=== PATIENT | female | born 1995 | race Caucasian/White ===

== ENCOUNTER → 2016-12-30 | Outpatient (CLI) | payer BC ==
--- NOTE | 2016-12-30 09:30 | MR ---
EXAMINATION TYPE: MR pituitary wo/w con DATE OF EXAM: 12/30/2016 COMPARISON: MRI brain 06/11/2013 HISTORY: Occipital neuraglia TECHNIQUE: Multiplanar, multisequence images of the brain and brainstem is performed without and with IV contras t, utilizing 20 mL intravenous MultiHance . FINDINGS: Pituitary appears unremarkable. The suprasellar cistern appears normal. Optic chiasm is normal. The p ituitary stalk is in the midline. Enhancement pattern appears normal. The carotid siphon has normal vascular flow voids. No suspicious hypointensity or early washout of contrast is evident. Portion of the brain within the [id number] is normal. IMPRESSION: 1. Normal pituitary.
== END | disposition home or self-care (01) ==
LOC: RADMRIMAIN 06:52
PROVIDERS: ATTEND Family Medicine
DX: M54.81 Occipital neuralgia (principal)
CPT/HCPCS: 70553; A9577

== ENCOUNTER 2017-10-12 13:20 | Emergency (ER) | payer BC ==
[2017-10-12 13:55] VITALS: TEMP 98.6
[2017-10-12 14:28] LABS: Basophils % (A) 0 %; Eosinophils # (A) 0.1 k/uL (0-0.7); Eosinophils % (A) 1 %; HCT 41.2 % (34.0-46.0); HGB 13.6 gm/dL (11.4-16.0); Lymphocytes # (A) 2.3 k/uL (1.0-4.8); Lymphocytes % (A) 40 %; MCH 26.1 pg (25.0-35.0); MCV 79.2 fL (80.0-100.0); Mean Platelet Volume 6.4; Monocytes # (A) 0.2 k/uL (0-1.0); Monocytes % (A) 4 %; Neutrophils # (A) 3.1 k/uL (1.3-7.7); Neutrophils % (A) 52 %; Platelet Count 388 k/uL (150-450); RDW 12.9 % (11.5-15.5); WBC 5.9 k/uL (3.8-10.6)
[2017-10-12 14:41] LABS: ALT 32 U/L (9-52); AST 28 U/L (14-36); Albumin 4.1 g/dL (3.5-5.0); Alkaline Phosphatase 103 U/L (38-126); Amylase 49 U/L (30-110); Anion Gap 11 mmol/L; Blood Urea Nitrogen 12 mg/dL (7-17); Calcium 9.8 mg/dL (8.4-10.2); Carbon Dioxide 27 mmol/L (22-30); Chloride 103 mmol/L (98-107); Glucose 97 mg/dL (74-99); Lipase 122 U/L (23-300); Potassium 4.2 mmol/L (3.5-5.1); Sodium 141 mmol/L (137-145); Total Bilirubin 0.4 mg/dL (0.2-1.3); Total Protein 7.3 g/dL (6.3-8.2)
[2017-10-12] MEDS ORDERED: RX INFO: IV CONTRAST WAS GIVEN 1 EACH MISC MISCELLANE PRN (14:42)
[2017-10-12] MEDS ORDERED: ONDANSETRON 4 MG/2 ML VIAL IVP STA (14:43)
[2017-10-12] MEDS ORDERED: SODIUM CHLORIDE 0.9% 500 ML IV STA (14:43)
--- NOTE | 2017-10-12 14:57 | ED ---
Abdominal Pain HPI - General Chief Complaint: Abdominal Pain Stated Complaint: Upset stomach and vaginal bleeding Time Seen by Provider: 10/12/17 14:17 Source: patient Mode of arrival: ambulatory Limitations: no limitations - History of Present Illness Initial Comments: 21-year-old obese female with past medical history of ovarian cysts presented for evaluation of suprapubic abdominal pain started this morning. She states that the pain was present when she woke up however it did not wake her from sleep. Describes it as her "stomach feels upset" and states the pain is nonradiating and rated at a scale of 4 out of 10. There is some associated nausea and she states for the last week she has also had some intermittent diarrhea. She didn't take anything for the pain and decided she would try to tough it out and go to work this morning however around 1300 she had a bloody bowel movement which prompted her visit to the ED at this time. She denies any previous abdominal surgeries, recent medication changes, dysuria. She states she just started her period and it is on time and regular flow and denies this being confused for the rectal bleeding. No associated chest pain, shortness breath, upper abdominal pain, rashes or other skin lesions. - Related Data Home Medications Medication Instructions Recorded Confirmed Naproxen Sodium [Aleve] 440 mg PO DAILY PRN 10/12/17 10/12/17 Previous Rx's Medication Instructions Recorded Sulfamethox-Tmp 800-160Mg [Bactrim 1 tab PO Q12HR #10 tab 10/12/17 DS 800-160 mg] Allergies Allergy/AdvReac Type Severity Reaction Status Date / Time amoxicillin [Amoxicillin] Allergy Rash/Hives Verified 10/12/17 14:35 Penicillins Allergy Unknown Verified 10/12/17 14:35 cefprozil AdvReac Rash/Hives Verified 10/12/17 14:35 Sulfa (Sulfonamide AdvReac Nausea & Verified 10/12/17 14:35 Antibiotics) Vomiting Review of Systems ROS Statement: Those systems with pertinent positive or pertinent negative responses have been documented in the HPI. ROS Other: All systems not noted in ROS Statement are negative. Constitutional: Denies: fever, chills Eyes: Denies: eye pain ENT: Denies: ear pain, throat pain Respiratory: Denies: cough, dyspnea, wheezes Cardiovascular: Denies: chest pain, palpitations, dyspnea on exertion Endocrine: Denies: fatigue, polydipsia, polyuria Gastrointestinal: Reports: abdominal pain, nausea, diarrhea, hematochezia. Denies: vomiting, constipation, hematemesis, melena Genitourinary: Reports: other (Currently on her period with normal menses). Denies: urgency, dysuria Musculoskeletal: Denies: back pain, arthralgia, myalgia Skin: Denies: rash, lesions Neurological: Denies: headache, weakness Psychiatric: Denies: anxiety, depression Past Medical History Past Medical History: No Reported History Additional Past Medical History / Comment(s): ovarian cysts History of Any Multi-Drug Resistant Organisms: None Reported Past Surgical History: No Surgical Hx Reported Past Psychological History: No Psychological Hx Reported Smoking Status: Never smoker Past Alcohol Use History: Occasional Past Drug Use History: None Reported General Exam Limitations: no limitations General appearance: alert, in no apparent distress Head exam: Present: atraumatic, normocephalic Eye exam: Present: normal appearance, PERRL, EOMI ENT exam: Present: normal exam, normal oropharynx Neck exam: Present: normal inspection, full ROM. Absent: tenderness Respiratory exam: Present: normal lung sounds bilaterally. Absent: respiratory distress, wheezes, rales, rhonchi, stridor Cardiovascular Exam: Present: regular rate, normal rhythm GI/Abdominal exam: Present: soft, tenderness. Absent: distended, guarding, rebound, rigid Rectal exam: Present: deferred Extremities exam: Present: normal inspection, full ROM Back exam: Present: normal inspection, full ROM Neurological exam: Present: alert, oriented X3 Psychiatric exam: Present: normal affect, normal mood Skin exam: Present: warm, dry, intact Course Vital Signs 10/12/17 10/12/17 13:54 17:28 Temperature 98.6 F Pulse Rate 99 90 Respiratory 18 16 Rate Blood Pressure 136/88 117/59 O2 Sat by Pulse 99 99 Oximetry Medical Decision Making - Medical Decision Making 21-year-old obese female presented for evaluation of suprapubic abdominal pain that started this morning associated with an episode of hematochezia. On physical examination she appears to be in no apparent distress. Abdomen is soft and non-peritoneal without signs of guarding, rigidity, or rebound and she states her symptoms are not exacerbated or relieved by palpation of the suprapubic abdominal area. His membranes are moist and pink and there are no other abnormalities noted to her physical exam. We'll obtain CT abdomen and pelvis, labs, and provide Zofran for nausea. Labs significant for a stable hemoglobin and urinalysis is positive for UTI. CT abdomen and pelvis showed no acute process. The patient was reevaluated and had no change in her exam and continued to be in no apparent distress. Abdomen was reevaluated and was soft without peritoneal signs as well. She was informed of all results and that she be given a prescription for antibiotics and advised to follow-up with her primary care physician. She was further advised to return to this facility if her symptoms should worsen or persist. The patient acknowledged an understanding of all information provided and agreed with the plan of care. - Lab Data Result diagrams: 10/12/17 14:16 10/12/17 14:16 Lab Results 10/12/17 10/12/17 10/12/17 Range/Units 14:16 14:16 15:05 WBC 5.9 (3.8-10.6) k/uL RBC 5.20 (3.80-5.40) m/uL Hgb 13.6 (11.4-16.0) gm/dL Hct 41.2 (34.0-46.0) % MCV 79.2 L (80.0-100.0) fL MCH 26.1 (25.0-35.0) pg MCHC 33.0 (31.0-37.0) g/dL RDW 12.9 (11.5-15.5) % Plt Count 388 (150-450) k/uL Neutrophils % 52 % Lymphocytes % 40 % Monocytes % 4 % Eosinophils % 1 % Basophils % 0 % Neutrophils # 3.1 (1.3-7.7) k/uL Lymphocytes # 2.3 (1.0-4.8) k/uL Monocytes # 0.2 (0-1.0) k/uL Eosinophils # 0.1 (0-0.7) k/uL Basophils # 0.0 (0-0.2) k/uL Sodium 141 (137-145) mmol/L Potassium 4.2 (3.5-5.1) mmol/L Chloride 103 (98-107) mmol/L Carbon Dioxide 27 (22-30) mmol/L Anion Gap 11 mmol/L BUN 12 (7-17) mg/dL Creatinine 0.60 (0.52-1.04) mg/dL Est GFR (CKD-EPI)AfAm >90 (>60 ml/min/1.73 sqM) Est GFR (CKD-EPI)NonAf >90 (>60 ml/min/1.73 sqM) Glucose 97 (74-99) mg/dL Calcium 9.8 (8.4-10.2) mg/dL Total Bilirubin 0.4 (0.2-1.3) mg/dL AST 28 (14-36) U/L ALT 32 (9-52) U/L Alkaline Phosphatase 103 (38-126) U/L Total Protein 7.3 (6.3-8.2) g/dL Albumin 4.1 (3.5-5.0) g/dL Amylase 49 (30-110) U/L Lipase 122 (23-300) U/L Urine Color Light Red Urine Appearance Cloudy H (Clear) Urine pH 6.5 (5.0-8.0) Ur Specific [place] 1.028 (1.001-1.035) Urine Protein 1+ H (Negative) Urine Glucose (UA) Negative (Negative) Urine Ketones Negative (Negative) Urine Blood Large H (Negative) Urine Nitrite Negative (Negative) Urine Bilirubin Negative (Negative) Urine Urobilinogen 2.0 (<2.0) mg/dL Ur Leukocyte Esterase Small H (Negative) Urine RBC >182 H (0-5) /hpf Ur Squamous Epith Cells 7 H (0-4) /hpf Calcium Oxalate Crystal Occasional H (None) /hpf Urine Bacteria Few H (None) /hpf Urine Mucus Occasional H (None) /hpf Urine HCG, Qual (Not Detectd) 10/12/17 Range/Units 15:05 WBC (3.8-10.6) k/uL RBC (3.80-5.40) m/uL Hgb (11.4-16.0) gm/dL Hct (34.0-46.0) % MCV (80.0-100.0) fL MCH (25.0-35.0) pg MCHC (31.0-37.0) g/dL RDW (11.5-15.5) % Plt Count (150-450) k/uL Neutrophils % % Lymphocytes % % Monocytes % % Eosinophils % % Basophils % % Neutrophils # (1.3-7.7) k/uL Lymphocytes # (1.0-4.8) k/uL Monocytes # (0-1.0) k/uL Eosinophils # (0-0.7) k/uL Basophils # (0-0.2) k/uL Sodium (137-145) mmol/L Potassium (3.5-5.1) mmol/L Chloride (98-107) mmol/L Carbon Dioxide (22-30) mmol/L Anion Gap mmol/L BUN (7-17) mg/dL Creatinine (0.52-1.04) mg/dL Est GFR (CKD-EPI)AfAm (>60 ml/min/1.73 sqM) Est GFR (CKD-EPI)NonAf (>60 ml/min/1.73 sqM) Glucose (74-99) mg/dL Calcium (8.4-10.2) mg/dL Total Bilirubin (0.2-1.3) mg/dL AST (14-36) U/L ALT (9-52) U/L Alkaline Phosphatase (38-126) U/L Total Protein (6.3-8.2) g/dL Albumin (3.5-5.0) g/dL Amylase (30-110) U/L Lipase (23-300) U/L Urine Color Urine Appearance (Clear) Urine pH (5.0-8.0) Ur Specific [place] (1.001-1.035) Urine Protein (Negative) Urine Glucose (UA) (Negative) Urine Ketones (Negative) Urine Blood (Negative) Urine Nitrite (Negative) Urine Bilirubin (Negative) Urine Urobilinogen (<2.0) mg/dL Ur Leukocyte Esterase (Negative) Urine RBC (0-5) /hpf Ur Squamous Epith Cells (0-4) /hpf Calcium Oxalate Crystal (None) /hpf Urine Bacteria (None) /hpf Urine Mucus (None) /hpf Urine HCG, Qual Not Detected (Not Detectd) Disposition Clinical Impression: UTI (urinary tract infection) Disposition: HOME SELF-CARE Condition: Stable Instructions: Urinary Tract Infection in Women (ED) Additional Instructions: Please use medication as discussed. Please follow up with family doctor if symptoms have not improved over the next two days. Please return to the emergency room if your symptoms increase or worsen or for any other concerns. Prescriptions: Sulfamethox-Tmp 800-160Mg [Bactrim DS 800-160 mg] 1 tab PO Q12HR #10 tab Referrals: Belinda Robledo DO [Primary Care Provider] - 1-2 days Scott Magana MD [STAFF PHYSICIAN] - 1-2 days Time of Disposition: 16:51
[2017-10-12 15:38] LABS: Appearance,Urine Cloudy (Clear); Bacteria,Urine Few /hpf; Bilirubin,Urine Negative (Negative); Blood,Urine Large (Negative); Calcium Oxalate Crystals,Urine Occasional /hpf; Color,Urine Light Red; Glucose,Urine (UA) Negative (Negative); Ketones,Urine Negative (Negative); Leukocyte Esterase,Urine Small (Negative); Mucus,Urine Occasional /hpf; Nitrite,Urine Negative (Negative); PH, Urine 6.5 (5.0-8.0); Protein,Urine 1+ (Negative); RBC,Urine >182 /hpf (0-5); Specific Gravity,Urine 1.028 (1.001-1.035); Squamous Epithelial Cell,Urine 7 /hpf (0-4)
--- NOTE | 2017-10-12 16:10 | CT ---
EXAMINATION TYPE: CT abdomen pelvis w con DATE OF EXAM: 10/12/2017 HISTORY: Abdominal pain with nausea and vomiting CT DLP: 1991.4mGycm Automated Exposure Control for Dose Reduction was Utilized. CONTRAST: CT scan of the abdomen and pelvis is performed with IV Contrast, patient injected with 100 mL of Isov ue 300. COMPARISON: 06/06/2011. FINDINGS: LUNG BASES: No significant abnormality is appreciated. LIVER/GB: Subtle focal wedge-shaped area of hypoattenuation is seen near the fissure for the falcifor m ligament, most commonly related to focal fatty infiltration. Remainder the liver is unremarkable. G allbladder demonstrates no evidence of cholelithiasis. PANCREAS: No significant abnormality is seen. SPLEEN: No significant abnormality is seen. ADRENALS: No thickening or nodularity. KIDNEYS: 4 mm calculus is seen within the left lower pole of the kidney that is nonobstructing. Sligh t extrarenal pelvises are seen bilaterally. Right lower pole 3 mm nonobstructing calculus is also yash ntified. The kidneys enhance and excrete symmetrically. BOWEL: Appendix appears diminutive in caliber but is air-filled and within normal limits of size. [employer] el is nondilated. No evidence of obstruction. UTERUS/ADNEXA: Follicular changes are seen in the ovaries. Uterus is unremarkable. LYMPH NODES: No greater than 1cm abdominal or pelvic lymph nodes are appreciated. OSSEOUS STRUCTURES: No significant abnormality is seen. IMPRESSION: 1. No significant acute finding is seen to account for patient's clinical symptoms. 2. Appendix appears diminutive but is air-filled and within normal limits. 3. Bilateral nonobstructing renal calculi.
[2017-10-12 17:29] VITALS: BP 117/59; PULSE 90; RESP 16
== END 2017-10-12 17:30 | disposition home or self-care (01) ==
LOC: EC 13:20
DX: N39.0 Urinary tract infection, site not specified (principal); K92.1 Melena; E66.9 Obesity, unspecified; R11.0 Nausea; Z87.42 Personal history of other diseases of the female genital tract; Z68.41 Body mass index [BMI] 40.0-44.9, adult; Z88.0 Allergy status to penicillin; Z88.1 Allergy status to other antibiotic agents; Z88.2 Allergy status to sulfonamides
CPT/HCPCS: 99284; 96374; 36415; 80053; 82150; 83690; 85025; 81001; 81025; 87086; 74177; J2405; Q9967

== ENCOUNTER 2017-11-15 09:19 | Day surgery (SDC) | payer BC ==
[2017-11-14 10:59] VITALS: BMI 49.8
[~2017-11-15 09:19] MED LIST: LACTATED RINGERS 1,000 ML IV SCH; LIDOCAINE 1% 20 ML VIAL (10MG/ML) FOR IV START INTRADERMA PRN; MIDAZOLAM 2 MG/2 ML VIAL IV PRN
[2017-11-15 10:19] VITALS: RESP 16; TEMP 98.8
[2017-11-15] MEDS ORDERED: PROPOFOL 10 MG/ML 20 ML VIAL IV ONE (10:31)
[2017-11-15] MEDS ORDERED: LIDOCAINE 1% INJ 10MG/ML (20 ML MDV) ONE (10:31)
--- NOTE | 2017-11-15 10:45 | P.PCN ---
Date of Procedure: 11/15/17 Procedure(s) Performed: BRIEF HISTORY: Patient is a 21-year-old pleasant white female, scheduled for an elective colonoscopy as a part of value should of intermittent rectal bleeding for the last few weeks duration. PROCEDURE PERFORMED: Colonoscopy. PREOPERATIVE DIAGNOSIS: Rectal bleeding. IV sedation per Anesthesia. PROCEDURE: After informed consent was obtained, the patient, was brought into the endoscopy unit. IV sedation was administered by Anesthesia under continuous monitoring. Digital rectal examination was normal. Initially the Olympus CF- 160 flexible video colonoscope was then inserted in the rectum, gradually advanced into the cecum without any difficulty. Careful examination was performed as the scope was gradually being withdrawn. Ileocecal valve and the appendiceal orifice were visualized and appeared normal. Prep was excellent. Mucosa of the cecum, ascending colon, transverse colon, descending colon, sigmoid colon, and rectum appeared normal. Retroflexion was performed in the rectum and no lesions were seen. The patient tolerated the procedure well. IMPRESSION: Normal-appearing colon from rectum to cecum with no evidence of colorectal neoplasia . RECOMMENDATIONS: Findings of this examination were discussed with the patient as well as a family. She was advised to be a high-fiber diet and take fiber supplements as needed. If she has recurrent bleeding she was advised to follow with the office.
[2017-11-15 11:19] VITALS: BP 112/74; PULSE 74
== END 2017-11-15 11:35 | disposition home or self-care (01) ==
LOC: ORWHC2ENDO 09:19
PROVIDERS: ATTEND Internal Medicine Gastroenterology
DX: K62.5 Hemorrhage of anus and rectum (principal); E66.01 Morbid (severe) obesity due to excess calories; Z68.42 Body mass index [BMI] 45.0-49.9, adult; G43.909 Migraine, unspecified, not intractable, without status migrainosus; Z79.899 Other long term (current) drug therapy; Z79.1 Long term (current) use of non-steroidal anti-inflammatories (NSAID); Z88.0 Allergy status to penicillin; Z88.2 Allergy status to sulfonamides
CPT/HCPCS: 81025; 45378; J2001; J2704

== ENCOUNTER → 2018-01-17 | Outpatient (CLI) | payer OTHER ==
--- NOTE | 2018-01-17 17:43 | XR ---
EXAMINATION TYPE: XR foot complete RT DATE OF EXAM: 01/17/2018 COMPARISON: NONE HISTORY: Foot pain TECHNIQUE: 3 views FINDINGS: I see no fracture nor dislocation. Joint spaces are normal. Metatarsals are intact. IMPRESSION: Negative right foot exam.
--- NOTE | 2018-01-17 17:43 | XR ---
EXAMINATION TYPE: XR ankle complete RT DATE OF EXAM: 01/17/2018 COMPARISON: NONE HISTORY: Foot pain TECHNIQUE: 3 views FINDINGS: Ankle mortise is anatomic. I see no fracture nor dislocation. Joint spaces are normal. IMPRESSION: Negative right ankle exam.
== END | disposition home or self-care (01) ==
LOC: RADXRMAIN 17:09
PROVIDERS: ATTEND Emergency Medicine
DX: S93.401A Sprain of unspecified ligament of right ankle, initial encounter (principal); S93.601A Unspecified sprain of right foot, initial encounter

== ENCOUNTER → 2018-01-24 | Outpatient (CLI) | payer OTHER ==
--- NOTE | 2018-01-24 11:39 | XR ---
EXAMINATION TYPE: XR foot complete RT DATE OF EXAM: 01/24/2018 CLINICAL HISTORY: Lateral side pain for one week after sprain injury TECHNIQUE: Frontal, lateral, and oblique images of the right foot are obtained. COMPARISON: Right foot x-ray from one week earlier. FINDINGS: There is no acute fracture/dislocation evident in the right foot. Marked flexion or hammer toe type deformity second through fifth toes makes evaluation at this level slightly suboptimal. The joint spaces in the right foot otherwise appear within normal limits. The overlying soft tissue appe ars unremarkable. IMPRESSION: There is no acute fracture or dislocation in the right foot. No significant change from prior.
== END | disposition home or self-care (01) ==
LOC: RADXRMAIN 10:05
PROVIDERS: ATTEND Emergency Medicine
DX: S93.601D Unspecified sprain of right foot, subsequent encounter (principal)

== ENCOUNTER → 2018-02-20 | Outpatient (CLI) | payer OTHER ==
--- NOTE | 2018-02-21 00:07 | MR ---
EXAMINATION TYPE: MR foot RT wo con DATE OF EXAM: 02/20/2018 COMPARISON: None HISTORY: R foot pain, injury Standard multiplanar, multisequence MRI departmental protocol Multiplanar, multisequence images of the right foot were acquired. FINDINGS: The metatarsals are intact. Calcaneus and talus appear intact. Joint spaces are fairly norm al. I see no bony destructive process. There is no evidence of bone edema. Ankle mortise is anatomic. Collateral ligaments appear intact. Medial and lateral flexor tendons of the ankle appear intact. Th ere is mild soft tissue swelling on the dorsum of the forefoot. There is small effusions noted at the second third and fourth MP joints. IMPRESSION: Small joint effusions at the second third fourth MP joints. No fracture. Mild soft tissue swelling of the forefoot.
== END | disposition home or self-care (01) ==
LOC: RADMRIMAIN 06:33
PROVIDERS: ATTEND Emergency Medicine
DX: M25.474 Effusion, right foot (principal); S80.01XD Contusion of right knee, subsequent encounter; S93.401D Sprain of unspecified ligament of right ankle, subsequent encounter

== ENCOUNTER → 2018-02-20 | Outpatient (CLI) | payer BC | END | disposition home or self-care (01) | LOC: LABWHC1 07:44 | PROVIDERS: ATTEND Internal Medicine Gastroenterology | DX: R10.30 Lower abdominal pain, unspecified (principal) | CPT/HCPCS: 36415; 83516; 85652 ==

== ENCOUNTER 2018-04-21 02:01 | Emergency (ER) | payer BC ==
[2018-04-21] MEDS ORDERED: ONDANSETRON 4 MG/2 ML VIAL IVP STA (02:26)
[2018-04-21] MEDS ORDERED: KETOROLAC 30 MG/ML 1 ML VIAL IVP STA (02:26)
[2018-04-21] MEDS ORDERED: SODIUM CHLORIDE 0.9% 1,000 ML IV STA (02:26)
[2018-04-21] MEDS ORDERED: MORPHINE SULFATE 4 MG/ML SYRINGE IV STA (02:26)
[2018-04-21 03:17] LABS: Appearance,Urine Cloudy (Clear); Bacteria,Urine Few /hpf; Bilirubin,Urine Negative (Negative); Blood,Urine Large (Negative); Color,Urine Light Red; Glucose,Urine (UA) Negative (Negative); Ketones,Urine Negative (Negative); Leukocyte Esterase,Urine Moderate (Negative); Mucus,Urine Rare /hpf; Nitrite,Urine Negative (Negative); PH, Urine 5.5 (5.0-8.0); Protein,Urine 1+ (Negative); RBC,Urine >182 /hpf (0-5); Specific Gravity,Urine 1.021 (1.001-1.035); Squamous Epithelial Cell,Urine 12 /hpf (0-4); Urobilinogen,Urine <2.0 mg/dL (<2.0)
[2018-04-21 03:23] LABS: Basophils % (A) 0 %; Eosinophils # (A) 0.1 k/uL (0-0.7); Eosinophils % (A) 1 %; HCT 40.6 % (34.0-46.0); HGB 13.2 gm/dL (11.4-16.0); Lymphocytes # (A) 1.4 k/uL (1.0-4.8); Lymphocytes % (A) 24 %; MCH 25.2 pg (25.0-35.0); MCHC 32.6 g/dL (31.0-37.0); MCV 77.2 fL (80.0-100.0); Mean Platelet Volume 6.4; Monocytes # (A) 0.2 k/uL (0-1.0); Monocytes % (A) 4 %; Neutrophils # (A) 4.2 k/uL (1.3-7.7); Neutrophils % (A) 71 %; Platelet Count 345 k/uL (150-450); RBC 5.27 m/uL (3.80-5.40); RDW 14.1 % (11.5-15.5); WBC 5.9 k/uL (3.8-10.6)
[2018-04-21 03:32] LABS: Albumin 4.3 g/dL (3.5-5.0); Amylase 44 U/L (30-110); Anion Gap 10 mmol/L; Calcium 10.1 mg/dL (8.4-10.2); Carbon Dioxide 26 mmol/L (22-30); Chloride 104 mmol/L (98-107); Glucose 91 mg/dL (74-99); Lipase 133 U/L (23-300); Sodium 140 mmol/L (137-145); Total Bilirubin 0.5 mg/dL (0.2-1.3); Total Protein 7.7 g/dL (6.3-8.2)
[2018-04-21 03:34] LABS: AST 35 U/L (14-36); Blood Urea Nitrogen 11 mg/dL (7-17); Potassium 4.4 mmol/L (3.5-5.1)
[2018-04-21 03:35] LABS: ALT 33 U/L (9-52); Alkaline Phosphatase 95 U/L (38-126)
--- NOTE | 2018-04-21 04:03 | ED ---
Female Urogenital HPI - General Source: patient Mode of arrival: ambulatory Limitations: no limitations <Ness Freeman - Last Filed: 04/21/18 05:03> <Caitlin Castellanos - Last Filed: 04/22/18 00:26> - General Chief complaint: Urogenital Stated complaint: pelvic pain Time Seen by Provider: 04/21/18 02:14 - History of Present Illness Initial comments: 22-year-old female patient presents to the emergency department today for evaluation of suprapubic pain. Patient states that this is a sharp stabbing pain that she describes as severe. States that it started 2-3 days ago and has been getting worse. States that she did start her period today the bleeding amount has been normal. Patient denies any passage of large clots. Denies any chance of , states she is not sexually active. States that she has had pain similar to this in the past but her doctor and box blank machine feeder never been able to figure out words coming from. States that she did vomit one time yesterday from pain. She has had diarrhea, but this is chronic for her. She denies hematochezia or melena. Patient denies any hematuria, dysuria, urinary frequency, urinary urgency. She denies any fever or chills. Denies any radiation of the pain into her back. Patient denies any recent rash, shortness breath, chest pain, nausea, vomiting, diarrhea, constipation, back pain, numbness, tingling, dizziness, weakness, headache, visual changes, or any other complaints. (Ness Freeman) - Related Data Home Medications Medication Instructions Recorded Confirmed Ibuprofen [Motrin Ib] 400 mg PO BID PRN 11/14/17 11/15/17 Naproxen Sodium [Aleve] 440 mg PO BID PRN 11/14/17 11/15/17 Topiramate [Topamax] 50 mg PO HS 11/14/17 11/15/17 Previous Rx's Medication Instructions Recorded Ketorolac [Toradol] 10 mg PO Q6HR #12 tab 04/21/18 Ondansetron [Zofran ODT] 4 mg PO Q8HR PRN #10 tab 04/21/18 Tamsulosin HCl [Flomax] 0.4 mg PO DAILY #7 cap 04/21/18 Allergies Allergy/AdvReac Type Severity Reaction Status Date / Time amoxicillin [Amoxicillin] Allergy Rash/Hives Verified 04/21/18 02:05 Penicillins Allergy Unknown Verified 04/21/18 02:05 cefprozil AdvReac Rash/Hives Verified 04/21/18 02:05 Sulfa (Sulfonamide AdvReac Nausea & Verified 04/21/18 02:05 Antibiotics) Vomiting Review of Systems ROS Other: All systems not noted in ROS Statement are negative. <Ness Freeman - Last Filed: 04/21/18 05:03> ROS Other: All systems not noted in ROS Statement are negative. <Caitlin Castellanos - Last Filed: 04/22/18 00:26> ROS Statement: Those systems with pertinent positive or pertinent negative responses have been documented in the HPI. Past Medical History Past Medical History: No Reported History Additional Past Medical History / Comment(s): ovarian cysts, migraines., states having diarrhea & blood in stool History of Any Multi-Drug Resistant Organisms: None Reported Past Surgical History: No Surgical Hx Reported Additional Past Surgical History / Comment(s): wisdom teeth Additional Past Anesthesia/Blood Transfusion Reaction / Comment(s): NO ANESTHESIA HX. Past Psychological History: No Psychological Hx Reported Smoking Status: Never smoker Past Alcohol Use History: Rare Past Drug Use History: None Reported - Past Family History Mother Family Medical History: No Reported History <Ness Freeman - Last Filed: 04/21/18 05:03> General Exam Limitations: no limitations General appearance: alert, in no apparent distress, other (This is a well- developed, well-nourished adult female patient in no acute distress. Vital signs upon presentation are temperature 98.2F, pulse 120, respirations 24, respirations 161/107, pulse ox 99% on room air.) Eye exam: Present: normal appearance, PERRL, EOMI. Absent: scleral icterus, conjunctival injection, periorbital swelling ENT exam: Present: normal exam, normal oropharynx, mucous membranes moist Respiratory exam: Present: normal lung sounds bilaterally. Absent: respiratory distress, wheezes, rales, rhonchi, stridor Cardiovascular Exam: Present: regular rate, normal rhythm, normal heart sounds. Absent: systolic murmur, diastolic murmur, rubs, gallop, clicks GI/Abdominal exam: Present: soft, tenderness (Mild superpubic tenderness), normal bowel sounds. Absent: distended, guarding, rebound, rigid External exam: Present: normal external exam Speculum exam: Present: other (unable to tolerate speculum exam) By manual exam: Present: other (unable to tolerate bimanual exam) Neurological exam: Present: alert, oriented X3, CN II-XII intact Psychiatric exam: Present: normal affect, normal mood Skin exam: Present: warm, dry, intact, normal color. Absent: rash <Ness Freeman - Last Filed: 04/21/18 05:03> Vital Signs 04/21/18 04/21/18 02:02 04:56 Temperature 98.2 F 98.0 F Pulse Rate 120 H 74 Respiratory 24 16 Rate Blood Pressure 161/107 134/86 O2 Sat by Pulse 99 100 Oximetry Medical Decision Making - Lab Data Result diagrams: 04/21/18 03:10 04/21/18 03:10 - Radiology Data Radiology results: report reviewed, image reviewed <Ness Freeman - Last Filed: 04/21/18 05:03> - Lab Data Result diagrams: 04/21/18 03:10 04/21/18 03:10 <Caitlin Castellanos - Last Filed: 04/22/18 00:26> - Medical Decision Making 22-year-old female patient presents to the emergency department today for suprapubic pelvic pain. Physical examination did reveal some mild tenderness to the suprapubic region. Did attempt to perform pelvic examination including speculum and bimanual exam, patient was unable to tolerate this. Ideally I would like to performed ultrasound to rule out ovarian torsion however patient would not have been able to tolerate transvaginal wand, and body habitus would not provide did transabdominal evaluation of the pelvic organs. I did discuss CAT scan with patient, discussed risks versus benefits of radiation exposure. She did agree to go ahead with the scan. CT abdomen and pelvis did show evidence of kidney stone in the left lower ureter with left-sided hydronephrosis. I did discuss these findings with the patient, she denied having any flank a 9 or history of kidney stones. We will treat her for this. Did explain that the CT is suboptimal for evaluating pelvic organs and she should follow-up with gynecology for further evaluation. She will also be referred to urology. She'll be treated with pain medicine and Flomax. Return parameters discussed in detail. She verbalizes understanding and agrees with this plan. (Ness Freeman) I was available for consultation in the emergency department. The history and physical exam were done by the midlevel provider. I was consulted for this patient's care. I reviewed the case with the midlevel provider and based on their presentation of the patient, I agree with the assessment, medical decision making and plan of care as documented. (Caitlin Castellanos) - Lab Data Lab Results 04/21/18 04/21/18 04/21/18 Range/Units 03:00 03:00 03:10 WBC (3.8-10.6) k/uL RBC (3.80-5.40) m/uL Hgb (11.4-16.0) gm/dL Hct (34.0-46.0) % MCV (80.0-100.0) fL MCH (25.0-35.0) pg MCHC (31.0-37.0) g/dL RDW (11.5-15.5) % Plt Count (150-450) k/uL Neutrophils % % Lymphocytes % % Monocytes % % Eosinophils % % Basophils % % Neutrophils # (1.3-7.7) k/uL Lymphocytes # (1.0-4.8) k/uL Monocytes # (0-1.0) k/uL Eosinophils # (0-0.7) k/uL Basophils # (0-0.2) k/uL Sodium 140 (137-145) mmol/L Potassium 4.4 (3.5-5.1) mmol/L Chloride 104 (98-107) mmol/L Carbon Dioxide 26 (22-30) mmol/L Anion Gap 10 mmol/L BUN 11 (7-17) mg/dL Creatinine 0.58 (0.52-1.04) mg/dL Est GFR (CKD-EPI)AfAm >90 (>60 ml/min/1.73 sqM) Est GFR (CKD-EPI)NonAf >90 (>60 ml/min/1.73 sqM) Glucose 91 (74-99) mg/dL Calcium 10.1 (8.4-10.2) mg/dL Total Bilirubin 0.5 (0.2-1.3) mg/dL AST 35 (14-36) U/L ALT 33 (9-52) U/L Alkaline Phosphatase 95 (38-126) U/L Total Protein 7.7 (6.3-8.2) g/dL Albumin 4.3 (3.5-5.0) g/dL Amylase 44 (30-110) U/L Lipase 133 (23-300) U/L Urine Color Light Red Urine Appearance Cloudy H (Clear) Urine pH 5.5 (5.0-8.0) Ur Specific [place] 1.021 (1.001-1.035) Urine Protein 1+ H (Negative) Urine Glucose (UA) Negative (Negative) Urine Ketones Negative (Negative) Urine Blood Large H (Negative) Urine Nitrite Negative (Negative) Urine Bilirubin Negative (Negative) Urine Urobilinogen <2.0 (<2.0) mg/dL Ur Leukocyte Esterase Moderate H (Negative) Urine RBC >182 H (0-5) /hpf Ur Squamous Epith Cells 12 H (0-4) /hpf Urine Bacteria Few H (None) /hpf Urine Mucus Rare H (None) /hpf Urine HCG, Qual Not Detected (Not Detectd) 04/21/18 Range/Units 03:10 WBC 5.9 (3.8-10.6) k/uL RBC 5.27 (3.80-5.40) m/uL Hgb 13.2 (11.4-16.0) gm/dL Hct 40.6 (34.0-46.0) % MCV 77.2 L (80.0-100.0) fL MCH 25.2 (25.0-35.0) pg MCHC 32.6 (31.0-37.0) g/dL RDW 14.1 (11.5-15.5) % Plt Count 345 (150-450) k/uL Neutrophils % 71 % Lymphocytes % 24 % Monocytes % 4 % Eosinophils % 1 % Basophils % 0 % Neutrophils # 4.2 (1.3-7.7) k/uL Lymphocytes # 1.4 (1.0-4.8) k/uL Monocytes # 0.2 (0-1.0) k/uL Eosinophils # 0.1 (0-0.7) k/uL Basophils # 0.0 (0-0.2) k/uL Sodium (137-145) mmol/L Potassium (3.5-5.1) mmol/L Chloride (98-107) mmol/L Carbon Dioxide (22-30) mmol/L Anion Gap mmol/L BUN (7-17) mg/dL Creatinine (0.52-1.04) mg/dL Est GFR (CKD-EPI)AfAm (>60 ml/min/1.73 sqM) Est GFR (CKD-EPI)NonAf (>60 ml/min/1.73 sqM) Glucose (74-99) mg/dL Calcium (8.4-10.2) mg/dL Total Bilirubin (0.2-1.3) mg/dL AST (14-36) U/L ALT (9-52) U/L Alkaline Phosphatase (38-126) U/L Total Protein (6.3-8.2) g/dL Albumin (3.5-5.0) g/dL Amylase (30-110) U/L Lipase (23-300) U/L Urine Color Urine Appearance (Clear) Urine pH (5.0-8.0) Ur Specific [place] (1.001-1.035) Urine Protein (Negative) Urine Glucose (UA) (Negative) Urine Ketones (Negative) Urine Blood (Negative) Urine Nitrite (Negative) Urine Bilirubin (Negative) Urine Urobilinogen (<2.0) mg/dL Ur Leukocyte Esterase (Negative) Urine RBC (0-5) /hpf Ur Squamous Epith Cells (0-4) /hpf Urine Bacteria (None) /hpf Urine Mucus (None) /hpf Urine HCG, Qual (Not Detectd) - Radiology Data CT abdomen and pelvis with contrast was obtained. Report was reviewed in its entirety. Impression by Dr. Hilliard shows obstruction of the left upper collecting system due to stone in the lower left ureter. No sign of appendicitis. (Ness Freeman) Disposition Is patient prescribed a controlled substance at d/c from ED?: No Time of Disposition: 04:38 <Ness Freeman - Last Filed: 04/21/18 05:03> <Caitlin Castellanos - Last Filed: 04/22/18 00:26> Clinical Impression: Kidney stone on left side, Pelvic pain Disposition: HOME SELF-CARE Condition: Good Instructions: Kidney Stones (ED), Pelvic Pain in Women (ED) Additional Instructions: Increase fluids. Take medications as directed. Follow-up with your primary care physician for recheck in 1-2 days. Follow-up with your box blank machine feeder for recheck. Follow-up with urology for recheck. Return here immediately for any new, worsening, or concerning symptoms. Prescriptions: Ketorolac [Toradol] 10 mg PO Q6HR #12 tab Ondansetron [Zofran ODT] 4 mg PO Q8HR PRN #10 tab PRN Reason: Nausea Tamsulosin HCl [Flomax] 0.4 mg PO DAILY #7 cap Referrals: Belinda Robledo DO [Primary Care Provider] - 1-2 days
--- NOTE | 2018-04-21 04:08 | CT ---
EXAMINATION TYPE: CT abdomen pelvis w con DATE OF EXAM: 04/21/2018 COMPARISON: 10/12/2017 HISTORY: Lower abd pain CT DLP: 2689.40 mGycm Automated exposure control for dose reduction was used. TECHNIQUE: Helical acquisition of images was performed from the lung bases through the pelvis. CONTRAST: Performed without Oral Contrast and with IV Contrast, patient injected with 100 mL of Isovue 300. FINDINGS: Lung bases are clear. There is no pleural effusion. Heart size is normal. There is no pericardial eff usion. Liver spleen pancreas gallbladder appear normal. Bile ducts are not dilated. There is no adren al mass. Kidneys show satisfactory contrast opacification. There is 2 mm calculus anterior right kidn ey. There is left-sided hydronephrosis and hydroureter. There is 4 mm calculus in the lower left uret er. There is mild left-sided periureteral edema. There is no retroperitoneal adenopathy. There is no mesenteric adenopathy or edema. Appendix is not s een with certainty. I see no sign of thickened appendix. There is narrowing at L5-S1 disc space. Uter us is anteverted. I see no pelvic mass. There is no inguinal hernia or adenopathy. IMPRESSION: THERE IS OBSTRUCTION OF THE LEFT UPPER COLLECTING SYSTEM DUE TO STONE IN THE LOWER LEFT URETER. THIS IS A CHANGE COMPARED TO LAST EXAM. NO SIGN OF APPENDICITIS.
[2018-04-21] MEDS ORDERED: TAMSULOSIN 0.4 MG CAP.ER.24H PO STA (04:38)
[2018-04-21] MEDS ORDERED: ACET/COD 300 MG/30 MG STARTER PACK 6 TAB BTL PO STA (04:39)
[2018-04-21 04:58] VITALS: BP 134/86; PULSE 74; RESP 16; TEMP 98
== END 2018-04-21 04:56 | disposition home or self-care (01) ==
LOC: EC 02:01
DX: N13.2 Hydronephrosis with renal and ureteral calculous obstruction (principal); R19.7 Diarrhea, unspecified; Z88.0 Allergy status to penicillin; Z88.1 Allergy status to other antibiotic agents; Z88.2 Allergy status to sulfonamides; Z79.899 Other long term (current) drug therapy; Z86.69 Personal history of other diseases of the nervous system and sense organs
CPT/HCPCS: 99284; 96374; 96375 ×2; 96361; 36415; 80053; 82150; 83690; 85025; 81001; 81025; 87086; 74177; J2270; J2405; J1885; Q9967

== ENCOUNTER 2018-06-19 09:01 | Day surgery (SDC) | payer BC ==
[2018-06-18 10:13] VITALS: BMI 50.8
[~2018-06-19 09:01] MED LIST changes: +ACETAMINOPHEN IV (For NPO) 100 ML IVPB ONE; +DEXAMETHASONE SOD PHOSPHATE 10 MG/ML 1 ML VIAL IV ONE; +HYDROmorphone 1 MG/ML 1 ML SYRINGE IVP PRN; +ONDANSETRON 4 MG/2 ML VIAL IVP ONE; +Pre Op ABX Message 1 EACH MISC MISCELLANE ONE; +fentaNYL (PF) 50 MCG/ML 2 ML AMP IV PRN
[2018-06-19 09:31] VITALS: TEMP 97.5
[2018-06-19] MEDS ORDERED: PROPOFOL 10 MG/ML 20 ML VIAL IV ONE (10:14)
[2018-06-19] MEDS ORDERED: MIDAZOLAM 2 MG/2 ML VIAL ONE (10:14)
[2018-06-19] MEDS ORDERED: fentaNYL (PF) 50 MCG/ML 2 ML AMP ONE (10:14)
[2018-06-19] MEDS ORDERED: LIDOCAINE 1% INJ 10MG/ML (20 ML MDV) ONE (10:14)
[2018-06-19] MEDS ORDERED: BACITRACIN OINT 1 EACH PACKET TOPICAL ONE (10:40)
[2018-06-19] MEDS ORDERED: SILVER NITRATE APPLICATOR 1 EACH STICK..EA. TOPICAL ONE (10:41)
--- NOTE | 2018-06-19 10:45 | P.OP ---
Date of Procedure: 06/19/18 Preoperative Diagnosis: Intact hymen Postoperative Diagnosis: Same Procedure(s) Performed: excision of hymenal ring, exam under anesthesia, Pap smear obtained Anesthesia: MAC Surgeon: Kelly Tucker Pathology: none sent Condition: stable Disposition: PACU Indications for Procedure: Intact hymen patient unable to be sexually active Operative Findings: hymen noted to be intact with lateral defects, normal appearing cervix. Description of Procedure: Patient was seen in the preoperative area and all questions were answered prior to surgery. Patient was taken back to the operating suite where general anesthesia was obtained without difficulty by the anesthesia department. She was prepped and draped in the normal sterile fashion in dorsal lithotomy position [place] catheter was used to drain the bladder of 50 mL of clear yellow urine. On inspection the patient's vaginal vault and intact hymen was noted in the midline with 2 lateral defects this was then excised sharply with the Metzenbaum scissors. A small amount bleeding was noted posteriorly therefore 3 [id number] sutures of Vicryl Rapide were used to obtain hemostasis. A speculum was then placed in the Pap smear was obtained. Normal- appearing cervix was visualized. Next para patient tolerated procedure well all counts were correct 2 and patient was taken the recovery room awake and in stable condition.
[2018-06-19 10:55] VITALS: RESP 18
[2018-06-19] MEDS ORDERED: IBUPROFEN 200 MG TAB PO ONE (11:16)
[2018-06-19 12:12] VITALS: BP 107/72; PULSE 101
== END 2018-06-19 12:30 | disposition home or self-care (01) ==
LOC: OR 09:01
PROVIDERS: ATTEND Obstetrics & Gynecology Obstetrics
DX: N89.6 Tight hymenal ring (principal); E28.2 Polycystic ovarian syndrome; G43.909 Migraine, unspecified, not intractable, without status migrainosus; Z88.1 Allergy status to other antibiotic agents; Z88.0 Allergy status to penicillin; Z88.2 Allergy status to sulfonamides
CPT/HCPCS: 81025; 56700; J2250; J1100; J2405; J2001; J3010; J2704

== ENCOUNTER → 2019-11-25 | Outpatient (CLI) | payer BC ==
--- NOTE | 2019-11-25 15:23 | US ---
EXAMINATION TYPE: US venous doppler duplex LE LT DATE OF EXAM: 11/25/2019 3:11 PM COMPARISON: NONE CLINICAL HISTORY: I80.9 Phlebitis and thrombophlebitis of unspecifie. SIDE PERFORMED: Left TECHNIQUE: The lower extremity deep venous system is examined utilizing real time linear array sonog [place] with graded compression, doppler sonography and color-flow sonography. VESSELS IMAGED: External Iliac Vein (EIV) Common Femoral Vein Deep Femoral Vein Greater Saphenous Vein * Femoral Vein Popliteal Vein Small Saphenous Vein * Proximal Calf Veins (* superficial vessels) Morbidly obese patient. Technically difficult study. Left Leg: Appears negative for DVT. IMPRESSION: No evidence for DVT at this time.
== END | disposition home or self-care (01) ==
LOC: RADUSWWP 14:28
PROVIDERS: ATTEND Physical Medicine & Rehabilitation
DX: M54.5 Low back pain (principal); G89.11 Acute pain due to trauma; M51.36 Other intervertebral disc degeneration, lumbar region; M54.16 Radiculopathy, lumbar region; I80.9 Phlebitis and thrombophlebitis of unspecified site

== ENCOUNTER → 2021-03-05 | Outpatient (CLI) | payer BC | END | disposition home or self-care (01) | LOC: LABWHC1 13:57 | PROVIDERS: ATTEND Obstetrics & Gynecology Obstetrics | DX: O20.0 Threatened abortion (principal); Z3A.00 Weeks of gestation of pregnancy not specified | CPT/HCPCS: 36415; 84702; 86850; 86900; 86901 ==

== ENCOUNTER → 2021-03-08 | Outpatient (CLI) | payer BC | END | disposition home or self-care (01) | LOC: LABWHC1 11:35 | PROVIDERS: ATTEND Obstetrics & Gynecology Obstetrics | DX: O20.0 Threatened abortion (principal); Z3A.00 Weeks of gestation of pregnancy not specified | CPT/HCPCS: 36415; 84702 ==

== ENCOUNTER 2022-05-10 19:37 | Inpatient (IN) | payer BC ==
[2022-05-10] MEDS ORDERED: SODIUM CHLORIDE 0.9% 1,000 ML IV STA (20:38)
[2022-05-10] MEDS ORDERED: IPRATROPIUM-ALBUTEROL 3 ML NEB INHALATION STA (20:39)
--- NOTE | 2022-05-10 20:44 | ED ---
SOB HPI - General Chief Complaint: Shortness of Breath Stated Complaint: SOB,Reaction to medication Time Seen by Provider: 05/10/22 20:32 Source: patient, RN notes reviewed Mode of arrival: wheelchair Limitations: no limitations - History of Present Illness Initial Comments: This is a pleasant 26-year-old female who presents to emergency department comp laining of shortness of breath, cough, and some nasal congestion. Patient also had an MRI earlier today for chronic back pain. Patient states she twisted her back during the MRI. Patient states the cough seemed to start yesterday get worse today. Patient has been on lisinopril for 3 days. Patient concerned she may be reacting to this medication. Patient denies chance of . Denies any ill exposures. No recent travel. Denying any pain other than the back pain. 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 No known fever. No headache, no fever or chills, no changes in vision or hearing, no sore throat or difficulty with speech, no neck pain, no chest pain, no abdominal pain, no nausea or vomiting, no changes in urination or bowel movements, no numbness or tingling, no extremity pain, no skin rashes or lesions. Past medical, surgical, social, and family history reviewed. MD Complaint: shortness of breath, cough - Related Data Previous Rx's Medication Instructions Recorded methocarbamoL [Robaxin-750] 750 mg PO QID PRN #24 tab 04/12/22 Famotidine [Pepcid] 20 mg PO BID #1 tablet 04/13/22 HYDROcodone/APAP 7.5-325MG [[place] 1 tab PO Q4H PRN 3 Days #18 tab 04/13/22 7.5-325] Loratadine [Claritin] 10 mg PO DAILY tab 04/13/22 predniSONE 10 mg PO DIRECTED #30 tab 04/13/22 DULoxetine HCL [Cymbalta] 30 mg PO DAILY #30 cap 04/18/22 Allergies Allergy/AdvReac Type Severity Reaction Status Date / Time amoxicillin [Amoxicillin] Allergy Rash/Hives Verified 05/10/22 20:07 cefprozil Allergy Rash/Hives Verified 05/10/22 20:07 Penicillins Allergy Unknown Verified 05/10/22 20:07 Childhood Review of Systems ROS Statement: Those systems with pertinent positive or pertinent negative responses have been documented in the HPI. ROS Other: All systems not noted in ROS Statement are negative. Past Medical History Past Medical History: No Reported History Additional Past Medical History / Comment(s): back pain; Ovarian cysts, migraines, back pain History of Any Multi-Drug Resistant Organisms: None Reported Past Surgical History: No Surgical Hx Reported Additional Past Surgical History / Comment(s): rhisotomy; [place] teeth, colonoscopy. Past Anesthesia/Blood Transfusion Reactions: No Reported Reaction Additional Past Anesthesia/Blood Transfusion Reaction / Comment(s): NO ANESTHESIA HX. Past Psychological History: Anxiety Smoking Status: Never smoker Past Alcohol Use History: Rare Past Drug Use History: None Reported - Past Family History Mother Family Medical History: No Reported History General Exam - General Exam Comments Initial Comments: Patient in some level of respiratory distress with a heart rate of 113 and a pulse oximetry of 87. However, does not appear to be ill or toxic. Patient mildly tachypneic with a respiratory rate of 24. Blood pressure 147/100. Afebrile. Capillary refill less than 2 seconds. No mottling. Limitations: no limitations General appearance: in distress, obese Head exam: Present: atraumatic, normocephalic, normal inspection Eye exam: Present: normal appearance, PERRL, EOMI. Absent: scleral icterus, conjunctival injection, periorbital swelling ENT exam: Present: normal exam, mucous membranes moist Neck exam: Present: normal inspection. Absent: tenderness, meningismus, lymphadenopathy Respiratory exam: Present: respiratory distress, accessory muscle use. Absent: wheezes, rales, rhonchi, stridor, chest wall tenderness, decreased breath sounds, prolonged expiratory Cardiovascular Exam: Present: normal rhythm, tachycardia, normal heart sounds. Absent: systolic murmur, diastolic murmur, rubs, gallop, clicks GI/Abdominal exam: Present: soft, normal bowel sounds. Absent: distended, tenderness, guarding, rebound, rigid Extremities exam: Present: normal inspection, full ROM, normal capillary refill. Absent: tenderness, pedal edema, joint swelling, calf tenderness Back exam: Present: normal inspection Neurological exam: Present: alert, oriented X3, CN II-XII intact Psychiatric exam: Present: normal affect, normal mood Skin exam: Present: warm, dry, intact, normal color. Absent: rash Course Vital Signs 05/10/22 05/11/22 05/11/22 20:01 01:16 01:48 Temperature 97.5 F L Pulse Rate 113 H 118 H Respiratory 24 17 17 Rate Blood Pressure 147/100 135/85 O2 Sat by Pulse 87 L 94 L Oximetry - Reevaluation(s) Reevaluation #1: 05/10/22 22:24 Chest x-ray shows evidence of right lower lobe pneumonia. We'll treat with antibiotics. Patient's COVID-19 test also positive. We'll cover with corticosteroids as well. We have a delay in getting the blood work for some reason. Well child to delineate this. Reevaluation #2: 05/11/22 00:40 Medical record is reviewed Symptoms are essentially unchanged, however, improved with supplemental oxygen Patient is informed of results and questions answered Patient in no distress Reevaluation #3: 05/11/22 00:[address] of chest, patient will need to be admitted to the hospital either way. Did receive a dose of Levaquin here in the ER for pneumonia which was seen on the chest x-ray. Patient remains hypoxemic desaturation down into to the high 80s on room air. Reevaluation #4: 05/11/22 01:24 Case discussed with radiology who states that the patient has bilateral pulmonary embolism and bilateral pneumonia. High-intensity heparin protocol initiated. Reevaluation #5: 05/11/22 01:35 Computed tomography scan shows infiltrates in the left lower lobe and left paraspinal region was consolidation measuring up to 3 cm. There is patchy airspace infiltrate of the right middle lobe, multiple filling defects in the left and right lobe pulmonary arteries heart size normal, no pericardial effusion. Bilateral lower lobe, multiple pulmonary emboli with no evidence of right heart strain. Patient rechecked, patient is resting in bed, doing satisfactorily on supplemental O2. - Consultations Consultation #1: Call was placed for admission, we will also touch base with on-call vascular specialty. Dr. Johnson--case discussed at 1:42 AM Consultation #2: Case discussed with the admitting physician, Dr. Robledo--- discussed in detail at 3:30 AM Medical Decision Making - Medical Decision Making The case was discussed in detail with ED attending physician. Presentation, findings, treatment plan discussed in detail. Given the patient's recent immobilization, recent COVID-19 infection. Coronary embolism is within the differential. Also secondary pneumonia. Patient has been on prolonged corticosteroids for her back pain. Of course this would cause some immunosuppression making her more susceptible to infectious process. Patient's x-ray came back consistent with pneumonia. Patient was given Levaquin. I did give one dose of Solu-Medrol. D-dimer came back elevated as well as elevated troponin. Certainly this could be related to right heart strain or demand. CT showed evidence of bilateral pulmonary embolism as well as bilateral pneumonia. There was no evidence of right heart strain. Note that this patient initially told me that she had not had COVID-19. However after I went back in the room she said she actually tested positive a month ago. - Lab Data Result diagrams: 05/10/22 22:33 05/10/22 22:33 Lab Results 05/10/22 05/10/22 05/10/22 Range/Units 21:51 21:51 22:33 WBC 7.6 (3.8-10.6) k/uL RBC 5.44 H (3.80-5.40) m/uL Hgb 14.1 (11.4-16.0) gm/dL Hct 44.4 (34.0-46.0) % MCV 81.6 (80.0-100.0) fL MCH 26.0 (25.0-35.0) pg MCHC 31.9 (31.0-37.0) g/dL RDW 15.9 H (11.5-15.5) % Plt Count 232 (150-450) k/uL MPV 7.1 Neutrophils % 70 % Lymphocytes % 23 % Monocytes % 4 % Eosinophils % 2 % Basophils % 0 % Neutrophils # 5.3 (1.3-7.7) k/uL Lymphocytes # 1.7 (1.0-4.8) k/uL Monocytes # 0.3 (0-1.0) k/uL Eosinophils # 0.1 (0-0.7) k/uL Basophils # 0.0 (0-0.2) k/uL Hypochromasia Slight PT (9.0-12.0) sec INR (<1.2) APTT (22.0-30.0) sec D-Dimer (<0.60) mg/L FEU Sodium (137-145) mmol/L Potassium (3.5-5.1) mmol/L Chloride (98-107) mmol/L Carbon Dioxide (22-30) mmol/L Anion Gap mmol/L BUN (7-17) mg/dL Creatinine (0.52-1.04) mg/dL Est GFR (CKD-EPI)AfAm (>60 ml/min/1.73 sqM) Est GFR (CKD-EPI)NonAf (>60 ml/min/1.73 sqM) Glucose (74-99) mg/dL Calcium (8.4-10.2) mg/dL Magnesium (1.6-2.3) mg/dL Total Bilirubin (0.2-1.3) mg/dL AST (14-36) U/L ALT (4-34) U/L Alkaline Phosphatase (38-126) U/L Troponin I (0.000-0.034) ng/mL NT-Pro-B Natriuret Pep pg/mL Total Protein (6.3-8.2) g/dL Albumin (3.5-5.0) g/dL HCG, Qual Coronavirus (PCR) Detected A (Not Detectd) Influenza Type A RNA Not Detected (Not Detectd) Influenza Type B (PCR) Not Detected (Not Detectd) 05/10/22 05/10/22 05/10/22 Range/Units 22:33 22:33 22:33 WBC (3.8-10.6) k/uL RBC (3.80-5.40) m/uL Hgb (11.4-16.0) gm/dL Hct (34.0-46.0) % MCV (80.0-100.0) fL MCH (25.0-35.0) pg MCHC (31.0-37.0) g/dL RDW (11.5-15.5) % Plt Count (150-450) k/uL MPV Neutrophils % % Lymphocytes % % Monocytes % % Eosinophils % % Basophils % % Neutrophils # (1.3-7.7) k/uL Lymphocytes # (1.0-4.8) k/uL Monocytes # (0-1.0) k/uL Eosinophils # (0-0.7) k/uL Basophils # (0-0.2) k/uL Hypochromasia PT (9.0-12.0) sec INR (<1.2) APTT (22.0-30.0) sec D-Dimer 14.14 H (<0.60) mg/L FEU Sodium 139 (137-145) mmol/L Potassium 4.8 (3.5-5.1) mmol/L Chloride 100 (98-107) mmol/L Carbon Dioxide 28 (22-30) mmol/L Anion Gap 11 mmol/L BUN 13 (7-17) mg/dL Creatinine 0.58 (0.52-1.04) mg/dL Est GFR (CKD-EPI)AfAm >90 (>60 ml/min/1.73 sqM) Est GFR (CKD-EPI)NonAf >90 (>60 ml/min/1.73 sqM) Glucose 111 H (74-99) mg/dL Calcium 9.5 (8.4-10.2) mg/dL Magnesium 1.8 (1.6-2.3) mg/dL Total Bilirubin 0.6 (0.2-1.3) mg/dL AST 22 (14-36) U/L ALT 30 (4-34) U/L Alkaline Phosphatase 97 (38-126) U/L Troponin I 0.081 H* (0.000-0.034) ng/mL NT-Pro-B Natriuret Pep pg/mL Total Protein 7.0 (6.3-8.2) g/dL Albumin 4.4 (3.5-5.0) g/dL HCG, Qual Not Detected Coronavirus (PCR) (Not Detectd) Influenza Type A RNA (Not Detectd) Influenza Type B (PCR) (Not Detectd) 05/10/22 05/11/22 Range/Units 22:33 01:48 WBC (3.8-10.6) k/uL RBC (3.80-5.40) m/uL Hgb (11.4-16.0) gm/dL Hct (34.0-46.0) % MCV (80.0-100.0) fL MCH (25.0-35.0) pg MCHC (31.0-37.0) g/dL RDW (11.5-15.5) % Plt Count (150-450) k/uL MPV Neutrophils % % Lymphocytes % % Monocytes % % Eosinophils % % Basophils % % Neutrophils # (1.3-7.7) k/uL Lymphocytes # (1.0-4.8) k/uL Monocytes # (0-1.0) k/uL Eosinophils # (0-0.7) k/uL Basophils # (0-0.2) k/uL Hypochromasia PT 10.6 (9.0-12.0) sec INR 1.0 (<1.2) APTT 22.7 (22.0-30.0) sec D-Dimer (<0.60) mg/L FEU Sodium (137-145) mmol/L Potassium (3.5-5.1) mmol/L Chloride (98-107) mmol/L Carbon Dioxide (22-30) mmol/L Anion Gap mmol/L BUN (7-17) mg/dL Creatinine (0.52-1.04) mg/dL Est GFR (CKD-EPI)AfAm (>60 ml/min/1.73 sqM) Est GFR (CKD-EPI)NonAf (>60 ml/min/1.73 sqM) Glucose (74-99) mg/dL Calcium (8.4-10.2) mg/dL Magnesium (1.6-2.3) mg/dL Total Bilirubin (0.2-1.3) mg/dL AST (14-36) U/L ALT (4-34) U/L Alkaline Phosphatase (38-126) U/L Troponin I (0.000-0.034) ng/mL NT-Pro-B Natriuret Pep 791 pg/mL Total Protein (6.3-8.2) g/dL Albumin (3.5-5.0) g/dL HCG, Qual Coronavirus (PCR) (Not Detectd) Influenza Type A RNA (Not Detectd) Influenza Type B (PCR) (Not Detectd) - EKG Data -: EKG Interpreted by Me EKG Comments: EKG done at 2341 and reviewed with ED attending physician reveals sinus tachycardia with a rate of 121. Nonspecific ST-T wave abnormality. No evidence of ST elevation or depression. Intervals are normal. [place] is normal. Critical Care Time Critical Care Time: Yes Total Critical Care Time: 35 Critical Care Time: Patient has multiple diagnoses. Multiple re-evaluations of the patient. Interpretation multiple diagnostic tests. Interpretation of the patient's response to treatment. Discussion with consultants. Bilateral pneumonia with bilateral pulmonary emboli with tachypnea and hypoxemia Disposition Clinical Impression: Community acquired pneumonia, COVID-19, Hypoxemia, Pulmonary embolism Disposition: ADMITTED IP TO THIS HOSP Condition: Poor Is patient prescribed a controlled substance at d/c from ED?: No Time of Disposition: 00:41 Decision to Admit Reason: Admit from EC Decision Time: 00:41
--- NOTE | 2022-05-10 22:12 | XR ---
EXAMINATION TYPE: XR chest 2V DATE OF EXAM: 05/10/2022 COMPARISON: NONE HISTORY: Short of breath TECHNIQUE: 2 views FINDINGS: There is airspace infiltrate posterior right lower lobe that measures 6 cm. The other lung rodriguez are clear. Heart and mediastinum are normal. There are no hilar masses. Bony thorax is intact. IMPRESSION: There is right lower lobe pneumonia. Follow-up recommended to show clearing.
[2022-05-10] MEDS ORDERED: ALBUTEROL HFA INHALER INHALATION STA (22:15)
[2022-05-10] MEDS ORDERED: LEVOFLOXACIN 750MG-D5W PMX 750 MG in DEXTROSE/WATER 1 150ML.BAG IVPB STA (22:23)
[2022-05-10] MEDS ORDERED: methylPREDNISolone SOD SUCCI 125 MG/2 ML VIAL IV STA (22:24)
[2022-05-10 22:39] LABS: Basophils % (A) 0 %; Eosinophils # (A) 0.1 k/uL (0-0.7); Eosinophils % (A) 2 %; HCT 44.4 % (34.0-46.0); HGB 14.1 gm/dL (11.4-16.0); Hypochromasia Slight; Lymphocytes # (A) 1.7 k/uL (1.0-4.8); Lymphocytes % (A) 23 %; MCHC 31.9 g/dL (31.0-37.0); MCV 81.6 fL (80.0-100.0); Mean Platelet Volume 7.1; Monocytes # (A) 0.3 k/uL (0-1.0); Monocytes % (A) 4 %; Neutrophils # (A) 5.3 k/uL (1.3-7.7); Neutrophils % (A) 70 %; Platelet Count 232 k/uL (150-450); RBC 5.44 m/uL (3.80-5.40); RDW 15.9 % (11.5-15.5); WBC 7.6 k/uL (3.8-10.6)
[2022-05-10 22:48] LABS: ALT 30 U/L (4-34); AST 22 U/L (14-36); African American GFR (CKD) >90 (>60 ml/min/1.73 sqM); Albumin 4.4 g/dL (3.5-5.0); Alkaline Phosphatase 97 U/L (38-126); Anion Gap 11 mmol/L; Blood Urea Nitrogen 13 mg/dL (7-17); Calcium 9.5 mg/dL (8.4-10.2); Carbon Dioxide 28 mmol/L (22-30); Chloride 100 mmol/L (98-107); Glucose 111 mg/dL (74-99); Magnesium 1.8 mg/dL (1.6-2.3); Non-African American GFR(CKD) >90 (>60 ml/min/1.73 sqM); Potassium 4.8 mmol/L (3.5-5.1); Sodium 139 mmol/L (137-145); Total Bilirubin 0.6 mg/dL (0.2-1.3)
[2022-05-10 22:52] LABS: HCG,Qualitative Serum Not Detected
[2022-05-10] MEDS ORDERED: SODIUM CHLORIDE 0.9% 1,000 ML IV ONE (23:37)
[2022-05-11] MEDS ORDERED: HEPARIN SODIUM 1,000 UN/ML (10ML VL) IV PRN (01:22)
[2022-05-11] MEDS ORDERED: HEPARIN SODIUM 1,000 UN/ML (10ML VL) IV ONE (01:22)
--- NOTE | 2022-05-11 01:25 | CT ---
EXAMINATION TYPE: CT chest angio for PE DATE OF EXAM: 05/11/2022 COMPARISON: None HISTORY: covid + elevated d-dimer CT DLP: 1008.3 mGycm Automated exposure control for dose reduction was used. CONTRAST: Performed with IV Contrast, patient injected with 85ml mL of Isovue 370. Images obtained from the thoracic inlet to the floor of the diaphragm with the IV contrast. There are 3-D post processed images. There is some infiltrate in the left lower lobe left paraspinal region with consolidation and measure s 3 cm. There is patchy airspace infiltrate in the right middle lobe. There is no mediastinal adenopa thy. There are no hilar masses. There are multiple filling defects in the left and right lower lobe p ulmonary arteries. Heart size is normal. No pericardial effusion. The thoracic aorta is intact. No aneurysm or dissection. The bony thorax is intact. IMPRESSION: Bilateral lower lobe multiple pulmonary emboli. No evidence of right heart strain. Bilateral pneumoni a. 3 cm masslike infiltrate left lower lobe left paraspinal region. Follow-up is recommended.
[2022-05-11] MEDS ORDERED: NALOXONE 0.4 MG/ML 1 ML VIAL IV PRN (01:43)
[2022-05-11] MEDS ORDERED: PNEUMONIA PROTOCOL UTILIZED 1 EACH MISC PO PRN (01:57)
[2022-05-11 02:01] LABS: Partial Thromboplastin Time 22.7 sec (22.0-30.0); Prothrombin Time 10.6 sec (9.0-12.0)
[2022-05-11] MEDS ORDERED: ALBUTEROL NEBULIZED 2.5 MG/3 ML INHALATION PRN (02:08)
[2022-05-11] MEDS: HEPARIN SOD,PORK IN 0.45% NACL 25,000 UNIT in 0.45% NACL 1 250ML.BAG IV SCH ×2 (02:16→14:28)
[2022-05-11] MEDS ORDERED: BENZONATATE 100 MG CAP PO PRN (03:13)
[2022-05-11] MEDS ORDERED: FUROSEMIDE 10 MG/ML 2 ML VIAL IV ONE (03:32)
[2022-05-11] MEDS: SODIUM CHLORIDE 0.9% 1,000 ML IV SCH (03:41)
[2022-05-11 03:49] LABS: Glucose,Whole Blood 134 mg/dL (70-110)
[2022-05-11] MEDS: HYDROcodone/APAP 5-325MG 1 EACH TAB PO PRN ×2 (08:34→20:56)
[2022-05-11] MEDS ORDERED: PANTOPRAZOLE 40 MG/10 ML VIAL IV SCH (09:00)
[2022-05-11] MEDS: ALBUTEROL HFA INHALER INHALATION PRN ×3 (09:42→20:31)
[2022-05-11] MEDS ORDERED: METOPROLOL TARTRATE 50 MG TAB PO STA (10:02)
--- NOTE | 2022-05-11 10:57 | P.CRDCN ---
History of Present Illness Consult date: 05/11/22 History of present illness: History of Present Illness: The patient is a 26-year-old female with history of back discomfort who presented with dyspnea, tachycardia and fatigue. She was found to have right lower lobe pneumonia and pulmonary embolism. She has been complaining of severe back discomfort and was admitted to the hospital about a months ago. At that time her blood pressure was elevated and she was started on lisinopril. She has not been very active physically at this time. She has no prior documented history of cardiac disease. She denies any PND, orthopnea or peripheral edema. She has been feeling her rapid heartbeat with mild lightheadedness. She has been complaining of the dyspnea and initially thought was related to anxiety. She denies any exertional chest discomfort that she has some heaviness in the chest. She has no prior history of DVT and denies any discomfort in her legs. She was diagnosed Covid 19 6 weeks ago but did not require hospitalization. She tested positive during this admission. Her CT angiogram showed bilateral lower lobe emboli with no evidence of right heart strain with bilateral pneumonia and a 3 cm masslike infiltrate in the left lower lobe. Her EKG shows sinus tachycardia and on the monitor there is sinus tachycardia with no evidence of atrial fibrillation. Her troponin was 0.08 and 0.05. The patient denies any history of diabetes, smoking or prior history of hypertension until her last admission. She has been started on IV heparin since her admission. Medications: Lisinopril and milligrams daily, Claritin, hydrocodone, Pepcid, Cymbalta, Flexeril Review of Systems: Respiratory: She has dyspnea on exertion, mild cough but no clear fever GI: No nausea or vomiting . No history of peptic ulcer disease. She noted some red blood in her stool today. : No hematuria or dysuria. Nervous System: No stroke or seizure, she has severe back discomfort related to an old injury. Physical Examination: 26-year-old female alert and oriented mildly obese on high oxygen flow ,Blood pressure 138/102, Heart rate 120 to 1:30 Head: Normocephalic. Eyes: Sclerae nonicteric. Neck: Good carotid upstroke, no bruit, no jugular venous distention. Lungs: Few scattered wheezes with crackles at the right base Heart: Regular rhythm, tachycardic, S1-S2, no S3, no rub. No murmur. Abdomen: Soft nontender, positive bowel sounds no organomegaly, obese. Extremities: No edema, intact distal pulses, no calf tenderness. Labs: White Blood cell 7.6, hemoglobin 14.1, potassium 4.8, BUN 13, creatinine 0.58. Troponin 0.081 and 0.052. NT proBNP 791. COVID-19 PCR positive. Chest x-ray was evidence of right lower lobe pneumonia EKG: Sinus tachycardia with nonspecific ST-T wave changes Impression: 1. Right lower lobe pneumonia 2. Pulmonary embolism by computed tomography scan with no evidence of right heart strain 3. Sinus tachycardia, secondary to her pulmonary status 4. Mild troponin elevation, type II event 5. Recently diagnosed hypertension 6. Chronic back pain 7. Recent COVID-19 infection Plan: 1. Obtain an echocardiogram with Doppler 2. Start beta yanna instead of GHAZAL inhibitor at this time 3. Check TSH 4. Treatment of pneumonia as indicated 5. Anticoagulation 6. Depending on her progress further recommendations will be made, thank you for this consult we will follow with you. Past Medical History Past Medical History: No Reported History Additional Past Medical History / Comment(s): back pain; Ovarian cysts, migraines, back pain History of Any Multi-Drug Resistant Organisms: None Reported Past Surgical History: No Surgical Hx Reported Additional Past Surgical History / Comment(s): rhisotomy; [place] teeth, colonoscopy. Past Anesthesia/Blood Transfusion Reactions: No Reported Reaction Additional Past Anesthesia/Blood Transfusion Reaction / Comment(s): NO ANESTHESIA HX. Past Psychological History: Anxiety Smoking Status: Never smoker Past Alcohol Use History: Rare Past Drug Use History: None Reported - Past Family History Mother Family Medical History: No Reported History Medications and Allergies Home Medications Medication Instructions Recorded Confirmed Type Famotidine [Pepcid] 20 mg PO BID #1 tablet 04/13/22 05/11/22 Rx Loratadine [Claritin] 10 mg PO DAILY tab 04/13/22 05/11/22 Rx DULoxetine HCL [Cymbalta] 30 mg PO DAILY #30 cap 04/18/22 05/11/22 Rx Cyclobenzaprine [Flexeril] 10 mg PO BID PRN 05/11/22 05/11/22 History HYDROcodone/APAP 7.5-325MG [[place] 1 tab PO QID PRN 05/11/22 05/11/22 History 7.5-325] lisinopriL [Prinivil] 10 mg PO DAILY 05/11/22 05/11/22 History Allergies Allergy/AdvReac Type Severity Reaction Status Date / Time amoxicillin [Amoxicillin] Allergy Rash/Hives Verified 05/11/22 07:00 cefprozil Allergy Rash/Hives Verified 05/11/22 07:00 Penicillins Allergy Unknown Verified 05/11/22 07:00 Childhood Physical Exam Vitals: Vital Signs Temp Pulse Pulse Resp BP BP Pulse Ox 05/11/22 09:42 05/11/22 08:41 97.8 F 87 20 119/62 95 05/11/22 04:13 132 H 18 138/102 91 L 05/11/22 03:47 96 05/11/22 03:40 129 H 18 152/96 94 L 05/11/22 03:30 132 H 20 134/98 93 L 05/11/22 03:07 132 H 20 154/103 87 L 05/11/22 02:55 98.8 F 142 H 24 201/117 74 L 05/11/22 01:48 17 05/11/22 01:16 118 H 17 135/85 94 L 05/10/22 20:01 97.5 F L 113 H 24 147/100 87 L FiO2 05/11/22 09:42 80 05/11/22 08:41 80 05/11/22 04:13 05/11/22 03:47 80 05/11/22 03:40 05/11/22 03:30 05/11/22 03:07 05/11/22 02:55 05/11/22 01:48 05/11/22 01:16 05/10/22 20:01 Intake and Output 05/10/22 05/11/22 05/11/22 22:59 06:59 14:59 Intake Total 158.7 Output Total 800 Balance -800 158.7 Intake: Intake, IV Titration 158.7 Amount Heparin Sod,Pork in 0.45% 158.7 NaCl 25,000 unit In 0.45 % NaCl 1 250ml.bag @ 16. 625 UNITS/KG/HR 23 mls/hr IV .[id number] [facility] Rx#: [id number] Output: Urine 800 Other: Voiding Method External Catheter External Catheter Weight 138.346 kg 138.346 kg Results 05/10/22 22:33 05/10/22 22:33 Cardiac Enzymes 05/10/22 05/10/22 05/11/22 Range/Units 22:33 22:33 08:08 AST 22 (14-36) U/L Troponin I 0.081 H* 0.052 H* (0.000-0.034) ng/mL Coagulation 05/11/22 05/11/22 Range/Units 01:48 08:08 PT 10.6 (9.0-12.0) sec APTT 22.7 144.7 H* (22.0-30.0) sec CBC 05/10/22 Range/Units 22:33 WBC 7.6 (3.8-10.6) k/uL RBC 5.44 H (3.80-5.40) m/uL Hgb 14.1 (11.4-16.0) gm/dL Hct 44.4 (34.0-46.0) % Plt Count 232 (150-450) k/uL Comprehensive Metabolic Panel 05/10/22 Range/Units 22:33 Sodium 139 (137-145) mmol/L Potassium 4.8 (3.5-5.1) mmol/L Chloride 100 (98-107) mmol/L Carbon Dioxide 28 (22-30) mmol/L BUN 13 (7-17) mg/dL Creatinine 0.58 (0.52-1.04) mg/dL Glucose 111 H (74-99) mg/dL Calcium 9.5 (8.4-10.2) mg/dL AST 22 (14-36) U/L ALT 30 (4-34) U/L Alkaline Phosphatase 97 (38-126) U/L Total Protein 7.0 (6.3-8.2) g/dL Albumin 4.4 (3.5-5.0) g/dL Current Medications Generic Name Dose Route Start Last Admin Trade Name Freq PRN Reason Stop Dose Admin Hydrocodone Bitart/Acetaminophen 1 each 05/11/22 03:13 05/11/22 08:34 Hydrocodone/Apap 5-325mg 1 Each Tab PO 1 each Q6HR PRN Administration Pain Albuterol Sulfate 2 puff 05/11/22 02:29 05/11/22 09:42 Albuterol Hfa Inhaler INHALATION 2 puff RT-Q4H PRN Administration Shortness Of Breath Or Wheezing Benzonatate 200 mg 05/11/22 03:13 05/11/22 03:40 Benzonatate 100 Mg Cap PO 200 mg TID PRN Administration Cough Duloxetine HCl 30 mg 05/11/22 10:30 Duloxetine Hcl 30 Mg Capsule.Dr PO DAILY GEORGE Heparin Sodium (Porcine) 0 unit 05/11/22 01:22 Heparin Sodium 1,000 Un/Ml (10ml Vl) IV PER PROTOCOL PRN Low PTT Protocol Heparin Sodium/Sodium Chloride 250 mls @ 23 mls/hr 05/11/22 01:30 05/11/22 09:10 25,000 unit/ Sodium Chloride IV 0 units/kg/hr .[id number] GEORGE 0 mls/hr Titration Protocol 16.625 UNITS/KG/HR Sodium Chloride 1,000 mls @ 20 mls/hr 05/11/22 02:00 05/11/22 03:41 Saline 0.9% IV 20 mls/hr .Q24H GEORGE Administration Levofloxacin 750 mg 05/11/22 12:00 Levofloxacin 750 Mg Tab PO 05/14/22 09:01 DAILY [facility] Protocol Miscellaneous Information 1 each 05/11/22 01:57 Pneumonia Protocol Utilized 1 Each Misc PO ONCE PRN Per Protocol Naloxone HCl 0.2 mg 05/11/22 01:43 Naloxone 0.4 Mg/Ml 1 Ml Vial IV Q2M PRN Opioid Reversal Pantoprazole Sodium 40 mg 05/11/22 09:00 05/11/22 08:34 Pantoprazole 40 Mg/10 Ml Vial IV 40 mg DAILY EGORGE Administration Intake and Output 05/10/22 05/11/22 05/11/22 22:59 06:59 14:59 Intake Total 158.7 Output Total 800 Balance -800 158.7 Intake: Intake, IV Titration 158.7 Amount Heparin Sod,Pork in 0.45% 158.7 NaCl 25,000 unit In 0.45 % NaCl 1 250ml.bag @ 16. 625 UNITS/KG/HR 23 mls/hr IV .[id number] [facility] Rx#: [id number] Output: Urine 800 Other: Voiding Method External Catheter External Catheter Weight 138.346 kg 138.346 kg 05/10/22 22:33 05/10/22 22:33
[2022-05-11] MEDS ORDERED: METOPROLOL TARTRATE 25 MG TAB PO SCH (11:00)
--- NOTE | 2022-05-11 11:05 | P.CNPUL ---
History of Present Illness Consult date: 05/11/22 Reason for consult: dyspnea, hypoxemia, pulmonary embolism History of present illness: A very pleasant 26-year-old morbidly obese female patient with a body mass index of 59.6, who is admitted for acute shortness of breath and acute hypoxic resp iratory failure and currently the patient is on high flow oxygen at 50 L with an FiO2 of 80%. The patient has history of Covid 19 infection. She was originally diagnosed having Covid 19 infection approximately 6 weeks ago and this was confirmed on outpatient basis. Subsequently, she had a negative study on 04/19/2022. She comes in again for acute shortness of breath. Her Covid 19 testing was repeated on 05/10/2022 and was positive. The CT antigram was done in the emergency department and it showed bilateral pulmonary embolism. There was also pulmonary infiltrates and the right middle lobe and the left lower lobe posterior segment. Those are more consistent with air space disease. Multiple filling defects in the lower lobe pulmonary artery branches. The patient was started on IV heparin. The patient is currently admitted to the medical floor. She is being seen by vascular surgery and cardiology. She was tachycardic in her heart rate was in the 130s and the patient was in sinus rhythm. She was given metoprolol at a dose of 50 mg oral and the heart rate is being monitored very closely for now. At the same time, the patient denies having any calf pain. She has chronic edema lower exam is bilaterally. Echo was done. Doppler is to be ordered. Her d-dimer was positive at 14.1. She had a positive troponin leak probably related to pulmonary embolism and the troponins are 0.08 and 0.05 respectively 2. test is negative. Influenza is negative. No previous history of any DVT or pulmonary embolism. No family history. She is obese. No cell lung disease. No asthma. No emphysema. No smoking. No use of any maintenance as for medications or inhalers. Presentation is rather acute. No home O2. No nausea. No vomiting. No diarrhea. No abdominal pain. No chest pain. She is a bit anxious. Review of Systems Constitutional: Denies chills, Denies fever Eyes: denies as per HPI, denies blurred vision, denies bulging eye, denies decreased vision, denies diplopia, denies discharge, denies dry eye, denies irritation, denies itching, denies pain, denies photophobia, denies loss of pe ripheral vision, denies loss of vision, denies tunnel vision/blind spots Ears, nose, mouth and throat: Reports as per HPI Breasts: absent: as per HPI, change in shape, gynecomastia, masses, nipple discharge, pain, skin changes, swelling Cardiovascular: Reports decreased exercise tolerance, Reports dyspnea on exertion Respiratory: Reports dyspnea, Reports snoring Gastrointestinal: Reports as per HPI Genitourinary: Reports as per HPI Menstruation: Reports as per HPI Musculoskeletal: Reports as per HPI Musculoskeletal: absent: ankle pain, ankle stiffness, ankle swelling Integumentary: Reports as per HPI Neurological: Reports as per HPI Psychiatric: Reports as per HPI Endocrine: Reports as per HPI Hematologic/Lymphatic: Reports as per HPI Allergic/Immunologic: Reports as per HPI Past Medical History Past Medical History: No Reported History Additional Past Medical History / Comment(s): back pain; Ovarian cysts, migraines, back pain History of Any Multi-Drug Resistant Organisms: None Reported Past Surgical History: No Surgical Hx Reported Additional Past Surgical History / Comment(s): rhisotomy; [place] teeth, colonoscopy. Past Anesthesia/Blood Transfusion Reactions: No Reported Reaction Additional Past Anesthesia/Blood Transfusion Reaction / Comment(s): NO ANESTHESIA HX. Past Psychological History: Anxiety Smoking Status: Never smoker Past Alcohol Use History: Rare Past Drug Use History: None Reported - Past Family History Mother Family Medical History: No Reported History Medications and Allergies Home Medications Medication Instructions Recorded Confirmed Type Famotidine [Pepcid] 20 mg PO BID #1 tablet 04/13/22 05/11/22 Rx RX: Loratadine [Claritin] 10 mg PO DAILY tab 04/13/22 05/11/22 Rx RX: DULoxetine HCL [Cymbalta] 30 mg PO DAILY #30 cap 04/18/22 05/11/22 Rx Cyclobenzaprine [Flexeril] 10 mg PO BID PRN 05/11/22 05/11/22 History HYDROcodone/APAP 7.5-325MG [[place] 1 tab PO QID PRN 05/11/22 05/11/22 History 7.5-325] lisinopriL [Prinivil] 10 mg PO DAILY 05/11/22 05/11/22 History Allergies Allergy/AdvReac Type Severity Reaction Status Date / Time amoxicillin [Amoxicillin] Allergy Rash/Hives Verified 05/11/22 07:00 cefprozil Allergy Rash/Hives Verified 05/11/22 07:00 Penicillins Allergy Unknown Verified 05/11/22 07:00 Childhood Physical Exam Vitals: Vital Signs Temp Pulse Pulse Resp BP BP Pulse Ox 05/11/22 09:42 05/11/22 08:41 97.8 F 87 20 119/62 95 05/11/22 04:13 132 H 18 138/102 91 L 05/11/22 03:47 96 05/11/22 03:40 129 H 18 152/96 94 L 05/11/22 03:30 132 H 20 134/98 93 L 05/11/22 03:07 132 H 20 154/103 87 L 05/11/22 02:55 98.8 F 142 H 24 201/117 74 L 05/11/22 01:48 17 05/11/22 01:16 118 H 17 135/85 94 L 05/10/22 20:01 97.5 F L 113 H 24 147/100 87 L FiO2 05/11/22 09:42 80 05/11/22 08:41 80 05/11/22 04:13 05/11/22 03:47 80 05/11/22 03:40 05/11/22 03:30 05/11/22 03:07 05/11/22 02:55 05/11/22 01:48 05/11/22 01:16 05/10/22 20:01 Intake and Output 05/10/22 05/11/22 05/11/22 22:59 06:59 14:59 Intake Total 158.7 Output Total 800 Balance -800 158.7 Intake: Intake, IV Titration 158.7 Amount Heparin Sod,Pork in 0.45% 158.7 NaCl 25,000 unit In 0.45 % NaCl 1 250ml.bag @ 16. 625 UNITS/KG/HR 23 mls/hr IV .[id number] [facility] Rx#: [id number] Output: Urine 800 Other: Voiding Method External Catheter External Catheter Weight 138.346 kg 138.346 kg Morbidly obese, calm and comfortable slightly tachypneic and the patient has a bidimensional is a 59.6 and currently wearing a high flow oxygen. Head exam was generally normal. There was no scleral icterus or corneal arcus. Mucous membranes were moist. Neck was supple and without jugular venous distension, thyromegaly, or carotid bruits. Carotids were easily palpable bilaterally. There was no adenopathy. The patient has a Mallampati class IV with significant cardiovascular posterior oropharynx Lungs sounds are diminished bilaterally along with scattered expiratory wheezing on forceful expiration. Heart sounds are tachycardic otherwise negative. Abdomen is obese soft nontender. Organs cannot be accurately palpated. No direct tenderness. No rebound tenderness. No guarding. Extremities revealed +1 pitting edema and there is no cyanosis or clubbing. No calf pain or tenderness. No bruises. Examination of the skin revealed no evidence of significant rashes, suspicious appearing nevi or other concerning lesions. Neurologically, the patient is awake and alert and the patient does not have any focal neurological deficit. Cranial nerves are essentially intact. Results - Laboratory Findings CBC and BMP: 05/10/22 22:33 05/10/22 22:33 PT/INR, D-dimer PT 10.6 sec (9.0-12.0) 05/11/22 01:48 INR 1.0 (<1.2) 05/11/22 01:48 D-Dimer 14.14 mg/L FEU (<0.60) H 05/10/22 22:33 Abnormal lab findings: Abnormal Labs 05/10/22 05/10/22 05/10/22 21:51 22:33 22:33 RBC 5.44 H RDW 15.9 H APTT D-Dimer Glucose 111 H POC Glucose (mg/dL) Troponin I Coronavirus (PCR) Detected A 05/10/22 05/10/22 05/11/22 22:33 22:33 03:47 RBC RDW APTT D-Dimer 14.14 H Glucose POC Glucose (mg/dL) 134 H Troponin I 0.081 H* Coronavirus (PCR) 05/11/22 05/11/22 08:08 08:08 RBC RDW APTT 144.7 H* D-Dimer Glucose POC Glucose (mg/dL) Troponin I 0.052 H* Coronavirus (PCR) Assessment and Plan Plan: Acute pulmonary embolism, probably triggered by a previous Covid 19 infection and the patient is still positive for Covid 19 confirmed on 05/10/2022. She stated that she was initiated diagnosed to be positive back in 6 weeks ago. Acute hypoxic respiratory failure, could be multifactorial. I think predominant cause for her acute hypoxic respiratory failure is pulmonary embolism. At the same time, the patient may have some residual Covid 19 infection/pneumonia as evidenced on the CAT scan of the chest and her morbid obesity is probably contributing to her having some micro atelectasis in the lung bases Acute shortness of breath secondary to above Acute sinus tachycardia secondary to above Possible lower extremity DVT, awaiting Dopplers Troponin leak secondary to pulmonary embolism Covid 19 infection Covid 19 pneumonia with infiltration of the lung in the right middle lobe and the left lower lobe Morbid obesity with a BMI 59.6 Chronic back pain. Plan Continue the IV heparin Check Doppler of the lower extremities Check the echocardiogram to evaluate for any strain pattern on the RV Consult with vascular surgery regarding the possibility of a catheter directed lytic therapy Put the patient on Decadron 6 mg IV every 12 hours Inflammatory markers including LDH and CRP Keep the patient on high flow oxygen at 50 L with an FiO2 of 80% Provide the patient incentive spirometer Albuterol HFA as needed Check pro calcitonin level She was empirically covered with Levaquin IV fluids Beta blockers per cardiology and monitor the heart rate Continue beta blockers 1 dose Cymbalta for anxiety and add Xanax 0.5 mg every 8 hours on an as-needed basis Aspirate to the intensive care unit for intensive monitoring especially with underlying hypoxemia and hemodynamic changes
[2022-05-11] MEDS: DULoxetine HCL 30 MG CAPSULE.DR PO SCH (11:33)
[2022-05-11] MEDS: LEVOFLOXACIN 750 MG TAB PO SCH (11:33)
[2022-05-11] MEDS: DEXAMETHASONE SOD PHOSPHATE 10 MG/ML 1 ML VIAL IVP SCH ×2 (11:34→20:57)
[2022-05-11] MEDS: ALPRAZolam 0.5 MG TAB PO PRN (11:36)
--- NOTE | 2022-05-11 11:53 | P.GSCN ---
History of Present Illness Consult date: 05/11/22 Reason for Consult: Bilateral pulmonary embolism Requesting physician: Cesar Dupont History of present illness: This a 26-year-old female recently diagnosed with Covid infection 6 weeks ago who presented to the emergency department with complaints of tachycardia, shortness of breath, and cough. On admission she was noted to have elevated d- dimer and elevated troponin. She had a CT angiogram of the chest which reported bilateral lower lobe multiple pulmonary emboli. No evidence of right heart strain. Bilateral pneumonia. 3 cm masslike infiltrate left lower lobe left paraspinal region. Follow-up is recommended. Patient is currently on high flow oxygen with airvo with oxygen saturation 91-96%. She states that [place] of breath improved. He was tachycardic on admission as high as 142. She was started on heparin drip. She is currently denying any chest pain, still feels like her heart is racing a little bit. Complaints of chronic back pain. Patient did test positive for Covid. Review of Systems A 14 point review systems was completed all pertinent positives and negatives as stated in the HPI. Past Medical History Past Medical History: No Reported History Additional Past Medical History / Comment(s): back pain; Ovarian cysts, migraines, back pain History of Any Multi-Drug Resistant Organisms: None Reported Past Surgical History: No Surgical Hx Reported Additional Past Surgical History / Comment(s): rhisotomy; [place] teeth, colonoscopy. Past Anesthesia/Blood Transfusion Reactions: No Reported Reaction Additional Past Anesthesia/Blood Transfusion Reaction / Comm: NO ANESTHESIA HX. Past Psychological History: Anxiety Smoking Status: Never smoker Past Alcohol Use History: Rare Past Drug Use History: None Reported - Past Family History Mother Family Medical History: No Reported History Medications and Allergies Home Medications Medication Instructions Recorded Confirmed Type Famotidine [Pepcid] 20 mg PO BID #1 tablet 04/13/22 05/11/22 Rx Loratadine [Claritin] 10 mg PO DAILY tab 04/13/22 05/11/22 Rx DULoxetine HCL [Cymbalta] 30 mg PO DAILY #30 cap 04/18/22 05/11/22 Rx Cyclobenzaprine [Flexeril] 10 mg PO BID PRN 05/11/22 05/11/22 History HYDROcodone/APAP 7.5-325MG [[place] 1 tab PO QID PRN 05/11/22 05/11/22 History 7.5-325] lisinopriL [Prinivil] 10 mg PO DAILY 05/11/22 05/11/22 History Allergies Allergy/AdvReac Type Severity Reaction Status Date / Time amoxicillin [Amoxicillin] Allergy Rash/Hives Verified 05/11/22 07:00 cefprozil Allergy Rash/Hives Verified 05/11/22 07:00 Penicillins Allergy Unknown Verified 05/11/22 07:00 Childhood Surgical - Exam Vital Signs Temp Pulse Resp BP Pulse Ox 97.5 F L 113 H 24 147/100 87 L 05/10/22 20:01 05/10/22 20:01 05/10/22 20:01 05/10/22 20:01 05/10/22 20:01 General appearance: The patient is alert, oriented, appears in no acute distress. Morbidly obese. HET: Head is normocephalic and atraumatic. Neck: Supple without lymphadenopathy. Trachea midline. Heart: S1 S2. Regular rate and rhythm. Lungs: Clear to auscultation bilaterally. Abdomen: Soft, nontender, nondistended. Extremities: Normal skin color and turgor. No cyanosis, rash, ulceration, clubbing, or edema. Radial and pedal pulses are 2/4 bilaterally. Neurological: No focal deficits. Alert and oriented 3. Results - Labs 05/10/22 22:33 05/10/22 22:33 Abnormal Lab Results - Last 24 Hours (Table) 05/10/22 05/10/22 05/10/22 Range/Units 21:51 22:33 22:33 RBC 5.44 H (3.80-5.40) m/uL RDW 15.9 H (11.5-15.5) % D-Dimer (<0.60) mg/L FEU Glucose 111 H (74-99) mg/dL POC Glucose (mg/dL) (70-110) mg/dL Troponin I (0.000-0.034) ng/mL Coronavirus (PCR) Detected A (Not Detectd) 05/10/22 05/10/22 05/11/22 Range/Units 22:33 22:33 03:47 RBC (3.80-5.40) m/uL RDW (11.5-15.5) % D-Dimer 14.14 H (<0.60) mg/L FEU Glucose (74-99) mg/dL POC Glucose (mg/dL) 134 H (70-110) mg/dL Troponin I 0.081 H* (0.000-0.034) ng/mL Coronavirus (PCR) (Not Detectd) Diabetes panel 05/10/22 Range/Units 22:33 Sodium 139 (137-145) mmol/L Potassium 4.8 (3.5-5.1) mmol/L Chloride 100 (98-107) mmol/L Carbon Dioxide 28 (22-30) mmol/L BUN 13 (7-17) mg/dL Creatinine 0.58 (0.52-1.04) mg/dL Glucose 111 H (74-99) mg/dL Calcium 9.5 (8.4-10.2) mg/dL AST 22 (14-36) U/L ALT 30 (4-34) U/L Alkaline Phosphatase 97 (38-126) U/L Total Protein 7.0 (6.3-8.2) g/dL Albumin 4.4 (3.5-5.0) g/dL Calcium panel 05/10/22 Range/Units 22:33 Calcium 9.5 (8.4-10.2) mg/dL Albumin 4.4 (3.5-5.0) g/dL Pituitary panel 05/10/22 Range/Units 22:33 Sodium 139 (137-145) mmol/L Potassium 4.8 (3.5-5.1) mmol/L Chloride 100 (98-107) mmol/L Carbon Dioxide 28 (22-30) mmol/L BUN 13 (7-17) mg/dL Creatinine 0.58 (0.52-1.04) mg/dL Glucose 111 H (74-99) mg/dL Calcium 9.5 (8.4-10.2) mg/dL Adrenal panel 05/10/22 Range/Units 22:33 Sodium 139 (137-145) mmol/L Potassium 4.8 (3.5-5.1) mmol/L Chloride 100 (98-107) mmol/L Carbon Dioxide 28 (22-30) mmol/L BUN 13 (7-17) mg/dL Creatinine 0.58 (0.52-1.04) mg/dL Glucose 111 H (74-99) mg/dL Calcium 9.5 (8.4-10.2) mg/dL Total Bilirubin 0.6 (0.2-1.3) mg/dL AST 22 (14-36) U/L ALT 30 (4-34) U/L Alkaline Phosphatase 97 (38-126) U/L Total Protein 7.0 (6.3-8.2) g/dL Albumin 4.4 (3.5-5.0) g/dL - Imaging Comments: CT angiogram chest images reviewed by Dr. Booker Assessment and Plan Assessment: 1. Bilateral pulmonary emboli 2. COVID-19 positive 3. Pneumonia 4. Tachycardia 5. Elevated troponins 6. Morbidly obese 7. Chronic back pain Plan: 1. Agree with heparin drip 2. Await echocardiogram results 3. Further recommendations forthcoming from vascular surgery Thank you for this consultation, we will continue to follow The impression and plan of care has been dictated as directed. Dr. Booker I performed a history and examination of this patient, discussed the same with the dictator. I agree with the dictator's note ,documented as a scribe. Any additional findings or plans will be noted.
--- NOTE | 2022-05-11 12:01 | CA ---
Transthoracic Echo Report Name: Ginny Cage Age: 26 Gender: F : 1995 Exam Date: 05/11/2022 09:09 Exam Location: [facility] Ht (in): 50 Wt (lb): 305 Ordering Physician: Cesar Dupont Attending/Referring Phys: [facility] Cyndy Henderson RDCS Procedure CPT: Indications: Pulmonary embolism with right heart strain Cardiac Hx: PT IS COVID POSITIVE, PNEUMONIA, PULMONARY EMBOLISM, MORBID OBESITY. Technical Quality: Very technically difficult study Contrast 1: Lumason Total Dose (mL): 4 Contrast 2: Total Dose (mL): MEASUREMENTS (Male / Female) Normal Values FINDINGS Left Ventricle Left ventricular ejection fraction is estimated at 60%. Right Ventricle UNABLE TO COMMENT ON SIZE, FUNCTION OR RV STRAIN DUE TO PT'S COMORBIDITIES. Right Atrium Right atrium not well visualized. Left Atrium Left atrium not well visualized. Mitral Valve Mitral valve not well visualized. Aortic Valve Aortic valve not well visualized. Tricuspid Valve Tricuspid valve not well visualized. Pulmonic Valve Pulmonic valve not well visualized. Pericardium Aorta CONCLUSIONS Technically suboptimal incomplete 2-D echo without color Doppler evaluation Left ventricular systolic function appears normal Contrast agent was used Previewed by: Dr. Mejia Del Valle MD (Electronically Signed) Final Date: 11 May 2022 12:01
[2022-05-11 12:15] LABS: C Reactive Protein 3.8 mg/dL (<1.0); LDH 1191 U/L (313-618)
--- NOTE | 2022-05-11 12:29 | US ---
EXAMINATION TYPE: US venous doppler duplex LE DATE OF EXAM: 05/11/2022 12:19 PM COMPARISON: US LLE V 2019 CLINICAL HISTORY: PE, CoVID. Patient is on Heparin. PE. SIDE PERFORMED: Bilateral TECHNIQUE: The lower extremity deep venous system is examined utilizing real time linear array sonog [place] with graded compression, doppler sonography and color-flow sonography. VESSELS IMAGED: Common Femoral Vein Deep Femoral Vein Greater Saphenous Vein * Femoral Vein Popliteal Vein Small Saphenous Vein * Proximal Calf Veins (* superficial vessels) Right Leg: No evidence of DVT in veins imaged. Unable to compress upper CFV due to limited groin acc ess. Limited visibility of prox calf veins. Left Leg: Internal echoes seen within left popliteal vein. Little to no color flow seen. Compressio ns deferred due to this finding. IMPRESSION: Suboptimal study without acute DVT in the right lower extremity identified. There is how ever suspected acute DVT in the popliteal vein in the left lower extremity on current study new from Prior study 2019.
[2022-05-11 13:49] LABS: T4, Free (Free Thyroxine) 1.81 ng/dL (0.78-2.19)
--- NOTE | 2022-05-11 14:32 | P.HPIM ---
History of Present Illness H&P Date: 05/11/22 This is a 26-year-old female recently hospitalized with lumbar myofascial strain, status post inpatient rehab, with past medical history of chronic back pain since she was a teenager, injured during a cheerleading stunt, status post rhizotomy procedure approximately one year ago, morbid obesity, recent COvid-19 and multiple other medical issues, presented to the ER with complaints of shortness of breath, tachycardia, chronic back pain. Denies nausea vomiting or diarrhea. Denies abdominal pain. Denies chest pain, palpitations. Prior to admission had completed MRI at [facility] as per orthopedic surgery. [facility] CTA reported bilateral PEs , right middle lobe and left lower lobe /left paraspinal region pulmonary infiltrates . Anticoagulated on heparin drip .Currently maintained on airvo, 15 L with FiO2 80%, maintaining O2 sats in the 90s. Tachycardia with heart rates up into the 150s, beta yanna initiated. D- dimer 14.1, troponin 0.08, 0.05, 2. Echo, Doppler pending. Review of Systems ROS Statement: Those systems with pertinent positive or pertinent negative responses have been documented in the HPI. ROS Other: All systems not noted in ROS Statement are negative. Past Medical History Past Medical History: No Reported History Additional Past Medical History / Comment(s): back pain; Ovarian cysts, migraines, back pain History of Any Multi-Drug Resistant Organisms: None Reported Past Surgical History: No Surgical Hx Reported Additional Past Surgical History / Comment(s): rhisotomy; [place] teeth, colonoscopy. Past Anesthesia/Blood Transfusion Reactions: No Reported Reaction Additional Past Anesthesia/Blood Transfusion Reaction / Comment(s): NO ANESTHESIA HX. Past Psychological History: Anxiety Smoking Status: Never smoker Past Alcohol Use History: Rare Past Drug Use History: None Reported - Past Family History Mother Family Medical History: No Reported History Medications and Allergies Home Medications Medication Instructions Recorded Confirmed Type Famotidine [Pepcid] 20 mg PO BID #1 tablet 04/13/22 05/11/22 Rx Loratadine [Claritin] 10 mg PO DAILY tab 04/13/22 05/11/22 Rx DULoxetine HCL [Cymbalta] 30 mg PO DAILY #30 cap 04/18/22 05/11/22 Rx Cyclobenzaprine [Flexeril] 10 mg PO BID PRN 05/11/22 05/11/22 History HYDROcodone/APAP 7.5-325MG [[place] 1 tab PO QID PRN 05/11/22 05/11/22 History 7.5-325] lisinopriL [Prinivil] 10 mg PO DAILY 05/11/22 05/11/22 History Allergies Allergy/AdvReac Type Severity Reaction Status Date / Time amoxicillin [Amoxicillin] Allergy Rash/Hives Verified 05/11/22 07:00 cefprozil Allergy Rash/Hives Verified 05/11/22 07:00 Penicillins Allergy Unknown Verified 05/11/22 07:00 Childhood Physical Exam Vitals: Vital Signs Temp Pulse Pulse Resp BP BP Pulse Ox 05/11/22 09:42 05/11/22 08:41 97.8 F 87 20 119/62 95 05/11/22 04:13 132 H 18 138/102 91 L 05/11/22 03:47 96 05/11/22 03:40 129 H 18 152/96 94 L 05/11/22 03:30 132 H 20 134/98 93 L 05/11/22 03:07 132 H 20 154/103 87 L 05/11/22 02:55 98.8 F 142 H 24 201/117 74 L 05/11/22 01:48 17 05/11/22 01:16 118 H 17 135/85 94 L 05/10/22 20:01 97.5 F L 113 H 24 147/100 87 L FiO2 05/11/22 09:42 80 05/11/22 08:41 80 05/11/22 04:13 05/11/22 03:47 80 05/11/22 03:40 05/11/22 03:30 05/11/22 03:07 05/11/22 02:55 05/11/22 01:48 05/11/22 01:16 05/10/22 20:01 Intake and Output 05/10/22 05/11/22 05/11/22 22:59 06:59 14:59 Intake Total 158.7 Output Total 800 Balance -800 158.7 Intake: Intake, IV Titration 158.7 Amount Heparin Sod,Pork in 0.45% 158.7 NaCl 25,000 unit In 0.45 % NaCl 1 250ml.bag @ 16. 625 UNITS/KG/HR 23 mls/hr IV .[id number] [facility] Rx#: [id number] Output: Urine 800 Other: Voiding Method External Catheter External Catheter Weight 138.346 kg 138.346 kg General: morbidly obestiy,NAD, wearing airvo, mild anxiety HEENT: normocephalic, atraumatic, MMM. Neck: supple, no JVD or thyromegaly CV: Regular S1 and S2, tachycardic, no murmur Lungs: Diminished with Minimal rhonchi, Abd: soft, nontender, non distended,+BS Neuro: AAOx3, no focal deficit. Str 5/5 polo LE Skin: warm and dry, Results CBC & Chem 7: 05/10/22 22:33 05/10/22 22:33 Labs: Abnormal Lab Results - Last 24 Hours (Table) 05/10/22 05/10/22 05/10/22 Range/Units 21:51 22:33 22:33 RBC 5.44 H (3.80-5.40) m/uL RDW 15.9 H (11.5-15.5) % APTT (22.0-30.0) sec D-Dimer (<0.60) mg/L FEU Glucose 111 H (74-99) mg/dL POC Glucose (mg/dL) (70-110) mg/dL Troponin I (0.000-0.034) ng/mL Coronavirus (PCR) Detected A (Not Detectd) 05/10/22 05/10/22 05/11/22 Range/Units 22:33 22:33 03:47 RBC (3.80-5.40) m/uL RDW (11.5-15.5) % APTT (22.0-30.0) sec D-Dimer 14.14 H (<0.60) mg/L FEU Glucose (74-99) mg/dL POC Glucose (mg/dL) 134 H (70-110) mg/dL Troponin I 0.081 H* (0.000-0.034) ng/mL Coronavirus (PCR) (Not Detectd) 05/11/22 05/11/22 Range/Units 08:08 08:08 RBC (3.80-5.40) m/uL RDW (11.5-15.5) % APTT 144.7 H* (22.0-30.0) sec D-Dimer (<0.60) mg/L FEU Glucose (74-99) mg/dL POC Glucose (mg/dL) (70-110) mg/dL Troponin I 0.052 H* (0.000-0.034) ng/mL Coronavirus (PCR) (Not Detectd) Thrombosis Risk Factor Assmnt - Choose All That Apply Any of the Below Risk Factors Present?: Yes Each Factor Represents 1 point: Obesity (BMI >25) Other Risk Factors: No (patient currently has a PE but no hx) Other congenital or acquired thrombophilia - If yes, enter type in comment: No Thrombosis Risk Factor Assessment Total Risk Factor Score: 1 Thrombosis Risk Factor Assessment Level: Low Risk Assessment and Plan Assessment: Acute bilateral PE in a patient with prior COVID-19 initially approximately 6 weeks ago, continued to test positive on 05/10/2022. Acute hypoxic respiratory failure, multifactorial, secondary to the above Elevated troponins Subacute lumbar myofascial strain, status post inpatient rehab Chronic lumbar disc disease Obesity, morbid, BMI 59.6 Plan: Continue on current medication regime ,monitoring and symptomatic treatment. Anticoagulated on heparin drip. Beta yanna initiated as heart rate increased up to 150, symptomatic. Echo, Doppler pending. Follow closely with pulmonary, vascular surgery and cardiology. The impression and plan of care has been dictated as directed. : I performed a history and examination of this patient, discussed the same with the dictator. I agree with the dictator's note ,documented as a scribe. Any additional findings or plans will be noted.
[2022-05-11] MEDS: LORATADINE 10 MG TAB PO SCH (16:31)
[2022-05-11] MEDS: METOPROLOL TARTRATE 25 MG TAB PO SCH (20:57)
[2022-05-12] MEDS: HEPARIN SOD,PORK IN 0.45% NACL 25,000 UNIT in 0.45% NACL 1 250ML.BAG IV SCH (06:42)
[2022-05-12] MEDS: PANTOPRAZOLE 40 MG TABLET PO SCH (06:42)
[2022-05-12 07:06] LABS: Anisocytosis Slight; Basophils % (A) 0 %; Eosinophils % (A) 0 %; HGB 13.2 gm/dL (11.4-16.0); Hypochromasia Moderate; Lymphocytes # (A) 1.3 k/uL (1.0-4.8); Lymphocytes % (A) 12 %; MCH 26.1 pg (25.0-35.0); MCHC 31.4 g/dL (31.0-37.0); MCV 83.1 fL (80.0-100.0); Mean Platelet Volume 7.3; Monocytes # (A) 0.5 k/uL (0-1.0); Monocytes % (A) 5 %; Neutrophils # (A) 8.8 k/uL (1.3-7.7); Neutrophils % (A) 82 %; Platelet Count 145 k/uL (150-450); RBC 5.06 m/uL (3.80-5.40); RDW 16.2 % (11.5-15.5); WBC 10.7 k/uL (3.8-10.6)
--- NOTE | 2022-05-12 07:20 | P.PN ---
Subjective Progress Note Date: 05/12/22 PROGRESS NOTE The patient is a 26-year-old female with a history of hypertension, chronic back pain and a history of Covid infection 6 weeks ago who presented with dyspnea, palpitations, was diagnosed with pulmonary embolism and pneumonia. There was no evidence of RV strain on her computed tomography scan. She had sinus tachycardia. She's feeling better today, continues to be on high flow oxygen. She denies any chest discomfort. She continues to be in sinus mechanism with episodes of sinus tachycardia in the rate of 110. She has no dizziness or palpitations. Her echocardiogram was of limited quality but showed a normal systolic function. Her venous duplex scan showed acute DVT in the right lower extremity, left showed no DVT but was limited. She continues to be on IV heparin. Medications: IV heparin, metoprolol 25 mg twice a day, Decadron, Protonix, PHYSICAL EXAMINATION: Blood pressure 110/80 heart rate 94 LUNGS: Clear to auscultation with mild scattered crackles HEART: Regular rate and rhythm, S1, S2. No S3. No systolic murmur ABDOMEN: Soft, obese, nontender, no organomegaly EXTREMETIES: No edema, no significant tenderness LAB: Hemoglobin 13.2, white blood cell 10.7 IMPRESSION: 1. Respiratory failure with evidence of pulmonary embolism and DVT. The patient has no evidence of RV strain with mild troponin elevation 2. Pneumonia, post Covid 3. Sinus tachycardia secondary to her infectious process and pulmonary embolism. 4. History of hypertension 5. Obesity 6. Chronic back pain PLAN: 1. Change IV heparin to Eliquis 2. Continue beta yanna for now 3. Follow blood pressure heart rate, no indication for thrombolytics in regards to her pulmonary embolism 4. Depending on her progress further recommendations will be made Objective - Vital Signs Vital signs: Vital Signs Temp 98 F 05/12/22 04:00 Pulse 113 H 05/12/22 07:00 Resp 15 05/12/22 07:00 BP 110/88 05/12/22 07:00 Pulse Ox 89 L 05/12/22 07:10 FiO2 70 05/12/22 07:10 Intake & Output 05/11/22 05/12/22 05/12/22 18:59 06:59 18:59 Intake Total 412.535 415.335 20 Output Total 300 350 Balance 112.535 65.335 20 Weight 142.8 kg Intake: IV 120 220 20 Sodium Chloride 0.9% 1, 120 220 20 000 ml @ 20 mls/hr IV . Q24H [facility] Rx#:[id number] Intake, IV Titration 292.535 195.335 Amount Heparin Sod,Pork in 0.45% 292.535 195.335 NaCl 25,000 unit In 0.45 % NaCl 1 250ml.bag @ 16. 625 UNITS/KG/HR 23 mls/hr IV .[id number] [facility] Rx#: [id number] Output: Urine 300 350 Other: Voiding Method External Catheter External Catheter # Bowel Movements 1 1 - Labs CBC & Chem 7: 05/12/22 06:35 05/10/22 22:33 Labs: Abnormal Lab Results - Last 24 Hours (Table) 05/11/22 05/11/22 05/11/22 Range/Units 08:08 08:08 11:35 WBC (3.8-10.6) k/uL RDW (11.5-15.5) % Plt Count (150-450) k/uL Neutrophils # (1.3-7.7) k/uL APTT 144.7 H* (22.0-30.0) sec Lactate Dehydrogenase (313-618) U/L Troponin I 0.052 H* 0.037 H* (0.000-0.034) ng/mL C-Reactive Protein (<1.0) mg/dL TSH (0.465-4.680) mIU/L 05/11/22 05/11/22 05/11/22 Range/Units 11:35 16:13 23:34 WBC (3.8-10.6) k/uL RDW (11.5-15.5) % Plt Count (150-450) k/uL Neutrophils # (1.3-7.7) k/uL APTT 85.6 H 75.2 H (22.0-30.0) sec Lactate Dehydrogenase 1191 H (313-618) U/L Troponin I (0.000-0.034) ng/mL C-Reactive Protein 3.8 H (<1.0) mg/dL TSH 0.257 L (0.465-4.680) mIU/L 05/12/22 Range/Units 06:35 WBC 10.7 H (3.8-10.6) k/uL RDW 16.2 H (11.5-15.5) % Plt Count 145 L (150-450) k/uL Neutrophils # 8.8 H (1.3-7.7) k/uL APTT (22.0-30.0) sec Lactate Dehydrogenase (313-618) U/L Troponin I (0.000-0.034) ng/mL C-Reactive Protein (<1.0) mg/dL TSH (0.465-4.680) mIU/L Microbiology - Last 24 Hours (Table) 05/10/22 22:46 Blood Culture - Preliminary Blood No Growth after 24 hours 05/10/22 22:36 Blood Culture - Preliminary Blood No Growth after 24 hours
[2022-05-12 07:39] LABS: ALT 24 U/L (4-34); AST 22 U/L (14-36); African American GFR (CKD) >90 (>60 ml/min/1.73 sqM); Alkaline Phosphatase 82 U/L (38-126); Anion Gap 11 mmol/L; Blood Urea Nitrogen 18 mg/dL (7-17); Calcium 9.3 mg/dL (8.4-10.2); Carbon Dioxide 23 mmol/L (22-30); Chloride 103 mmol/L (98-107); Glucose 150 mg/dL (74-99); Non-African American GFR(CKD) >90 (>60 ml/min/1.73 sqM); Potassium 4.9 mmol/L (3.5-5.1); Sodium 137 mmol/L (137-145); Total Bilirubin 0.6 mg/dL (0.2-1.3); Total Protein 6.4 g/dL (6.3-8.2)
[2022-05-12] MEDS: SODIUM CHLORIDE 0.9% 1,000 ML IV SCH ×3 (07:39→18:55)
--- NOTE | 2022-05-12 08:01 | XR ---
EXAMINATION TYPE: XR chest 1V DATE OF EXAM: 05/12/2022 COMPARISON: 05/10/2022 HISTORY: 26-year-old female with pneumonia TECHNIQUE: Single frontal view of the chest is obtained. FINDINGS: Heart upper limits of normal in size. Right mid to lower lung opacity shows slight interval decrease in size but persists. No pleural effusion. IMPRESSION: The right mid to lower lung pneumonia persists but shows slight interval decrease in size.
[2022-05-12] MEDS: DEXAMETHASONE SOD PHOSPHATE 10 MG/ML 1 ML VIAL IVP SCH ×2 (08:15→21:07)
[2022-05-12] MEDS: APIXABAN 5 MG TAB PO SCH ×2 (08:15→21:07)
[2022-05-12] MEDS: LEVOFLOXACIN 750 MG TAB PO SCH (08:16)
[2022-05-12] MEDS: METOPROLOL TARTRATE 25 MG TAB PO SCH ×2 (08:16→21:07)
[2022-05-12] MEDS: LORATADINE 10 MG TAB PO SCH (08:16)
[2022-05-12] MEDS: HYDROcodone/APAP 5-325MG 1 EACH TAB PO PRN ×3 (08:16→23:46)
[2022-05-12] MEDS: DULoxetine HCL 30 MG CAPSULE.DR PO SCH (08:16)
[2022-05-12] MEDS: LOPERAMIDE 2 MG CAP PO PRN ×2 (08:59→17:46)
--- NOTE | 2022-05-12 09:59 | CDI ---
Documentation Clarification Form Date: 05/12/2022 09:43:51 AM From: Ree Anderson CCS, CCDS Admit Date: 05/11/2022 02:05:00 AM Patient Name: Ginny Cage Visit Number: [id number] Discharge Date: ATTENTION: The Clinical Documentation Specialists (CDI) and [facility] Coding Staff appreciate your assistance in clarifying documentation. Please respond to the clarification below the line at the bottom and electronically sign. The CDI & [facility] Coding staff will review the response and follow-up if needed. Please note: Queries are made part of the Legal Health Record. If you have any questions, please contact the author of this message via ITS. Dr. Rory Nelson: Mild Troponin elevation, Type II Event is documented in the 05/11 Cardiology Consult without further specification. Additional clarification regarding the documented Type II Event is requested. Patient History/Risk Factors per the 05/11 H/P: Hospitalized with Lumbar Myofascial Strain, status post IP rehab, with past medical history of Chronic Back Pain since she was a teenager, injured during a cheerleading stunt, status post Rhizotomy procedure approximately one year ago, Morbid Obesity, BMI >55, recent COVID-19 (not hospitalized), Ovarian cysts, Migraines, Anxiety. Clinical Indicators: Presented to the ED on 05/10 with SOB, cough, nasal congestion w/concern for medication reaction. Had an MRI earlier today for Chronic Back Pain, has been on Lisinopril for 3 days. In respiratory distress with heart rate 113, mildly tachypneic, respiratory rate 24. COVID positive. Admit with Community Acquired Pneumonia, COVID-19, Hypoxemia, Pulmonary Embolism. Admit date 05/11. Troponin 05/10: 0.081. 05/11: 0.052, 0/037. 05/10 EKG: Sinus tachycardia with a rate of 121. Nonspecific ST-T wave abnormality. No evidence of ST elevation or depression. Intervals are normal. [place] is normal. Treatment 05/10: Blood cultures x2, O2 4Lnc, IV Na Chl 1,000 mls @ 130 mls/hr q7H, INH Ventolin 2 puffs x1, IV Levaquin 150 mls @ 100 mls/hr x1, IV Solumedrol 125 mg x1, IV Na Chl 1,000 mls @ 999 mls/hr q1H,. 05/11: IV Heparin drip, Pneumonia Protocol, INH Ventolin 2.5 mg q4H/prn, po Tessalon Perles TID/prn, IV lasix 20 mg x1, IV Decadron 6 mg q12H. 05/12: po Eliquis 10 mg BID x14 doses. Please clarify the following: [ xx ] Type 2 AR due to, please specify: PE [ ] Other cause of Mild Troponin Elevation, please specify: [ ] Unable to determine [ ] Other Condition, please specify (Template Last Revised: September 2020) MTDD
--- NOTE | 2022-05-12 10:42 | P.PN ---
Subjective Progress Note Date: 05/12/22 Principal diagnosis: Pulmonary emboli The patient is seen and examined today as a follow-up for bilateral pulmonary emboli. Patient was transferred to the ICU yesterday for closer monitoring. No acute changes through the night. Echocardiogram was basically nondiagnostic. Cardiology following, stating no evidence of right heart strain, with mildly elevated troponins. They have discontinued heparin and transitioning patient to Eliquis. Patient still with mild tachycardia, oxygen saturation 99% with high flow cannula. Patient had a venous duplex of the bilateral lower extremities yesterday with suspected acute DVT in the popliteal vein of the left lower extremity. Objective - Vital Signs Vital signs: Vital Signs Temp 97.8 F 05/12/22 08:00 Pulse 101 H 05/12/22 10:00 Resp 22 05/12/22 10:00 BP 93/79 05/12/22 10:00 Pulse Ox 99 05/12/22 10:00 FiO2 70 05/12/22 10:00 Intake & Output 05/11/22 05/12/22 05/12/22 18:59 06:59 18:59 Intake Total 412.535 415.335 80 Output Total 300 350 Balance 112.535 65.335 80 Weight 142.8 kg Intake: IV 120 220 80 Sodium Chloride 0.9% 1, 120 220 80 000 ml @ 20 mls/hr IV . Q24H [facility] Rx#:[id number] Intake, IV Titration 292.535 195.335 Amount Heparin Sod,Pork in 0.45% 292.535 195.335 NaCl 25,000 unit In 0.45 % NaCl 1 250ml.bag @ 16. 625 UNITS/KG/HR 23 mls/hr IV .[id number] [facility] Rx#: [id number] Output: Urine 300 350 Other: Voiding Method External Catheter External Catheter # Bowel Movements 1 1 - Exam General appearance: The patient is alert, oriented, appears in no acute distre ss. Morbidly obese. HET: Head is normocephalic and atraumatic. Neck: Supple without lymphadenopathy. Trachea midline. Heart: S1 S2. Regular rate and rhythm. Lungs: Clear to auscultation bilaterally. Abdomen: Soft, nontender, nondistended. Extremities: Normal skin color and turgor. No cyanosis, rash, ulceration, clubbing, or edema. Neurological: No focal deficits. Strength and sensation are grossly intact. - Labs CBC & Chem 7: 05/12/22 06:35 05/12/22 06:35 Labs: Abnormal Lab Results - Last 24 Hours (Table) 05/11/22 05/11/22 05/11/22 Range/Units 11:35 11:35 16:13 WBC (3.8-10.6) k/uL RDW (11.5-15.5) % Plt Count (150-450) k/uL Neutrophils # (1.3-7.7) k/uL APTT 85.6 H (22.0-30.0) sec BUN (7-17) mg/dL Glucose (74-99) mg/dL Lactate Dehydrogenase 1191 H (313-618) U/L Troponin I 0.037 H* (0.000-0.034) ng/mL C-Reactive Protein 3.8 H (<1.0) mg/dL TSH 0.257 L (0.465-4.680) mIU/L 05/11/22 05/12/22 05/12/22 Range/Units 23:34 06:35 06:35 WBC 10.7 H (3.8-10.6) k/uL RDW 16.2 H (11.5-15.5) % Plt Count 145 L (150-450) k/uL Neutrophils # 8.8 H (1.3-7.7) k/uL APTT 75.2 H (22.0-30.0) sec BUN 18 H (7-17) mg/dL Glucose 150 H (74-99) mg/dL Lactate Dehydrogenase (313-618) U/L Troponin I (0.000-0.034) ng/mL C-Reactive Protein (<1.0) mg/dL TSH (0.465-4.680) mIU/L 05/12/22 Range/Units 06:35 WBC (3.8-10.6) k/uL RDW (11.5-15.5) % Plt Count (150-450) k/uL Neutrophils # (1.3-7.7) k/uL APTT 53.3 H (22.0-30.0) sec BUN (7-17) mg/dL Glucose (74-99) mg/dL Lactate Dehydrogenase (313-618) U/L Troponin I (0.000-0.034) ng/mL C-Reactive Protein (<1.0) mg/dL TSH (0.465-4.680) mIU/L Microbiology - Last 24 Hours (Table) 05/10/22 22:46 Blood Culture - Preliminary Blood No Growth after 24 hours 05/10/22 22:36 Blood Culture - Preliminary Blood No Growth after 24 hours Assessment and Plan Assessment: 1. Bilateral pulmonary emboli, no evidence of right heart strain on CTA 2. COVID-19 positive 3. Pneumonia 4. Tachycardia 5. Elevated troponins 6. Morbidly obese 7. Chronic back pain Plan: 1. Continue with recommendations from cardiology 2. Patient started on Eliquis 3. No plans at this time for any vascular surgical intervention Thank you for this consultation, we will be on standby. If Further needed please do not hesitate to call us back. The impression and plan of care has been dictated as directed. Dr. Booker I performed a history and examination of this patient, discussed the same with the dictator. I agree with the dictator's note ,documented as a scribe. Any additional findings or plans will be noted.
--- NOTE | 2022-05-12 11:04 | P.PN ---
Subjective Progress Note Date: 05/12/22 Principal diagnosis: Respiratory failure. A very pleasant 26-year-old morbidly obese female patient with a body mass index of 59.6, who is admitted for acute shortness of breath and acute hypoxic respiratory failure and currently the patient is on high flow oxygen at 50 L with an FiO2 of 80%. The patient has history of Covid 19 infection. She was originally diagnosed having Covid 19 infection approximately 6 weeks ago and this was confirmed on outpatient basis. Subsequently, she had a negative study on 04/19/2022. She comes in again for acute shortness of breath. Her Covid 19 testing was repeated on 05/10/2022 and was positive. The CT antigram was done in the emergency department and it showed bilateral pulmonary embolism. There was also pulmonary infiltrates and the right middle lobe and the left lower lobe posterior segment. Those are more consistent with air space disease. Multiple filling defects in the lower lobe pulmonary artery branches. The patient was started on IV heparin. The patient is currently admitted to the medical floor. She is being seen by vascular surgery and cardiology. She was tachycardic in her heart rate was in the 130s and the patient was in sinus rhythm. She was given metoprolol at a dose of 50 mg oral and the heart rate is being monitored very closely for now. At the same time, the patient denies having any calf michael n. She has chronic edema lower exam is bilaterally. Echo was done. Doppler is to be ordered. Her d-dimer was positive at 14.1. She had a positive troponin leak probably related to pulmonary embolism and the troponins are 0.08 and 0.05 respectively 2. test is negative. Influenza is negative. No previous history of any DVT or pulmonary embolism. No family history. She is obese. No cell lung disease. No asthma. No emphysema. No smoking. No use of any maintenance as for medications or inhalers. Presentation is rather acute. No home O2. No nausea. No vomiting. No diarrhea. No abdominal pain. No chest pain. She is a bit anxious. Progress note dated 05/12/2022. 26-year-old obese female who was admitted on May 10, for pneumonia, and bilateral pulmonary embolism. The patient apparently had coronavirus infection on March 25. Currently, she is resting comfortably in the intensive care unit, room 261. He is currently on AIRVO, at 45 L/m, with an FiO2 of 70%. The patient's getting saline at KVO. IV heparin has been converted to a factor X a inhibitor. Her medical history includes obesity, degenerative disc disease, and migraine cephalgia. White count 10.7, hemoglobin 13.2, and platelet count 245,000. Sodium 137, potassium 4.9, chlorides 103, CO2 23, anion gap 11, BUN 18, with a creatinine 0.56. Troponins were 0.052 and 0.037. Blood cultures are negative. Dopplers revealed a DVT in the left lower extremity. CT angiogram showed bilateral lower lobe pulmonary emboli. Objective - Vital Signs Vital signs: Vital Signs Temp 97.8 F 05/12/22 08:00 Pulse 101 H 05/12/22 10:00 Resp 22 05/12/22 10:00 BP 93/79 05/12/22 10:00 Pulse Ox 99 05/12/22 10:00 FiO2 70 05/12/22 10:00 Intake & Output 05/11/22 05/12/22 05/12/22 18:59 06:59 18:59 Intake Total 412.535 415.335 80 Output Total 300 350 Balance 112.535 65.335 80 Weight 142.8 kg Intake: IV 120 220 80 Sodium Chloride 0.9% 1, 120 220 80 000 ml @ 20 mls/hr IV . Q24H [facility] Rx#:[id number] Intake, IV Titration 292.535 195.335 Amount Heparin Sod,Pork in 0.45% 292.535 195.335 NaCl 25,000 unit In 0.45 % NaCl 1 250ml.bag @ 16. 625 UNITS/KG/HR 23 mls/hr IV .[id number] [facility] Rx#: [id number] Output: Urine 300 350 Other: Voiding Method External Catheter External Catheter # Bowel Movements 1 1 - Exam No acute distress, oriented 3. Currently on AIRVO. HEENT examination is grossly unremarkable. Neck supple. Full range of motion. No adenopathy thyromegaly or neck vein distention. Cardiovascular examination reveals regular rhythm rate. S1-S2 normal. No S3 or S4. No discernible murmur noted. Heart rate 95 bpm. Lungs reveal mild scattered rhonchi. No wheezes. No crackles. Breath sounds are equal bilaterally. Saturations are 99%. Abdomen soft bowel sounds are heard. No masses or tenderness. Extremities are intact. No cyanosis clubbing or edema. Skin is without rash or lesion. Neurologic examination is brief but nonfocal. - Labs CBC & Chem 7: 05/12/22 06:35 05/12/22 06:35 Labs: Abnormal Lab Results - Last 24 Hours (Table) 05/11/22 05/11/22 05/11/22 Range/Units 11:35 11:35 16:13 WBC (3.8-10.6) k/uL RDW (11.5-15.5) % Plt Count (150-450) k/uL Neutrophils # (1.3-7.7) k/uL APTT 85.6 H (22.0-30.0) sec BUN (7-17) mg/dL Glucose (74-99) mg/dL Lactate Dehydrogenase 1191 H (313-618) U/L Troponin I 0.037 H* (0.000-0.034) ng/mL C-Reactive Protein 3.8 H (<1.0) mg/dL TSH 0.257 L (0.465-4.680) mIU/L 05/11/22 05/12/22 05/12/22 Range/Units 23:34 06:35 06:35 WBC 10.7 H (3.8-10.6) k/uL RDW 16.2 H (11.5-15.5) % Plt Count 145 L (150-450) k/uL Neutrophils # 8.8 H (1.3-7.7) k/uL APTT 75.2 H (22.0-30.0) sec BUN 18 H (7-17) mg/dL Glucose 150 H (74-99) mg/dL Lactate Dehydrogenase (313-618) U/L Troponin I (0.000-0.034) ng/mL C-Reactive Protein (<1.0) mg/dL TSH (0.465-4.680) mIU/L 05/12/22 Range/Units 06:35 WBC (3.8-10.6) k/uL RDW (11.5-15.5) % Plt Count (150-450) k/uL Neutrophils # (1.3-7.7) k/uL APTT 53.3 H (22.0-30.0) sec BUN (7-17) mg/dL Glucose (74-99) mg/dL Lactate Dehydrogenase (313-618) U/L Troponin I (0.000-0.034) ng/mL C-Reactive Protein (<1.0) mg/dL TSH (0.465-4.680) mIU/L Microbiology - Last 24 Hours (Table) 05/10/22 22:46 Blood Culture - Preliminary Blood No Growth after 24 hours 05/10/22 22:36 Blood Culture - Preliminary Blood No Growth after 24 hours Assessment and Plan Assessment: Acute hypoxemic respiratory failure, secondary to bilateral lower lobe pulmonary embolism, likely triggered by coronavirus infection, initially diagnosed 03/25/2022. Acute hypoxemic respiratory failure, secondary to pulmonary embolism, and possible coronavirus associated pneumonia. Sinus tachycardia, secondary to pulmonary embolism. Left lower extremity DVT. Mild troponin leak. History of coronavirus associated infection, and possible pneumonia. Morbid obesity. History of migraine cephalgia. Chronic back pain secondary to degenerative disc disease. Plan: Plan dated 05/12/2022. The patient's IV heparin was turned off this morning and the patient was started on a factor X a inhibitor. She remains quite hypoxemic, and is on AIRVO, at 45 L/m, with an FiO2 of 70%. The patient did have a left lower extremity DVT Doppler. Labs, x-rays, and medications are reviewed. Prognosis is certainly guarded. We will continue to follow make recommendations where appropriate. The patient obviously should remain in the intensive care unit. Time with Patient: Greater than 30
--- NOTE | 2022-05-12 14:20 | P.PN ---
Subjective Progress Note Date: 05/12/22 H&P Date: 05/11/22 This is a 26-year-old female recently hospitalized with lumbar myofascial strain, status post inpatient rehab, with past medical history of chronic back pain since she was a teenager, injured during a cheerleading stunt, status post rhizotomy procedure approximately one year ago, morbid obesity, recent COvid-19 and multiple other medical issues, presented to the ER with complaints of shortness of breath, tachycardia, chronic back pain. Denies nausea vomiting or diarrhea. Denies abdominal pain. Denies chest pain, palpitations. Prior to admission had completed MRI at [facility] as per orthopedic surgery. CHest CTA reported bilateral PEs , right middle lobe and left lower lobe /left paraspinal region pulmonary infiltrates . Anticoagulated on heparin drip .Currently maintained on airvo, 15 L with FiO2 80%, maintaining O2 sats in the 90s. Tachycardia with heart rates up into the 150s, beta yanna initiated. D- dimer 14.1, troponin 0.08, 0.05, 2. Echo, Doppler pending. 05/12/2022 transferred yesterday to ICU for closer monitoring. Mildly elevated troponins, Echo reported normal EF, but not able to see pulmonary artery pressures-cardiology reporting no evidence of right heart strain, no thrombolytics recommended at this time .Venous Doppler suboptimal study reporting suspected acute DVT in the popliteal vein in the left lower extremity. Heparin discontinued and patient transitioned to Eliquis as per cardiology. Maintained on beta yanna with improvement of tachycardia. Maintained on Airvo 45 L/m with FiO2 70%, maintaining O2 sats in the 90s. Objective - Vital Signs Vital signs: Vital Signs Temp 97.8 F 05/12/22 08:00 Pulse 105 H 05/12/22 08:00 Resp 19 05/12/22 08:00 BP 117/93 05/12/22 08:00 Pulse Ox 97 05/12/22 08:00 FiO2 70 05/12/22 08:00 Intake & Output 05/11/22 05/12/22 05/12/22 18:59 06:59 18:59 Intake Total 412.535 415.335 50 Output Total 300 350 Balance 112.535 65.335 50 Weight 142.8 kg Intake: IV 120 220 50 Sodium Chloride 0.9% 1, 120 220 50 000 ml @ 20 mls/hr IV . Q24H [facility] Rx#:[id number] Intake, IV Titration 292.535 195.335 Amount Heparin Sod,Pork in 0.45% 292.535 195.335 NaCl 25,000 unit In 0.45 % NaCl 1 250ml.bag @ 16. 625 UNITS/KG/HR 23 mls/hr IV .[id number] [facility] Rx#: [id number] Output: Urine 300 350 Other: Voiding Method External Catheter External Catheter # Bowel Movements 1 1 - Exam General: morbidly obestiy,NAD, wearing airvo, mild anxiety HEENT: normocephalic, atraumatic, MMM. Neck: supple, no JVD or thyromegaly CV: Regular S1 and S2, tachycardic, no murmur Lungs: Diminished with Minimal rhonchi, Abd: soft, nontender, non distended,+BS Neuro: AAOx3, no focal deficit. Str 5/5 polo LE Skin: warm and dry, - Labs CBC & Chem 7: 05/12/22 06:35 05/12/22 06:35 Labs: Abnormal Lab Results - Last 24 Hours (Table) 05/11/22 05/11/22 05/11/22 Range/Units 08:08 08:08 11:35 WBC (3.8-10.6) k/uL RDW (11.5-15.5) % Plt Count (150-450) k/uL Neutrophils # (1.3-7.7) k/uL APTT 144.7 H* (22.0-30.0) sec BUN (7-17) mg/dL Glucose (74-99) mg/dL Lactate Dehydrogenase (313-618) U/L Troponin I 0.052 H* 0.037 H* (0.000-0.034) ng/mL C-Reactive Protein (<1.0) mg/dL TSH (0.465-4.680) mIU/L 05/11/22 05/11/22 05/11/22 Range/Units 11:35 16:13 23:34 WBC (3.8-10.6) k/uL RDW (11.5-15.5) % Plt Count (150-450) k/uL Neutrophils # (1.3-7.7) k/uL APTT 85.6 H 75.2 H (22.0-30.0) sec BUN (7-17) mg/dL Glucose (74-99) mg/dL Lactate Dehydrogenase 1191 H (313-618) U/L Troponin I (0.000-0.034) ng/mL C-Reactive Protein 3.8 H (<1.0) mg/dL TSH 0.257 L (0.465-4.680) mIU/L 05/12/22 05/12/22 05/12/22 Range/Units 06:35 06:35 06:35 WBC 10.7 H (3.8-10.6) k/uL RDW 16.2 H (11.5-15.5) % Plt Count 145 L (150-450) k/uL Neutrophils # 8.8 H (1.3-7.7) k/uL APTT 53.3 H (22.0-30.0) sec BUN 18 H (7-17) mg/dL Glucose 150 H (74-99) mg/dL Lactate Dehydrogenase (313-618) U/L Troponin I (0.000-0.034) ng/mL C-Reactive Protein (<1.0) mg/dL TSH (0.465-4.680) mIU/L Microbiology - Last 24 Hours (Table) 05/10/22 22:46 Blood Culture - Preliminary Blood No Growth after 24 hours 05/10/22 22:36 Blood Culture - Preliminary Blood No Growth after 24 hours Assessment and Plan Assessment: Acute bilateral PE in a patient with prior COVID-19 initially approximately 6 weeks ago, continued to test positive on 05/10/2022. Elevated Troponins,No evidence of right heart strain on CTA, no thrombolytics recommended . Acute hypoxic respiratory failure, multifactorial, secondary to the above Sinus tachycardia secondary to all the above Left lower extremity DVT Subacute lumbar myofascial strain, status post inpatient rehab Chronic lumbar disc disease Obesity, morbid, BMI 59.6 Plan: Continue on current medication regime ,monitoring and symptomatic treatment. Anticoagulation -transitioned to Eliquis. Maintained on Beta yanna. IV fluid hydration initiated, decreased urine output today. Diarrhea, ruling out C. difficile, suspect related to Covid. Prognosis guarded given multiple complex medical issues. The impression and plan of care has been dictated as directed. : I performed a history and examination of this patient, discussed the same with the dictator. I agree with the dictator's note ,documented as a scribe. Any additional findings or plans will be noted.
[2022-05-12] MEDS: FLUTICASONE 50MCG/SPRAY NASAL 16GM EA NOSTRIL PRN (18:26)
[2022-05-12] MEDS: ALPRAZolam 0.5 MG TAB PO PRN (18:55)
[2022-05-13] MEDS: PANTOPRAZOLE 40 MG TABLET PO SCH (06:48)
--- NOTE | 2022-05-13 07:11 | P.PN ---
Subjective Progress Note Date: 05/13/22 PROGRESS NOTE The patient is a 26-year-old female with a history of hypertension, chronic back pain and a history of Covid infection 6 weeks ago who presented with dyspnea, palpitations, was diagnosed with pulmonary embolism and pneumonia. There was no evidence of RV strain on her computed tomography scan. She had sinus tachycardia. She's feeling better today, continues to be on high flow oxygen. She denies any chest discomfort. She continues to be in sinus mechanism with episodes of sinus tachycardia in the rate of 110. She has no dizziness or palpitations. Her echocardiogram was of limited quality but showed a normal systolic function. Her venous duplex scan showed acute DVT in the right lower extremity, left showed no DVT but was limited. She continues to be on IV heparin. May 13: She is feeling better today, she is down to 5 L nasal cannula with good oxygenation. She denies any chest discomfort, dizziness or palpitations. She is on oral anticoagulation. She has no significant cough. She has no significant nausea or vomiting. She continues to be in sinus mechanism with no evidence of arrhythmia. Her urinary output is stable. Medications: Eliquis 10 mg bid, metoprolol 25 mg twice a day, Decadron, Protonix, Levaquin PHYSICAL EXAMINATION: Blood pressure 130/89 heart rate 80 LUNGS: Clear to auscultation with few scattered crackles HEART: Regular rate and rhythm, S1, S2. No S3. No systolic murmur ABDOMEN: Soft, obese, nontender, no organomegaly EXTREMETIES: No edema, no significant tenderness LAB: Pending IMPRESSION: 1. Respiratory failure with evidence of pulmonary embolism and DVT. The patient has no evidence of RV strain with mild troponin elevation 2. Pneumonia, post Covid 3. Sinus tachycardia secondary to her infectious process and pulmonary emboli sm, resolved. 4. History of hypertension 5. Obesity 6. Chronic back pain PLAN: 1. Continue present therapy 2. Increase physical activity 3. From the cardiac standpoint she is stable to be transferred to telemetry floor 4. Continue anticoagulation per protocol 5. We will see her on an as needed basis, please feel free to call us for any questions Objective - Vital Signs Vital signs: Vital Signs Temp 98.2 F 05/13/22 04:00 Pulse 81 05/13/22 07:00 Resp 18 05/13/22 07:00 BP 130/89 05/13/22 07:00 Pulse Ox 97 05/13/22 07:00 FiO2 60 05/12/22 17:00 Intake & Output 05/12/22 05/13/22 05/13/22 18:59 06:59 18:59 Intake Total 1180 960 80 Output Total 700 550 Balance 480 410 80 Weight 143.6 kg Intake: IV 100 880 80 Sodium Chloride 0.9% 1, 100 000 ml @ 20 mls/hr IV . Q24H [facility] Rx#:[id number] Sodium Chloride 0.9% 1, 880 80 000 ml @ 80 mls/hr IV . [id number] [facility] Rx#:[id number] Intake, IV Titration 560 80 Amount Sodium Chloride 0.9% 1, 560 80 000 ml @ 80 mls/hr IV . [id number] [facility] Rx#:[id number] Oral 520 Output: Urine 700 550 Other: Voiding Method External Catheter External Catheter # Bowel Movements 1 - Labs CBC & Chem 7: 05/12/22 06:35 05/12/22 06:35 Labs: Abnormal Lab Results - Last 24 Hours (Table) 05/12/22 05/12/22 Range/Units 06:35 06:35 APTT 53.3 H (22.0-30.0) sec BUN 18 H (7-17) mg/dL Glucose 150 H (74-99) mg/dL Microbiology - Last 24 Hours (Table) 05/10/22 22:46 Blood Culture - Preliminary Blood No Growth after 48 hours 05/10/22 22:36 Blood Culture - Preliminary Blood No Growth after 48 hours
[2022-05-13 07:54] LABS: Anisocytosis Slight; Basophils % (A) 0 %; Eosinophils % (A) 0 %; HCT 40.6 % (34.0-46.0); HGB 12.1 gm/dL (11.4-16.0); Hypochromasia Moderate; Lymphocytes # (A) 1.2 k/uL (1.0-4.8); Lymphocytes % (A) 13 %; MCH 24.8 pg (25.0-35.0); MCHC 29.9 g/dL (31.0-37.0); MCV 82.9 fL (80.0-100.0); Mean Platelet Volume 7.6; Monocytes # (A) 0.3 k/uL (0-1.0); Monocytes % (A) 3 %; Neutrophils # (A) 7.5 k/uL (1.3-7.7); Neutrophils % (A) 82 %; Platelet Count 144 k/uL (150-450); RDW 16.4 % (11.5-15.5); WBC 9.1 k/uL (3.8-10.6)
[2022-05-13 08:03] LABS: African American GFR (CKD) >90 (>60 ml/min/1.73 sqM); Anion Gap 10 mmol/L; Blood Urea Nitrogen 19 mg/dL (7-17); Calcium 9.1 mg/dL (8.4-10.2); Carbon Dioxide 25 mmol/L (22-30); Chloride 102 mmol/L (98-107); Glucose 134 mg/dL (74-99); Non-African American GFR(CKD) >90 (>60 ml/min/1.73 sqM); Potassium 4.5 mmol/L (3.5-5.1); Sodium 137 mmol/L (137-145)
[2022-05-13] MEDS: APIXABAN 5 MG TAB PO SCH ×2 (08:45→21:44)
[2022-05-13] MEDS: LORATADINE 10 MG TAB PO SCH (08:47)
[2022-05-13] MEDS: DEXAMETHASONE SOD PHOSPHATE 10 MG/ML 1 ML VIAL IVP SCH ×2 (08:47→21:46)
[2022-05-13] MEDS: DULoxetine HCL 30 MG CAPSULE.DR PO SCH (08:47)
[2022-05-13] MEDS: LEVOFLOXACIN 750 MG TAB PO SCH (08:47)
[2022-05-13] MEDS: METOPROLOL TARTRATE 25 MG TAB PO SCH ×2 (08:47→21:44)
[2022-05-13] MEDS: HYDROcodone/APAP 5-325MG 1 EACH TAB PO PRN ×2 (08:53→21:54)
--- NOTE | 2022-05-13 10:58 | P.PN ---
Subjective Progress Note Date: 05/13/22 Principal diagnosis: Respiratory failure. A very pleasant 26-year-old morbidly obese female patient with a body mass index of 59.6, who is admitted for acute shortness of breath and acute hypoxic respiratory failure and currently the patient is on high flow oxygen at 50 L with an FiO2 of 80%. The patient has history of Covid 19 infection. She was originally diagnosed having Covid 19 infection approximately 6 weeks ago and this was confirmed on outpatient basis. Subsequently, she had a negative study on 04/19/2022. She comes in again for acute shortness of breath. Her Covid 19 testing was repeated on 05/10/2022 and was positive. The CT antigram was done in the emergency department and it showed bilateral pulmonary embolism. There was also pulmonary infiltrates and the right middle lobe and the left lower lobe posterior segment. Those are more consistent with air space disease. Multiple filling defects in the lower lobe pulmonary artery branches. The patient was started on IV heparin. The patient is currently admitted to the medical floor. She is being seen by vascular surgery and cardiology. She was tachycardic in her heart rate was in the 130s and the patient was in sinus rhythm. She was given metoprolol at a dose of 50 mg oral and the heart rate is being monitored very closely for now. At the same time, the patient denies having any calf michael n. She has chronic edema lower exam is bilaterally. Echo was done. Doppler is to be ordered. Her d-dimer was positive at 14.1. She had a positive troponin leak probably related to pulmonary embolism and the troponins are 0.08 and 0.05 respectively 2. test is negative. Influenza is negative. No previous history of any DVT or pulmonary embolism. No family history. She is obese. No cell lung disease. No asthma. No emphysema. No smoking. No use of any maintenance as for medications or inhalers. Presentation is rather acute. No home O2. No nausea. No vomiting. No diarrhea. No abdominal pain. No chest pain. She is a bit anxious. Progress note dated 05/12/2022. 26-year-old obese female who was admitted on May 10, for pneumonia, and bilateral pulmonary embolism. The patient apparently had coronavirus infection on March 25. Currently, she is resting comfortably in the intensive care unit, room 261. He is currently on AIRVO, at 45 L/m, with an FiO2 of 70%. The patient's getting saline at KVO. IV heparin has been converted to a factor X a inhibitor. Her medical history includes obesity, degenerative disc disease, and migraine cephalgia. White count 10.7, hemoglobin 13.2, and platelet count 245,000. Sodium 137, potassium 4.9, chlorides 103, CO2 23, anion gap 11, BUN 18, with a creatinine 0.56. Troponins were 0.052 and 0.037. Blood cultures are negative. Dopplers revealed a DVT in the left lower extremity. CT angiogram showed bilateral lower lobe pulmonary emboli. Progress note dated 05/13/2022. 26-year-old obese female admitted on May 10 for pneumonia and bilateral pulmonary embolism. The patient had coronavirus infection on March 25. She's currently in the ICU. Yesterday she was on AIRVO. Today she is on 5 L of oxygen. She's getting saline at 80 mL an hour. We'll check a UA, culture and sensitivity, and DC the Levaquin. It was given to her empirically. White count 9.1, hemoglobin 12.1, hematocrit 40.6, and platelet count 144,000. Sodium, potassium, chloride, CO2, anion gap, all were all normal. BUN is a bit high at 19 with a creatinine of 0.54. C. difficile studies are negative. Objective - Vital Signs Vital signs: Vital Signs Temp 97.8 F 05/13/22 08:00 Pulse 85 05/13/22 10:00 Resp 23 05/13/22 10:00 BP 121/91 05/13/22 10:00 Pulse Ox 97 05/13/22 10:00 FiO2 60 05/12/22 17:00 Intake & Output 05/12/22 05/13/22 05/13/22 18:59 06:59 18:59 Intake Total 1180 960 320 Output Total 700 550 Balance 480 410 320 Weight 143.6 kg Intake: IV 100 880 320 Sodium Chloride 0.9% 1, 100 000 ml @ 20 mls/hr IV . Q24H [facility] Rx#:[id number] Sodium Chloride 0.9% 1, 880 320 000 ml @ 80 mls/hr IV . [id number] [facility] Rx#:[id number] Intake, IV Titration 560 80 Amount Sodium Chloride 0.9% 1, 560 80 000 ml @ 80 mls/hr IV . [id number] [facility] Rx#:[id number] Oral 520 Output: Urine 700 550 Other: Voiding Method External Catheter External Catheter External Catheter # Bowel Movements 1 - Exam No acute distress, oriented 3. Currently on 5 L nasal cannula. Saturations 97%.. HEENT examination is grossly unremarkable. Neck supple. Full range of motion. No adenopathy thyromegaly or neck vein distention. Cardiovascular examination reveals regular rhythm rate. S1-S2 normal. No S3 or S4. No discernible murmur noted. Heart rate 85 bpm. Lungs reveal mild scattered rhonchi. No wheezes. No crackles. Breath sounds are equal bilaterally. Saturations are 97%. Abdomen soft bowel sounds are heard. No masses or tenderness. Extremities are intact. No cyanosis clubbing or edema. Skin is without rash or lesion. Neurologic examination is brief but nonfocal. - Labs CBC & Chem 7: 05/13/22 07:15 05/13/22 07:15 Labs: Abnormal Lab Results - Last 24 Hours (Table) 05/13/22 05/13/22 Range/Units 07:15 07:15 MCH 24.8 L (25.0-35.0) pg MCHC 29.9 L (31.0-37.0) g/dL RDW 16.4 H (11.5-15.5) % Plt Count 144 L (150-450) k/uL BUN 19 H (7-17) mg/dL Glucose 134 H (74-99) mg/dL Microbiology - Last 24 Hours (Table) 05/10/22 22:46 Blood Culture - Preliminary Blood No Growth after 48 hours 05/10/22 22:36 Blood Culture - Preliminary Blood No Growth after 48 hours Assessment and Plan Assessment: Acute hypoxemic respiratory failure, secondary to bilateral lower lobe pulmonary embolism, likely triggered by coronavirus infection, initially diagnosed 03/25/2022. Acute hypoxemic respiratory failure, secondary to pulmonary embolism, and possible coronavirus associated pneumonia. Sinus tachycardia, secondary to pulmonary embolism. Left lower extremity DVT. Mild troponin leak. History of coronavirus associated infection, and possible pneumonia. Morbid obesity. History of migraine cephalgia. Chronic back pain secondary to degenerative disc disease. Plan: Plan dated 05/12/2022. The patient's IV heparin was turned off this morning and the patient was started on a factor X a inhibitor. She remains quite hypoxemic, and is on AIRVO, at 45 L/m, with an FiO2 of 70%. The patient did have a left lower extremity DVT Doppler. Labs, x-rays, and medications are reviewed. Prognosis is certainly guarded. We will continue to follow make recommendations where appropriate. The patient obviously should remain in the intensive care unit. Plan dated 05/13/2022. The patient is on a factor X a inhibitor. She was weaned off of AIRVO. She's currently on 5 L nasal cannula. FiO2 could probably be weaned down further. Clinically, the patient looks well. She denies any pain, shortness of breath, d ifficulty breathing, fever, chills, cough, or phlegm production. Labs, x-rays, and medications are all reviewed. Prognosis is guarded. We will continue to follow the patient and make recommendations where appropriate. She is close to being discharged from the intensive care unit. Time with Patient: Less than 30
--- NOTE | 2022-05-13 12:42 | P.PN ---
Subjective Progress Note Date: 05/13/22 H&P Date: 05/11/22 This is a 26-year-old female recently hospitalized with lumbar myofascial strain, status post inpatient rehab, with past medical history of chronic back pain since she was a teenager, injured during a cheerleading stunt, status post rhizotomy procedure approximately one year ago, morbid obesity, recent COvid-19 and multiple other medical issues, presented to the ER with complaints of shortness of breath, tachycardia, chronic back pain. Denies nausea vomiting or diarrhea. Denies abdominal pain. Denies chest pain, palpitations. Prior to admission had completed MRI at [facility] as per orthopedic surgery. [facility] CTA reported bilateral PEs , right middle lobe and left lower lobe /left paraspinal region pulmonary infiltrates . Anticoagulated on heparin drip .Currently maintained on airvo, 15 L with FiO2 80%, maintaining O2 sats in the 90s. Tachycardia with heart rates up into the 150s, beta yanna initiated. D- dimer 14.1, troponin 0.08, 0.05, 2. Echo, Doppler pending. 05/12/2022 transferred yesterday to ICU for closer monitoring. Mildly elevated troponins, Echo reported normal EF, but not able to see pulmonary artery pressures-cardiology reporting no evidence of right heart strain, no thrombolytics recommended at this time .Venous Doppler suboptimal study reporting suspected acute DVT in the popliteal vein in the left lower extremity. Heparin discontinued and patient transitioned to Eliquis as per cardiology. Maintained on beta yanna with improvement of tachycardia. Maintained on Airvo 45 L/m with FiO2 70%, maintaining O2 sats in the 90s. 05/13/2022 respiratory function significantly improved, weaned from Airvo down to 5 L nasal cannula today, maintaining O2 sats in the 90s. Denies chest pain, palpitations or shortness of breath. Denies chest tightness. Complains of diarrhea, negative for C. difficile ,mildly improved with Imodium. Chronic back pain. Afebrile, normal WBC, creatinine 0.54. Sinus rhythm. Objective - Vital Signs Vital signs: Vital Signs Temp 98.3 F 05/13/22 12:00 Pulse 90 05/13/22 12:00 Resp 22 05/13/22 12:00 BP 102/76 05/13/22 12:00 Pulse Ox 97 05/13/22 12:00 FiO2 60 05/12/22 17:00 Intake & Output 05/12/22 05/13/22 05/13/22 18:59 06:59 18:59 Intake Total 1180 960 580 Output Total 700 550 Balance 480 410 580 Weight 143.6 kg Intake: IV 100 880 480 Sodium Chloride 0.9% 1, 100 000 ml @ 20 mls/hr IV . Q24H [facility] Rx#:[id number] Sodium Chloride 0.9% 1, 880 480 000 ml @ 80 mls/hr IV . [id number] [facility] Rx#:[id number] Intake, IV Titration 560 80 Amount Sodium Chloride 0.9% 1, 560 80 000 ml @ 80 mls/hr IV . [id number] [facility] Rx#:[id number] Oral 520 100 Output: Urine 700 550 Other: Voiding Method External Catheter External Catheter External Catheter # Bowel Movements 1 - Exam General: Alert and oriented 3 ,sitting up in bed, no acute distress HEENT: normocephalic, atraumatic, MMM. Neck: supple, no JVD or thyromegaly CV: Regular S1 and S2, no murmur Lungs: Diminished, essentially clear to auscultation Abd: soft, nontender, non distended,+BS Neuro: no focal deficit. Str 5/5 polo LE Skin: warm and dry, - Labs CBC & Chem 7: 05/13/22 07:15 05/13/22 07:15 Labs: Abnormal Lab Results - Last 24 Hours (Table) 05/13/22 05/13/22 Range/Units 07:15 07:15 MCH 24.8 L (25.0-35.0) pg MCHC 29.9 L (31.0-37.0) g/dL RDW 16.4 H (11.5-15.5) % Plt Count 144 L (150-450) k/uL BUN 19 H (7-17) mg/dL Glucose 134 H (74-99) mg/dL Microbiology - Last 24 Hours (Table) 05/10/22 22:46 Blood Culture - Preliminary Blood No Growth after 48 hours 05/10/22 22:36 Blood Culture - Preliminary Blood No Growth after 48 hours Assessment and Plan Assessment: Acute bilateral PE in a patient with prior COVID-19 initially approximately 6 weeks ago, continued to test positive on 05/10/2022. Elevated Troponins,No evidence of right heart strain on CTA, no thrombolytics recommended . Acute hypoxic respiratory failure, multifactorial, secondary to the above Sinus tachycardia secondary to all the above Left lower extremity DVT Subacute lumbar myofascial strain, status post inpatient rehab Chronic lumbar disc disease Obesity, morbid, BMI 59.6 Plan: Continue on current medication regime ,monitoring and symptomatic treatment. Anticoagulated with Eliquis. Continues on Beta yanna. IV fluid hydration initiated, decreased urine output today. Diarrhea, negative for C. difficile, Questran added to med regimen. PT/OT. Prognosis guarded given mult iple complex medical issues. The impression and plan of care has been dictated as directed. : I performed a history and examination of this patient, discussed the same with the dictator. I agree with the dictator's note ,documented as a scribe. Any additional findings or plans will be noted.
[2022-05-13] MEDS: SODIUM CHLORIDE 0.9% 1,000 ML IV SCH (12:58)
[2022-05-13 13:45] LABS: Appearance,Urine Clear (Clear); Bilirubin,Urine Negative (Negative); Blood,Urine Large (Negative); Color,Urine Yellow; Glucose,Urine (UA) Negative (Negative); Ketones,Urine Negative (Negative); Leukocyte Esterase,Urine Negative (Negative); Nitrite,Urine Negative (Negative); Protein,Urine Trace (Negative); RBC,Urine 181 /hpf (0-5); Squamous Epithelial Cell,Urine 3 /hpf (0-4); Urobilinogen,Urine <2.0 mg/dL (<2.0); WBC,Urine 2 /hpf (0-5)
[2022-05-13] MEDS: CHOLESTYRAMINE (WITH SUGAR) 4 GM PACKET PO SCH ×2 (15:03→21:44)
[2022-05-14] MEDS: FLUTICASONE 50MCG/SPRAY NASAL 16GM EA NOSTRIL PRN (00:43)
[2022-05-14] MEDS: ALPRAZolam 0.5 MG TAB PO PRN ×3 (02:30→23:23)
[2022-05-14] MEDS: SODIUM CHLORIDE 0.9% 1,000 ML IV SCH ×2 (02:35→16:06)
--- NOTE | 2022-05-14 11:30 | P.PN ---
Subjective Progress Note Date: 05/14/22 PROGRESS NOTE The patient is a 26-year-old female with a history of hypertension, chronic back pain and a history of Covid infection 6 weeks ago who presented with dyspnea, palpitations, was diagnosed with pulmonary embolism and pneumonia. There was no evidence of RV strain on her computed tomography scan. She had sinus tachycardia. She's feeling better today, continues to be on high flow oxygen. She denies any chest discomfort. She continues to be in sinus mechanism with episodes of sinus tachycardia in the rate of 110. She has no dizziness or palpitations. Her echocardiogram was of limited quality but showed a normal systolic function. Her venous duplex scan showed acute DVT in the right lower extremity, left showed no DVT but was limited. She continues to be on IV heparin. May 13: She is feeling better today, she is down to 5 L nasal cannula with good oxygenation. She denies any chest discomfort, dizziness or palpitations. She is on oral anticoagulation. She has no significant cough. She has no significant nausea or vomiting. She continues to be in sinus mechanism with no evidence of arrhythmia. Her urinary output is stable. May 14: The patient is feeling better today, she denies any chest discomfort, dizziness or palpitations. She is on room air. She has no chest discomfort and her heart rate is stable. She has no dizziness or palpitations. She has no nausea. She complains of back pain. Medications: Eliquis 10 mg bid, metoprolol 25 mg twice a day, Decadron, Protonix, Levaquin PHYSICAL EXAMINATION: Blood pressure 124/90 heart rate 85 LUNGS: Clear to auscultation HEART: Regular rate and rhythm, S1, S2. No S3. No systolic murmur ABDOMEN: Soft, obese, nontender, no organomegaly EXTREMETIES: No edema, no significant tenderness LAB: Pending IMPRESSION: 1. Respiratory failure with evidence of pulmonary embolism and DVT. The patient has no evidence of RV strain with mild troponin elevation 2. Pneumonia, post Covid 3. Sinus tachycardia secondary to her infectious process and pulmonary embolism, resolved. 4. History of hypertension 5. Obesity 6. Chronic back pain PLAN: 1. Continue present therapy 2. Increase physical activity 3. From the cardiac standpoint she is stable to be transferred to telemetry floor 4. Continue anticoagulation per protocol 5. We will see her on an as needed basis, please feel free to call us for any questions Objective - Vital Signs Vital signs: Vital Signs Temp 98.6 F 05/13/22 20:00 Pulse 98 05/13/22 23:00 Resp 19 05/13/22 23:00 BP 124/93 05/13/22 23:00 Pulse Ox 95 05/13/22 23:00 FiO2 60 05/12/22 17:00 Intake & Output 05/13/22 05/14/22 05/14/22 18:59 06:59 18:59 Intake Total 1730 640 Output Total 1225 550 Balance 505 90 Intake: IV 960 640 Sodium Chloride 0.9% 1, 960 640 000 ml @ 80 mls/hr IV . [id number] [facility] Rx#:[id number] Oral 770 Output: Urine 1225 550 Other: Voiding Method External Catheter External Catheter - Labs CBC & Chem 7: 05/13/22 07:15 05/13/22 07:15 Labs: Abnormal Lab Results - Last 24 Hours (Table) 05/13/22 Range/Units 13:20 Urine Protein Trace H (Negative) Urine Blood Large H (Negative) Urine RBC 181 H (0-5) /hpf Microbiology - Last 24 Hours (Table) 05/10/22 22:36 Blood Culture - Preliminary Blood No Growth after 72 hours 05/10/22 22:46 Blood Culture - Preliminary Blood No Growth after 72 hours
--- NOTE | 2022-05-14 11:36 | XR ---
EXAMINATION TYPE: XR chest 1V portable DATE OF EXAM: 05/13/2022 9:00 AM COMPARISON: Chest radiographs from 05/12/2022 TECHNIQUE: XR chest 1V portable Portable AP radiograph of the chest. CLINICAL INDICATION:Female, 26 years old with history of PNA; FINDINGS: Lungs/Pleura: Improved aeration of the right lower lung no persistent opacities identified. There is no evidence of pleural effusion, focal consolidation, or pneumothorax. Pulmonary vascularity: Unremarkable. Heart/mediastinum: Cardiomediastinal silhouette is unremarkable. Musculoskeletal: No acute osseous pathology. IMPRESSION: Improved aeration of the right lower lobe comparing to 05/12/2022
--- NOTE | 2022-05-14 11:36 | PN ---
PROGRESS NOTE SUBJECTIVE: This is a 26-year-old female, who was seen in room 261. The patient is doing relatively well. She has been weaned down to room air. The patient is getting saline at 80 mL an hour. The patient denies any respiratory issues, chest pain, chest discomfort, cough, wheezing, or shortness of breath. No phlegm production. The patient had an uneventful night according to the nurses, and her oxygenation is significantly improved. OBJECTIVE: VITAL SIGNS: Blood pressure 118/70, heart rate 80, respiratory rate 18, temperature 97 degrees, and saturations are 96% on room air. GENERAL: Appears in no acute distress. HEENT: Grossly unremarkable. NECK: Supple. Full range of motion. No adenopathy. Neck veins are flat. CARDIOVASCULAR: Reveals regular rhythm and rate. Heart rate 80 beats per minute. S1, S2 normal. No S3, S4, or murmur. LUNGS: Reveal mostly clear breath sounds. A few scattered rhonchi. No wheezes or crackles. ABDOMEN: Soft. Bowel sounds are heard. EXTREMITIES: Intact. No cyanosis, clubbing, or edema. SKIN: Without rash. NEUROLOGIC: Nonfocal. Labs, x-rays, and medications can be reviewed at this time. ASSESSMENT: 1. History of pneumonia. 2. Pulmonary embolism. 3. Coronavirus infection. 4. Obesity. PLAN: The patient is doing well. Vital signs are stable. Oxygenation is improved. Two days ago, she was on Airvo. Yesterday, she was on high-flow oxygen. The patient could be transferred out to the general medical floor without telemetry. We will continue to follow. MMODL / IJN: [id number] /
[2022-05-14] MEDS: METOPROLOL TARTRATE 25 MG TAB PO SCH ×2 (12:03→18:40)
[2022-05-14] MEDS: APIXABAN 5 MG TAB PO SCH ×2 (12:03→21:02)
[2022-05-14] MEDS: DULoxetine HCL 30 MG CAPSULE.DR PO SCH (12:03)
[2022-05-14] MEDS: PANTOPRAZOLE 40 MG TABLET PO SCH (12:03)
[2022-05-14] MEDS: LORATADINE 10 MG TAB PO SCH (12:03)
[2022-05-14] MEDS: DEXAMETHASONE SOD PHOSPHATE 10 MG/ML 1 ML VIAL IVP SCH ×2 (12:03→21:01)
[2022-05-14] MEDS: CHOLESTYRAMINE (WITH SUGAR) 4 GM PACKET PO SCH ×3 (12:03→18:40)
[2022-05-14] MEDS: HYDROcodone/APAP 5-325MG 1 EACH TAB PO PRN ×2 (16:05→23:23)
[2022-05-14 18:12] LABS: Anisocytosis Slight; Basophils % (A) 0 %; Eosinophils % (A) 0 %; HCT 38.9 % (34.0-46.0); HGB 12.5 gm/dL (11.4-16.0); Hypochromasia Moderate; Lymphocytes # (A) 1.3 k/uL (1.0-4.8); Lymphocytes % (A) 15 %; MCH 26.6 pg (25.0-35.0); MCHC 32.2 g/dL (31.0-37.0); MCV 82.5 fL (80.0-100.0); Mean Platelet Volume 7.4; Monocytes # (A) 0.4 k/uL (0-1.0); Monocytes % (A) 4 %; Neutrophils # (A) 6.9 k/uL (1.3-7.7); Neutrophils % (A) 79 %; Platelet Count 132 k/uL (150-450); RBC 4.71 m/uL (3.80-5.40); RDW 16.2 % (11.5-15.5); WBC 8.7 k/uL (3.8-10.6)
[2022-05-14 18:17] LABS: ALT 26 U/L (4-34); AST 29 U/L (14-36); African American GFR (CKD) >90 (>60 ml/min/1.73 sqM); Albumin 3.8 g/dL (3.5-5.0); Alkaline Phosphatase 54 U/L (38-126); Anion Gap 10 mmol/L; Blood Urea Nitrogen 19 mg/dL (7-17); Calcium 9.3 mg/dL (8.4-10.2); Carbon Dioxide 24 mmol/L (22-30); Chloride 101 mmol/L (98-107); Glucose 141 mg/dL (74-99); Non-African American GFR(CKD) >90 (>60 ml/min/1.73 sqM); Potassium 4.7 mmol/L (3.5-5.1); Sodium 135 mmol/L (137-145); Total Bilirubin 0.5 mg/dL (0.2-1.3); Total Protein 6.1 g/dL (6.3-8.2)
[2022-05-14] MEDS: ALBUTEROL HFA INHALER INHALATION PRN (19:49)
--- NOTE | 2022-05-14 22:07 | PN ---
PROGRESS NOTE DATE OF SERVICE: 05/14/2022 I am covering for Dr. Robledo. SUBJECTIVE: This is a 26-year-old woman with a past medical history of multiple medical problems including recent COVID-19 who was admitted with acute bilateral pulmonary embolism. The patient's breathing is improving at this time. The patient's pulse ox is 92% on room air. Chest x-ray is reviewed. The patient is closely monitored in the ICU. PAST MEDICAL HISTORY: Reviewed. REVIEW OF SYSTEMS: A 14-point review is negative as mentioned earlier. CURRENT MEDICATIONS: Reviewed and include Eliquis. Doses and rest of the medications reviewed. FAMILY HISTORY: Reviewed. SOCIAL HISTORY: Reviewed. PHYSICAL EXAMINATION: VITAL SIGNS: Pulse is 98, blood pressure 125/90, respirations 19, pulse ox 94% on 2 L. HEENT: Conjunctivae are normal. NECK: No jugular venous distention. CARDIOVASCULAR: S1 and S2. RESPIRATORY: Breath sounds diminished at the bases. Few scattered rhonchi. ABDOMEN: Soft and nontender. LEGS: No edema. NERVOUS SYSTEM: Nonfocal. LABORATORY DATA: WBC 9.1. Sodium 137. The rest of the labs are noted. ASSESSMENT: 1. Acute bilateral pulmonary embolism. 2. Recent COVID-19 infection. 3. Acute hypoxic respiratory failure, present on admission 4. Multiple medical issues. RECOMMENDATIONS: Recommend to continue current management and symptomatic treatment. Repeat labs in the morning. Continue with anticoagulation. Continue the rest of the medications. The patient os also on steroids. Guarded prognosis. Further recommendations to follow. See orders for details. MMODL / IJN: [id number] / MTDD
[2022-05-15] MEDS: PANTOPRAZOLE 40 MG TABLET PO SCH (06:42)
[2022-05-15 07:22] LABS: Basophils % (A) 0 %; Eosinophils % (A) 0 %; HCT 40.2 % (34.0-46.0); HGB 12.8 gm/dL (11.4-16.0); Hypochromasia Slight; Lymphocytes # (A) 1.6 k/uL (1.0-4.8); Lymphocytes % (A) 17 %; MCH 25.8 pg (25.0-35.0); MCHC 31.7 g/dL (31.0-37.0); MCV 81.3 fL (80.0-100.0); Mean Platelet Volume 8.1; Monocytes # (A) 0.5 k/uL (0-1.0); Monocytes % (A) 5 %; Neutrophils # (A) 7.5 k/uL (1.3-7.7); Neutrophils % (A) 77 %; Platelet Count 173 k/uL (150-450); RBC 4.95 m/uL (3.80-5.40); WBC 9.7 k/uL (3.8-10.6)
[2022-05-15 07:37] LABS: African American GFR (CKD) >90 (>60 ml/min/1.73 sqM); Anion Gap 11 mmol/L; Blood Urea Nitrogen 19 mg/dL (7-17); Calcium 9.1 mg/dL (8.4-10.2); Carbon Dioxide 25 mmol/L (22-30); Chloride 100 mmol/L (98-107); Glucose 120 mg/dL (74-99); Non-African American GFR(CKD) >90 (>60 ml/min/1.73 sqM); Potassium 4.4 mmol/L (3.5-5.1); Sodium 136 mmol/L (137-145)
[2022-05-15] MEDS: LORATADINE 10 MG TAB PO SCH ×2 (10:12→10:25)
[2022-05-15] MEDS: APIXABAN 5 MG TAB PO SCH ×2 (10:12→21:40)
[2022-05-15] MEDS: DULoxetine HCL 30 MG CAPSULE.DR PO SCH (10:13)
[2022-05-15] MEDS: CHOLESTYRAMINE (WITH SUGAR) 4 GM PACKET PO SCH ×3 (10:13→17:45)
[2022-05-15] MEDS: DEXAMETHASONE SOD PHOSPHATE 10 MG/ML 1 ML VIAL IVP SCH ×2 (10:13→21:41)
[2022-05-15] MEDS: HYDROcodone/APAP 5-325MG 1 EACH TAB PO PRN ×3 (10:25→23:27)
[2022-05-15] MEDS: METOPROLOL TARTRATE 25 MG TAB PO SCH ×2 (10:26→21:40)
[2022-05-15] MEDS: ALPRAZolam 0.5 MG TAB PO PRN ×2 (12:18→21:40)
--- NOTE | 2022-05-15 12:27 | P.PN ---
Subjective Progress Note Date: 05/15/22 Principal diagnosis: Respiratory failure. A very pleasant 26-year-old morbidly obese female patient with a body mass index of 59.6, who is admitted for acute shortness of breath and acute hypoxic respiratory failure and currently the patient is on high flow oxygen at 50 L with an FiO2 of 80%. The patient has history of Covid 19 infection. She was originally diagnosed having Covid 19 infection approximately 6 weeks ago and this was confirmed on outpatient basis. Subsequently, she had a negative study on 04/19/2022. She comes in again for acute shortness of breath. Her Covid 19 testing was repeated on 05/10/2022 and was positive. The CT antigram was done in the emergency department and it showed bilateral pulmonary embolism. There was also pulmonary infiltrates and the right middle lobe and the left lower lobe posterior segment. Those are more consistent with air space disease. Multiple filling defects in the lower lobe pulmonary artery branches. The patient was started on IV heparin. The patient is currently admitted to the medical floor. She is being seen by vascular surgery and cardiology. She was tachycardic in her heart rate was in the 130s and the patient was in sinus rhythm. She was given metoprolol at a dose of 50 mg oral and the heart rate is being monitored very closely for now. At the same time, the patient denies having any calf michael n. She has chronic edema lower exam is bilaterally. Echo was done. Doppler is to be ordered. Her d-dimer was positive at 14.1. She had a positive troponin leak probably related to pulmonary embolism and the troponins are 0.08 and 0.05 respectively 2. test is negative. Influenza is negative. No previous history of any DVT or pulmonary embolism. No family history. She is obese. No cell lung disease. No asthma. No emphysema. No smoking. No use of any maintenance as for medications or inhalers. Presentation is rather acute. No home O2. No nausea. No vomiting. No diarrhea. No abdominal pain. No chest pain. She is a bit anxious. Progress note dated 05/12/2022. 26-year-old obese female who was admitted on May 10, for pneumonia, and bilateral pulmonary embolism. The patient apparently had coronavirus infection on March 25. Currently, she is resting comfortably in the intensive care unit, room 261. He is currently on AIRVO, at 45 L/m, with an FiO2 of 70%. The patient's getting saline at KVO. IV heparin has been converted to a factor X a inhibitor. Her medical history includes obesity, degenerative disc disease, and migraine cephalgia. White count 10.7, hemoglobin 13.2, and platelet count 245,000. Sodium 137, potassium 4.9, chlorides 103, CO2 23, anion gap 11, BUN 18, with a creatinine 0.56. Troponins were 0.052 and 0.037. Blood cultures are negative. Dopplers revealed a DVT in the left lower extremity. CT angiogram showed bilateral lower lobe pulmonary emboli. Progress note dated 05/13/2022. 26-year-old obese female admitted on May 10 for pneumonia and bilateral pulmonary embolism. The patient had coronavirus infection on March 25. She's currently in the ICU. Yesterday she was on AIRVO. Today she is on 5 L of oxygen. She's getting saline at 80 mL an hour. We'll check a UA, culture and sensitivity, and DC the Levaquin. It was given to her empirically. White count 9.1, hemoglobin 12.1, hematocrit 40.6, and platelet count 144,000. Sodium, potassium, chloride, CO2, anion gap, all were all normal. BUN is a bit high at 19 with a creatinine of 0.54. C. difficile studies are negative. Progress note dated 05/15/2022. 26-year-old female seen in room 458. Prior to that, she was in the intensive care unit. She was initially was on AIRVO, and is been weaned down to room air. Currently, she remains on room air. She's getting saline at 20 mL an hour. She looks very comfortable. She denies any shortness of breath, cough, wheezing, phlegm production, chest pain or pressure. White count 9.7, hemo globin 12.8, hematocrit 40.2, platelet count 273,000. Sodium 136, potassium 4.4, chlorides 100, CO2 25, anion gap 11, BUN 19, creatinine 0.59. Chest x-ray shows improved aeration to the right lower lobe. Objective - Vital Signs Vital signs: Vital Signs Temp 97.5 F L 05/15/22 12:17 Pulse 85 05/15/22 12:19 Resp 16 05/15/22 12:19 BP 129/90 11/06/22 12:19 Pulse Ox 95 05/15/22 12:19 FiO2 60 05/12/22 17:00 Intake & Output 05/14/22 05/15/22 05/15/22 19:59 06:59 18:59 Intake Total Output Total Balance Intake: IV Sodium Chloride 0.9% 1, 000 ml @ 20 mls/hr IV . Q24H [facility] Rx#:[id number] Oral Output: Urine Other: Voiding Method Toilet # Voids # Bowel Movements - Exam No acute distress, oriented 3. Currently on room air, with saturations of 95%. HEENT examination is grossly unremarkable. Neck supple. Full range of motion. No adenopathy thyromegaly or neck vein distention. Cardiovascular examination reveals regular rhythm rate. S1-S2 normal. No S3 or S4. No discernible murmur noted. Heart rate 85 bpm. Lungs reveal mild scattered rhonchi. No wheezes. No crackles. Breath sounds are equal bilaterally. Saturations are 97%. Abdomen soft bowel sounds are heard. No masses or tenderness. Extremities are intact. No cyanosis clubbing or edema. Skin is without rash or lesion. Neurologic examination is brief but nonfocal. - Labs CBC & Chem 7: 05/15/22 06:23 05/15/22 06:23 Labs: Abnormal Lab Results - Last 24 Hours (Table) 05/14/22 05/14/22 05/15/22 Range/Units 06:00 07:38 06:23 RDW 16.2 H 16.0 H (11.5-15.5) % Plt Count 132 L (150-450) k/uL Sodium 135 L (137-145) mmol/L BUN 19 H (7-17) mg/dL Creatinine 0.48 L (0.52-1.04) mg/dL Glucose 141 H (74-99) mg/dL Total Protein 6.1 L (6.3-8.2) g/dL 05/15/22 Range/Units 06:23 RDW (11.5-15.5) % Plt Count (150-450) k/uL Sodium 136 L (137-145) mmol/L BUN 19 H (7-17) mg/dL Creatinine (0.52-1.04) mg/dL Glucose 120 H (74-99) mg/dL Total Protein (6.3-8.2) g/dL Microbiology - Last 24 Hours (Table) 05/10/22 22:46 Blood Culture - Preliminary Blood No Growth after 96 hours 05/10/22 22:36 Blood Culture - Preliminary Blood No Growth after 96 hours Assessment and Plan Assessment: Acute hypoxemic respiratory failure, secondary to bilateral lower lobe pulmonary embolism, likely triggered by coronavirus infection, initially diagnosed 03/25/2022. Acute hypoxemic respiratory failure, secondary to pulmonary embolism, and possible coronavirus associated pneumonia. Sinus tachycardia, secondary to pulmonary embolism. Left lower extremity DVT. Mild troponin leak. History of coronavirus associated infection, and possible pneumonia. Morbid obesity. History of migraine cephalgia. Chronic back pain secondary to degenerative disc disease. Plan: Plan dated 05/12/2022. The patient's IV heparin was turned off this morning and the patient was started on a factor X a inhibitor. She remains quite hypoxemic, and is on AIRVO, at 45 L/m, with an FiO2 of 70%. The patient did have a left lower extremity DVT Doppler. Labs, x-rays, and medications are reviewed. Prognosis is certainly guarded. We will continue to follow make recommendations where appropriate. The patient obviously should remain in the intensive care unit. Plan dated 05/13/2022. The patient is on a factor X a inhibitor. She was weaned off of AIRVO. She's currently on 5 L nasal cannula. FiO2 could probably be weaned down further. Clinically, the patient looks well. She denies any pain, shortness of breath, difficulty breathing, fever, chills, cough, or phlegm production. Labs, x-rays, and medications are all reviewed. Prognosis is guarded. We will continue to follow the patient and make recommendations where appropriate. She is close to being discharged from the intensive care unit. Plan dated 05/15/2022. The patient's chest x-rays improved. The patient was initially on AIRVO, and has been weaned down to room air. Clinically she is very stable. Labs, x-rays, and medications are all reviewed. The patient continues on albuterol inhaler, Tessalon Perles, and a factor X a inhibitor. Discharge planning is underway. No additional recommendations are made. Prognosis is guarded. Time with Patient: Less than 30
[2022-05-15] MEDS ORDERED: LORazepam 1 MG TAB PO STA (15:43)
[2022-05-15] MEDS: SODIUM CHLORIDE 0.9% 1,000 ML IV SCH (18:58)
[2022-05-15 20:31] VITALS: RESP 17
[2022-05-16 06:16] VITALS: BP 150/62; TEMP 98.2
[2022-05-16] MEDS: HYDROcodone/APAP 5-325MG 1 EACH TAB PO PRN ×2 (06:26→14:11)
[2022-05-16] MEDS: PANTOPRAZOLE 40 MG TABLET PO SCH (06:27)
--- NOTE | 2022-05-16 07:11 | PN ---
PROGRESS NOTE DATE OF SERVICE: 05/15/2022 DATE OF SERVICE: 05/15/2022. SUBJECTIVE: This is a 26-year-old woman who was admitted with acute bilateral pulmonary embolism, also complaining of significant pain. The patient also complains of some dizziness. The patient is severely anxious also. The patient has received IV heparin. Multiple consultants are following the patient closely. The most recent chest x-ray which was done on May 14 which I reviewed personally showed improved aeration. PAST MEDICAL HISTORY: Reviewed. REVIEW OF SYSTEMS: A 14-point review is negative as mentioned earlier. CURRENT MEDICATIONS: Reviewed include Eliquis, dose and rest of medications noted. PHYSICAL EXAMINATION: VITAL SIGNS: Pulse is 115, blood pressure 130/80, and respirations 20. HEENT: Conjunctivae normal. CARDIOVASCULAR: S1 and S2. RESPIRATIONS: There are few scattered rhonchi. ABDOMEN: Soft. NERVOUS SYSTEM: No focal deficits. LABS: Reviewed. ASSESSMENT: 1. Acute bilateral pulmonary embolism. 2. Recent COVID-19 infection. 3. Acute hypoxic respiratory failure present on admission. 4. Multiple medical issues. RECOMMENDATIONS: Recommended to continue current medications, symptomatic treatment. Otherwise, orthostatic vitals. Cardiology is following the patient closely as well as Pulmonary. Prognosis guarded. Continue with Eliquis. Monitor oxygenation. Continue the telemetry. Prognosis guarded. Further recommendations to follow. MMSHAYLAL / CARMENN: [id number] /
[2022-05-16] MEDS: DEXAMETHASONE SOD PHOSPHATE 10 MG/ML 1 ML VIAL IVP SCH (09:35)
[2022-05-16] MEDS: METOPROLOL TARTRATE 25 MG TAB PO SCH (09:35)
[2022-05-16] MEDS: APIXABAN 5 MG TAB PO SCH (09:36)
[2022-05-16] MEDS: CHOLESTYRAMINE (WITH SUGAR) 4 GM PACKET PO SCH (09:36)
[2022-05-16] MEDS: DULoxetine HCL 30 MG CAPSULE.DR PO SCH (09:36)
[2022-05-16] MEDS: LORATADINE 10 MG TAB PO SCH (09:36)
[2022-05-16 11:18] VITALS: PULSE 89
--- NOTE | 2022-05-16 13:24 | P.PN ---
Subjective Progress Note Date: 05/16/22 A very pleasant 26-year-old morbidly obese female patient with a body mass index of 59.6, who is admitted for acute shortness of breath and acute hypoxic respiratory failure and currently the patient is on high flow oxygen at 50 L with an FiO2 of 80%. The patient has history of Covid 19 infection. She was originally diagnosed having Covid 19 infection approximately 6 weeks ago and this was confirmed on outpatient basis. Subsequently, she had a negative study on 04/19/2022. She comes in again for acute shortness of breath. Her Covid 19 testing was repeated on 05/10/2022 and was positive. The CT antigram was done in the emergency department and it showed bilateral pulmonary embolism. There was also pulmonary infiltrates and the right middle lobe and the left lower lobe posterior segment. Those are more consistent with air space disease. Multiple filling defects in the lower lobe pulmonary artery branches. The patient was started on IV heparin. The patient is currently admitted to the medical floor. She is being seen by vascular surgery and cardiology. She was tachycardic in her heart rate was in the 130s and the patient was in sinus rhythm. She was given metoprolol at a dose of 50 mg oral and the heart rate is being monitored very closely for now. At the same time, the patient denies having any calf pain. She has chronic edema lower exam is bilaterally. Echo was done. Doppler is to be ordered. Her d-dimer was positive at 14.1. She had a positive troponin leak probably related to pulmonary embolism and the troponins are 0.08 and 0.05 respectively 2. test is negative. Influenza is negative. No previous history of any DVT or pulmonary embolism. No family history. She is obese. No cell lung disease. No asthma. No emphysema. No smoking. No use of any maintenance as for medications or inhalers. Presentation is rather acute. No home O2. No nausea. No vomiting. No diarrhea. No abdominal pain. No chest pain. She is a bit anxious. Progress note dated 05/12/2022. 26-year-old obese female who was admitted on May 10, for pneumonia, and bilateral pulmonary embolism. The patient apparently had coronavirus infection on March 25. Currently, she is resting comfortably in the intensive care unit, room 261. He is currently on AIRVO, at 45 L/m, with an FiO2 of 70%. The patient's getting saline at KVO. IV heparin has been converted to a factor X a inhibitor. Her medical history includes obesity, degenerative disc disease, and migraine cephalgia. White count 10.7, hemoglobin 13.2, and platelet count 245,000. Sodium 137, potassium 4.9, chlorides 103, CO2 23, anion gap 11, BUN 18, with a creatinine 0.56. Troponins were 0.052 and 0.037. Blood cultures are negative. Dopplers revealed a DVT in the left lower extremity. CT angiogram showed bilateral lower lobe pulmonary emboli. Progress note dated 05/13/2022. 26-year-old obese female admitted on May 10 for pneumonia and bilateral pulmonary embolism. The patient had coronavirus infection on March 25. She's currently in the ICU. Yesterday she was on AIRVO. Today she is on 5 L of oxygen. She's getting saline at 80 mL an hour. We'll check a UA, culture and sensitivity, and DC the Levaquin. It was given to her empirically. White count 9.1, hemoglobin 12.1, hematocrit 40.6, and platelet count 144,000. Sodium, potassium, chloride, CO2, anion gap, all were all normal. BUN is a bit high at 19 with a creatinine of 0.54. C. difficile studies are negative. Progress note dated 05/15/2022. 26-year-old female seen in room 458. Prior to that, she was in the intensive care unit. She was initially was on AIRVO, and is been weaned down to room air. Currently, she remains on room air. She's getting saline at 20 mL an hour. She looks very comfortable. She denies any shortness of breath, cough, wheezing, phlegm production, chest pain or pressure. White count 9.7, hemoglobin 12.8, hematocrit 40.2, platelet count 273,000. Sodium 136, potassium 4.4, chlorides 100, CO2 25, anion gap 11, BUN 19, creatinine 0.59. Chest x-ray shows improved aeration to the right lower lobe. The patient is seen today 05/16/2022 in follow-up on the regular medical floor. She is currently sitting up in a chair at the bedside. Awake and alert in no acute distress. She is maintaining good O2 saturations in the 90s on room air now. Blood cultures reveal no growth. No new labs today. She is continued on anticoagulation the form of Eliquis Objective - Vital Signs Vital signs: Vital Signs Temp 98.2 F 05/16/22 06:15 Pulse 89 05/16/22 11:17 Resp 17 05/16/22 06:15 BP 150/62 05/16/22 06:15 Pulse Ox 94 L 05/16/22 11:17 FiO2 60 05/12/22 17:00 Intake & Output 05/15/22 05/16/22 05/16/22 18:59 06:59 18:59 Intake Total 240 Output Total 2000 Balance 240 -1999 Intake: IV 240 Sodium Chloride 0.9% 1, 240 000 ml @ 20 mls/hr IV . Q24H [facility] Rx#:[id number] Output: Urine 1999 Other: Voiding Method Toilet External Catheter - Exam GENERAL EXAM: Alert, doesn't, morbidly obese 26-year-old female, on room air, comfortable in no apparent distress. HEAD: Normocephalic. EYES: Normal reaction of pupils, equal size. NOSE: Clear with pink turbinates. THROAT: No erythema or exudates. NECK: No masses, no JVD. CHEST: No chest wall deformity. LUNGS: Equal air entry with no crackles, wheeze, rhonchi or dullness. CVS: S1 and S2 normal with no audible murmur, regular rhythm. ABDOMEN: No hepatosplenomegaly, normal bowel sounds, no guarding or rigidity. SPINE: No scoliosis or deformity SKIN: No rashes CENTRAL NERVOUS SYSTEM: No focal deficits, tone is normal in all 4 extremities. EXTREMITIES: There is no peripheral edema. No clubbing, no cyanosis. Peripheral pulses are intact. - Labs CBC & Chem 7: 05/15/22 06:23 05/15/22 06:23 Labs: Microbiology - Last 24 Hours (Table) 05/10/22 22:46 Blood Culture - Preliminary Blood No Growth after 120 hours 05/10/22 22:36 Blood Culture - Preliminary Blood No Growth after 120 hours Assessment and Plan Assessment: Acute hypoxemic respiratory failure, secondary to bilateral lower lobe pulmonary embolism, likely triggered by coronavirus infection, initially diagnosed 03/25/2022. Acute hypoxemic respiratory failure, secondary to pulmonary embolism, and possible coronavirus associated pneumonia. Sinus tachycardia, secondary to pulmonary embolism. Left lower extremity DVT. Mild troponin leak. History of coronavirus associated infection, and possible pneumonia. Morbid obesity. History of migraine cephalgia. Chronic back pain secondary to degenerative disc disease. Plan: The patient was seen and evaluated Stable and on room air Anticoagulated with Eliquis Cleared for discharge from the pulmonary standpoint Follow-up in our office in 1 week I have personally seen and examined the patient, performed the documentation and the assessment and plan as written. Number of minutes spent on the visit: 10.
--- NOTE | 2022-05-16 14:17 | P.DS ---
Providers Date of admission: 05/11/22 02:05 Expected date of discharge: 05/16/22 Attending physician: Juan Diego Robledo MD Consults: 05/11/22 01:51 Consult Physician Urgent Consulting Provider: Nathanael Triana Consult Reason/Comments: Pulmonary embolism/pneumonia Do you want consulting provider notified?: Yes, Notify in am 05/11/22 09:59 Consult Physician Routine Consulting Provider: Rory Nelson Consult Reason/Comments: Tachycardia, possible right heart strain Do you want consulting provider notified?: Yes Primary care physician: Juan Diego Robledo MD Hospital Course: Final Diagnoses: Acute bilateral PE in a patient with prior COVID-19 initially approximately 6 weeks ago, continued to test positive on 05/10/2022. Elevated Troponins,No evidence of right heart strain on CTA, no thrombolytics recommended . Acute hypoxic respiratory failure, multifactorial, secondary to the above Sinus tachycardia secondary to all the above Left lower extremity DVT Subacute lumbar myofascial strain, status post inpatient rehab Chronic lumbar disc disease Obesity, morbid, BMI 59.6 Hospital course:This is a 26-year-old female recently hospitalized with lumbar myofascial strain, status post inpatient rehab, with past medical history of chronic back pain since she was a teenager, injured during a cheerleading stunt, status post rhizotomy procedure approximately one year ago, morbid obesity, recent COvid-19 and multiple other medical issues, presented to the ER with complaints of shortness of breath, tachycardia, chronic back pain. Denies nausea vomiting or diarrhea. Denies abdominal pain. Denies chest pain, palpitations. Prior to admission had completed MRI at [facility] as per orthopedic surgery. [facility] CTA reported bilateral PEs , right middle lobe and lef t lower lobe /left paraspinal region pulmonary infiltrates . Anticoagulated on heparin drip .Currently maintained on airvo, 15 L with FiO2 80%, maintaining O2 sats in the 90s. Tachycardia with heart rates up into the 150s, beta yanna initiated. D-dimer 14.1, troponin 0.08, 0.05, 2. Echo, Doppler pending. 05/12/2022 transferred yesterday to ICU for closer monitoring. Mildly elevated troponins, Echo reported normal EF, but not able to see pulmonary artery pressures-cardiology reporting no evidence of right heart strain, no thrombolytics recommended at this time .Venous Doppler suboptimal study reporting suspected acute DVT in the popliteal vein in the left lower extremity. Heparin discontinued and patient transitioned to Eliquis as per cardiology. Maintained on beta yanna with improvement of tachycardia. Maintained on Airvo 45 L/m with FiO2 70%, maintaining O2 sats in the 90s. 05/13/2022 respiratory function significantly improved, weaned from Airvo down to 5 L nasal cannula today, maintaining O2 sats in the 90s. Denies chest pain, palpitations or shortness of breath. Denies chest tightness. Complains of diarrhea, negative for C. difficile ,mildly improved with Imodium. Chronic back pain. Afebrile, normal WBC, creatinine 0.54. Sinus rhythm. Oxygen weaned off, currently maintaining O2 sats in the 90s on room air. Lungs are clear to auscultation, unlabored. Denies chest pain, palpitations . Chronic back pain controlled .Anticoagulated on Eliquis. Afebrile. WBC. Renal function stable. Preliminary blood cultures no growth. Significant clinical improvement. Cleared by pulmonary for discharge. Patient will be discharged home today in stable condition with guarded prognosis. O2 sat on room air after ambulation pending for discharge planning. The impression and plan of care has been dictated as directed. : I performed a history and examination of this patient, discussed the same with the dictator. I agree with the dictator's note ,documented as a scribe. Any additional findings or plans will be noted. Patient Condition at Discharge: Stable Plan - Discharge Summary Discharge Rx Participant: No New Discharge Prescriptions: New Apixaban [Eliquis] See Taper PO BID #70 tab Metoprolol Tartrate [Lopressor] 25 mg PO BID #30 tab Cholestyramine (with Sugar) [Questran Packet] 4 gm PO TID BETWEEN MEALS #30 packet Fluticasone Nasal Ringold [Flonase Nasal Ringold] 2 spray EA NOSTRIL DAILY PRN ml PRN Reason: Allergy Symptoms Loperamide [Imodium] 2 mg PO QID PRN cap PRN Reason: Diarrhea Albuterol Inhaler [Ventolin Hfa Inhaler] 2 puff INHALATION RT-Q4H PRN #1 inh PRN Reason: Shortness Of Breath Or Wheezing predniSONE 10 mg PO DIRECTED #30 tab Continue Loratadine [Claritin] 10 mg PO DAILY tab lisinopriL [Prinivil] 10 mg PO DAILY Famotidine [Pepcid] 20 mg PO BID #1 tablet DULoxetine HCL [Cymbalta] 30 mg PO DAILY #30 cap Cyclobenzaprine [Flexeril] 10 mg PO BID PRN PRN Reason: Muscle Spasm HYDROcodone/APAP 7.5-325MG [[place] 7.5-325] 1 tab PO QID PRN PRN Reason: Pain Discharge Medication List Famotidine [Pepcid] 20 mg PO BID #1 tablet 04/13/22 [Rx] Loratadine [Claritin] 10 mg PO DAILY tab 04/13/22 [Rx] DULoxetine HCL [Cymbalta] 30 mg PO DAILY #30 cap 04/18/22 [Rx] Cyclobenzaprine [Flexeril] 10 mg PO BID PRN 05/11/22 [History] HYDROcodone/APAP 7.5-325MG [[place] 7.5-325] 1 tab PO QID PRN 05/11/22 [History] lisinopriL [Prinivil] 10 mg PO DAILY 05/11/22 [History] Albuterol Inhaler [Ventolin Hfa Inhaler] 2 puff INHALATION RT-Q4H PRN #1 inh 05/16/22 [Rx] Apixaban [Eliquis] See Taper PO BID #70 tab 05/16/22 [Rx] Cholestyramine (with Sugar) [Questran Packet] 4 gm PO TID BETWEEN MEALS #30 packet 05/16/22 [Rx] Fluticasone Nasal Ringold [Flonase Nasal Ringold] 2 spray EA NOSTRIL DAILY PRN ml 05/16/22 [Rx] Loperamide [Imodium] 2 mg PO QID PRN cap 05/16/22 [Rx] Metoprolol Tartrate [Lopressor] 25 mg PO BID #30 tab 05/16/22 [Rx] predniSONE 10 mg PO DIRECTED #30 tab 05/16/22 [Rx] Follow up Appointment(s)/Referral(s): Juan Diego Robledo MD [Primary Care Provider] - 05/18/22 11:30 am ([facility]) [facility], [NON-STAFF] - (AGENCY WILL CONTACT YOU.) Patient Instructions/Handouts: Metoprolol (By mouth), Cholestyramine (By mouth), Albuterol (By breathing), Prednisone (By mouth), Apixaban (By mouth), Pulmonary Embolism (DC), Deep Vein Thrombosis (DC)
== END 2022-05-16 16:05 | disposition home or self-care (01) | DRG 175 ==
LOC: EC 19:37 → 3SCARD 05-11 02:05 → 2SICU 05-11 12:41 → 4SSUR 05-14 23:10
PROVIDERS: ADMIT Family Medicine; ATTEND Family Medicine
DX: I26.99 Other pulmonary embolism without acute cor pulmonale (principal); I21.A1 Myocardial infarction type 2; J12.82 Pneumonia due to coronavirus disease 2019; J96.01 Acute respiratory failure with hypoxia; J96.02 Acute respiratory failure with hypercapnia; Z68.43 Body mass index [BMI] 50.0-59.9, adult; I82.401 Acute embolism and thrombosis of unspecified deep veins of right lower extremity; I82.432 Acute embolism and thrombosis of left popliteal vein; E66.01 Morbid (severe) obesity due to excess calories; S39.012A Strain of muscle, fascia and tendon of lower back, initial encounter; U09.9 Post COVID-19 condition, unspecified; R77.8 Other specified abnormalities of plasma proteins; R00.0 Tachycardia, unspecified; M51.36 Other intervertebral disc degeneration, lumbar region; I10 Essential (primary) hypertension; G89.29 Other chronic pain; M51.9 Unspecified thoracic, thoracolumbar and lumbosacral intervertebral disc disorder; N83.209 Unspecified ovarian cyst, unspecified side; G40.909 Epilepsy, unspecified, not intractable, without status epilepticus; F41.9 Anxiety disorder, unspecified; Z88.0 Allergy status to penicillin; Z79.82 Long term (current) use of aspirin; X50.1XXA Overexertion from prolonged static or awkward postures, initial encounter; Z79.01 Long term (current) use of anticoagulants; Z79.899 Other long term (current) drug therapy; Z88.1 Allergy status to other antibiotic agents; Z88.8 Allergy status to other drugs, medicaments and biological substances; Z87.01 Personal history of pneumonia (recurrent)
CPT/HCPCS: 36415; 71045; 71046; 71275; 80048; 80053; 81001; 83615; 83735; 83880; 84145; 84439; 84443; 84484; 84703; 85025; 85379; 85610; 85730; 86140; 87040; 87324; 87502; 87635; 93005; 93306; 93970; 94640; 94760

== ENCOUNTER 2022-06-30 16:58 | Emergency (ER) | payer BC ==
[2022-06-30 17:46] VITALS: RESP 18
[2022-06-30 18:24] LABS: Basophils % (A) 0 %; Eosinophils # (A) 0.1 k/uL (0-0.7); Eosinophils % (A) 1 %; HGB 13.9 gm/dL (11.4-16.0); Hypochromasia Slight; Lymphocytes # (A) 1.3 k/uL (1.0-4.8); Lymphocytes % (A) 17 %; MCH 26.3 pg (25.0-35.0); MCHC 31.6 g/dL (31.0-37.0); MCV 83.2 fL (80.0-100.0); Mean Platelet Volume 7.3; Monocytes # (A) 0.2 k/uL (0-1.0); Monocytes % (A) 3 %; Neutrophils % (A) 77 %; RBC 5.28 m/uL (3.80-5.40); RDW 15.6 % (11.5-15.5); WBC 7.7 k/uL (3.8-10.6)
[2022-06-30 18:32] LABS: ALT 28 U/L (4-34); AST 23 U/L (14-36); African American GFR (CKD) >90 (>60 ml/min/1.73 sqM); Albumin 4.4 g/dL (3.5-5.0); Alkaline Phosphatase 93 U/L (38-126); Amylase 52 U/L (30-110); Anion Gap 10 mmol/L; Blood Urea Nitrogen 15 mg/dL (7-17); Calcium 9.5 mg/dL (8.4-10.2); Carbon Dioxide 25 mmol/L (22-30); Chloride 103 mmol/L (98-107); Glucose 100 mg/dL (74-99); Lipase 194 U/L (23-300); Non-African American GFR(CKD) >90 (>60 ml/min/1.73 sqM); Potassium 4.4 mmol/L (3.5-5.1); Sodium 138 mmol/L (137-145); Total Bilirubin 0.9 mg/dL (0.2-1.3); Total Protein 7.2 g/dL (6.3-8.2)
[2022-06-30 18:33] LABS: Platelet Count 397 k/uL (150-450)
[2022-06-30 21:08] VITALS: TEMP 98
[2022-06-30] MEDS ORDERED: ONDANSETRON 4 MG/2 ML VIAL IVP STA (21:31)
[2022-06-30] MEDS ORDERED: HYDROmorphone 0.5 MG/0.5 ML SYRINGE IVP STA (21:31)
--- NOTE | 2022-06-30 21:48 | ED ---
General Adult HPI - General Chief complaint: Abdominal Pain Stated complaint: Abd Pain Time Seen by Provider: 06/30/22 21:17 Source: patient, RN notes reviewed Mode of arrival: ambulatory Limitations: no limitations - History of Present Illness Initial comments: 26-year-old female presents to the emergency Department with complaints of lower abdominal/suprapubic pain. States she was seen by her [employer]BERING TE[employer]ER who was concerned about possible ovarian torsion due to history of ovarian cysts. Reports history of irregular menstrual cycles with heavy vaginal bleeding. States she is currently on Eliquis due to a recent PE. States she is nauseous. Has been taking [place] for low back pain and has not achieved relief of symptoms associated with abdominal discomfort. Patient also states she had blood in her stool. Reports discomfort associated with wiping after stooling. Denies fever, chills, headache, chest pain,shortness of breath, constipation, dysuria, and hematuria. - Related Data Home Medications Medication Instructions Recorded Confirmed Cyclobenzaprine [Flexeril] 10 mg PO BID PRN 05/11/22 05/11/22 HYDROcodone/APAP 7.5-325MG [[place] 1 tab PO QID PRN 05/11/22 05/11/22 7.5-325] lisinopriL [Prinivil] 10 mg PO DAILY 05/11/22 05/11/22 Previous Rx's Medication Instructions Recorded Famotidine [Pepcid] 20 mg PO BID #1 tablet 04/13/22 Loratadine [Claritin] 10 mg PO DAILY tab 04/13/22 DULoxetine HCL [Cymbalta] 30 mg PO DAILY #30 cap 04/18/22 Albuterol Inhaler [Ventolin Hfa 2 puff INHALATION RT-Q4H PRN #1 inh 05/16/22 Inhaler] Apixaban [Eliquis] See Taper PO BID #70 tab 05/16/22 Cholestyramine (with Sugar) 4 gm PO TID BETWEEN MEALS #30 05/16/22 [Questran Packet] packet Fluticasone Nasal [place] [Flonase 2 spray EA NOSTRIL DAILY PRN ml 05/16/22 Nasal [place]] Loperamide [Imodium] 2 mg PO QID PRN cap 05/16/22 Metoprolol Tartrate [Lopressor] 25 mg PO BID #30 tab 05/16/22 predniSONE 10 mg PO DIRECTED #30 tab 05/16/22 Ondansetron Odt [Zofran Odt] 4 mg PO Q8HR PRN #10 tab 07/01/22 Sulfamethox-Tmp 800-160Mg [Bactrim 1 tab PO Q12HR 10 Days #20 tab 07/01/22 DS 800-160 mg] Allergies Allergy/AdvReac Type Severity Reaction Status Date / Time amoxicillin [Amoxicillin] Allergy Rash/Hives Verified 05/11/22 07:00 cefprozil Allergy Rash/Hives Verified 05/11/22 07:00 Penicillins Allergy Unknown Verified 05/11/22 07:00 Childhood Review of Systems ROS Statement: Those systems with pertinent positive or pertinent negative responses have been documented in the HPI. ROS Other: All systems not noted in ROS Statement are negative. Past Medical History Past Medical History: No Reported History Additional Past Medical History / Comment(s): back pain; Ovarian cysts, migraines, back pain History of Any Multi-Drug Resistant Organisms: None Reported Past Surgical History: No Surgical Hx Reported Additional Past Surgical History / Comment(s): rhisotomy; [place] teeth, colonoscopy. Past Anesthesia/Blood Transfusion Reactions: No Reported Reaction Additional Past Anesthesia/Blood Transfusion Reaction / Comment(s): NO ANESTHESIA HX. Past Psychological History: Anxiety Smoking Status: Never smoker Past Alcohol Use History: Rare Past Drug Use History: None Reported - Past Family History Mother Family Medical History: No Reported History General Exam Limitations: no limitations General appearance: alert, in no apparent distress (Well-developed, well- nourished female in no acute distress.) ENT exam: Present: normal exam, normal oropharynx, mucous membranes moist Respiratory exam: Present: normal lung sounds bilaterally. Absent: respiratory distress, wheezes, rales, rhonchi, stridor Cardiovascular Exam: Present: regular rate, normal rhythm, normal heart sounds. Absent: systolic murmur, diastolic murmur, rubs, gallop, clicks GI/Abdominal exam: Present: soft, normal bowel sounds, other (Mild suprapubic tenderness upon palpation.). Absent: distended, tenderness, guarding, rebound, rigid Rectal exam: Present: normal inspection, normal rectal tone, heme (+) stool (Stool obtained for Hemoccult was mucus and not formed stool), other (Small internal hemorrhoids palpable upon rectal exam.) Back exam: Present: CVA tenderness (R), muscle spasm Neurological exam: Present: alert, oriented X3, CN II-XII intact Psychiatric exam: Present: normal affect, normal mood Course Vital Signs 06/30/22 06/30/22 07/01/22 17:43 21:07 02:52 Temperature 98.1 F 98.0 F Pulse Rate 116 H 129 H 114 H Respiratory 18 18 18 Rate Blood Pressure 129/88 145/91 141/84 O2 Sat by Pulse 96 97 98 Oximetry - Reevaluation(s) Reevaluation #1: 06/30/22 21:45 Upon initial evaluation, patient reports that she is sent over by her [employer]BERING TEACHER to rule out ovarian torsion. However, upon further discussion patient has multiple complaints including suprapubic pain, back pain, blood in stool, and heavy vaginal bleeding. Patient is currently taking Eliquis for recent diagnosis of PE. Also taking [place] 10/325 for recent back pain/injury. 06/30/22 23:00 Patient updated on laboratory studies and ultrasound results. States her pain persists. Discussed further imaging. Patient is agreeable to CT of the abdomen and pelvis. Additional dose of pain medication given. 07/01/22 02:[address] Steward regarding this patient's CT findings and he recommends that she follow up in their office for further evaluation and treatment. 07/01/22 02:33 Results discussed with patient. She is given a dose of pain medication prior to departure and encouraged to follow up with urology for kidney stones and GI for evaluation of occult + stool. Patient verbalizes understanding and agrees with this plan. Medical Decision Making - Medical Decision Making This is a 26-year-old obese female with medical comorbidities who presents to the emergency Department with complaints of lower abdominal pain. Upon exam, patient is well-appearing and in no acute distress. Abdomen is soft and nontender. Back pain appears to be positional. Laboratory studies were obtained. Urinalysis shows large amount of blood with greater than 182 urine rbc's per HPF and 82 WBCs per HPF. Hemoccult is positive as well. Hemoglobin and hematocrit are stable. No leukocytosis. Patient is on her period and reports bleeding heavily. However CT of the abdomen and pelvis does show a large kidney stone in the right renal pelvis. I did speak with urology regarding these findings. She is encouraged follow-up with them in the outpatient setting. Transvaginal ultrasound is negative for torsion and any acute findings. Patient was given pain medication and nausea medicine with improvement. She takes [place] at home and will be prescribed Zofran. Given the patient's hemoglobin is stable, she is encouraged to follow up with her PCP or GI doctor for further evaluation of blood in stool, though I suspect this is due to internal hemorrhoids. Patient will be treated with oral antibiotic as urine does show 82 WBCs. Discussed follow-up care and symptomatic management at length. She verbalizes understanding and agrees with this plan. Attending: Vince. - Lab Data Result diagrams: 06/30/22 17:47 06/30/22 17:47 Lab Results 06/30/22 06/30/22 06/30/22 Range/Units 17:47 17:47 21:16 WBC 7.7 (3.8-10.6) k/uL RBC 5.28 (3.80-5.40) m/uL Hgb 13.9 (11.4-16.0) gm/dL Hct 44.0 (34.0-46.0) % MCV 83.2 (80.0-100.0) fL MCH 26.3 (25.0-35.0) pg MCHC 31.6 (31.0-37.0) g/dL RDW 15.6 H (11.5-15.5) % Plt Count 397 D (150-450) k/uL MPV 7.3 Neutrophils % 77 % Lymphocytes % 17 % Monocytes % 3 % Eosinophils % 1 % Basophils % 0 % Neutrophils # 6.0 (1.3-7.7) k/uL Lymphocytes # 1.3 (1.0-4.8) k/uL Monocytes # 0.2 (0-1.0) k/uL Eosinophils # 0.1 (0-0.7) k/uL Basophils # 0.0 (0-0.2) k/uL Hypochromasia Slight PT (9.0-12.0) sec INR (<1.2) APTT (22.0-30.0) sec Sodium 138 (137-145) mmol/L Potassium 4.4 (3.5-5.1) mmol/L Chloride 103 (98-107) mmol/L Carbon Dioxide 25 (22-30) mmol/L Anion Gap 10 mmol/L BUN 15 (7-17) mg/dL Creatinine 0.61 (0.52-1.04) mg/dL Est GFR (CKD-EPI)AfAm >90 (>60 ml/min/1.73 sqM) Est GFR (CKD-EPI)NonAf >90 (>60 ml/min/1.73 sqM) Glucose 100 H (74-99) mg/dL Calcium 9.5 (8.4-10.2) mg/dL Total Bilirubin 0.9 (0.2-1.3) mg/dL AST 23 (14-36) U/L ALT 28 (4-34) U/L Alkaline Phosphatase 93 (38-126) U/L Total Protein 7.2 (6.3-8.2) g/dL Albumin 4.4 (3.5-5.0) g/dL Amylase 52 (30-110) U/L Lipase 194 (23-300) U/L Urine Color Light Red Urine Appearance Cloudy H (Clear) Urine pH 5.5 (5.0-8.0) Ur Specific [place] 1.025 (1.001-1.035) Urine Protein 1+ H (Negative) Urine Glucose (UA) Negative (Negative) Urine Ketones Trace H (Negative) Urine Blood Large H (Negative) Urine Nitrite Negative (Negative) Urine Bilirubin Negative (Negative) Urine Urobilinogen <2.0 (<2.0) mg/dL Ur Leukocyte Esterase Small H (Negative) Urine RBC >182 H (0-5) /hpf Urine WBC 82 H (0-5) /hpf Ur Squamous Epith Cells 4 (0-4) /hpf Urine Mucus Moderate H (None) /hpf Urine HCG, Qual (Not Detectd) Stool Occult Blood (Negative) 06/30/22 06/30/22 07/01/22 Range/Units 21:32 21:47 00:08 WBC (3.8-10.6) k/uL RBC (3.80-5.40) m/uL Hgb (11.4-16.0) gm/dL Hct (34.0-46.0) % MCV (80.0-100.0) fL MCH (25.0-35.0) pg MCHC (31.0-37.0) g/dL RDW (11.5-15.5) % Plt Count (150-450) k/uL MPV Neutrophils % % Lymphocytes % % Monocytes % % Eosinophils % % Basophils % % Neutrophils # (1.3-7.7) k/uL Lymphocytes # (1.0-4.8) k/uL Monocytes # (0-1.0) k/uL Eosinophils # (0-0.7) k/uL Basophils # (0-0.2) k/uL Hypochromasia PT 10.7 (9.0-12.0) sec INR 1.0 (<1.2) APTT 25.3 (22.0-30.0) sec Sodium (137-145) mmol/L Potassium (3.5-5.1) mmol/L Chloride (98-107) mmol/L Carbon Dioxide (22-30) mmol/L Anion Gap mmol/L BUN (7-17) mg/dL Creatinine (0.52-1.04) mg/dL Est GFR (CKD-EPI)AfAm (>60 ml/min/1.73 sqM) Est GFR (CKD-EPI)NonAf (>60 ml/min/1.73 sqM) Glucose (74-99) mg/dL Calcium (8.4-10.2) mg/dL Total Bilirubin (0.2-1.3) mg/dL AST (14-36) U/L ALT (4-34) U/L Alkaline Phosphatase (38-126) U/L Total Protein (6.3-8.2) g/dL Albumin (3.5-5.0) g/dL Amylase (30-110) U/L Lipase (23-300) U/L Urine Color Urine Appearance (Clear) Urine pH (5.0-8.0) Ur Specific [place] (1.001-1.035) Urine Protein (Negative) Urine Glucose (UA) (Negative) Urine Ketones (Negative) Urine Blood (Negative) Urine Nitrite (Negative) Urine Bilirubin (Negative) Urine Urobilinogen (<2.0) mg/dL Ur Leukocyte Esterase (Negative) Urine RBC (0-5) /hpf Urine WBC (0-5) /hpf Ur Squamous Epith Cells (0-4) /hpf Urine Mucus (None) /hpf Urine HCG, Qual Not Detected (Not Detectd) Stool Occult Blood Positive H (Negative) - Radiology Data Radiology results: report reviewed, image reviewed Transvaginal ultrasound was obtained. Report was reviewed in its entirety. Impression per Dr. Alicea as #1. No evidence for acute process. #2. Endometrium within normal limits for thickness. #3. Appropriate arterial and venous spectral waveforms to the ovaries. CT of the abdomen and pelvis without contrast was obtained. Report was reviewed in its entirety. Impression per Dr. Alicea is right renal pelvis 13 x 11 mm calculus with at least partial obstruction suggested by mild dilation of renal calyces. Additional nonobstructing bilateral renal calculi. No additional acute process to explain patient's lower abdominal pain. Disposition Clinical Impression: Abdominal pain, Kidney stone on right side, Nausea and vomiting, UTI (urinary tract infection) Disposition: HOME SELF-CARE Condition: Stable Instructions (If sedation given, give patient instructions): Kidney Stones (ED) Additional Instructions: Zofran is for nausea. Take your home [place] if needed for severe discomfort. You should follow up with urology for further evaluation and treatment. See your PCP or GI doctor regarding blood in stool. Return to the emergency department if you develop any dizziness, worsening bleeding, or any worsening symptoms. Prescriptions: Sulfamethox-Tmp 800-160Mg [Bactrim DS 800-160 mg] 1 tab PO Q12HR 10 Days #20 tab Ondansetron Odt [Zofran Odt] 4 mg PO Q8HR PRN #10 tab PRN Reason: Nausea Is patient prescribed a controlled substance at d/c from ED?: No Referrals: Juan Diego Robledo MD [Primary Care Provider] - 1-2 days J Carlos Steward MD [STAFF PHYSICIAN] - 1-2 days Time of Disposition: 03:29
[2022-06-30 21:58] LABS: Appearance,Urine Cloudy (Clear); Bilirubin,Urine Negative (Negative); Blood,Urine Large (Negative); Color,Urine Light Red; Glucose,Urine (UA) Negative (Negative); Ketones,Urine Trace (Negative); Leukocyte Esterase,Urine Small (Negative); Mucus,Urine Moderate /hpf; Nitrite,Urine Negative (Negative); PH, Urine 5.5 (5.0-8.0); Protein,Urine 1+ (Negative); RBC,Urine >182 /hpf (0-5); Specific Gravity,Urine 1.025 (1.001-1.035); Squamous Epithelial Cell,Urine 4 /hpf (0-4); Urobilinogen,Urine <2.0 mg/dL (<2.0); WBC,Urine 82 /hpf (0-5)
[2022-06-30 22:35] LABS: Partial Thromboplastin Time 25.3 sec (22.0-30.0); Prothrombin Time 10.7 sec (9.0-12.0)
--- NOTE | 2022-06-30 22:38 | US ---
EXAMINATION TYPE: US transvaginal DATE OF EXAM: 06/30/2022 COMPARISON: 06/25/22 CLINICAL HISTORY: heavy vag bleeding, h/o ovarian cysts, r/o torsion. Lower abdominal pain x 4 days TECHNIQUE: Transvaginal sonographic images of the pelvis were acquired. Date of LMP: 06/25/22 EXAM MEASUREMENTS: Uterus: 6.9 x 4.9 x 3.8 cm Endometrial Stripe: 0.3 cm Right Ovary: 3.6 x 3.1 x 2.2 cm Left Ovary: 3.2 x 2.2 x 2.3 cm 1. Uterus: Anteverted Nabothian cysts seen in cervix 2. Endometrium: wnl 3. Right Ovary: wnl 4. Left Ovary: wnl Spectral, color and waveform doppler imaging shows good arterial and venous flow within the ovaries ; there is no evidence for ovarian torsion. 5. Bilateral Adnexa: wnl 6. Posterior cul-de-sac: wnl IMPRESSION: 1. No evidence for acute process. 2. Endometrium within normal limits for thickness. 3. Appropriate arterial and venous spectral waveforms to the ovaries.
[2022-07-01] MEDS ORDERED: ONDANSETRON 4 MG/2 ML VIAL IVP STA (00:04)
[2022-07-01] MEDS ORDERED: HYDROmorphone 0.5 MG/0.5 ML SYRINGE IVP STA (00:04)
--- NOTE | 2022-07-01 01:04 | CT ---
EXAMINATION TYPE: CT abdomen pelvis wo con CT DLP: 1897.7 mGycm, Automated exposure control for dose reduction was used. DATE OF EXAM: 07/01/2022 12:39 AM COMPARISON: 04/21/2018. CLINICAL INDICATION:Female, 26 years old with history of lower abdominal pain; lower abd pain, N/V/D & DARK RED IN STOOL, RECENT BACK PROCEDURE TECHNIQUE: Axial CT of the abdomen and pelvis. Sagittal and coronal reformats were created on a [employer] workstation. Contrast used: None Oral contrast used: without Oral Contrast FINDINGS: LOWER CHEST: Unremarkable ABDOMEN LIVER: Unremarkable GALLBLADDER AND BILE DUCTS: Unremarkable. PANCREAS: Unremarkable. SPLEEN: Unremarkable. ADRENAL GLANDS: Unremarkable. KIDNEYS AND URETERS: Bilateral renal calculi measuring up to 4 mm on the left and up to 13 x 11 mm in the right. Right renal calculus situated in the ureteropelvic junction with mild dilation. PELVIS BLADDER: Unremarkable REPRODUCTIVE: Unremarkable ABDOMEN & PELVIS STOMACH AND BOWEL: No evidence of bowel obstruction. PERITONEUM: No evidence of pneumoperitoneum or free fluid. VASCULATURE: No evidence of aortic aneurysm. MUSCULOSKELETAL: No acute osseous abnormalities, mild degeneration changes of the spine. Right femora l head bony island. LYMPH NODES: No gross evidence for lymphadenopathy. Similar prominent mesenteric lymph nodes dating b ack to 2018. SOFT TISSUE/ABDOMINAL WALL: Small fat-containing umbilical hernia. IMPRESSION: Right renal pelvis 13 x 11 mm calculus with at least partial obstruction suggested by mild dilation o f the renal calyces. Additional nonobstructing bilateral renal calculi. No additional acute process t o explain patient's lower abdominal pain.
[2022-07-01] MEDS ORDERED: HYDROmorphone 1 MG/ML 1 ML SYRINGE IVP STA (02:19)
[2022-07-01 02:53] VITALS: BP 141/84; PULSE 114
== END 2022-07-01 03:40 | disposition home or self-care (01) ==
LOC: EC 16:58
DX: N20.0 Calculus of kidney (principal); N39.0 Urinary tract infection, site not specified; F41.9 Anxiety disorder, unspecified; Z88.0 Allergy status to penicillin; Z88.8 Allergy status to other drugs, medicaments and biological substances
CPT/HCPCS: 36415; 80053; 82150; 83690; 85025; 85610; 85730; 82272; 81001; 81025; 87086; 93975; 76830; 74176; 99285; 96375; 96376 ×3; 96374; J2405 ×2; J1170 ×3

== ENCOUNTER → 2022-07-18 | Outpatient (CLI) | payer BC ==
--- NOTE | 2022-07-18 10:08 | CT ---
EXAMINATION TYPE: CT abdomen pelvis w con CT DLP: 2388.5 mGycm, Automated exposure control for dose reduction was used. DATE OF EXAM: 07/18/2022 9:41 AM COMPARISON: 07/01/2022 CLINICAL INDICATION:Female, 26 years old with history of R10.9 abdominal pain; Lower pelvic pain, x1 month. Hx hymenectomy TECHNIQUE: Axial CT of the abdomen and pelvis. Sagittal and coronal reformats were created on a [employer] workstation. Contrast used:70 mL of Isovue 300 with IV Contrast, Oral contrast used: with Oral Contrast FINDINGS: LOWER CHEST: Unremarkable ABDOMEN LIVER: Unremarkable GALLBLADDER AND BILE DUCTS: Unremarkable. PANCREAS: Unremarkable. SPLEEN: Unremarkable. ADRENAL GLANDS: Unremarkable. KIDNEYS AND URETERS: Right renal calculus. The renal sinus measuring up to 11 mm. Additional right in ferior pole calculus measuring 4 mm. There may be mild partial obstruction noted due to some dilated inferior pole calyces. No obstructing left renal calculus measuring up to 6 mm. No left-sided hydrone phrosis. PELVIS BLADDER: Unremarkable REPRODUCTIVE: Unremarkable. ABDOMEN & PELVIS STOMACH AND BOWEL: No evidence of bowel obstruction. PERITONEUM/RETROPERITONEUM: No evidence of pneumoperitoneum or free fluid. . VASCULATURE: No evidence of aortic aneurysm. MUSCULOSKELETAL: No acute osseous abnormalities LYMPH NODES: No gross evidence for lymphadenopathy. SOFT TISSUE/ABDOMINAL WALL: Unremarkable IMPRESSION: 1. No acute intra-abdominal process. 2. Bilateral renal calculi, on the right in the renal sinus measuring 11 mm which may be partially o bstructive. Additional nonobstructing bilateral renal calculi.
== END | disposition home or self-care (01) ==
LOC: RADCTMAIN 07:31
PROVIDERS: ATTEND Family Medicine
DX: N20.0 Calculus of kidney (principal); K42.9 Umbilical hernia without obstruction or gangrene
CPT/HCPCS: 74177; Q9967 ×2

== ENCOUNTER → 2022-07-22 | Outpatient (CLI) | payer BC ==
--- NOTE | 2022-07-22 11:36 | XR ---
EXAMINATION TYPE: XR KUB DATE OF EXAM: 07/22/2022 COMPARISON: CT abdomen and pelvis 07/18/2022 HISTORY: Calculus of kidney TECHNIQUE: Supine KUB of the abdomen is obtained with 2 radiographs. FINDINGS: Small bowel demonstrates no evidence for dilatation or air fluid levels. Gas and fecal material is seen in non-distended colon. No convincing evidence for pneumoperitoneum within the limitations of the supine exam. Redemonstration of 1.2 cm calculus within the expected location of the right renal pelvis. The lung bases are clear. The osseous structures are intact. IMPRESSION: 1. Overall nonobstructive bowel gas pattern. 2. Redemonstration of 1.2 cm calculus within the expected location of the right renal pelvis.
== END | disposition home or self-care (01) ==
LOC: RADXRMAIN 11:06
PROVIDERS: ATTEND Urology
DX: N20.0 Calculus of kidney (principal)
CPT/HCPCS: 74018

== ENCOUNTER 2022-07-30 19:20 | Observation (INO) | payer BC ==
[2022-07-30] MEDS ORDERED: ONDANSETRON 4 MG/2 ML VIAL IVP STA (19:59)
--- NOTE | 2022-07-30 20:02 | ED ---
General Adult HPI - General Chief complaint: Chest Pain Stated complaint: Chest pain, blood clot, dizziness Time Seen by Provider: 07/30/22 19:34 Source: patient Mode of arrival: ambulatory Limitations: no limitations - History of Present Illness Initial comments: Dictation was produced using [employer] dictation software. please excuse any grammatical, word or spelling errors. Chief Complaint: 26-year-old female presents emergency probably chest pain History of Present Illness: She is a 18-year-old obese female presents emergency department with chest pain. Back in May she was diagnosed with pulmonary emboli. She is told that she had embolism secondary to COVID-19. Patient has been taking her eliquis as prescribed. Patient states that her symptoms began earlier this afternoon. She states that her symptoms remind her of when she was diagnosed with PE last year. Patient states she has low-grade temperature. Complains of nausea. No obvious sick contacts. Denies any abdominal pain. The ROS documented in this emergency department record has been reviewed and confirmed by me. Those systems with pertinent positive or negative responses have been documented in the HPI. All other systems are other negative and/or noncontributory. PHYSICAL EXAM: General Impression: Alert and oriented x3, not in acute distress HEENT: Normocephalic atraumatic, extra-ocular movements intact, pupils equal and reactive to light bilaterally, mucous membranes moist. Cardiovascular: Mildly tachycardic Chest: Able to complete full sentences, no retractions, no tachypnea, clear to auscultation bilaterally Abdomen: abdomen soft, non-tender, non-distended, no organomegaly Musculoskeletal: Pulses present and equal in all extremities, no peripheral edema Motor: no focal deficits noted Neurological: CN II-XII grossly intact, no focal motor or sensory deficits noted Skin: Intact with no visualized rashes Psych: Normal affect and mood ED course: 26-year-old female presents emergency department with atypical chest pain with typical features. Patient's history of pulmonary embolism. She is still currently taking anticoagulation medication. Patient reports complaints. Vital signs upon arrival shows heart rate of 117, rest of vital signs within acceptable limits. Patient's previous vitals were reviewed. She does have baseline tachycardia. Nursing notes and chart review was performed EKG interpreted by me: Ventricular rate 1:15, sinus tachycardia,. 122, QRS 85, QTC 391. No MI prolongation, no QTC prolongation, no ST or T-wave changes noted. EKG compared to 05/15/2022 showing no changes. Overall, this EKG is unremarkable Laboratory evaluation obtained. CBC unremarkable. Coag panel is negative. D- dimer slightly elevated at 0.52. Metabolic panel is negative. Abdominal is negative. Cardiac labs negative. 4 panel viral PCR is negative. Chest x-ray is nonacute and CT angiography of the chest shows no acute processes. Patient given Dilaudid reevaluated at bedside at 10:00 PM with improvement of symptoms. Disposition options were discussed. She preferred to be admitted for surgical troponin's, cardiac monitoring and cardiology consultation. Case discussed with on-call provider for [facility] hospitalist group. Was pt. sent in by a medical professional or institution (Dr. PA, TECHNICAL BUYER, urgent care, hospital, or halfway...) When possible be specific @ -No Did you speak to anyone other than the patient for history (EMS, parent, family, police, friend...)? What history was obtained from this source @ -Significant other Did you review nursing and triage notes (agree or disagree)? Why? @ -I reviewed and agree with nursing and triage notes Were old charts reviewed (outside hosp., previous admission, EMS record, old EKG, old radiological studies, urgent care reports/EKG's, halfway records)? Report findings @ -Discharge summary from hospitalist shows the patient was recently admitted for pulmonary embolism. Pulmonary consultation note was reviewed showing patient had pulmonary embolism. Differential Diagnosis (chest pain, altered mental status, abdominal pain women, abdominal pain men, vaginal bleeding, weakness, fever, dyspnea, syncope, headache, dizziness, GI bleed, back pain, seizure, CVA, palpatations, mental health)? @ -Differential Chest Pain: Stable Angina, Unstable Angina, STEMI, NSTEMI Aortic Dissection, Pneumothorax, Musculoskeletal, Esophageal Spasm GERD, Cholecystitis, Pancreatitis, Zoster, this is not meant to be an all-inclusive list. EKG interpreted by me (3pts min.). @ -As above X-rays interpreted by me (1pt min.). @ -As above CT interpreted by me (1pt min.). @ -As above U/S interpreted by me (1pt. min.). @ -None done What testing was considered but not performed or refused? (CT, X-rays, U/S, labs)? Why? @ -None What meds were considered but not given or refused? Why? @ -None Did you discuss the management of the patient with other professionals (jimi ragsdale i.eBarbie Kathleen, PA, TECHNICAL BUYER, lab, RT, psych nurse, social science manager, dock guard, teacher, security control room officer, caser up)? Give summary @ -See above Was smoking cessation discussed for >3mins.? @ -No Was critical care preformed (if so, how long)? @ -No Were there social determinants of health that impacted care today? How? (Homelessness, low income, unemployed, alcoholism, drug addiction, transpor tation, low edu. Level, literacy, decrease access to med. care, care home, rehab)? @ -No Was there de-escalation of care discussed even if they declined (Discuss DNR or withdrawal of care, Hospice)? DNR status @ -No What co-morbidities impacted this encounter? (DM, HTN, Smoking, COPD, CAD, Cancer, CVA, ARF, Chemo, Hep., AIDS, mental health diagnosis, sleep apnea, morbid obesity)? @ -Morbid obesity Was patient admitted / discharged? Hospital course, mention meds given and route, prescriptions, significant lab abnormalities, going to OR and other pertinent info. @ -See above Undiagnosed new problem with uncertain prognosis? @ -No Drug Therapy requiring intensive monitoring for toxicity (Heparin, Nitro, Insu delaney, Cardizem)? @ -No Were any procedures done? @ -No Diagnosis/symptom? @ -Atypical chest pain typical features Acute, or Chronic, or Acute on Chronic? @ -Acute Uncomplicated (without systemic symptoms) or Complicated (systemic symptoms)? @ -Uncomplicated Side effects of treatment? @ -No Exacerbation, Progression, or Severe Exacerbation? @ -No Poses a threat to life or bodily function? How? (Chest pain, [place], [place], pneumonia, PE, COPD, DKA, ARF, appy, cholecystitis, CVA, Diverticulitis, Homicidal, Suicidal, threat to staff... and all critical care pts) @ -Yes - Related Data Home Medications Medication Instructions Recorded Confirmed Apixaban [Eliquis] 5 mg PO BID 07/30/22 07/30/22 Cholestyramine (with Sugar) 4 gm PO TID BETWEEN MEALS PRN 07/30/22 07/30/22 [Questran Packet] Famotidine [Pepcid] 40 mg PO BID 07/30/22 07/30/22 Melatonin Gummy 10mg 10 mg PO HS PRN 07/30/22 07/30/22 Pregabalin [Lyrica] 100 mg PO TID 07/30/22 07/30/22 oxyCODONE HCL/ACETAMINOPHEN 1 tab PO Q6H PRN 07/30/22 07/30/22 [Endocet 10-325 mg] tiZANidine HCL [Zanaflex] 4 mg PO TID PRN 07/30/22 07/30/22 Previous Rx's Medication Instructions Recorded DULoxetine HCL [Cymbalta] 30 mg PO DAILY #30 cap 04/18/22 Albuterol Inhaler [Ventolin Hfa 2 puff INHALATION RT-Q4H PRN #1 inh 05/16/22 Inhaler] Metoprolol Tartrate [Lopressor] 25 mg PO BID #30 tab 05/16/22 Allergies Allergy/AdvReac Type Severity Reaction Status Date / Time amoxicillin [Amoxicillin] Allergy Rash/Hives Verified 07/30/22 20:58 cefprozil Allergy Rash/Hives Verified 07/30/22 20:58 Penicillins Allergy Unknown Verified 07/30/22 20:58 Childhood Review of Systems ROS Statement: Those systems with pertinent positive or pertinent negative responses have been documented in the HPI. ROS Other: All systems not noted in ROS Statement are negative. Past Medical History Past Medical History: No Reported History Additional Past Medical History / Comment(s): back pain; Ovarian cysts, migraines, back pain History of Any Multi-Drug Resistant Organisms: None Reported Past Surgical History: No Surgical Hx Reported Additional Past Surgical History / Comment(s): rhisotomy; [place] teeth, colonoscopy. Past Anesthesia/Blood Transfusion Reactions: No Reported Reaction Additional Past Anesthesia/Blood Transfusion Reaction / Comment(s): NO ANESTHESIA HX. Past Psychological History: Anxiety Smoking Status: Never smoker Past Alcohol Use History: Rare Past Drug Use History: None Reported - Past Family History Mother Family Medical History: No Reported History General Exam Limitations: no limitations Course Vital Signs 07/30/22 19:28 Temperature 98.8 F Pulse Rate 117 H Respiratory 22 Rate Blood Pressure 127/78 O2 Sat by Pulse 100 Oximetry Medical Decision Making - Lab Data Result diagrams: 07/30/22 20:06 07/30/22 20:06 Lab Results 07/30/22 07/30/22 07/30/22 Range/Units 20:06 20:06 20:06 WBC (3.8-10.6) k/uL RBC (3.80-5.40) m/uL Hgb (11.4-16.0) gm/dL Hct (34.0-46.0) % MCV (80.0-100.0) fL MCH (25.0-35.0) pg MCHC (31.0-37.0) g/dL RDW (11.5-15.5) % Plt Count (150-450) k/uL MPV Neutrophils % % Lymphocytes % % Monocytes % % Eosinophils % % Basophils % % Neutrophils # (1.3-7.7) k/uL Lymphocytes # (1.0-4.8) k/uL Monocytes # (0-1.0) k/uL Eosinophils # (0-0.7) k/uL Basophils # (0-0.2) k/uL PT 10.2 (9.0-12.0) sec INR 1.0 (<1.2) APTT 23.4 (22.0-30.0) sec D-Dimer 0.52 (<0.60) mg/L FEU Sodium (137-145) mmol/L Potassium (3.5-5.1) mmol/L Chloride (98-107) mmol/L Carbon Dioxide (22-30) mmol/L Anion Gap mmol/L BUN (7-17) mg/dL Creatinine (0.52-1.04) mg/dL Est GFR (CKD-EPI)AfAm (>60 ml/min/1.73 sqM) Est GFR (CKD-EPI)NonAf (>60 ml/min/1.73 sqM) Glucose (74-99) mg/dL Calcium (8.4-10.2) mg/dL Total Bilirubin (0.2-1.3) mg/dL AST (14-36) U/L ALT (4-34) U/L Alkaline Phosphatase (38-126) U/L Troponin I <0.012 (0.000-0.034) ng/mL NT-Pro-B Natriuret Pep pg/mL Total Protein (6.3-8.2) g/dL Albumin (3.5-5.0) g/dL HCG, Quant mIU/mL Influenza Type A (PCR) Not Detected (Not Detectd) Influenza Type B (PCR) Not Detected (Not Detectd) RSV (PCR) Not Detected (Not Detectd) SARS-CoV-2 (PCR) Not Detected (Not Detectd) 07/30/22 07/30/22 07/30/22 Range/Units 20:06 20:06 20:06 WBC 4.5 (3.8-10.6) k/uL RBC 4.79 (3.80-5.40) m/uL Hgb 12.4 (11.4-16.0) gm/dL Hct 37.9 (34.0-46.0) % MCV 79.1 L (80.0-100.0) fL MCH 25.9 (25.0-35.0) pg MCHC 32.7 (31.0-37.0) g/dL RDW 13.7 (11.5-15.5) % Plt Count 333 (150-450) k/uL MPV 7.6 Neutrophils % 88 % Lymphocytes % 7 % Monocytes % 4 % Eosinophils % 0 % Basophils % 0 % Neutrophils # 4.0 (1.3-7.7) k/uL Lymphocytes # 0.3 L (1.0-4.8) k/uL Monocytes # 0.2 (0-1.0) k/uL Eosinophils # 0.0 (0-0.7) k/uL Basophils # 0.0 (0-0.2) k/uL PT (9.0-12.0) sec INR (<1.2) APTT (22.0-30.0) sec D-Dimer (<0.60) mg/L FEU Sodium 136 L (137-145) mmol/L Potassium 4.1 (3.5-5.1) mmol/L Chloride 102 (98-107) mmol/L Carbon Dioxide 27 (22-30) mmol/L Anion Gap 7 mmol/L BUN 4 L (7-17) mg/dL Creatinine 0.53 (0.52-1.04) mg/dL Est GFR (CKD-EPI)AfAm >90 (>60 ml/min/1.73 sqM) Est GFR (CKD-EPI)NonAf >90 (>60 ml/min/1.73 sqM) Glucose 116 H (74-99) mg/dL Calcium 9.0 (8.4-10.2) mg/dL Total Bilirubin 1.0 (0.2-1.3) mg/dL AST 26 (14-36) U/L ALT 30 (4-34) U/L Alkaline Phosphatase 92 (38-126) U/L Troponin I (0.000-0.034) ng/mL NT-Pro-B Natriuret Pep 210 pg/mL Total Protein 7.0 (6.3-8.2) g/dL Albumin 4.2 (3.5-5.0) g/dL HCG, Quant <2.4 mIU/mL Influenza Type A (PCR) (Not Detectd) Influenza Type B (PCR) (Not Detectd) RSV (PCR) (Not Detectd) SARS-CoV-2 (PCR) (Not Detectd) Disposition Clinical Impression: Chest pain Disposition: ADMITTED IP TO THIS HOSP Condition: Fair Referrals: Juan Diego Robledo MD [Primary Care Provider] - 1-2 days Decision Time: 22:20
--- NOTE | 2022-07-30 20:26 | XR ---
EXAMINATION TYPE: XR chest 2V DATE OF EXAM: 07/30/2022 COMPARISON: None HISTORY: Chest pain TECHNIQUE: 2 view FINDINGS: There is no heart failure nor confluent pneumonic infiltrate. Costophrenic angles are clear . There are chest leads. Bony thorax is intact. IMPRESSION: No active cardiopulmonary disease. Normal heart.
[2022-07-30 20:41] LABS: ALT 30 U/L (4-34); AST 26 U/L (14-36); African American GFR (CKD) >90 (>60 ml/min/1.73 sqM); Albumin 4.2 g/dL (3.5-5.0); Alkaline Phosphatase 92 U/L (38-126); Anion Gap 7 mmol/L; Blood Urea Nitrogen 4 mg/dL (7-17); Carbon Dioxide 27 mmol/L (22-30); Chloride 102 mmol/L (98-107); Glucose 116 mg/dL (74-99); Non-African American GFR(CKD) >90 (>60 ml/min/1.73 sqM); Potassium 4.1 mmol/L (3.5-5.1); Sodium 136 mmol/L (137-145)
[2022-07-30 20:42] LABS: Basophils % (A) 0 %; Eosinophils % (A) 0 %; HCT 37.9 % (34.0-46.0); HGB 12.4 gm/dL (11.4-16.0); Lymphocytes # (A) 0.3 k/uL (1.0-4.8); Lymphocytes % (A) 7 %; MCH 25.9 pg (25.0-35.0); MCHC 32.7 g/dL (31.0-37.0); MCV 79.1 fL (80.0-100.0); Mean Platelet Volume 7.6; Monocytes # (A) 0.2 k/uL (0-1.0); Monocytes % (A) 4 %; Neutrophils % (A) 88 %; Platelet Count 333 k/uL (150-450); RBC 4.79 m/uL (3.80-5.40); RDW 13.7 % (11.5-15.5); WBC 4.5 k/uL (3.8-10.6)
[2022-07-30 20:55] LABS: HCG,Quantitative Serum <2.4 mIU/mL
[2022-07-30 21:07] LABS: Partial Thromboplastin Time 23.4 sec (22.0-30.0); Prothrombin Time 10.2 sec (9.0-12.0)
[2022-07-30] MEDS ORDERED: HYDROmorphone 1 MG/ML 1 ML SYRINGE IVP STA (21:23)
--- NOTE | 2022-07-30 22:00 | CT ---
EXAMINATION TYPE: CT angio chest DATE OF EXAM: 07/30/2022 COMPARISON: 05/10/2022 HISTORY: d-dimer of 0.54, hx of PE CT DLP: 884.5 mGycm Automated exposure control for dose reduction was used. CONTRAST: Performed with IV Contrast, patient injected with 70cc mL of Isovue 370. There are Three-D postprocessed images. There is no mediastinal adenopathy. Thoracic aorta is intact. No aneurysm or dissection. There are no hilar masses. There is normal contrast opacification of the pulmonary arteries. No filling defect. The lungs are clear of infiltrate. No pleural effusion. The thoracic spine is intact with no compress ion fracture. Sternum is intact. IMPRESSION: No evidence of pulmonary embolism. There is clearing of the multiple lower lobe pulmonary emboli comp ared to old exam. There is clearing of the bilateral pulmonary infiltrates compared to old exam.
[2022-07-30] MEDS ORDERED: ASPIRIN 81 MG PO STA (22:12)
[2022-07-30] MEDS ORDERED: NITROGLYCERIN SL TABS 0.4 MG TAB SUBLINGUAL PRN (22:14)
[2022-07-31] MEDS ORDERED: tiZANidine 4 MG TAB PO PRN (03:07)
[2022-07-31] MEDS ORDERED: MELATONIN 5 MG TABLET PO PRN (03:07)
[2022-07-31] MEDS: oxyCODONE-APAP 10-325MG 1 EACH TAB PO PRN ×2 (05:53→15:31)
--- NOTE | 2022-07-31 08:24 | P.CRDCN ---
History of Present Illness Consult date: 07/31/22 Chief complaint: Epigastric discomfort History of present illness: The patient is a pleasant 26-year-old female patient with a past medial history significant for overweight and hypertension and history of pulmonary embolism presented to the hospital complaining of chest discomfort. The patient was admitted to the hospital back in May 2022 with COVID-19 infection complicated by pulmonary embolism. At that point we consulted to see the patient because of mildly abnormal troponin. An echocardiogram was performed and showed preserved LV function was poorly visualized intracardiac valves. This time the patient presented to the hospital complaining of chest discomfort. She was in her usual state of health until yesterday when she was experiencing symptoms of excessive nausea and vomiting as well as diarrhea. The symptoms lasted for about 8 hours according to her. Subsequently she started experiencing discomfort mainly in the epigastric area and lower chest. No radiation to the arms or neck or shoulders or back. Clearly she stated that the symptoms are worse once she is laying flat in bed and better with sitting. No shortness of breath and no sweating and no dizziness or lightheadedness and no feeling of heart racing or fluttering and no presyncope or syncope. She underwent further investigation including an EKG showing sinus rhythm with no significant ST or T-wave abnormalities and also she underwent cardiac enzymes came in to be unremarkable be d-dimer came in to be normal. For some reason she ended having CTA of the chest which showed resolving multiple pulmonary embolism from before. The patient was seen and evaluated this morning. Vitals are stable beside mildly elevated blood pressure. She does have epigastric tenderness on examination. Otherwise she has a regular rhythm with clear breathing sounds bilaterally and no lower excellent is edema noted. Assessment Epigastric discomfort. Currently the patient is pain-free History of pulmonary embolism Hypertension Overweight Plan Acute coronary event was ruled out Pulmonary impulse and was ruled out I believe that the discomfort in the epigastric area is likely related to excessive nausea and vomiting I'm going to add PPI to the current medical regimen using Protonix Obtain an echocardiogram was Doppler She might benefit from stress test probably as an outpatient Follow-up with the patient Past Medical History Past Medical History: No Reported History Additional Past Medical History / Comment(s): back pain; Ovarian cysts, migraines, back pain History of Any Multi-Drug Resistant Organisms: None Reported Past Surgical History: No Surgical Hx Reported Additional Past Surgical History / Comment(s): rhisotomy; [place] teeth, colonoscopy. Past Anesthesia/Blood Transfusion Reactions: No Reported Reaction Additional Past Anesthesia/Blood Transfusion Reaction / Comment(s): NO ANESTHESIA HX. Past Psychological History: Anxiety Smoking Status: Never smoker Past Alcohol Use History: Rare Past Drug Use History: None Reported - Past Family History Mother Family Medical History: No Reported History Medications and Allergies Home Medications Medication Instructions Recorded Confirmed Type DULoxetine HCL [Cymbalta] 30 mg PO DAILY #30 cap 04/18/22 07/30/22 Rx Albuterol Inhaler [Ventolin Hfa 2 puff INHALATION RT-Q4H PRN #1 inh 05/16/22 0 07/30/22 Rx Inhaler] Metoprolol Tartrate [Lopressor] 25 mg PO BID #30 tab 05/16/22 07/30/22 Rx Apixaban [Eliquis] 5 mg PO BID 07/30/22 07/30/22 History Cholestyramine (with Sugar) 4 gm PO TID BETWEEN MEALS PRN 07/30/22 07/30/22 History [Questran Packet] Famotidine [Pepcid] 40 mg PO BID 07/30/22 07/30/22 History Melatonin Gummy 10mg 10 mg PO HS PRN 07/30/22 07/30/22 History Pregabalin [Lyrica] 100 mg PO TID 07/30/22 07/30/22 History oxyCODONE HCL/ACETAMINOPHEN 1 tab PO Q6H PRN 07/30/22 07/30/22 History [Endocet 10-325 mg] tiZANidine HCL [Zanaflex] 4 mg PO TID PRN 07/30/22 07/30/22 History Allergies Allergy/AdvReac Type Severity Reaction Status Date / Time amoxicillin [Amoxicillin] Allergy Rash/Hives Verified 07/30/22 20:58 cefprozil Allergy Rash/Hives Verified 07/30/22 20:58 Penicillins Allergy Unknown Verified 07/30/22 20:58 Childhood Physical Exam Vitals: Vital Signs Temp Pulse Pulse Resp BP BP Pulse Ox 07/31/22 08:09 95 07/31/22 07:00 98.6 F 113 H 16 145/83 93 L 07/31/22 02:00 99.2 F 124 H 20 127/86 93 L 07/30/22 22:59 98.8 F 126 H 20 149/87 99 07/30/22 22:25 115 H 18 142/88 07/30/22 19:28 98.8 F 117 H 22 127/78 100 Intake and Output 07/30/22 07/31/22 07/31/22 22:59 06:59 14:59 Other: Voiding Method Toilet # Voids 2 Weight 136.531 kg Results 07/30/22 20:06 07/30/22 20:06 Cardiac Enzymes 07/30/22 07/30/22 07/30/22 Range/Units 20:06 20:06 23:44 AST 26 (14-36) U/L Troponin I <0.012 <0.012 (0.000-0.034) ng/mL 07/31/22 Range/Units 03:07 AST (14-36) U/L Troponin I <0.012 (0.000-0.034) ng/mL Coagulation 07/30/22 Range/Units 20:06 PT 10.2 (9.0-12.0) sec APTT 23.4 (22.0-30.0) sec CBC 07/30/22 Range/Units 20:06 WBC 4.5 (3.8-10.6) k/uL RBC 4.79 (3.80-5.40) m/uL Hgb 12.4 (11.4-16.0) gm/dL Hct 37.9 (34.0-46.0) % Plt Count 333 (150-450) k/uL Comprehensive Metabolic Panel 07/30/22 Range/Units 20:06 Sodium 136 L (137-145) mmol/L Potassium 4.1 (3.5-5.1) mmol/L Chloride 102 (98-107) mmol/L Carbon Dioxide 27 (22-30) mmol/L BUN 4 L (7-17) mg/dL Creatinine 0.53 (0.52-1.04) mg/dL Glucose 116 H (74-99) mg/dL Calcium 9.0 (8.4-10.2) mg/dL AST 26 (14-36) U/L ALT 30 (4-34) U/L Alkaline Phosphatase 92 (38-126) U/L Total Protein 7.0 (6.3-8.2) g/dL Albumin 4.2 (3.5-5.0) g/dL Current Medications Generic Name Dose Route Start Last Admin Trade Name Freq PRN Reason Stop Dose Admin Apixaban 5 mg 07/31/22 09:00 Apixaban 5 Mg Tab PO BID [facility] Protocol Aspirin 325 mg 07/31/22 09:00 Aspirin 325 Mg Tab PO DAILY [facility] Duloxetine HCl 30 mg 07/31/22 09:00 Duloxetine Hcl 30 Mg Capsule.Dr PO DAILY [facility] Famotidine 20 mg 07/31/22 09:00 Famotidine 20 Mg Tab PO BID [facility] Melatonin 10 mg 07/31/22 03:07 Melatonin 5 Mg Tablet PO HS PRN Insomnia Metoprolol Tartrate 25 mg 07/31/22 09:00 Metoprolol Tartrate 25 Mg Tab PO BID [facility] Nitroglycerin 0.4 mg 07/30/22 22:14 Nitroglycerin Sl Tabs 0.4 Mg Tab SUBLINGUAL Q5M PRN Chest Pain Oxycodone/Acetaminophen 1 each 07/31/22 03:07 07/31/22 05:53 Oxycodone-Apap 10-325mg 1 Each Tab PO 1 each Q6H PRN Administration Pain Pregabalin 100 mg 07/31/22 09:00 Pregabalin 100 Mg Cap PO TID [facility] Tizanidine HCl 4 mg 07/31/22 03:07 Tizanidine 4 Mg Tab PO TID PRN Muscle Pain Intake and Output 07/30/22 07/31/22 07/31/22 22:59 06:59 14:59 Other: Voiding Method Toilet # Voids 2 Weight 136.531 kg 07/30/22 20:06 07/30/22 20:06
[2022-07-31] MEDS: FAMOTIDINE 20 MG TAB PO SCH ×2 (09:05→20:26)
[2022-07-31] MEDS: METOPROLOL TARTRATE 25 MG TAB PO SCH ×2 (09:05→20:26)
[2022-07-31] MEDS: PANTOPRAZOLE 40 MG/10 ML VIAL IVP SCH (09:05)
[2022-07-31] MEDS: ASPIRIN 325 MG TAB PO SCH (09:05)
[2022-07-31] MEDS: PREGABALIN 100 MG CAP PO SCH ×3 (09:05→20:26)
[2022-07-31] MEDS: DULoxetine HCL 30 MG CAPSULE.DR PO SCH (09:05)
[2022-07-31] MEDS: APIXABAN 5 MG TAB PO SCH ×2 (09:05→20:25)
[2022-07-31 09:49] LABS: Chol/HDL Ratio 3.83 Ratio; LDL Cholesterol,Calculated 131.5 mg/dL (0.0-131.0)
[2022-07-31] MEDS: ONDANSETRON 4 MG/2 ML VIAL IVP PRN (10:33)
--- NOTE | 2022-07-31 18:48 | P.HPIM ---
History of Present Illness H&P Date: 07/31/22 Chief Complaint: Chest pain 26-year-old female patient with a past medial history significant for overweight and hypertension and history of pulmonary embolism presented to the hospital complaining of chest discomfort. The patient was admitted to the hospital back in May 2022 with COVID-19 infection complicated by pulmonary embolism. At that point we consulted to see the patient because of mildly abnormal troponin. An echocardiogram was performed and showed preserved LV function was poorly visualized intracardiac valves. This time the patient presented to the hospital complaining of chest discomfort. She was in her usual state of health until yesterday when she was experiencing symptoms of excessive nausea and vomiting as well as diarrhea. The symptoms lasted for about 8 hours according to her. Subsequently she started experiencing discomfort mainly in the epigastric area and lower chest. No radiation to the arms or neck or shoulders or back. Carolynmariel alston she stated that the symptoms are worse once she is laying flat in bed and better with sitting. No shortness of breath and no sweating and no dizziness or lightheadedness and no feeling of heart racing or fluttering and no presyncope or syncope. She underwent further investigation including an EKG showing sinus rhythm with no significant ST or T-wave abnormalities and also she underwent cardiac enzymes came in to be unremarkable be d-dimer came in to be normal. For some reason she ended having CTA of the chest which showed resolving multiple pulmonary embolism from before. Review of Systems REVIEW OF SYSTEMS: CONSTITUTIONAL: No fever, no malaise, no fatigue. HEENT: No recent visual problems or hearing problems. Denied any sore throat. CARDIOVASCULAR: No chest pain, orthopnea, PND, no palpitations, no syncope. PULMONARY: No shortness of breath, no cough, no hemoptysis. GASTROINTESTINAL: No diarrhea, no nausea, no vomiting, no abdominal pain. NEUROLOGICAL: No headaches, no weakness, no numbness. HEMATOLOGICAL: Denies any bleeding or petechiae. GENITOURINARY: Denies any burning micturition, frequency, or urgency. MUSCULOSKELETAL/RHEUMATOLOGICAL: Denies any joint pain, swelling, or any muscle pain. ENDOCRINE: Denies any polyuria or polydipsia. The rest of the 14-point review of systems is negative. Past Medical History Past Medical History: No Reported History Additional Past Medical History / Comment(s): back pain; Ovarian cysts, migr aines, back pain History of Any Multi-Drug Resistant Organisms: None Reported Past Surgical History: No Surgical Hx Reported Additional Past Surgical History / Comment(s): rhisotomy; [place] teeth, colonoscopy. Past Anesthesia/Blood Transfusion Reactions: No Reported Reaction Additional Past Anesthesia/Blood Transfusion Reaction / Comment(s): NO ANESTHESIA HX. Past Psychological History: Anxiety Smoking Status: Never smoker Past Alcohol Use History: Rare Past Drug Use History: None Reported - Past Family History Mother Family Medical History: No Reported History Medications and Allergies Home Medications Medication Instructions Recorded Confirmed Type DULoxetine HCL [Cymbalta] 30 mg PO DAILY #30 cap 04/18/22 07/30/22 Rx Albuterol Inhaler [Ventolin Hfa 2 puff INHALATION RT-Q4H PRN #1 inh 05/16/22 07/30/22 Rx Inhaler] Metoprolol Tartrate [Lopressor] 25 mg PO BID #30 tab 05/16/22 07/30/22 Rx Apixaban [Eliquis] 5 mg PO BID 07/30/22 07/30/22 History Cholestyramine (with Sugar) 4 gm PO TID BETWEEN MEALS PRN 07/30/22 07/30/22 History [Questran Packet] Famotidine [Pepcid] 40 mg PO BID 07/30/22 07/30/22 History Melatonin Gummy 10mg 10 mg PO HS PRN 07/30/22 07/30/22 History Pregabalin [Lyrica] 100 mg PO TID 07/30/22 07/30/22 History oxyCODONE HCL/ACETAMINOPHEN 1 tab PO Q6H PRN 07/30/22 07/30/22 History [Endocet 10-325 mg] tiZANidine HCL [Zanaflex] 4 mg PO TID PRN 07/30/22 07/30/22 History Allergies Allergy/AdvReac Type Severity Reaction Status Date / Time amoxicillin [Amoxicillin] Allergy Rash/Hives Verified 07/30/22 20:58 cefprozil Allergy Rash/Hives Verified 07/30/22 20:58 Penicillins Allergy Unknown Verified 07/30/22 20:58 Childhood Physical Exam Vitals: Vital Signs Temp Pulse Pulse Resp BP BP Pulse Ox 07/31/22 08:09 95 07/31/22 08:00 118 H 07/31/22 07:00 98.6 F 113 H 16 145/83 93 L 07/31/22 02:00 99.2 F 124 H 20 127/86 93 L 07/30/22 22:59 98.8 F 126 H 20 149/87 99 07/30/22 22:25 115 H 18 142/88 07/30/22 19:28 98.8 F 117 H 22 127/78 100 Intake and Output 07/30/22 07/31/22 07/31/22 22:59 06:59 14:59 Other: Voiding Method Toilet # Voids 2 Weight 136.531 kg PHYSICAL EXAMINATION: GENERAL: The patient is alert and oriented x3, not in any acute distress. Well developed, well nourished. HEENT: Pupils are round and equally reacting to light. EOMI. No scleral icterus. No conjunctival pallor. Normocephalic, atraumatic. No pharyngeal erythema. No thyromegaly. CARDIOVASCULAR: S1 and S2 present. No murmurs, rubs, or gallops. PULMONARY: Chest is clear to auscultation, no wheezing or crackles. ABDOMEN: Soft, nontender, nondistended, normoactive bowel sounds. No palpable organomegaly. MUSCULOSKELETAL: No joint swelling or deformity. EXTREMITIES: No cyanosis, clubbing, or pedal edema. NEUROLOGICAL: Gross neurological examination did not reveal any focal deficits. SKIN: No rashes. Results CBC & Chem 7: 07/30/22 20:06 07/30/22 20:06 Labs: Abnormal Lab Results - Last 24 Hours (Table) 07/30/22 07/30/22 07/31/22 Range/Units 20:06 20:06 03:07 MCV 79.1 L (80.0-100.0) fL Lymphocytes # 0.3 L (1.0-4.8) k/uL Sodium 136 L (137-145) mmol/L BUN 4 L (7-17) mg/dL Glucose 116 H (74-99) mg/dL LDL Cholesterol, Calc 131.5 H (0.0-131.0) mg/dL Assessment and Plan Assessment: 1. Chest pain rule out acute coronary syndrome - Trend troponin and monitor EKG; patient has been placed on aspirin and beta blockers - Patient has been evaluated by cardiology and 2-D echo was - Recommended to have stress test as an outpatient 2. Rule out acute pulmonary embolism/ patient does have history of PE in the past - Patient remains on L [place] 5 mg by mouth twice a day 3. Hypertension; metoprolol 25 mg twice a day 4. Chronic back pain; patient takes Endocet 102 25 mg every 6 hours when necessary along with Zanaflex 4 mg by mouth 3 times a day and O, 100 mg 3 times a day; Cymbalta 30 mg daily 5. Morbid obesity; counseling done for need for weight reduction DVT prophylaxis; SCDs/systemic anticoagulation CODE STATUS; full code
[2022-08-01] MEDS: oxyCODONE-APAP 10-325MG 1 EACH TAB PO PRN ×2 (01:37→09:25)
[2022-08-01 08:11] VITALS: BP 115/56; PULSE 91; RESP 16; TEMP 97.9
[2022-08-01] MEDS: PANTOPRAZOLE 40 MG/10 ML VIAL IVP SCH (09:24)
[2022-08-01] MEDS: DULoxetine HCL 30 MG CAPSULE.DR PO SCH (09:25)
[2022-08-01] MEDS: FAMOTIDINE 20 MG TAB PO SCH (09:25)
[2022-08-01] MEDS: PREGABALIN 100 MG CAP PO SCH (09:25)
[2022-08-01] MEDS: ONDANSETRON 4 MG/2 ML VIAL IVP PRN (09:25)
[2022-08-01] MEDS: APIXABAN 5 MG TAB PO SCH (09:25)
[2022-08-01] MEDS: METOPROLOL TARTRATE 25 MG TAB PO SCH (09:26)
[2022-08-01] MEDS: ASPIRIN 325 MG TAB PO SCH (09:26)
--- NOTE | 2022-08-01 09:46 | P.PN ---
Subjective Progress Note Date: 08/01/22 History of present illness: The patient is a pleasant 26-year-old female patient with a past medial history significant for overweight and hypertension and history of pulmonary embolism presented to the hospital complaining of chest discomfort. The patient was admitted to the hospital back in May 2022 with COVID-19 infection complicated by pulmonary embolism. At that point we consulted to see the patient because of mildly abnormal troponin. An echocardiogram was performed and showed preserved LV function was poorly visualized intracardiac valves. This time the patient presented to the hospital complaining of chest discomfort. She was in her usual state of health until yesterday when she was experiencing symptoms of excessive nausea and vomiting as well as diarrhea. The symptoms lasted for about 8 hours according to her. Subsequently she started experiencing discomfort mainly in the epigastric area and lower chest. No radiation to the arms or neck or shoulders or back. Clearly she stated that the symptoms are worse once she is laying flat in bed and better with sitting. No shortness of breath and no sweating and no dizziness or lightheadedness and no feeling of heart racing or fluttering and no presyncope or syncope. She underwent further investigation including an EKG showing sinus rhythm with no significant ST or T-wave abnormalities and also she underwent cardiac enzymes came in to be unremarkable be d-dimer came in to be normal. For some reason she ended having CTA of the chest which showed resolving multiple pulmonary embolism from before. The patient was seen and evaluated this morning. Vitals are stable beside mildly elevated blood pressure. She does have epigastric tenderness on examination. Otherwise she has a regular rhythm with clear breathing sounds bilaterally and no lower excellent is edema noted. 08/01 Patient denies any chest pain or shortness of breath today. She states she had earlier felt like there was an elephant on her chest and feels better when she sits up. She is scheduled for echocardiogram today. She has been afebrile, h eart rate in the 90s, blood pressure 115/56, pulse ox 95% on room air. Troponins have been negative 3. Triglycerides 81, cholesterol 200, LDL 131, HDL 52. Physical examination: Gen: This is a morbidly obese 26-year-old female. She is resting bed and appears to be comfortable. VS: reviewed HEENT: Head is atraumatic, normocephalic. Pupils equal, round. Sclerae is anicteric. LUNGS: Clear to auscultation. No wheezes or rhonchi. No intercostal retractions. HEART: Regular rate and rhythm. No murmur. EXTREMITIES: No pedal edema. NEUROLOGICAL: Patient is awake, alert and oriented x3. Assessment: Epigastric discomfort. Currently the patient is pain-free History of pulmonary embolism Hypertension Overweight Plan: Acute coronary event was ruled out Pulmonary embolism was ruled out I believe that the discomfort in the epigastric area is likely related to excessive nausea and vomiting Continue PPI Obtain an echocardiogram was Doppler If echocardiogram is within normal limits, patient is cleared for discharge home and may follow-up in the office with Dr. Rivas for outpatient stress testing. Nurse practitioner note has been reviewed, I agree with documented findings and plan of care. Patient was seen and examined. Objective - Vital Signs Vital signs: Vital Signs Temp 97.9 F 08/01/22 07:00 Pulse 91 08/01/22 07:00 Resp 16 08/01/22 07:00 BP 115/56 08/01/22 07:00 Pulse Ox 99 08/01/22 07:03 FiO2 Intake & Output 07/31/22 08/01/22 08/01/22 18:59 06:59 18:59 Other: Voiding Method Toilet # Voids 4 2 - Labs CBC & Chem 7: 07/30/22 20:06 07/30/22 20:06 Labs: Abnormal Lab Results - Last 24 Hours (Table) 07/31/22 Range/Units 03:07 LDL Cholesterol, Calc 131.5 H (0.0-131.0) mg/dL
[2022-08-01] MEDS ORDERED: METOCLOPRAMIDE 5 MG/ML 2 ML VIAL IVP STA (10:02)
[2022-08-01] MEDS ORDERED: ALPRAZolam 0.5 MG TAB PO STA (10:44)
--- NOTE | 2022-08-01 11:09 | CA ---
Transthoracic Echo Report Name: Ginny Cage Age: 26 Gender: F : 1995 Exam Date: 08/01/2022 08:27 Exam Location: [facility] Ht (in): 60 Wt (lb): 301 Ordering Physician: Hamlet Rivas MD ([id number]) Attending/Referring Phys: Inspector Watch Assembly Cyndy Henderson RDCS Procedure CPT: Indications: Chest Pain Cardiac Hx: Technical Quality: Very technically difficult study Contrast 1: Lumason Total Dose (mL): 4 Contrast 2: Total Dose (mL): MEASUREMENTS (Male / Female) Normal Values 2D ECHO LV Diastolic Diameter PLAX 4.0 cm 4.2 - 5.9 / 3.9 - 5.3 cm LV Systolic Diameter PLAX 3.2 cm IVS Diastolic Thickness 1.2 cm 0.6 - 1.0 / 0.6 - 0.9 cm LVPW Diastolic Thickness 1.4 cm 0.6 - 1.0 / 0.6 - 0.9 cm LV Relative Wall Thickness 0.6 M-MODE Aortic Root Diameter MM 2.6 cm LA Systolic Diameter MM 3.1 cm LA Ao Ratio MM 1.2 AV Cusp Separation MM 1.6 cm FINDINGS Left Ventricle Mildly increased septal wall thickness.left ventricular ejection fraction is estimated at 55%. Left ventricular cavity size normal. Right Ventricle Normal right ventricular size and function. Right Atrium Right atrium not well visualized. Left Atrium Left atrium not well visualized. Mitral Valve Structurally normal mitral valve. Aortic Valve Aortic valve not well visualized. Tricuspid Valve Tricuspid valve not well visualized. Pulmonic Valve Pulmonic valve not well visualized. Pericardium Not visualized. Aorta Not visualized. CONCLUSIONS Technically suboptimal study secondary to poor echo windows Contrast agent was used LV function appears normal Previewed by: Dr. Mejia Del Valle MD (Electronically Signed) Final Date: 01 August 2022 11:08
--- NOTE | 2022-08-01 11:54 | P.DS ---
Providers Date of admission: 07/30/22 22:19 Expected date of discharge: 08/01/22 Attending physician: Juan Diego Robledo MD Consults: 07/30/22 22:14 Consult Physician Urgent Consulting Provider: Rory Nelson Consult Reason/Comments: chest pain Do you want consulting provider notified?: Yes Primary care physician: Juan Diego Robledo MD Hospital Course: Final diagnoses Chest pain, evaluated by cardiology -atypical ,Epigastric pain secondary to nausea and vomiting. No evidence of pulmonary embolism reported per CTA Gastroesophageal reflux disease, omeprazole ordered for DC History of PE Hypertension Chronic back pain Morbid obesity, BMI 58.8 Triglycerides 81, cholesterol 200, LDL 131, HDL 52. Depression, anxiety Hospital course: This is a pleasant 26-year-old female admitted with chest discomfort, nausea,vomiting,diarrhea and recent 24-hour viral infection. EKG reported sinus tachycardia ,Cardiac enzymes unremarkable. D-dimer within normal limits, CTA reported no evidence of pulmonary embolism.Evaluated by cardiology. Echo ordered with outpatient stress test recommended. Patient will be discharged home in a stable condition with guarded prognosis pending echo resul ts and final clearance from cardiology. The impression and plan of care has been dictated as directed. : I performed a history and examination of this patient, discussed the same with the dictator. I agree with the dictator's note ,documented as a scribe. Any additional findings or plans will be noted. Patient Condition at Discharge: Stable Plan - Discharge Summary New Discharge Prescriptions: New Omeprazole 20 mg PO DAILY #30 cap Continue Metoprolol Tartrate [Lopressor] 25 mg PO BID #30 tab Famotidine [Pepcid] 40 mg PO BID Cholestyramine (with Sugar) [Questran Packet] 4 gm PO TID BETWEEN MEALS PRN PRN Reason: IBS DULoxetine HCL [Cymbalta] 30 mg PO DAILY #30 cap Albuterol Inhaler [Ventolin Hfa Inhaler] 2 puff INHALATION RT-Q4H PRN #1 inh PRN Reason: Shortness Of Breath Or Wheezing Melatonin Gummy 10mg 10 mg PO HS PRN PRN Reason: Insomnia oxyCODONE HCL/ACETAMINOPHEN [Endocet 10-325 mg] 1 tab PO Q6H PRN PRN Reason: Pain Pregabalin [Lyrica] 100 mg PO TID Apixaban [Eliquis] 5 mg PO BID tiZANidine HCL [Zanaflex] 4 mg PO TID PRN PRN Reason: Muscle Pain Discharge Medication List DULoxetine HCL [Cymbalta] 30 mg PO DAILY #30 cap 04/18/22 [Rx] Albuterol Inhaler [Ventolin Hfa Inhaler] 2 puff INHALATION RT-Q4H PRN #1 inh 05/16/22 [Rx] Metoprolol Tartrate [Lopressor] 25 mg PO BID #30 tab 05/16/22 [Rx] Apixaban [Eliquis] 5 mg PO BID 07/30/22 [History] Cholestyramine (with Sugar) [Questran Packet] 4 gm PO TID BETWEEN MEALS PRN 07/30/22 [History] Famotidine [Pepcid] 40 mg PO BID 07/30/22 [History] Melatonin Gummy 10mg 10 mg PO HS PRN 07/30/22 [History] Pregabalin [Lyrica] 100 mg PO TID 07/30/22 [History] oxyCODONE HCL/ACETAMINOPHEN [Endocet 10-325 mg] 1 tab PO Q6H PRN 07/30/22 [History] tiZANidine HCL [Zanaflex] 4 mg PO TID PRN 07/30/22 [History] Omeprazole 20 mg PO DAILY #30 cap 08/01/22 [Rx] Follow up Appointment(s)/Referral(s): Juan Diego Robledo MD [Primary Care Provider] - 1-2 days
== END 2022-08-01 14:51 | disposition home or self-care (01) ==
LOC: EC 19:20 → 6NMEDSUR 22:19
PROVIDERS: ADMIT Family Medicine; ATTEND Family Medicine
DX: R07.89 Other chest pain (principal); R10.13 Epigastric pain; R11.2 Nausea with vomiting, unspecified; R19.7 Diarrhea, unspecified; E66.9 Obesity, unspecified; Z68.43 Body mass index [BMI] 50.0-59.9, adult; Z86.711 Personal history of pulmonary embolism; Z86.16 Personal history of COVID-19; Z20.822 Contact with and (suspected) exposure to COVID-19; R00.0 Tachycardia, unspecified; N83.209 Unspecified ovarian cyst, unspecified side; G43.909 Migraine, unspecified, not intractable, without status migrainosus; F41.9 Anxiety disorder, unspecified; I10 Essential (primary) hypertension; Z79.01 Long term (current) use of anticoagulants; Z79.899 Other long term (current) drug therapy; Z88.1 Allergy status to other antibiotic agents; Z88.0 Allergy status to penicillin
CPT/HCPCS: 96376 ×2; 96375 ×3; 96374; 99285; 36415; 94760 ×2; 93005; 93306; 85379; 83880; 80061; 80053; 84484 ×2; 85025; 85610; 85730; 84702; 87636; 71046; 71275; G0378 ×3; J2765; J2405 ×3; J1170; C9113 ×2; Q9950; Q9967

== ENCOUNTER → 2022-10-14 | Outpatient (CLI) | payer BC ==
--- NOTE | 2022-10-14 07:35 | MR ---
EXAMINATION TYPE: MR brain wo con DATE OF EXAM: 10/14/2022 COMPARISON: MRI brain June 11, 2013. HISTORY: Hx of benign brain tumor TECHNIQUE: Multiplanar, multisequence imaging of the brain and brainstem is performed without IV cont rast. FINDINGS: Diffusion weighted images demonstrate no evidence of a recent infarct or other diffusion abnormality. There is no extraaxial fluid collection or significant white matter signal abnormality. The ventricu lar system and cisternal spaces are normal in size and appearance. The brain volume is age appropria te. Midline structures redemonstrate normal morphology. 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 The craniocervical junction remains within normal limits. Normal vascular flow voids are present. The visualized sinuses are clear and the globes are intact. 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
== END | disposition home or self-care (01) ==
LOC: RADMRIMAIN 06:33
PROVIDERS: ATTEND Family Medicine
DX: E34.8 Other specified endocrine disorders (principal); Z87.898 Personal history of other specified conditions
CPT/HCPCS: 70551

== ENCOUNTER → 2022-11-10 | Outpatient (CLI) | payer BC ==
--- NOTE | 2022-11-10 09:43 | CT ---
EXAMINATION TYPE: CT abdomen pelvis wo con CT DLP: 1532.4 mGycm, Automated exposure control for dose reduction was used. DATE OF EXAM: 11/10/2022 9:11 AM COMPARISON: CT abdomen pelvis most recent from 07/18/2022 CLINICAL INDICATION:Female, 26 years old with history of N20.0 CALCULUS OF KIDNEY; Right inguinal mcihael n and hematuria. TECHNIQUE: Axial CT of the abdomen and pelvis. Sagittal and coronal reformats were created on a [employer] workstation. Contrast used: None Oral contrast used: without Oral Contrast FINDINGS: LOWER CHEST: Unremarkable ABDOMEN LIVER: Unremarkable GALLBLADDER AND BILE DUCTS: Unremarkable. PANCREAS: Unremarkable. SPLEEN: Unremarkable. ADRENAL GLANDS: Unremarkable. KIDNEYS AND URETERS: Bilateral 5 mm renal calculi. No evidence of obstructive uropathy. No ureteral c alculus visualized. Prior renal sinus calculus is no longer visualized. PELVIS BLADDER: Nondistended and grossly unremarkable. REPRODUCTIVE: Unremarkable. ABDOMEN & PELVIS STOMACH AND BOWEL: No evidence of bowel obstruction. The appendix is not visualized but there are no secondary signs of appendicitis. PERITONEUM/RETROPERITONEUM: No evidence of pneumoperitoneum or free fluid. VASCULATURE: No evidence of aortic aneurysm. MUSCULOSKELETAL: No acute osseous abnormalities, right femoral head bony island. LYMPH NODES: No gross evidence for lymphadenopathy SOFT TISSUE/ABDOMINAL WALL: Unremarkable IMPRESSION: Bilateral nonobstructing renal calculi. No evidence for obstructive uropathy. No finding to correlate patient's right inguinal pain.
== END | disposition home or self-care (01) ==
LOC: RADCTMAIN 08:40
PROVIDERS: ATTEND Family Medicine
DX: N20.0 Calculus of kidney (principal); R31.9 Hematuria, unspecified; R10.31 Right lower quadrant pain
CPT/HCPCS: 74176

== ENCOUNTER 2023-01-17 17:34 | Emergency (ER) | payer BC ==
--- NOTE | 2023-01-17 19:40 | ED ---
Female Urogenital HPI - General Chief complaint: Urogenital Stated complaint: pelvic pain Time Seen by Provider: 01/17/23 19:30 Source: patient, RN notes reviewed Mode of arrival: ambulatory Limitations: no limitations - History of Present Illness Initial comments: This is a 27 year old female who presents to the emergency department for intermittent pelvic pain. Symptoms started 6 days ago. She initially went to urgent care 6 days ago, where she was diagnosed with a UTI. She has been on Bactrim and Pyridum with no relief in symptoms. Denies any burning with urination or vaginal discharge. Symptoms have started to worsen, and she is now starting to feel nauseous. States that symptoms are similar to prior ovarian cysts. The pain is in the center of her pelvis. It does not move to either side or radiate into the back. Denies any fevers, chills, sore throat, cough, dyspnea, chest pain, palpitations, vomiting, diarrhea, back pain, or headaches. MD Complaint: pelvic pain Onset/Timin -: days(s) Last Menstrual Period: 01/04/23 - Related Data Home Medications Medication Instructions Recorded Confirmed Apixaban [Eliquis] 5 mg PO BID 07/30/22 09/01/22 Cholestyramine (with Sugar) 4 gm PO TID BETWEEN MEALS PRN 07/30/22 09/01/22 [Questran Packet] Famotidine [Pepcid] 40 mg PO BID 07/30/22 09/01/22 Melatonin Gummy 10mg 10 mg PO HS PRN 07/30/22 09/01/22 Pregabalin [Lyrica] 100 mg PO TID 07/30/22 09/01/22 oxyCODONE HCL/ACETAMINOPHEN 1 tab PO Q6H PRN 07/30/22 09/01/22 [Endocet 10-325 mg] tiZANidine HCL [Zanaflex] 4 mg PO TID PRN 07/30/22 09/01/22 busPIRone HCl [Buspar] 10 mg PO BID 08/22/22 09/01/22 Previous Rx's Medication Instructions Recorded DULoxetine HCL [Cymbalta] 30 mg PO DAILY #30 cap 04/18/22 Albuterol Inhaler [Ventolin Hfa 2 puff INHALATION RT-Q4H PRN #1 inh 11/07/22 Inhaler] Metoprolol Tartrate [Lopressor] 25 mg PO BID #30 tab 05/16/22 Omeprazole 20 mg PO DAILY #30 cap 08/01/22 Ketorolac [Toradol] 10 mg PO Q6HR PRN #15 tab 01/18/23 Levofloxacin [Levaquin] 750 mg PO DAILY 5 Days #5 tab 01/18/23 Allergies Allergy/AdvReac Type Severity Reaction Status Date / Time amoxicillin [Amoxicillin] Allergy Rash/Hives Verified 01/17/23 18:04 cefprozil Allergy Rash/Hives Verified 01/17/23 18:04 lisinopril Allergy Cough Verified 01/17/23 18:04 Penicillins Allergy Unknown Verified 01/17/23 18:04 Childhood Review of Systems ROS Statement: Those systems with pertinent positive or pertinent negative responses have been documented in the HPI. ROS Other: All systems not noted in ROS Statement are negative. Past Medical History Past Medical History: Hypertension, Pulmonary Embolus (PE) Additional Past Medical History / Comment(s): back pain, Ovarian cysts, migraines, Covid fall 2021 with PE History of Any Multi-Drug Resistant Organisms: None Reported Past Surgical History: No Surgical Hx Reported Additional Past Surgical History / Comment(s): rhizotomy; [place] teeth, colonoscopy Past Anesthesia/Blood Transfusion Reactions: No Reported Reaction Additional Past Anesthesia/Blood Transfusion Reaction / Comment(s): NO ANESTHESIA HX. Past Psychological History: Anxiety Smoking Status: Never smoker Past Alcohol Use History: Occasional Past Drug Use History: None Reported - Past Family History Mother Family Medical History: No Reported History General Exam - General Exam Comments Initial Comments: Visual Physical Exam Vital signs reviewed General: Well-appearing, nontoxic, no acute distress. Head: Normocephalic, atraumatic Eyes: PERRLA, EOMI ENT: Airway patent Chest: Nonlabored breathing Skin: No visual rash, normal skin tone Neuro: Alert and oriented 3 Musculoskeletal: No gross abnormalities Limitations: no limitations General appearance: alert, in no apparent distress Head exam: Present: atraumatic, normocephalic, normal inspection Respiratory exam: Present: normal lung sounds bilaterally. Absent: respiratory distress, wheezes, rales, rhonchi, stridor Cardiovascular Exam: Present: regular rate, normal rhythm, normal heart sounds. Absent: systolic murmur, diastolic murmur, rubs, gallop, clicks GI/Abdominal exam: Present: soft, tenderness (Suprapubic), normal bowel sounds. Absent: distended Neurological exam: Present: alert, oriented X3, CN II-XII intact Psychiatric exam: Present: normal affect, normal mood Skin exam: Present: warm, dry, intact, normal color. Absent: rash Course Vital Signs 01/17/23 01/17/23 01/18/23 18:05 22:02 00:08 Temperature 98.9 F 98.0 F Pulse Rate 113 H 80 108 H Respiratory 18 20 Rate Blood Pressure 127/76 138/101 115/88 O2 Sat by Pulse 96 98 98 Oximetry Medical Decision Making - Medical Decision Making This is a 27-year-old female who presents to the emergency department for pelvic pain. Was pt. sent in by a medical professional or institution? @ -No Did you speak to anyone other than the patient for history? @ -No Did you review nursing and triage notes? @ -Yes, and I agree, it is accurate with regards to the patient's symptoms. Were old charts reviewed? @ -No Differential Diagnosis? @ -Differential Abdominal Pain Women: Appendicitis, Cholecystitis, diverticulosis, ischemic bowel, pancreatitis, hepatitis, UTI, gastroenteritis, AAA, incarcerated hernia, bowel obstruction, constipation, inflammatory bowel, hepatitis, peptic ulcer disease, splenic infarction, perforated viscus, vulvitis, ovarian torsion, PID, kidney stone, placenta abruption, this is not meant to be an all-inclusive list EKG interpreted by me (3pts min.)? @ -Not obtained X-rays interpreted by me (1pt min.)? @ -Not obtained CT interpreted by me (1pt min.)? @ -CT scan of the abdomen and pelvis obtained. My interpretation identifies no evidence of bowel wall thickening. U/S interpreted by me (1pt. min.)? @ -Not interpreted by me What testing was considered but not performed? (CT, X-rays, U/S, labs)? Why? @ -None What meds were considered but not given? Why? @ -None Did you discuss the management of the patient with other professionals? @ -No Did you reconcile home meds? @ -No Was smoking cessation discussed for >3mins.? @ -No Was critical care preformed (if so, how long)? @ -No Were there social determinants of health that impacted care today? How? (Homelessness, low income, unemployed, alcoholism, drug addiction, transportation, low edu. Level, literacy, decrease access to med. care, correction, rehab)? @ -No Was there de-escalation of care discussed even if they declined? (Discuss DNR or withdrawal of care, Hospice)? @ -No What co-morbidities impacted this encounter? (DM, HTN, Smoking, COPD, CAD, Cancer, CVA, Hep., AIDS, mental health diagnosis, sleep apnea, morbid obesity)? @ -Morbid obesity Was patient admitted / discharged? @ -Lab work obtained and found to be nonactionable. Transvaginal ultrasound revealed no acute process. Urinalysis is very contaminated, and the level of infection is not entirely clear. Urine was sent for culture. She was initially given Toradol and Zofran with improvement in nausea, however the pain was still severe. She was subsequently given a dose of morphine. Discussed with the p atient that we do not have any clear reason for her symptoms. It is possible that she still has a UTI, as again, the urine does not provide a clear answer. Patient is very concerned about not having answers and request further evaluation. Computed tomography scan of the abdomen and pelvis was subsequently obtained. Computed tomography scan also revealed no acute process. We'll proceed with treating the patient for UTI, in the event the Bactrim was not effective in treating this. Patient has allergies to penicillins and cephalosporins. Prescription for Levaquin was subsequently provided with dosing instructions reviewed. Initial dose administered in the emergency department. She was also given a prescription for Toradol. Patient is instructed to take the Toradol with Tylenol if needed and avoid any other [id number] anti- inflammatories such as ibuprofen with the Toradol. Advised close follow-up with her primary care provider for reevaluation. Undiagnosed new problem with uncertain prognosis? @ -None Drug Therapy requiring intensive monitoring for toxicity (Heparin, Nitro, Insulin, Cardizem)? @ -None Were any procedures done? @ -None Diagnosis/symptom? @ -Pelvic pain Acute, or Chronic, or Acute on Chronic? @ -Acute Uncomplicated (without systemic symptoms) or Complicated (systemic symptoms)? @ -Uncomplicated Side effects of treatment? @ -None Exacerbation, Progression, or Severe Exacerbation] @ -Not applicable Poses a threat to life or bodily function? @ -No Return precautions reviewed in depth, the patient is instructed to return to the emergency department with any new, worsening, or concerning symptoms. Patient verbalized understanding. This case was discussed in detail with the attending ED physician, Dr. Kennedy. Presentation, findings, and treatment plan discussed in detail as well. - Lab Data Result diagrams: 01/17/23 20:44 01/17/23 20:44 Lab Results 01/17/23 01/17/23 01/17/23 Range/Units 20:44 20:44 20:44 WBC 6.2 (3.8-10.6) k/uL RBC 5.76 H (3.80-5.40) m/uL Hgb 13.4 (11.4-16.0) gm/dL Hct 44.2 (34.0-46.0) % MCV 76.7 L (80.0-100.0) fL MCH 23.3 L (25.0-35.0) pg MCHC 30.3 L (31.0-37.0) g/dL RDW 15.5 (11.5-15.5) % Plt Count 303 (150-450) k/uL MPV 7.2 Neutrophils % 65 % Lymphocytes % 28 % Monocytes % 4 % Eosinophils % 1 % Basophils % 0 % Neutrophils # 4.0 (1.3-7.7) k/uL Lymphocytes # 1.8 (1.0-4.8) k/uL Monocytes # 0.2 (0-1.0) k/uL Eosinophils # 0.1 (0-0.7) k/uL Basophils # 0.0 (0-0.2) k/uL Hypochromasia Slight Microcytosis Slight Sodium (137-145) mmol/L Potassium (3.5-5.1) mmol/L Chloride (98-107) mmol/L Carbon Dioxide (22-30) mmol/L Anion Gap mmol/L BUN (7-17) mg/dL Creatinine (0.52-1.04) mg/dL Est GFR (CKD-EPI)AfAm (>60 ml/min/1.73 sqM) Est GFR (CKD-EPI)NonAf (>60 ml/min/1.73 sqM) Glucose (74-99) mg/dL Plasma Lactic Acid Damien (0.7-2.0) mmol/L Calcium (8.4-10.2) mg/dL Total Bilirubin (0.2-1.3) mg/dL AST (14-36) U/L ALT (4-34) U/L Alkaline Phosphatase (38-126) U/L Total Protein (6.3-8.2) g/dL Albumin (3.5-5.0) g/dL Urine Color Yellow Urine Appearance Cloudy H (Clear) Urine pH 6.0 (5.0-8.0) Ur Specific [place] 1.029 (1.001-1.035) Urine Protein 1+ H (Negative) Urine Glucose (UA) Negative (Negative) Urine Ketones 2+ H (Negative) Urine Blood Negative (Negative) Urine Nitrite Negative (Negative) Urine Bilirubin 1+ H (Negative) Urine Urobilinogen 2.0 (<2.0) mg/dL Ur Leukocyte Esterase Small H (Negative) Urine RBC 3 (0-5) /hpf Urine WBC 20 H (0-5) /hpf Ur Squamous Epith Cells 37 H (0-4) /hpf Urine Bacteria Moderate H (None) /hpf Urine Mucus Many H (None) /hpf Urine HCG, Qual Not Detected (Not Detectd) 01/17/23 01/17/23 Range/Units 20:44 20:44 WBC (3.8-10.6) k/uL RBC (3.80-5.40) m/uL Hgb (11.4-16.0) gm/dL Hct (34.0-46.0) % MCV (80.0-100.0) fL MCH (25.0-35.0) pg MCHC (31.0-37.0) g/dL RDW (11.5-15.5) % Plt Count (150-450) k/uL MPV Neutrophils % % Lymphocytes % % Monocytes % % Eosinophils % % Basophils % % Neutrophils # (1.3-7.7) k/uL Lymphocytes # (1.0-4.8) k/uL Monocytes # (0-1.0) k/uL Eosinophils # (0-0.7) k/uL Basophils # (0-0.2) k/uL Hypochromasia Microcytosis Sodium 137 (137-145) mmol/L Potassium 4.3 (3.5-5.1) mmol/L Chloride 100 (98-107) mmol/L Carbon Dioxide 23 (22-30) mmol/L Anion Gap 14 mmol/L BUN 10 (7-17) mg/dL Creatinine 0.62 (0.52-1.04) mg/dL Est GFR (CKD-EPI)AfAm >90 (>60 ml/min/1.73 sqM) Est GFR (CKD-EPI)NonAf >90 (>60 ml/min/1.73 sqM) Glucose 93 (74-99) mg/dL Plasma Lactic Acid Damien 1.3 (0.7-2.0) mmol/L Calcium 9.8 (8.4-10.2) mg/dL Total Bilirubin 0.6 (0.2-1.3) mg/dL AST 36 (14-36) U/L ALT 36 H (4-34) U/L Alkaline Phosphatase 99 (38-126) U/L Total Protein 8.1 (6.3-8.2) g/dL Albumin 4.7 (3.5-5.0) g/dL Urine Color Urine Appearance (Clear) Urine pH (5.0-8.0) Ur Specific [place] (1.001-1.035) Urine Protein (Negative) Urine Glucose (UA) (Negative) Urine Ketones (Negative) Urine Blood (Negative) Urine Nitrite (Negative) Urine Bilirubin (Negative) Urine Urobilinogen (<2.0) mg/dL Ur Leukocyte Esterase (Negative) Urine RBC (0-5) /hpf Urine WBC (0-5) /hpf Ur Squamous Epith Cells (0-4) /hpf Urine Bacteria (None) /hpf Urine Mucus (None) /hpf Urine HCG, Qual (Not Detectd) - Radiology Data Radiology results: report reviewed, image reviewed Disposition Clinical Impression: Pelvic pain Disposition: HOME SELF-CARE Instructions (If sedation given, give patient instructions): Urinary Tract Infection in Women (ED), Pelvic Pain in Women (ED) Additional Instructions: Return to the emergency department with any new, worsening, or concerning symptoms. Take the antibiotic as prescribed for 5 days. You can take the Toradol with Tylenol as needed for pain relief. If you choose to take the Toradol, do not take any other anti-inflammatories such as ibuprofen, take one or the other. Follow up with your primary care provider in 1-2 days. Prescriptions: Levofloxacin [Levaquin] 750 mg PO DAILY 5 Days #5 tab Ketorolac [Toradol] 10 mg PO Q6HR PRN #15 tab PRN Reason: Pain Is patient prescribed a controlled substance at d/c from ED?: No Referrals: Juan Diego Robledo MD [Primary Care Provider] - 1-2 days
[2023-01-17] MEDS ORDERED: KETOROLAC 15 MG/ML 1 ML VIAL IVP STA (20:19)
[2023-01-17] MEDS ORDERED: SODIUM CHLORIDE 0.9% 1,000 ML IV STA (20:19)
[2023-01-17] MEDS ORDERED: ONDANSETRON 4 MG/2 ML VIAL IVP STA (20:19)
[2023-01-17 20:56] LABS: Basophils % (A) 0 %; Eosinophils # (A) 0.1 k/uL (0-0.7); Eosinophils % (A) 1 %; HCT 44.2 % (34.0-46.0); HGB 13.4 gm/dL (11.4-16.0); Hypochromasia Slight; Lymphocytes # (A) 1.8 k/uL (1.0-4.8); Lymphocytes % (A) 28 %; MCH 23.3 pg (25.0-35.0); MCHC 30.3 g/dL (31.0-37.0); MCV 76.7 fL (80.0-100.0); Mean Platelet Volume 7.2; Microcytosis Slight; Monocytes # (A) 0.2 k/uL (0-1.0); Monocytes % (A) 4 %; Neutrophils % (A) 65 %; Platelet Count 303 k/uL (150-450); RBC 5.76 m/uL (3.80-5.40); RDW 15.5 % (11.5-15.5); WBC 6.2 k/uL (3.8-10.6)
[2023-01-17 21:03] LABS: Appearance,Urine Cloudy (Clear); Bacteria,Urine Moderate /hpf; Bilirubin,Urine 1+ (Negative); Blood,Urine Negative (Negative); Color,Urine Yellow; Glucose,Urine (UA) Negative (Negative); Ketones,Urine 2+ (Negative); Leukocyte Esterase,Urine Small (Negative); Mucus,Urine Many /hpf; Nitrite,Urine Negative (Negative); Protein,Urine 1+ (Negative); RBC,Urine 3 /hpf (0-5); Specific Gravity,Urine 1.029 (1.001-1.035); Squamous Epithelial Cell,Urine 37 /hpf (0-4); WBC,Urine 20 /hpf (0-5)
[2023-01-17 21:09] LABS: ALT 36 U/L (4-34); AST 36 U/L (14-36); African American GFR (CKD) >90 (>60 ml/min/1.73 sqM); Albumin 4.7 g/dL (3.5-5.0); Alkaline Phosphatase 99 U/L (38-126); Anion Gap 14 mmol/L; Blood Urea Nitrogen 10 mg/dL (7-17); Calcium 9.8 mg/dL (8.4-10.2); Carbon Dioxide 23 mmol/L (22-30); Chloride 100 mmol/L (98-107); Glucose 93 mg/dL (74-99); Non-African American GFR(CKD) >90 (>60 ml/min/1.73 sqM); Potassium 4.3 mmol/L (3.5-5.1); Sodium 137 mmol/L (137-145); Total Bilirubin 0.6 mg/dL (0.2-1.3); Total Protein 8.1 g/dL (6.3-8.2)
--- NOTE | 2023-01-17 21:13 | US ---
EXAMINATION TYPE: US transvaginal DATE OF EXAM: 01/17/2023 COMPARISON: 06/30/22. CT:11/10/22 CLINICAL INDICATION: Female, 27 years old with history of pelvic pain; midline pelvic pain x 1 week. Pt states getting worse. . TECHNIQUE: Transvaginal (TV). Date of LMP: Unknown EXAM MEASUREMENTS: Uterus: 7.9 x 4.3 x 3.8 cm Endometrial Stripe: 0.6 cm Right Ovary: 3.7 x 2.8 x 2.2 cm Left Ovary: 3.1 x 2.2 x 2.5 cm 1. Uterus: Anteverted Nabothian cysts seen in cx 2. Endometrium: wnl 3. Right Ovary: wnl 4. Left Ovary: wnl Spectral, color and waveform doppler imaging shows good arterial and venous flow within the ovaries ; there is no evidence for ovarian torsion. 5. Bilateral Adnexa: wnl 6. Posterior cul-de-sac: wnl IMPRESSION: No evidence for acute process.
[2023-01-17] MEDS ORDERED: MORPHINE SULFATE 4 MG/ML SYRINGE IVP STA (21:51)
[2023-01-17 22:04] VITALS: RESP 20
--- NOTE | 2023-01-18 00:03 | CT ---
EXAM: CT Abdomen and Pelvis With Intravenous Contrast CLINICAL HISTORY: ITS.REASON CT Reason: Lower abdominal pain TECHNIQUE: Axial computed tomography images of the abdomen and pelvis with intravenous contrast. CTDI is 59.3 mGy and DLP is 2540 mGy-cm. This CT exam was performed using one or more of the following dose reduction techniques: automated exposure control, adjustment of the mA and/or kV according to patient size, and/or use of iterative reconstruction technique. COMPARISON: CT abdomen pelvis 11/10/2022. FINDINGS: ABDOMEN: Liver: Unremarkable. Gallbladder and bile ducts: Cholelithiasis without cholecystitis. Pancreas: Unremarkable. Spleen: Unremarkable. Adrenals: Unremarkable. Kidneys and ureters: Nonobstructing 4 mm stone within the left renal lower pole. No stones in the right. No hydronephrosis. Stomach and bowel: Unremarkable. PELVIS: Appendix: No findings to suggest acute appendicitis. Bladder: Unremarkable. Reproductive: Unremarkable as visualized. ABDOMEN and PELVIS: Intraperitoneal space: Unremarkable. No free air. No significant fluid collection. Bones/joints: No acute fracture. Soft tissues: Unremarkable. Vasculature: Unremarkable. Lymph nodes: Unremarkable. IMPRESSION: 1. No acute abnormality. 2. Cholelithiasis without cholecystitis.
[2023-01-18] MEDS ORDERED: LEVOFLOXACIN 750 MG TAB PO STA (00:09)
[2023-01-18] MEDS ORDERED: MORPHINE SULFATE 4 MG/ML SYRINGE IVP STA (00:09)
[2023-01-18] MEDS ORDERED: ONDANSETRON 4 MG ODT STARTER PACK 2 TAB BTL PO STA (00:09)
[2023-01-18] MEDS ORDERED: ACET/COD 300 MG/30 MG STARTER PACK 6 TAB BTL PO STA (00:09)
[2023-01-18 00:10] VITALS: BP 115/88; PULSE 108; TEMP 98
[2023-01-18] MEDS: IBUPROFEN 600 MG STARTER PACK 4 TAB BTL PO STA ×2 (00:32→00:33)
== END 2023-01-18 00:34 | disposition home or self-care (01) ==
LOC: EC 17:34
DX: R10.2 Pelvic and perineal pain (principal); I10 Essential (primary) hypertension; F41.9 Anxiety disorder, unspecified; Z79.899 Other long term (current) drug therapy; Z88.8 Allergy status to other drugs, medicaments and biological substances; Z88.0 Allergy status to penicillin
CPT/HCPCS: 36415; 74177; 76830; 80053; 81001; 81025; 83605; 85025; 87086; 93975; 96361; 96374; 96375; 96376; 99284

== ENCOUNTER 2023-06-20 15:23 | Emergency (ER) | payer BC ==
--- NOTE | 2023-06-20 15:36 | ED ---
General Adult HPI - General Source: patient, RN notes reviewed Mode of arrival: wheelchair Limitations: no limitations <Tony Jacobs - Last Filed: 06/20/23 15:35> <Janet Piper - Last Filed: 06/20/23 18:35> <Lisa Bravo - Last Filed: 06/20/23 21:34> - General Stated complaint: ABD PAIN Time Seen by Provider: 06/20/23 15:35 - History of Present Illness Initial comments: 27-year-old female presents emergency Department chief complaint of lower abdominal pain. Patient states primarily right side. She's had decreased appetite no dysuria no significant change in bowel habits no prior abdominal surgeries. (Tony Jacobs) 27-year-old female presents emergency department chief complaint of right lower quadrant abdominal pain. She states that this started around 3 days ago. She states the pain is worse with movement or pressing the area. She also admits to decrease in appetite and nausea without vomiting. She states that she has felt cold sweats and chills recently but has no documented fever at home. She denies dysuria, hematuria. She has a history of PE on Eliquis taking as prescribed. (Janet Piper) - Related Data Home Medications Medication Instructions Recorded Confirmed tiZANidine HCL [Zanaflex] 4 mg PO QID PRN 07/30/22 03/07/23 busPIRone HCl [Buspar] 10 mg PO BID 08/22/22 03/07/23 Semaglutide [Wegovy] 0.25 mg SQ [place] 03/07/23 03/07/23 oxyCODONE-APAP 5-325MG [Percocet 1 tab PO BID PRN 03/07/23 03/07/23 5-325 mg] Previous Rx's Medication Instructions Recorded DULoxetine HCL [Cymbalta] 30 mg PO DAILY #30 cap 04/18/22 Apixaban [Eliquis] 10 mg PO BID #74 tab 03/10/23 Albuterol Inhaler [Ventolin Hfa 2 puff INHALATION Q6H PRN #1 each 03/12/23 Inhaler] Budesonide-Formot 160-4.5 Mcg 2 puff INHALATION RT-BID #1 each 03/12/23 [Symbicort 160-4.5 Mcg Inhaler] Metoprolol Tartrate [Lopressor] 12.5 mg PO BID #30 tab 03/12/23 Ondansetron Odt [Zofran Odt] 4 mg PO Q8HR PRN #30 tab 06/20/23 Allergies Allergy/AdvReac Type Severity Reaction Status Date / Time amoxicillin [Amoxicillin] Allergy Rash/Hives Verified 06/20/23 15:32 cefprozil Allergy Rash/Hives Verified 06/20/23 15:32 lisinopril Allergy Cough Verified 06/20/23 15:32 Penicillins Allergy Unknown Verified 06/20/23 15:32 Childhood Review of Systems ROS Other: All systems not noted in ROS Statement are negative. <Tony Jacobs - Last Filed: 06/20/23 15:35> ROS Other: All systems not noted in ROS Statement are negative. <Janet Piper - Last Filed: 06/20/23 18:35> ROS Other: All systems not noted in ROS Statement are negative. <Lisa Bravo - Last Filed: 06/20/23 21:34> ROS Statement: Those systems with pertinent positive or pertinent negative responses have been documented in the HPI. Past Medical History Past Medical History: Hypertension, Pulmonary Embolus (PE) Additional Past Medical History / Comment(s): back pain, Ovarian cysts, migraines, Covid fall 2021 with PE History of Any Multi-Drug Resistant Organisms: None Reported Past Surgical History: No Surgical Hx Reported Additional Past Surgical History / Comment(s): rhizotomy; [place] teeth, colonoscopy Past Anesthesia/Blood Transfusion Reactions: No Reported Reaction Additional Past Anesthesia/Blood Transfusion Reaction / Comment(s): NO ANESTHESIA HX. Past Psychological History: Anxiety Smoking Status: Never smoker Past Alcohol Use History: Occasional Past Drug Use History: None Reported - Past Family History Mother Family Medical History: No Reported History <Tony Jacobs - Last Filed: 06/20/23 15:35> General Exam Limitations: no limitations <Tony Jacobs - Last Filed: 06/20/23 15:35> Limitations: no limitations General appearance: alert, in no apparent distress Head exam: Present: atraumatic, normocephalic, normal inspection Eye exam: Present: normal appearance, PERRL, EOMI. Absent: scleral icterus, conjunctival injection, periorbital swelling ENT exam: Present: normal exam, mucous membranes moist Neck exam: Present: normal inspection. Absent: tenderness, meningismus, lymphadenopathy Respiratory exam: Present: normal lung sounds bilaterally. Absent: respiratory distress, wheezes, rales, rhonchi, stridor Cardiovascular Exam: Present: regular rate, normal rhythm, normal heart sounds. Absent: systolic murmur, diastolic murmur, rubs, gallop, clicks GI/Abdominal exam: Present: soft, tenderness (RLQ, no rebound, guarding, rigidity, negative Rovsing sign), normal bowel sounds. Absent: distended, guarding, rebound, rigid Extremities exam: Present: normal inspection, full ROM, normal capillary refill. Absent: tenderness, pedal edema, joint swelling, calf tenderness Back exam: Present: normal inspection Neurological exam: Present: alert, oriented X3 Psychiatric exam: Present: normal affect, normal mood Skin exam: Present: warm, dry, intact, normal color. Absent: rash <Janet Piper - Last Filed: 06/20/23 18:35> - General Exam Comments Initial Comments: Visual Physical Exam Vital signs reviewed General: Well-appearing, nontoxic, no acute distress. Head: Normocephalic, atraumatic Eyes: PERRLA, EOMI ENT: Airway patent Chest: Nonlabored breathing Skin: No visual rash, normal skin tone Neuro: Alert and oriented 3 Musculoskeletal: No gross abnormalities (Tony Jacobs) Course Vital Signs 06/20/23 15:30 Temperature 97.9 F Pulse Rate 89 Respiratory 18 Rate Blood Pressure 139/86 O2 Sat by Pulse 97 Oximetry Medical Decision Making <Tony Jacobs - Last Filed: 06/20/23 15:35> - Lab Data Result diagrams: 06/20/23 17:29 06/20/23 17:29 <Janet Piper - Last Filed: 06/20/23 18:35> - Lab Data Result diagrams: 06/20/23 17:29 06/20/23 17:29 <Lisa Bravo - Last Filed: 06/20/23 21:34> - Medical Decision Making I completed the quick note portion of this chart signed Tony Jacobs PA-C (Tony Jacobs) Was pt. sent in by a medical professional or institution (JEANNETTE Kathleen, MANAGEMENT RETAIL INTERN, urgent care, hospital, or prison...) When possible be specific @ -[No] Did you speak to anyone other than the patient for history (EMS, parent, family, police, friend...)? What history was obtained from this source @ -[No] Did you review nursing and triage notes (agree or disagree)? Why? @ -[I reviewed and agree with nursing and triage notes] Were old charts reviewed (outside hosp., previous admission, EMS record, old EKG, old radiological studies, urgent care reports/EKG's, prison records)? Report findings @ -[No old charts were reviewed] Differential Diagnosis (chest pain, altered mental status, abdominal pain women, abdominal pain men, vaginal bleeding, weakness, fever, dyspnea, syncope, headache, dizziness, GI bleed, back pain, seizure, CVA, palpatations, mental health, musculoskeletal)? @ -[Differential Abdominal Pain Women: Appendicitis, Cholecystitis, diverticulosis, ischemic bowel, pancreatitis, hepatitis, UTI, gastroenteritis, AAA, incarcerated hernia, bowel obstruction, constipation, inflammatory bowel, hepatitis, peptic ulcer disease, splenic infarction, perforated viscus, vulvitis, ovarian torsion, PID, kidney stone, placenta abruption, this is not meant to be an all-inclusive list] EKG interpreted by me (3pts min.). @ -[None] X-rays interpreted by me (1pt min.). @ -[None done] CT interpreted by me (1pt min.). @ -[None done] U/S interpreted by me (1pt. min.). @ -[None done] What testing was considered but not performed or refused? (CT, X-rays, U/S, labs)? Why? @ -[None] What meds were considered but not given or refused? Why? @ -[None] Did you discuss the management of the patient with other professionals (professionals i.e. , PA, MANAGEMENT RETAIL INTERN, lab, RT, psych nurse, social media job titles, sales marketing manager, teacher, correction officer head, case fitter)? Give summary @ -[No] Was smoking cessation discussed for >3mins.? @ -[No] Was critical care preformed (if so, how long)? @ -[No] Were there social determinants of health that impacted care today? How? (Homelessness, low income, unemployed, alcoholism, drug addiction, transportation, low edu. Level, literacy, decrease access to med. care, skilled nursing, rehab)? @ -[No] Was there de-escalation of care discussed even if they declined (Discuss DNR or withdrawal of care, Hospice)? DNR status @ -[No] What co-morbidities impacted this encounter? (DM, HTN, Smoking, COPD, CAD, Cancer, CVA, ARF, Chemo, Hep., AIDS, mental health diagnosis, sleep apnea, morbid obesity)? @ -[None] Was patient admitted / discharged? Hospital course, mention meds given and route, prescriptions, significant lab abnormalities, going to OR and other pertinent info. @ -[Patient presented to the emergency department with chief complaint of right lower quadrant pain 3-4 days. Anorexia with nausea. Denies vomiting. Lab oratory studies obtained. CBC shows WBC 6.9, hemoglobin 12.8; CMP shows sodium 140, potassium 3.5, creatinine 0.57; UA shows cloudy urine, trace protein, 2+ ketones, large blood, negative urine hCG. Patient is given 2 L normal saline, Zofran for nausea] Undiagnosed new problem with uncertain prognosis? @ -[No] Drug Therapy requiring intensive monitoring for toxicity (Heparin, Nitro, Insulin, Cardizem)? @ -[No] Were any procedures done? @ -[No] Diagnosis/symptom? @ -[default] Acute, or Chronic, or Acute on Chronic? @ -[default] Uncomplicated (without systemic symptoms) or Complicated (systemic symptoms)? @ -[default] Side effects of treatment? @ -[No] Exacerbation, Progression, or Severe Exacerbation? @ -[No] Poses a threat to life or bodily function? How? (Chest pain, [place], [place], pneumonia, PE, COPD, DKA, ARF, appy, cholecystitis, CVA, Diverticulitis, Homicidal, Tracy cidal, threat to staff... and all critical care pts) @ -[No] (Janet Piper) I resumed care of this patient, Janet Piper PA-C, and shortness of 27-year-old female presenting with right lower quadrant pain ongoing for the last 4 days. Patient does have history of chronic Percocet use due to back pain. She is currently in a pain contract. She has been seen in our ER in the past for complaints of pelvic pain. Lab work shows no leukocytosis or anemia. Urine shows contamination, the patient is currently on her menstrual cycle. Negative hCG. Straight cath was offered, patient declined. CT shows no acute process. Ultrasound is negative for torsion or other acute process. Patient is educated on today's findings and on supportive management at home. She is instructed to follow-up with her PCP, mainly follow-up with GI and MARKET ANALYSIS DIRECTOR as well, suggestions provided. Follow-up with PCP. Report back to ER with any new or worsening symptoms. Discussed return parameters and answered all questions. Patient conveyed verbal understanding and agreed to the plan. I discussed this case in detail with my attending Dr. Talamantes ndagnosed new problem with uncertain prognosis? @ -[No] Drug Therapy requiring intensive monitoring ortoxicity (Heparin, Nitro, Insuln,Cardizem)? @ -[No] Were any procedures done? @ -[No] Diagnosis/symptom? @ -Abdominal pain Acute, or Chronic, or Acute on Chronic? @ -Acute on chronic Uncomplicated (without systemic symptoms) or Complicated (systemic symptos) @ -Uncomplicated Side effects of treatment? @ -[No] Eacrbation, Progression, or Severe Exacerbation? @ -[No] Poses a threat to life or bodily function? How? (Chest pain, [place], [place], pneumonia, PE, COPD, DKA, ARF, appy, cholecystitis, CVA, Diverticulitis, Homicidal, Suicidal, threat to staff... and all critical care pts) @ -Low likelihood (Lisa Bravo) - Lab Data Lab Results 06/20/23 06/20/23 06/20/23 Range/Units 17:29 17:29 17:29 WBC 6.9 (3.8-10.6) k/uL RBC 5.61 H (3.80-5.40) m/uL Hgb 12.8 (11.4-16.0) gm/dL Hct 41.8 (34.0-46.0) % MCV 74.6 L (80.0-100.0) fL MCH 22.9 L (25.0-35.0) pg MCHC 30.7 L (31.0-37.0) g/dL RDW 14.9 (11.5-15.5) % Plt Count 422 (150-450) k/uL MPV 7.2 Neutrophils % 58 % Lymphocytes % 36 % Monocytes % 3 % Eosinophils % 1 % Basophils % 0 % Neutrophils # 4.0 (1.3-7.7) k/uL Lymphocytes # 2.5 (1.0-4.8) k/uL Monocytes # 0.2 (0-1.0) k/uL Eosinophils # 0.1 (0-0.7) k/uL Basophils # 0.0 (0-0.2) k/uL Hypochromasia Moderate Microcytosis Slight Sodium (137-145) mmol/L Potassium (3.5-5.1) mmol/L Chloride (98-107) mmol/L Carbon Dioxide (22-30) mmol/L Anion Gap mmol/L BUN (7-17) mg/dL Creatinine (0.52-1.04) mg/dL Est GFR (CKD-EPI)AfAm (>60 ml/min/1.73 sqM) Est GFR (CKD-EPI)NonAf (>60 ml/min/1.73 sqM) Glucose (74-99) mg/dL Calcium (8.4-10.2) mg/dL Total Bilirubin (0.2-1.3) mg/dL AST (14-36) U/L ALT (4-34) U/L Alkaline Phosphatase (38-126) U/L Total Protein (6.3-8.2) g/dL Albumin (3.5-5.0) g/dL Lipase (23-300) U/L Urine Color Light Yellow Urine Appearance Cloudy H (Clear) Urine pH 6.0 (5.0-8.0) Ur Specific [place] 1.010 (1.001-1.035) Urine Protein Trace H (Negative) Urine Glucose (UA) Negative (Negative) Urine Ketones 2+ H (Negative) Urine Blood Large H (Negative) Urine Nitrite Negative (Negative) Urine Bilirubin Negative (Negative) Urine Urobilinogen <2.0 (<2.0) mg/dL Ur Leukocyte Esterase Small H (Negative) Urine RBC 64 H (0-5) /hpf Urine WBC 12 H (0-5) /hpf Ur Squamous Epith Cells 14 H (0-4) /hpf Urine Bacteria Many H (None) /hpf Hyaline Casts 3 H (0-2) /lpf Urine Mucus Moderate H (None) /hpf Urine HCG, Qual Not Detected (Not Detectd) 06/20/23 Range/Units 17:29 WBC (3.8-10.6) k/uL RBC (3.80-5.40) m/uL Hgb (11.4-16.0) gm/dL Hct (34.0-46.0) % MCV (80.0-100.0) fL MCH (25.0-35.0) pg MCHC (31.0-37.0) g/dL RDW (11.5-15.5) % Plt Count (150-450) k/uL MPV Neutrophils % % Lymphocytes % % Monocytes % % Eosinophils % % Basophils % % Neutrophils # (1.3-7.7) k/uL Lymphocytes # (1.0-4.8) k/uL Monocytes # (0-1.0) k/uL Eosinophils # (0-0.7) k/uL Basophils # (0-0.2) k/uL Hypochromasia Microcytosis Sodium 140 (137-145) mmol/L Potassium 3.5 (3.5-5.1) mmol/L Chloride 99 (98-107) mmol/L Carbon Dioxide 26 (22-30) mmol/L Anion Gap 15 mmol/L BUN 9 (7-17) mg/dL Creatinine 0.57 (0.52-1.04) mg/dL Est GFR (CKD-EPI)AfAm >90 (>60 ml/min/1.73 sqM) Est GFR (CKD-EPI)NonAf >90 (>60 ml/min/1.73 sqM) Glucose 89 (74-99) mg/dL Calcium 9.7 (8.4-10.2) mg/dL Total Bilirubin 0.8 (0.2-1.3) mg/dL AST 37 H (14-36) U/L ALT 34 (4-34) U/L Alkaline Phosphatase 103 (38-126) U/L Total Protein 8.0 (6.3-8.2) g/dL Albumin 4.7 (3.5-5.0) g/dL Lipase 91 (23-300) U/L Urine Color Urine Appearance (Clear) Urine pH (5.0-8.0) Ur Specific [place] (1.001-1.035) Urine Protein (Negative) Urine Glucose (UA) (Negative) Urine Ketones (Negative) Urine Blood (Negative) Urine Nitrite (Negative) Urine Bilirubin (Negative) Urine Urobilinogen (<2.0) mg/dL Ur Leukocyte Esterase (Negative) Urine RBC (0-5) /hpf Urine WBC (0-5) /hpf Ur Squamous Epith Cells (0-4) /hpf Urine Bacteria (None) /hpf Hyaline Casts (0-2) /lpf Urine Mucus (None) /hpf Urine HCG, Qual (Not Detectd) Disposition <Tony Jacobs - Last Filed: 06/20/23 15:35> <Janet Piper - Last Filed: 06/20/23 18:35> Is patient prescribed a controlled substance at d/c from ED?: No Time of Disposition: 21:11 <Lisa Bravo - Last Filed: 06/20/23 21:34> Clinical Impression: Abdominal pain Disposition: HOME SELF-CARE Condition: Good Instructions (If sedation given, give patient instructions): Acute Nausea and Vomiting (ED), Abdominal Pain (ED) Additional Instructions: Follow-up with PCP. Report back to ER with any new or worsening symptoms. May require follow-up with MARKET ANALYSIS DIRECTOR and GI. Prescriptions: Ondansetron Odt [Zofran Odt] 4 mg PO Q8HR PRN #30 tab PRN Reason: Nausea Referrals: Juan Diego Robledo MD [Primary Care Provider] - 1-2 days Nancy Del Valle MD [STAFF PHYSICIAN] - 1-2 days Nicole Burnette DO [Doctor of Osteopathic Medicine] - 1-2 days
[2023-06-20 15:41] VITALS: RESP 18
[2023-06-20] MEDS ORDERED: ONDANSETRON 4 MG/2 ML VIAL IVP STA (17:50)
[2023-06-20 17:52] LABS: Basophils % (A) 0 %; Eosinophils # (A) 0.1 k/uL (0-0.7); Eosinophils % (A) 1 %; HCT 41.8 % (34.0-46.0); HGB 12.8 gm/dL (11.4-16.0); Hypochromasia Moderate; Lymphocytes # (A) 2.5 k/uL (1.0-4.8); Lymphocytes % (A) 36 %; MCH 22.9 pg (25.0-35.0); MCHC 30.7 g/dL (31.0-37.0); MCV 74.6 fL (80.0-100.0); Mean Platelet Volume 7.2; Microcytosis Slight; Monocytes # (A) 0.2 k/uL (0-1.0); Monocytes % (A) 3 %; Neutrophils % (A) 58 %; Platelet Count 422 k/uL (150-450); RBC 5.61 m/uL (3.80-5.40); RDW 14.9 % (11.5-15.5); WBC 6.9 k/uL (3.8-10.6)
[2023-06-20 18:08] LABS: Appearance,Urine Cloudy (Clear); Color,Urine Light Yellow; Glucose,Urine (UA) Negative (Negative); Protein,Urine Trace (Negative)
[2023-06-20 18:09] LABS: Bilirubin,Urine Negative (Negative); Blood,Urine Large (Negative); Ketones,Urine 2+ (Negative); Leukocyte Esterase,Urine Small (Negative); Nitrite,Urine Negative (Negative); Urobilinogen,Urine <2.0 mg/dL (<2.0)
[2023-06-20 18:10] LABS: Bacteria,Urine Many /hpf; Hyaline Casts,Urine 3 /lpf (0-2); Mucus,Urine Moderate /hpf; RBC,Urine 64 /hpf (0-5); Squamous Epithelial Cell,Urine 14 /hpf (0-4); WBC,Urine 12 /hpf (0-5)
[2023-06-20] MEDS ORDERED: SODIUM CHLORIDE 0.9% 2,000 ML IV ONE (18:27)
[2023-06-20 18:33] LABS: ALT 34 U/L (4-34); AST 37 U/L (14-36); African American GFR (CKD) >90 (>60 ml/min/1.73 sqM); Albumin 4.7 g/dL (3.5-5.0); Alkaline Phosphatase 103 U/L (38-126); Anion Gap 15 mmol/L; Blood Urea Nitrogen 9 mg/dL (7-17); Calcium 9.7 mg/dL (8.4-10.2); Carbon Dioxide 26 mmol/L (22-30); Chloride 99 mmol/L (98-107); Glucose 89 mg/dL (74-99); Lipase 91 U/L (23-300); Non-African American GFR(CKD) >90 (>60 ml/min/1.73 sqM); Potassium 3.5 mmol/L (3.5-5.1); Sodium 140 mmol/L (137-145); Total Bilirubin 0.8 mg/dL (0.2-1.3)
--- NOTE | 2023-06-20 19:15 | CT ---
EXAMINATION TYPE: CT abdomen pelvis w con CT DLP: 2829.4 mGycm, Automated exposure control for dose reduction was used. DATE OF EXAM: 06/20/2023 7:07 PM COMPARISON: 01/17/2023. CLINICAL INDICATION:Female, 27 years old with history of RLQ pain; TECHNIQUE: Axial CT of the ;CT abdomen pelvis w con;Sagittal and coronal reformats were created on a separate workstation. Contrast used:100 mL of Isovue 300 with IV Contrast, (none if empty) Oral contrast used: without Oral Contrast (none if empty) FINDINGS: LOWER CHEST: Unremarkable ABDOMEN LIVER: Unremarkable GALLBLADDER AND BILE DUCTS: Unremarkable. PANCREAS: Unremarkable. SPLEEN: Unremarkable. ADRENAL GLANDS: Unremarkable. KIDNEYS AND URETERS: Nonobstructing left renal calculus measuring up to 7 mm. No right renal calculi. PELVIS BLADDER: Unremarkable REPRODUCTIVE: Unremarkable. ABDOMEN & PELVIS STOMACH AND BOWEL: No evidence of bowel obstruction. Appendix is visualized and contains feces. PERITONEUM/RETROPERITONEUM: No evidence of pneumoperitoneum or free fluid. VASCULATURE: No evidence of aortic aneurysm. MUSCULOSKELETAL: No acute osseous abnormalities LYMPH NODES: No gross evidence for lymphadenopathy. SOFT TISSUE/ABDOMINAL WALL: Fat-containing umbilical hernia. IMPRESSION: 1. No evidence acute right lower quadrant process to explain the patient's pain. The appendix appear s normal. No obstructive uropathy. 2. Nonobstructing left renal calculus.
[2023-06-20] MEDS ORDERED: KETOROLAC 15 MG/ML 1 ML VIAL IVP STA (19:26)
[2023-06-20] MEDS ORDERED: MORPHINE SULFATE 4 MG/ML SYRINGE IVP STA (20:30)
--- NOTE | 2023-06-20 20:39 | US ---
EXAMINATION TYPE: US transvaginal DATE OF EXAM: 06/20/2023 COMPARISON: US: 01/17/23, CT: Today CLINICAL INDICATION: Female, 27 years old with history of R sided pelvic pain; RLQ pain x 3 days. G1P 0. Hx of hymenectomy Limited due to body habitus and pt not tolerating transvaginal exam well. TECHNIQUE: Transvaginal (TV). Date of LMP: 06/19/23 EXAM MEASUREMENTS: Uterus: 8.6 x 4.0 x 3.9 cm Endometrial Stripe: 0.8 cm Right Ovary: 2.6 x 1.9 x 2.8 cm Left Ovary: 2.5 x 2.5 x 2.2 cm 1. Uterus: Anteverted Nabothian cysts seen 2. Endometrium: not well visualized 3. Right Ovary: wnl 4. Left Ovary: wnl Spectral, color and waveform doppler imaging shows good arterial and venous flow within the ovaries ; there is no evidence for ovarian torsion. 5. Bilateral Adnexa: wnl 6. Posterior cul-de-sac: wnl IMPRESSION: 1. No evidence for acute process. 2. Appropriate arterial and venous spectral waveforms to the ovaries.
[2023-06-20] MEDS ORDERED: ONDANSETRON 4 MG ODT STARTER PACK 2 TAB BTL PO STA (21:32)
[2023-06-20 21:48] VITALS: BP 166/89; PULSE 96; TEMP 98.2
== END 2023-06-20 21:40 | disposition home or self-care (01) ==
LOC: EC 15:23
DX: R10.31 Right lower quadrant pain (principal); I10 Essential (primary) hypertension; F41.9 Anxiety disorder, unspecified; Z79.899 Other long term (current) drug therapy; Z88.0 Allergy status to penicillin; Z88.8 Allergy status to other drugs, medicaments and biological substances; Z86.711 Personal history of pulmonary embolism; Z79.01 Long term (current) use of anticoagulants
CPT/HCPCS: 36415; 80053; 83690; 85025; 81001; 81025; 93975; 76830; 74177; 99284; 96374; 96375 ×2; 96361 ×2; J2270; J2405; J1885; S0119; Q9967

== ENCOUNTER 2023-07-14 05:48 | Emergency (ER) | payer BC ==
[2023-07-14] MEDS ORDERED: SODIUM CHLORIDE 0.9% 2,000 ML IV STA (06:27)
[2023-07-14] MEDS ORDERED: HYDROmorphone 0.5 MG/0.5 ML SYRINGE IVP STA ×2 (06:29→09:37)
[2023-07-14] MEDS ORDERED: ORPHENADRINE 30 MG/ML 2 ML VIAL IVP STA (06:29)
[2023-07-14] MEDS ORDERED: KETOROLAC 15 MG/ML 1 ML VIAL IVP STA (06:29)
[2023-07-14 07:14] LABS: Anisocytosis Slight; Basophils % (A) 0 %; Eosinophils % (A) 1 %; HCT 39.5 % (34.0-46.0); HGB 12.7 gm/dL (11.4-16.0); Hypochromasia Slight; Lymphocytes # (A) 0.6 k/uL (1.0-4.8); Lymphocytes % (A) 17 %; MCH 24.3 pg (25.0-35.0); MCV 75.8 fL (80.0-100.0); Mean Platelet Volume 8.1; Microcytosis Slight; Monocytes # (A) 0.3 k/uL (0-1.0); Monocytes % (A) 7 %; Neutrophils # (A) 2.6 k/uL (1.3-7.7); Neutrophils % (A) 73 %; RBC 5.22 m/uL (3.80-5.40); RDW 17.2 % (11.5-15.5); WBC 3.6 k/uL (3.8-10.6)
[2023-07-14 07:19] LABS: ALT 84 U/L (4-34); African American GFR (CKD) >90 (>60 ml/min/1.73 sqM); Albumin 4.4 g/dL (3.5-5.0); Anion Gap 12 mmol/L; Blood Urea Nitrogen 8 mg/dL (7-17); Carbon Dioxide 23 mmol/L (22-30); Chloride 101 mmol/L (98-107); Glucose 92 mg/dL (74-99); Magnesium 1.9 mg/dL (1.6-2.3); Non-African American GFR(CKD) >90 (>60 ml/min/1.73 sqM); Sodium 136 mmol/L (137-145)
[2023-07-14 07:22] LABS: AST 97 U/L (14-36); Alkaline Phosphatase 83 U/L (38-126); Potassium 4.6 mmol/L (3.5-5.1); Total Protein 7.6 g/dL (6.3-8.2)
[2023-07-14] MEDS ORDERED: ACETAMINOPHEN TAB 500 MG TAB PO STA (07:32)
--- NOTE | 2023-07-14 08:23 | XR ---
EXAMINATION TYPE: XR Hip RT and AP Pelvis DATE OF EXAM: 07/14/2023 6:30 AM CLINICAL INDICATION:Female, 27 years old with history of pain; [facility] COMPARISON: None. TECHNIQUE: XR Hip RT and AP Pelvis; hip was examined in the frontal and lateral projections and a AP pelvis. FINDINGS: No evidence for acute process, joint dislocation or significant soft tissue swelling. IMPRESSION: No acute process.
--- NOTE | 2023-07-14 08:31 | ED ---
General Adult HPI - General Chief complaint: Extremity Injury, Lower Stated complaint: hip pain Time Seen by Provider: 07/14/23 06:00 Source: patient, EMS, RN notes reviewed Mode of arrival: EMS Limitations: no limitations - History of Present Illness Initial comments: 27-year-old female presents emergency Department chief complaint of right hip pain. Patient states that she been having some issues but states that she rolled over in bed states that she had her hip pop. She states she's having severe pain. Patient was brought in by EMS received fentanyl. Patient states that she has not felt well recent she's had mild cough, she did have some nausea vomiting but she states she's been having those issues last several weeks in which they thought it was from her injection medication was ozempic. Patient denies any redness to her hip states she put some lidocaine patches on it. - Related Data Home Medications Medication Instructions Recorded Confirmed tiZANidine HCL [Zanaflex] 4 mg PO QID PRN 07/30/22 06/20/23 Semaglutide [Wegovy] 0.5 mg SQ [place] 03/07/23 06/20/23 Albuterol Inhaler [Ventolin Hfa 2 puff INHALATION RT-Q6H PRN 06/20/23 06/20/23 Inhaler] Apixaban [Eliquis] 5 mg PO BID 06/20/23 06/20/23 oxyCODONE-APAP 7.5-325MG [Percocet 1 tab PO TID PRN 06/20/23 06/20/23 7.5-325 mg] Previous Rx's Medication Instructions Recorded Ondansetron Odt [Zofran Odt] 4 mg PO Q8HR PRN #30 tab 06/20/23 Orphenadrine [Norflex] 100 mg PO Q12H #14 tab 07/14/23 Allergies Allergy/AdvReac Type Severity Reaction Status Date / Time amoxicillin [Amoxicillin] Allergy Rash/Hives Verified 06/20/23 22:18 cefprozil Allergy Rash/Hives Verified 06/20/23 22:18 Influenza Virus Vaccines Allergy Unknown Verified 07/14/23 06:01 Childhood lisinopril Allergy Cough Verified 06/20/23 22:18 Penicillins Allergy Unknown Verified 06/20/23 22:18 Childhood Review of Systems ROS Statement: Those systems with pertinent positive or pertinent negative responses have been documented in the HPI. ROS Other: All systems not noted in ROS Statement are negative. Past Medical History Past Medical History: Hypertension, Pulmonary Embolus (PE) Additional Past Medical History / Comment(s): back pain, Ovarian cysts, migraines, Covid fall 2021 with PE History of Any Multi-Drug Resistant Organisms: None Reported Past Surgical History: No Surgical Hx Reported Additional Past Surgical History / Comment(s): rhizotomy; Godwin teeth, colonoscopy Past Anesthesia/Blood Transfusion Reactions: No Reported Reaction Additional Past Anesthesia/Blood Transfusion Reaction / Comment(s): NO ANESTHESIA HX. Past Psychological History: Anxiety Smoking Status: Never smoker Past Alcohol Use History: Occasional Past Drug Use History: None Reported - Past Family History Mother Family Medical History: No Reported History General Exam General appearance: alert, in no apparent distress Head exam: Present: atraumatic, normocephalic, normal inspection Eye exam: Present: normal appearance, PERRL, EOMI. Absent: scleral icterus, conjunctival injection, periorbital swelling ENT exam: Present: normal exam, normal oropharynx, mucous membranes moist Neck exam: Present: normal inspection, full ROM. Absent: tenderness, meningismus, lymphadenopathy Respiratory exam: Present: normal lung sounds bilaterally. Absent: respiratory distress, wheezes, rales, rhonchi, stridor Cardiovascular Exam: Present: normal rhythm, tachycardia, normal heart sounds. Absent: systolic murmur, diastolic murmur, rubs, gallop, clicks GI/Abdominal exam: Present: soft, normal bowel sounds. Absent: distended, tenderness, guarding, rebound, rigid Extremities exam: Present: other (Right hip there is no erythema no increase in warmth or leg is neurovascularly intact, there is pain with range of motion and palpation) Back exam: Absent: CVA tenderness (R), CVA tenderness (L) Neurological exam: Present: alert Skin exam: Present: warm, dry, intact, normal color. Absent: rash Course Vital Signs 07/14/23 07/14/23 07/14/23 05:53 07:45 08:00 Temperature 101.4 F H 99.8 F H Pulse Rate 103 H 113 H Respiratory 14 17 Rate Blood Pressure 124/88 139/89 O2 Sat by Pulse 95 94 L 88 L Oximetry 07/14/23 07/14/23 07/14/23 08:05 08:40 09:03 Temperature 99.5 F 99.4 F Pulse Rate 103 H 96 Respiratory 18 17 Rate Blood Pressure 122/67 128/75 O2 Sat by Pulse 96 97 97 Oximetry Medical Decision Making - Medical Decision Making Was pt. sent in by a medical professional or institution (JEANNETTE Kathleen, APARTMENT LEASING SPECIALIST, urgent care, hospital, or jail...) When possible be specific @ -No Did you speak to anyone other than the patient for history (EMS, parent, family, police, friend...)? What history was obtained from this source @ -No Did you review nursing and triage notes (agree or disagree)? Why? @ -I reviewed and agree with nursing and triage notes Were old charts reviewed (outside hosp., previous admission, EMS record, old EKG, old radiological studies, urgent care reports/EKG's, jail records)? Report findings @ -No old charts were reviewed Differential Diagnosis (chest pain, altered mental status, abdominal pain women, abdominal pain men, vaginal bleeding, weakness, fever, dyspnea, syncope, headache, dizziness, GI bleed, back pain, seizure, CVA, palpatations, mental health, musculoskeletal)? @ -COVID 19, RSV, influenza, pneumonia, acute bronchitis, URI, this list is not all inclusive, hip pain, hip strain, septic joint EKG interpreted by me (3pts min.). @ -None X-rays interpreted by me (1pt min.). @ -X-ray right hip with pelvis showing no acute osseous abnormality CT interpreted by me (1pt min.). @ -None done U/S interpreted by me (1pt. min.). @ -None done What testing was considered but not performed or refused? (CT, X-rays, U/S, labs)? Why? @ -None What meds were considered but not given or refused? Why? @ -None Did you discuss the management of the patient with other professionals (professionals i.e. JEANNETTE Kathleen, APARTMENT LEASING SPECIALIST, lab, RT, psych nurse, health care social worker, solid glass rod dowel machine operator, teacher, principal gifts officer, rifle case repairer)? Give summary @ -No Was smoking cessation discussed for >3mins.? @ -No Was critical care preformed (if so, how long)? @ -No Were there social determinants of health that impacted care today? How? (Homelessness, low income, unemployed, alcoholism, drug addiction, transportation, low edu. Level, literacy, decrease access to med. care, shelter, rehab)? @ -No Was there de-escalation of care discussed even if they declined (Discuss DNR or withdrawal of care, Hospice)? DNR status @ -No What co-morbidities impacted this encounter? (DM, HTN, Smoking, COPD, CAD, Cancer, CVA, ARF, Chemo, Hep., AIDS, mental health diagnosis, sleep apnea, morbid obesity)? @ -None Was patient admitted / discharged? Hospital course, mention meds given and route, prescriptions, significant lab abnormalities, going to OR and other pertinent info. @ -Discharge patient noted have a fever patient is influenza A positive. Patient has right hip pain from right hip strain. Laboratory studies are otherwise essentially unremarkable. Patient does feel improved we discharged with muscle relaxer return parameters were discussed. Undiagnosed new problem with uncertain prognosis? @ -No Drug Therapy requiring intensive monitoring for toxicity (Heparin, Nitro, Ins ulin, Cardizem)? @ -No Were any procedures done? @ -No Diagnosis/symptom? @ -Influenza A, right hip strain] Acute, or Chronic, or Acute on Chronic? @ -Acute] Uncomplicated (without systemic symptoms) or Complicated (systemic symptoms)? @ -Uncomplicated Side effects of treatment? @ -No Exacerbation, Progression, or Severe Exacerbation? @ -No Poses a threat to life or bodily function? How? (Chest pain, [place], [place], pneumonia, PE, COPD, DKA, ARF, appy, cholecystitis, CVA, Diverticulitis, Homicidal, Suicidal, threat to staff... and all critical care pts) @ -No - Lab Data Result diagrams: 07/14/23 06:41 07/14/23 06:41 Lab Results 07/14/23 07/14/23 07/14/23 Range/Units 06:41 06:41 06:41 WBC 3.6 L (3.8-10.6) k/uL RBC 5.22 (3.80-5.40) m/uL Hgb 12.7 (11.4-16.0) gm/dL Hct 39.5 (34.0-46.0) % MCV 75.8 L (80.0-100.0) fL MCH 24.3 L (25.0-35.0) pg MCHC 32.0 (31.0-37.0) g/dL RDW 17.2 H (11.5-15.5) % Plt Count 194 D (150-450) k/uL MPV 8.1 Neutrophils % 73 % Lymphocytes % 17 % Monocytes % 7 % Eosinophils % 1 % Basophils % 0 % Neutrophils # 2.6 (1.3-7.7) k/uL Lymphocytes # 0.6 L (1.0-4.8) k/uL Monocytes # 0.3 (0-1.0) k/uL Eosinophils # 0.0 (0-0.7) k/uL Basophils # 0.0 (0-0.2) k/uL Manual Slide Review Performed Hypochromasia Slight Anisocytosis Slight Microcytosis Slight ESR Cancelled Sodium 136 L (137-145) mmol/L Potassium 4.6 (3.5-5.1) mmol/L Chloride 101 (98-107) mmol/L Carbon Dioxide 23 (22-30) mmol/L Anion Gap 12 mmol/L BUN 8 (7-17) mg/dL Creatinine 0.50 L (0.52-1.04) mg/dL Est GFR (CKD-EPI)AfAm >90 (>60 ml/min/1.73 sqM) Est GFR (CKD-EPI)NonAf >90 (>60 ml/min/1.73 sqM) Glucose 92 (74-99) mg/dL Plasma Lactic Acid Damien 1.0 (0.7-2.0) mmol/L Calcium 9.0 (8.4-10.2) mg/dL Magnesium 1.9 (1.6-2.3) mg/dL Total Bilirubin 1.0 (0.2-1.3) mg/dL AST 97 H (14-36) U/L ALT 84 H (4-34) U/L Alkaline Phosphatase 83 (38-126) U/L C-Reactive Protein 6.1 H (<1.0) mg/dL Total Protein 7.6 (6.3-8.2) g/dL Albumin 4.4 (3.5-5.0) g/dL Influenza Type A (PCR) (Not Detectd) Influenza Type B (PCR) (Not Detectd) RSV (PCR) (Not Detectd) SARS-CoV-2 (PCR) (Not Detectd) 07/14/23 Range/Units 06:41 WBC (3.8-10.6) k/uL RBC (3.80-5.40) m/uL Hgb (11.4-16.0) gm/dL Hct (34.0-46.0) % MCV (80.0-100.0) fL MCH (25.0-35.0) pg MCHC (31.0-37.0) g/dL RDW (11.5-15.5) % Plt Count (150-450) k/uL MPV Neutrophils % % Lymphocytes % % Monocytes % % Eosinophils % % Basophils % % Neutrophils # (1.3-7.7) k/uL Lymphocytes # (1.0-4.8) k/uL Monocytes # (0-1.0) k/uL Eosinophils # (0-0.7) k/uL Basophils # (0-0.2) k/uL Manual Slide Review Hypochromasia Anisocytosis Microcytosis ESR Sodium (137-145) mmol/L Potassium (3.5-5.1) mmol/L Chloride (98-107) mmol/L Carbon Dioxide (22-30) mmol/L Anion Gap mmol/L BUN (7-17) mg/dL Creatinine (0.52-1.04) mg/dL Est GFR (CKD-EPI)AfAm (>60 ml/min/1.73 sqM) Est GFR (CKD-EPI)NonAf (>60 ml/min/1.73 sqM) Glucose (74-99) mg/dL Plasma Lactic Acid Damien (0.7-2.0) mmol/L Calcium (8.4-10.2) mg/dL Magnesium (1.6-2.3) mg/dL Total Bilirubin (0.2-1.3) mg/dL AST (14-36) U/L ALT (4-34) U/L Alkaline Phosphatase (38-126) U/L C-Reactive Protein (<1.0) mg/dL Total Protein (6.3-8.2) g/dL Albumin (3.5-5.0) g/dL Influenza Type A (PCR) Detected A (Not Detectd) Influenza Type B (PCR) Not Detected (Not Detectd) RSV (PCR) Not Detected (Not Detectd) SARS-CoV-2 (PCR) Not Detected (Not Detectd) Disposition Clinical Impression: Influenza A, Strain of right hip Disposition: HOME SELF-CARE Condition: Stable Instructions (If sedation given, give patient instructions): Influenza (ED) Additional Instructions: Please return to the Emergency Department if symptoms worsen or any other concerns. Prescriptions: Orphenadrine [Norflex] 100 mg PO Q12H #14 tab Is patient prescribed a controlled substance at d/c from ED?: No Referrals: Juan Diego Robledo MD [Primary Care Provider] - 1-2 days Time of Disposition: 09:16
[2023-07-14 08:34] LABS: Platelet Count 194 k/uL (150-450)
[2023-07-14 08:39] LABS: C Reactive Protein 6.1 mg/dL (<1.0)
[2023-07-14 09:07] VITALS: BP 128/75; PULSE 96; RESP 17; TEMP 99.4
== END 2023-07-14 09:58 | disposition home or self-care (01) ==
LOC: EC 05:48
DX: S76.011A Strain of muscle, fascia and tendon of right hip, initial encounter (principal); J10.1 Influenza due to other identified influenza virus with other respiratory manifestations; I10 Essential (primary) hypertension; Z20.822 Contact with and (suspected) exposure to COVID-19; Z79.01 Long term (current) use of anticoagulants; Z88.0 Allergy status to penicillin; Z88.8 Allergy status to other drugs, medicaments and biological substances; Z88.7 Allergy status to serum and vaccine; Z86.16 Personal history of COVID-19; Z86.711 Personal history of pulmonary embolism; X50.1XXA Overexertion from prolonged static or awkward postures, initial encounter
CPT/HCPCS: 36415; 80053; 85652; 83605; 83735; 85025; 86140; 87636; 73502; 99284; 96374; 96375 ×2; 96376; 96361 ×2; J2360; J1885; J1170

== ENCOUNTER 2023-07-20 15:27 | Inpatient (IN) | payer BC ==
[2023-07-20 16:42] LABS: ALT 63 U/L (4-34); AST 52 U/L (14-36); African American GFR (CKD) >90 (>60 ml/min/1.73 sqM); Albumin 4.6 g/dL (3.5-5.0); Alkaline Phosphatase 87 U/L (38-126); Anion Gap 17 mmol/L; Blood Urea Nitrogen 7 mg/dL (7-17); Carbon Dioxide 21 mmol/L (22-30); Chloride 100 mmol/L (98-107); Glucose 95 mg/dL (74-99); Lipase 103 U/L (23-300); Magnesium 1.6 mg/dL (1.6-2.3); Non-African American GFR(CKD) >90 (>60 ml/min/1.73 sqM); Potassium 3.9 mmol/L (3.5-5.1); Sodium 138 mmol/L (137-145); Total Bilirubin 0.7 mg/dL (0.2-1.3); Total Protein 7.9 g/dL (6.3-8.2)
[2023-07-20 16:54] LABS: INR 1.1 (<1.2); Partial Thromboplastin Time 23.4 sec (22.0-30.0); Prothrombin Time 11.5 sec (10.0-12.5)
[2023-07-20 16:58] LABS: Anisocytosis Slight; Basophils % (A) 0 %; Eosinophils % (A) 1 %; HCT 43.6 % (34.0-46.0); HGB 14.3 gm/dL (11.4-16.0); Lymphocytes # (A) 1.6 k/uL (1.0-4.8); Lymphocytes % (A) 44 %; MCH 24.1 pg (25.0-35.0); MCHC 32.8 g/dL (31.0-37.0); MCV 73.7 fL (80.0-100.0); Mean Platelet Volume 8.3; Microcytosis Moderate; Monocytes # (A) 0.2 k/uL (0-1.0); Monocytes % (A) 6 %; Neutrophils # (A) 1.7 k/uL (1.3-7.7); Neutrophils % (A) 47 %; Platelet Count 327 k/uL (150-450); RBC 5.92 m/uL (3.80-5.40); RDW 17.4 % (11.5-15.5); WBC 3.7 k/uL (3.8-10.6)
--- NOTE | 2023-07-20 18:46 | CT ---
EXAMINATION TYPE: CT angio chest DATE OF EXAM: 07/20/2023 COMPARISON: 03/07/2023 HISTORY: 27-year-old female RECTAL BLEEDING WITH RLQ ABDOMEN PAIN. PASSING CLOTS. PT ON ELIQUIS. BEATRICE RT OF BREATH WITH EXERTION TECHNIQUE: Contiguous axial scanning of the chest after the administration of 100ml mL of Isovue 300. Coronal/sagittal MIP reconstructions performed. CT DLP: 2838.2mGycm. Automatic exposure control utilized for a dose reduction. FINDINGS: Heart normal size without pericardial effusion. No reflux of contrast into the hepatic veins. Aorta normal caliber with apparent right subclavian artery that takes a retroesophageal course. Satisfactory opacification the pulmonary arterial system. There is mild embolic material within the l obar, segmental, and subsegmental branch of the right lower lobe, reference axial images C5 through 7 9. The overall clot burden has significantly reduced as compared to 03/07/2023. No thoracic lymphadenopathy by CT size criteria. Minimal scattered groundglass change noted, left perihilar region, and left base. Otherwise, no other consolidation or pleural effusion. Abdomen reported separately. Bones: Moderate degenerative disc disease midthoracic spine. IMPRESSION: 1. Exam positive for pulmonary embolus, minimal burden involving the lobar, segmental, subsegmental b ranch of the right lower lobe. Overall clot burden has significantly diminished compared to 03/07/2023 . 2. Minimal nonspecific patchy groundglass left perihilar region and left base. Correlate to exclude s mall infectious/inflammatory infiltrates. 3. 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 4. Abdomen pelvis reported separately. Critical finding called to Dr. Clarke in the ER at 6:41pm.
--- NOTE | 2023-07-20 18:52 | CT ---
EXAMINATION TYPE: CT abdomen pelvis w con DATE OF EXAM: 07/20/2023 COMPARISON: 06/20/2023 HISTORY: 27-year-old female RECTAL BLEEDING WITH RLQ ABDOMEN PAIN. PASSING CLOTS. PT ON ELIQUIS. BEATRICE RT OF BREATH WITH EXERTION TECHNIQUE: Contiguous axial scanning of the abdomen and pelvis following administration of 100 ml Iso cliff 300 IV contrast. Delayed images through the kidneys and coronal/sagittal reconstructions perform ed. CT DLP: 2838.2 mGycm Automated exposure control for dose reduction was used. FINDINGS: Chest reported separately. Small focal fat versus tiny 1.2 cm cyst along the anterior falciform ligament. No other focal liver l esion or biliary ductal dilatation. Portal venous system is patent. Gallbladder, adrenal glands , right kidney, spleen, and pancreas within normal limits. 6 mm nonobstructing left renal calculus. Symmetric uptake and excretion of contrast from the kidneys. No dilated small bowel, free fluid, or free air. No mesenteric or retroperitoneal lymphadenopathy. Appendix not clearly seen. No secondary findings of acute appendicitis in the right lower quadrant. O ral contrast progressed to the left side of the colon. No significant stool burden. No pericolonic in flammatory change. Mild to moderate circumferential bladder wall thickening. Uterus is anteverted. Suspect cervical nabo thian cysts measuring up to 8 mm. Both ovaries are visualized. No abnormal fluid collection in the pe lvis or pelvic lymphadenopathy. Bones: Multilevel moderate degenerative disc disease L5-S1 and mild at L4-L5. At least mild within th e lower thoracic spine. IMPRESSION: 1. A 6 MM NONOBSTRUCTIVE LEFT RENAL CALCULUS. 2. MILD TO MODERATE CIRCUMFERENTIAL BLADDER WALL THICKENING MAY BE CHRONIC DILATATION. CORRELATE TO E XCLUDE CYSTITIS. 3. CHEST REPORTED SEPARATELY.
[2023-07-20] MEDS ORDERED: LORazepam 2 MG/ML INJ IV STA (19:36)
[2023-07-20] MEDS ORDERED: ONDANSETRON 4 MG/2 ML VIAL IVP STA (19:36)
[2023-07-20] MEDS ORDERED: HYDROmorphone 1 MG/ML 1 ML SYRINGE IVP STA (19:36)
--- NOTE | 2023-07-20 19:38 | ED ---
Syncope HPI - General Chief Complaint: GI Bleed Stated Complaint: GI Bleed Time Seen by Provider: 07/20/23 17:32 Source: patient, RN notes reviewed, old records reviewed Mode of arrival: EMS Limitations: no limitations - History of Present Illness Initial Comments: This is a 27-year-old female DF for evaluation. Patient Dese for evaluation regards to significant weakness and recurrent syncopal events. Patient is also having right-sided abdominal pain right lower quadrant abdominal pain with history of recent issues with abdominal pain. Patient is on blood thinners [place] with history of PE. Patient comes in with again multiple syncopal episodes today occurring after taking a shower Complaint: loss of consciousness -: hour(s) Prodromal Symptoms: lightheaded -: second(s) Witnessed: yes - by bystander Current Symptoms: lightheaded History: previous syncopal episode Context: at rest Treatments Prior to Arrival: none - Related Data Home Medications Medication Instructions Recorded Confirmed tiZANidine HCL [Zanaflex] 4 mg PO TID PRN 07/30/22 07/20/23 Albuterol Inhaler [Ventolin Hfa 2 puff INHALATION RT-Q6H PRN 06/20/23 07/20/23 Inhaler] Apixaban [Eliquis] 5 mg PO BID 06/20/23 07/20/23 Previous Rx's Medication Instructions Recorded Ondansetron Odt [Zofran ODT] 4 mg PO Q8HR PRN #30 tab 06/20/23 Loratadine [Claritin] 10 mg PO DAILY tab 07/27/23 Famotidine [Pepcid] 40 mg PO BID PRN tab 07/28/23 oxyCODONE-APAP 7.5-325MG [Percocet 1 tab PO TID PRN #9 tab 07/28/23 7.5-325 mg] Lactobacillus Acidophilus 1 each PO BID 7 Days #14 capsule 07/29/23 [Acidophilus Probiotic] Meclizine [Antivert] 12.5 mg PO Q8HR 7 Days #21 tablet 07/29/23 Pantoprazole [Protonix] 40 mg PO AC-BID 30 Days #60 tab 07/29/23 Allergies Allergy/AdvReac Type Severity Reaction Status Date / Time amoxicillin [Amoxicillin] Allergy Rash/Hives Verified 07/20/23 20:21 cefprozil Allergy Rash/Hives Verified 07/20/23 20:21 Influenza Virus Vaccines Allergy Unknown Verified 07/20/23 20:21 Childhood lisinopril Allergy Cough Verified 07/20/23 20:21 Penicillins Allergy Unknown Verified 07/20/23 20:21 Childhood Review of Systems ROS Statement: Those systems with pertinent positive or pertinent negative responses have been documented in the HPI. ROS Other: All systems not noted in ROS Statement are negative. Past Medical History Past Medical History: Hypertension, Pulmonary Embolus (PE) Additional Past Medical History / Comment(s): back pain, Ovarian cysts, migraines, Covid fall 2021 with PE History of Any Multi-Drug Resistant Organisms: None Reported Past Surgical History: No Surgical Hx Reported Additional Past Surgical History / Comment(s): rhizotomy; [place] teeth, colonoscopy Past Anesthesia/Blood Transfusion Reactions: No Reported Reaction Additional Past Anesthesia/Blood Transfusion Reaction / Comment(s): NO A NESTHESIA HX. Past Psychological History: Anxiety Smoking Status: Never smoker Past Alcohol Use History: Occasional Past Drug Use History: None Reported - Past Family History Mother Family Medical History: No Reported History General Exam Limitations: no limitations General appearance: alert, in no apparent distress, anxious, in distress, obese Head exam: Present: atraumatic, normocephalic, normal inspection Eye exam: Present: normal appearance, PERRL, EOMI. Absent: scleral icterus, conjunctival injection, periorbital swelling ENT exam: Present: normal exam, mucous membranes moist Neck exam: Present: normal inspection. Absent: tenderness, meningismus, lymphadenopathy Respiratory exam: Present: normal lung sounds bilaterally. Absent: respiratory distress, wheezes, rales, rhonchi, stridor Cardiovascular Exam: Present: regular rate, normal rhythm, normal heart sounds. Absent: systolic murmur, diastolic murmur, rubs, gallop, clicks GI/Abdominal exam: Present: soft, normal bowel sounds. Absent: distended, tenderness, guarding, rebound, rigid Extremities exam: Present: normal inspection, full ROM, normal capillary refill. Absent: tenderness, pedal edema, joint swelling, calf tenderness Back exam: Present: normal inspection Neurological exam: Present: alert, oriented X3, CN II-XII intact Psychiatric exam: Present: normal affect, normal mood Skin exam: Present: warm, dry, intact, normal color. Absent: rash Course Vital Signs 07/20/23 07/20/23 07/20/23 15:43 19:50 20:00 Temperature 97.8 F Pulse Rate 103 H 112 H 107 H Pulse Rate [ Left Sitting Front Attendant ] Pulse Rate [ Left Standing Front Attendant ] Pulse Rate [ Left Supine Front Attendant ] Respiratory 20 20 18 Rate Blood Pressure 127/86 136/88 134/68 Blood Pressure [Left Arm Sitting] Blood Pressure [Left Arm Standing] Blood Pressure [Left Arm Supine] O2 Sat by Pulse 97 97 96 Oximetry 07/20/23 07/21/23 07/21/23 23:00 00:00 01:00 Temperature Pulse Rate 105 H 103 H 106 H Pulse Rate [ Left Sitting Front Attendant ] Pulse Rate [ Left Standing Front Attendant ] Pulse Rate [ Left Supine Front Attendant ] Respiratory 18 18 18 Rate Blood Pressure 120/83 119/83 132/73 Blood Pressure [Left Arm Sitting] Blood Pressure [Left Arm Standing] Blood Pressure [Left Arm Supine] O2 Sat by Pulse 96 97 97 Oximetry 07/21/23 07/21/23 07/21/23 02:00 03:00 06:00 Temperature Pulse Rate 107 H 101 H 96 Pulse Rate [ Left Sitting Front Attendant ] Pulse Rate [ Left Standing Front Attendant ] Pulse Rate [ Left Supine Front Attendant ] Respiratory 18 18 18 Rate Blood Pressure 133/84 117/85 121/84 Blood Pressure [Left Arm Sitting] Blood Pressure [Left Arm Standing] Blood Pressure [Left Arm Supine] O2 Sat by Pulse 97 97 95 Oximetry 07/21/23 07/21/23 07/21/23 10:18 12:09 13:09 Temperature Pulse Rate 94 91 Pulse Rate [ 100 Left Sitting Front Attendant ] Pulse Rate [ 140 H Left Standing Front Attendant ] Pulse Rate [ 101 H Left Supine Front Attendant ] Respiratory 18 18 Rate Blood Pressure 114/83 112/89 Blood Pressure 130/100 [Left Arm Sitting] Blood Pressure 107/93 [Left Arm Standing] Blood Pressure 113/88 [Left Arm Supine] O2 Sat by Pulse 92 L 99 Oximetry 07/21/23 15:47 Temperature Pulse Rate Pulse Rate [ Left Sitting Front Attendant ] Pulse Rate [ Left Standing Front Attendant ] Pulse Rate [ 95 Left Supine Front Attendant ] Respiratory 16 Rate Blood Pressure Blood Pressure [Left Arm Sitting] Blood Pressure 78/54 [Left Arm Standing] Blood Pressure [Left Arm Supine] O2 Sat by Pulse 97 Oximetry - Reevaluation(s) Reevaluation #1: 07/20/23 21:11 Medical records reviewed Reevaluation #2: 07/20/23 21:11 No recurrent syncopal event here in the ER Reevaluation #3: 07/20/23 21:11 Patient informed results questions answered Reevaluation #4: 07/20/23 21:12 Was pt. sent in by a medical professional or institution (, [facility], [facility], urgent care, hospital, or fdc...) When possible be specific @ -no Did you speak to anyone other than the patient for history (EMS, parent, family, police, friend...)? What history was obtained from this source @ -no Did you review nursing and triage notes (agree or disagree)? Why? @ -agree Are old charts reviewed (outside hosp., previous admission, EMS record, old EKG, old radiological studies, urgent care reports/EKG's, fdc records)? Report findings @ -yes Differential Diagnosis (chest pain, altered mental status, abdominal pain women, abdominal pain men, vaginal bleeding, weakness, fever, dyspnea, syncope, headache, dizziness, GI bleed, back pain, seizure, CVA, palpatations, mental health, musculoskeletal)? @ -prior EKG interpreted by me (3pts min.). @ -yes X-rays interpreted by me (1pt min.). @ -yes negative for acute disease CT interpreted by me (1pt min.). @ -yes positive for PE U/S interpreted by me (1pt. min.). @ -no What testing was considered but not performed or refused? (CT, X-rays, U/S, labs)? Why? @ -none What meds were considered but not given or refused? Why? @ -none Did you discuss the management of the patient with other professionals (professionals i.e. , [facility], [facility], lab, RT, psych nurse, social media analyst, biologics specialist, teacher, homicide squad commanding officer, rifle case repairer)? Give summary @ -no Was smoking cessation discussed for >3mins.? @ -no Was critical care preformed (if so, how long)? @ -yes31 Were there social determinants of health that impacted care today? How? (Homelessness, low income, unemployed, alcoholism, drug addiction, transportation, low edu. Level, literacy, decrease access to med. care, alf, rehab)? @ -none Was there de-escalation of care discussed even if they declined (Discuss DNR or withdrawal of care, Hospice)? DNR status @ -no What co-morbidities impacted this encounter? (DM, HTN, Smoking, COPD, CAD, Cancer, CVA, ARF, Chemo, Hep., AIDS, mental health diagnosis, sleep apnea, morbid obesity)? @ -none Was patient admitted / discharged? Hospital course, mention meds given and route, prescriptions, significant lab abnormalities, going to OR and other pertinent info. @ - 27 female to the emergency department with recurrent syncopal event, patient does have positive PE inability to be admitted for oncology evaluation and anticoagulation, echocardiogram further evaluation syncopal event Admitted Undiagnosed new problem with uncertain prognosis? @ -no Drug Therapy requiring intensive monitoring for toxicity (Heparin, Nitro, Insulin, Cardizem)? @ -no Were any procedures done? @ -no Diagnosis/symptom? @ -Syncope with persistent PE Acute, or Chronic, or Acute on Chronic? @ -Acute Uncomplicated (without systemic symptoms) or Complicated (systemic symptoms)? @ -Complicated Side effects of treatment? @ -no Exacerbation, Progression, or Severe Exacerbation? @ -exacerbation Poses a threat to life or bodily function? How? (Chest pain, USA, LA, pneumonia, PE, COPD, DKA, ARF, appy, cholecystitis, CVA, Diverticulitis, Homicidal, Suicidal, threat to staff... and all critical care pts) @ -yes Reevaluation #5: 07/20/23 21:12 Differential Syncope: Valvular disease, hypertrophic cardiomyopathy, pulmonary embolism, tamponade, tachycardia, bradycardia, LA, hypovolemia, hemorrhage, dissection, anemia, intracranial hemorrhage, seizure, hypoglycemia, carbon monoxide poisoning, this is not meant to be an all-inclusive list. - Consultations Consultation #1: Spoke with Dr. Robledo who agrees to admit this patient Medical Decision Making - Medical Decision Making 27 female to the emergency department with recurrent syncopal event, patient does have positive PE inability to be admitted for oncology evaluation and anticoagulation, echocardiogram further evaluation syncopal event - Lab Data Result diagrams: 07/29/23 08:18 07/29/23 08:18 Lab Results 07/20/23 07/20/23 07/20/23 Range/Units 16:07 16:11 16:11 WBC 3.7 L (3.8-10.6) k/uL RBC 5.92 H (3.80-5.40) m/uL Hgb 14.3 (11.4-16.0) gm/dL Hct 43.6 (34.0-46.0) % MCV 73.7 L (80.0-100.0) fL MCH 24.1 L (25.0-35.0) pg MCHC 32.8 (31.0-37.0) g/dL RDW 17.4 H (11.5-15.5) % Plt Count 327 (150-450) k/uL MPV 8.3 Neutrophils % 47 % Lymphocytes % 44 % Monocytes % 6 % Eosinophils % 1 % Basophils % 0 % Neutrophils # 1.7 (1.3-7.7) k/uL Lymphocytes # 1.6 (1.0-4.8) k/uL Monocytes # 0.2 (0-1.0) k/uL Eosinophils # 0.0 (0-0.7) k/uL Basophils # 0.0 (0-0.2) k/uL Anisocytosis Slight Microcytosis Moderate PT 11.5 (10.0-12.5) sec INR 1.1 (<1.2) APTT 23.4 (22.0-30.0) sec Sodium (137-145) mmol/L Potassium (3.5-5.1) mmol/L Chloride (98-107) mmol/L Carbon Dioxide (22-30) mmol/L Anion Gap mmol/L BUN (7-17) mg/dL Creatinine (0.52-1.04) mg/dL Est GFR (CKD-EPI)AfAm (>60 ml/min/1.73 sqM) Est GFR (CKD-EPI)NonAf (>60 ml/min/1.73 sqM) Glucose (74-99) mg/dL Calcium (8.4-10.2) mg/dL Magnesium (1.6-2.3) mg/dL Total Bilirubin (0.2-1.3) mg/dL AST (14-36) U/L ALT (4-34) U/L Alkaline Phosphatase (38-126) U/L Troponin I (0.000-0.034) ng/mL Total Protein (6.3-8.2) g/dL Albumin (3.5-5.0) g/dL Lipase (23-300) U/L Blood Type B Positive Blood Type Recheck B Pos Bld Type Recheck Status No Antibody Screen NEGATIVE Spec Expiration Date 07/23/2023230607/20/23 07/20/23 Range/Units 16:11 16:11 WBC (3.8-10.6) k/uL RBC (3.80-5.40) m/uL Hgb (11.4-16.0) gm/dL Hct (34.0-46.0) % MCV (80.0-100.0) fL MCH (25.0-35.0) pg MCHC (31.0-37.0) g/dL RDW (11.5-15.5) % Plt Count (150-450) k/uL MPV Neutrophils % % Lymphocytes % % Monocytes % % Eosinophils % % Basophils % % Neutrophils # (1.3-7.7) k/uL Lymphocytes # (1.0-4.8) k/uL Monocytes # (0-1.0) k/uL Eosinophils # (0-0.7) k/uL Basophils # (0-0.2) k/uL Anisocytosis Microcytosis PT (10.0-12.5) sec INR (<1.2) APTT (22.0-30.0) sec Sodium 138 (137-145) mmol/L Potassium 3.9 (3.5-5.1) mmol/L Chloride 100 (98-107) mmol/L Carbon Dioxide 21 L (22-30) mmol/L Anion Gap 17 mmol/L BUN 7 (7-17) mg/dL Creatinine 0.50 L (0.52-1.04) mg/dL Est GFR (CKD-EPI)AfAm >90 (>60 ml/min/1.73 sqM) Est GFR (CKD-EPI)NonAf >90 (>60 ml/min/1.73 sqM) Glucose 95 (74-99) mg/dL Calcium 11.0 H (8.4-10.2) mg/dL Magnesium 1.6 (1.6-2.3) mg/dL Total Bilirubin 0.7 (0.2-1.3) mg/dL AST 52 H (14-36) U/L ALT 63 H (4-34) U/L Alkaline Phosphatase 87 (38-126) U/L Troponin I <0.012 (0.000-0.034) ng/mL Total Protein 7.9 (6.3-8.2) g/dL Albumin 4.6 (3.5-5.0) g/dL Lipase 103 (23-300) U/L Blood Type Blood Type Recheck Bld Type Recheck Status Antibody Screen Spec Expiration Date - EKG Data -: EKG Interpreted by Me - Radiology Data Radiology results: report reviewed (Chest x-rays negative for acute disease, CT positive for pulmonary embolism), image reviewed Critical Care Time Critical Care Time: Yes Total Critical Care Time: 31 Disposition Clinical Impression: Pulmonary embolism, Syncope Disposition: ADMITTED IP TO THIS HOSP Condition: Stable Is patient prescribed a controlled substance at d/c from ED?: No Time of Disposition: 19:30
[2023-07-20] MEDS ORDERED: HEPARIN SODIUM 1,000 UN/ML (10ML VL) IV ONE (21:08)
[2023-07-20] MEDS ORDERED: HEPARIN SODIUM 1,000 UN/ML (10ML VL) IV PRN (21:08)
[2023-07-20] MEDS ORDERED: NALOXONE 0.4 MG/ML 1 ML VIAL IV PRN (21:08)
[2023-07-20] MEDS: SODIUM CHLORIDE 0.9% 1,000 ML IV SCH (21:42)
[2023-07-20] MEDS: HEPARIN SOD,PORK IN 0.45% NACL 25,000 UNIT in 0.45% NACL 1 250ML.BAG IV SCH (21:48)
[2023-07-20 23:24] LABS: Appearance,Urine Cloudy (Clear); Bacteria,Urine Many /hpf; Bilirubin,Urine 1+ (Negative); Blood,Urine Large (Negative); Color,Urine Light Red; Glucose,Urine (UA) Negative (Negative); Hyaline Casts,Urine 65 /lpf (0-2); Ketones,Urine 3+ (Negative); Leukocyte Esterase,Urine Trace (Negative); Mucus,Urine Few /hpf; Nitrite,Urine Negative (Negative); PH, Urine 6.5 (5.0-8.0); Protein,Urine 1+ (Negative); RBC,Urine >182 /hpf (0-5); Squamous Epithelial Cell,Urine 15 /hpf (0-4); Urobilinogen,Urine <2.0 mg/dL (<2.0); WBC,Urine 121 /hpf (0-5)
[2023-07-20 23:33] LABS: Specific Gravity,Urine >1.050 (1.001-1.035)
[2023-07-21] MEDS: HYDROmorphone 1 MG/ML 1 ML SYRINGE IVP PRN ×5 (01:02→19:49)
[2023-07-21] MEDS: LORazepam 2 MG/ML INJ IV PRN (05:09)
[2023-07-21 07:40] LABS: Anisocytosis Slight; Basophils % (A) 0 %; Eosinophils # (A) 0.1 k/uL (0-0.7); Eosinophils % (A) 1 %; HCT 42.1 % (34.0-46.0); HGB 13.3 gm/dL (11.4-16.0); Hypochromasia Slight; Lymphocytes # (A) 2.4 k/uL (1.0-4.8); Lymphocytes % (A) 42 %; MCH 24.1 pg (25.0-35.0); MCHC 31.7 g/dL (31.0-37.0); MCV 76.2 fL (80.0-100.0); Mean Platelet Volume 8.2; Microcytosis Slight; Monocytes # (A) 0.3 k/uL (0-1.0); Monocytes % (A) 6 %; Neutrophils # (A) 2.8 k/uL (1.3-7.7); Neutrophils % (A) 49 %; Platelet Count 347 k/uL (150-450); RBC 5.52 m/uL (3.80-5.40); RDW 17.9 % (11.5-15.5); WBC 5.7 k/uL (3.8-10.6)
[2023-07-21 09:05] LABS: ALT 64 U/L (4-34); AST 46 U/L (14-36); African American GFR (CKD) >90 (>60 ml/min/1.73 sqM); Albumin 4.3 g/dL (3.5-5.0); Alkaline Phosphatase 85 U/L (38-126); Anion Gap 16 mmol/L; Blood Urea Nitrogen 8 mg/dL (7-17); Calcium 10.3 mg/dL (8.4-10.2); Carbon Dioxide 24 mmol/L (22-30); Chloride 100 mmol/L (98-107); Glucose 99 mg/dL (74-99); Magnesium 1.7 mg/dL (1.6-2.3); Non-African American GFR(CKD) >90 (>60 ml/min/1.73 sqM); Phosphorus 4.5 mg/dL (2.5-4.5); Potassium 4.3 mmol/L (3.5-5.1); Sodium 140 mmol/L (137-145); Total Bilirubin 0.6 mg/dL (0.2-1.3); Total Protein 7.3 g/dL (6.3-8.2)
[2023-07-21] MEDS: PANTOPRAZOLE 40 MG/10 ML VIAL IVP SCH ×2 (10:13→19:48)
[2023-07-21] MEDS: SODIUM CHLORIDE 0.9% 1,000 ML IV SCH ×2 (10:13→23:35)
--- NOTE | 2023-07-21 12:10 | P.CRDCN ---
History of Present Illness History of present illness: HISTORY OF PRESENT ILLNESS: This is a 27-year-old female with a past medical history significant for pulmonary embolism requiring EKOS in 2022 and morbid obesity. Patient does not follow with a orthopedic cast specialist. We have been asked to see the patient in consultation for syncope. Patient examined at the bedside in the emergency room. The patient states 2 days ago she woke up and was feeling somewhat lightheaded. She states that she had just gotten into the shower and was only in there for less than a minute when she thought she was going to faint so she screamed for her . Her came to her side and helps her get out of the shower. She states that she fainted into her husbands arms at that time. She does report losing consciousness. She states that her told her it looked like she was convulsing afterwards and her eyes rolled into the back of her head. She denies eating her tongue. She is unsure if she had urinary incontinence. She states she then stood up and soon afterwards thought she was going to pass out again so her sat her on the toilet where she had another episode of syncope with loss of consciousness. She states she did not seek medical attention at that time and thought she would wait until the next day. She reports over the next 24 hours she had 9-10 episodes of passing out with loss of consciousness. She denies a previous history of syncope. She denies a history of coronary artery disease. She is anticoagulated for history of pulmonary embolism. She states that she has been compliant with her Eliquis. She also reports abdominal pain at the time of examination. She states the pain is in the right lower quadrant she has been experiencing this discomfort since June. General surgery has been consulted for evaluation. * EKG reveals sinus mechanism with T-wave inversions and slight depression in inferior leads. New from previous EKG * Chest CTA: Pulmonary embolism, minimal burden involving the lobar, segmental, subsegmental branches of the right lower lobe. Overall clot burden sig nificantly diminished compared to February 2023. * Laboratory data: Troponin negative 2 * Current home cardiac medications include Eliquis 5 mg twice a day * Most recent echocardiogram obtained in February 2023 revealed ejection fraction 65-70%, moderate right ventricular dilatation, severe pulmonary prevention REVIEW OF SYSTEMS: At the time of my exam: CONSTITUTIONAL: Denies fever or chills. HEENT: Denies blurred vision, vision changes, or eye pain. Denies hemoptysis CARDIOVASCULAR: Denies chest pain. Denies orthopnea. Denies PND. Denies palpitations RESPIRATORY: Denies shortness of breath. GASTROINTESTINAL: Denies abdominal pain. Denies nausea or vomiting. HEMATOLOGIC: Denies bleeding disorders. GENITOURINARY: Denies any blood in urine. SKIN: Denies pruitis. Denies rash. PHYSICAL EXAM: VITAL SIGNS: Reviewed. GENERAL: Well-developed in no acute distress. HEENT: Head is normocephalic. Pupils are equal, round. Sclerae anicteric. Mucous membranes of the mouth are moist. Neck supple. No JVD or thyromegaly LUNGS: Respirations even and unlabored. Lungs essentially clear to auscultation bilaterally. HEART: Regular rate and rhythm. S1 and S2 heard. ABDOMEN: Soft. Nondistended. Nontender. EXTREMITIES: Normal range of motion. No clubbing or cyanosis. Peripheral pulses intact. No lower extremity edema NEUROLOGIC: Awake and alert. Oriented x 3. ASSESSMENT: Recurrent syncope, rule out cardiac and neurological etiology Right lower quadrant abdominal pain History of pulmonary embolism requiring EKOS, 2022 Morbid obesity PLAN: Obtain 2-D echo to assess cardiac structure and function Trend troponins Patient is currently on IV heparin. If no plans for any invasive procedures from other consulting providers, transition back to [facility] Consult neurology for further evaluation of recurrent syncope and to rule out neurologic etiology such as seizures Further recommendations pending patient's course Nurse practitioner note has been reviewed by physician. Signing provider agrees with the documented findings, assessment, and plan of care. Past Medical History Past Medical History: Hypertension, Pulmonary Embolus (PE) Additional Past Medical History / Comment(s): back pain, Ovarian cysts, migraines, Covid fall 2021 with PE History of Any Multi-Drug Resistant Organisms: None Reported Past Surgical History: No Surgical Hx Reported Additional Past Surgical History / Comment(s): rhizotomy; [place] teeth, colon oscopy Past Anesthesia/Blood Transfusion Reactions: No Reported Reaction Additional Past Anesthesia/Blood Transfusion Reaction / Comment(s): NO ANESTH ESIA HX. Past Psychological History: Anxiety Smoking Status: Never smoker Past Alcohol Use History: Occasional Past Drug Use History: None Reported - Past Family History Mother Family Medical History: No Reported History Medications and Allergies Home Medications Medication Instructions Recorded Confirmed Type RX: tiZANidine HCL [Zanaflex] 4 mg PO TID PRN 07/30/22 07/20/23 History Ondansetron Odt [Zofran Odt] 4 mg PO Q8HR PRN #30 tab 06/20/23 07/20/23 Rx RX: Albuterol Inhaler [Ventolin 2 puff INHALATION RT-Q6H PRN 06/20/23 07/20/23 History Hfa Inhaler] RX: Apixaban [Eliquis] 5 mg PO BID 06/20/23 07/20/23 History oxyCODONE-APAP 7.5-325MG [Percocet 1 tab PO TID PRN 06/20/23 07/20/23 History 7.5-325 mg] Allergies Allergy/AdvReac Type Severity Reaction Status Date / Time amoxicillin [Amoxicillin] Allergy Rash/Hives Verified 07/20/23 20:21 cefprozil Allergy Rash/Hives Verified 07/20/23 20:21 Influenza Virus Vaccines Allergy Unknown Verified 07/20/23 20:21 Childhood lisinopril Allergy Cough Verified 07/20/23 20:21 Penicillins Allergy Unknown Verified 07/20/23 20:21 Childhood Physical Exam Vitals: Vital Signs Temp Pulse Resp BP Pulse Ox 07/21/23 10:18 94 18 114/83 92 L 07/21/23 06:00 96 18 121/84 95 07/21/23 03:00 101 H 18 117/85 97 07/21/23 02:00 107 H 18 133/84 97 07/21/23 01:00 106 H 18 132/73 97 07/21/23 00:00 103 H 18 119/83 97 07/20/23 23:00 105 H 18 120/83 96 07/20/23 20:00 107 H 18 134/68 96 07/20/23 19:50 112 H 20 136/88 97 07/20/23 15:43 97.8 F 103 H 20 127/86 97 Intake and Output 07/20/23 07/21/23 07/21/23 22:59 06:59 14:59 Intake Total 186.698 0 Balance 186.698 0 Intake: Intake, IV Titration 186.698 0 Amount Heparin Sod,Pork in 0.45% 186.698 0 NaCl 25,000 unit In 0.45 % NaCl 1 250ml.bag @ 18 UNITS/KG/HR 22.861 mls/hr IV .[id number] [facility] Rx#: [id number] Other: Weight 127.006 kg Results 07/22/23 09:32 07/21/23 07:04 Cardiac Enzymes 07/20/23 07/20/23 07/21/23 Range/Units 16:11 16:11 07:04 AST 52 H 46 H (14-36) U/L Troponin I <0.012 (0.000-0.034) ng/mL Coagulation 07/20/23 07/21/23 Range/Units 16:11 04:33 PT 11.5 (10.0-12.5) sec APTT 23.4 >200.0 H* (22.0-30.0) sec CBC 07/20/23 07/21/23 Range/Units 16:11 07:04 WBC 3.7 L 5.7 (3.8-10.6) k/uL RBC 5.92 H 5.52 H (3.80-5.40) m/uL Hgb 14.3 13.3 (11.4-16.0) gm/dL Hct 43.6 42.1 (34.0-46.0) % Plt Count 327 347 (150-450) k/uL Comprehensive Metabolic Panel 07/20/23 07/21/23 Range/Units 16:11 07:04 Sodium 138 140 (137-145) mmol/L Potassium 3.9 4.3 (3.5-5.1) mmol/L Chloride 100 100 (98-107) mmol/L Carbon Dioxide 21 L 24 (22-30) mmol/L BUN 7 8 (7-17) mg/dL Creatinine 0.50 L 0.59 (0.52-1.04) mg/dL Glucose 95 99 (74-99) mg/dL Calcium 11.0 H 10.3 H (8.4-10.2) mg/dL AST 52 H 46 H (14-36) U/L ALT 63 H 64 H (4-34) U/L Alkaline Phosphatase 87 85 (38-126) U/L Total Protein 7.9 7.3 (6.3-8.2) g/dL Albumin 4.6 4.3 (3.5-5.0) g/dL Current Medications Generic Name Dose Route Start Last Admin Trade Name Freq PRN Reason Stop Dose Admin Heparin Sodium (Porcine) 0 unit 07/20/23 21:08 Heparin Sodium 1,000 Un/Ml (10ml Vl) IV PER PROTOCOL PRN Low PTT Protocol Hydromorphone HCl 1 mg 07/20/23 19:36 07/21/23 10:16 Hydromorphone 1 Mg/Ml 1 Ml Syringe IVP 1 mg Q4HR PRN Administration Pain Heparin Sodium/Sodium Chloride 250 mls @ 22.861 mls/hr 07/20/23 21:15 07/21/23 08:21 25,000 unit/ Sodium Chloride IV 14 units/kg/hr .[id number] GEORGE 17.781 mls/hr Titration Protocol 18 UNITS/KG/HR Sodium Chloride 1,000 mls @ 75 mls/hr 07/20/23 21:15 07/21/23 10:13 Saline 0.9% IV 75 mls/hr .[id number] GEORGE Administration Lorazepam 1 mg 07/20/23 19:36 07/21/23 05:09 Lorazepam 2 Mg/Ml Inj IV 1 mg Q6HR PRN Administration Anxiety Naloxone HCl 0.2 mg 07/20/23 21:08 Naloxone 0.4 Mg/Ml 1 Ml Vial IV Q2M PRN Opioid Reversal Ondansetron HCl 4 mg 07/20/23 19:36 Ondansetron 4 Mg/2 Ml Vial IVP Q8HR PRN Nausea And Vomiting Pantoprazole Sodium 40 mg 07/21/23 09:30 07/21/23 10:13 Pantoprazole 40 Mg/10 Ml Vial IVP 40 mg BID GEORGE Administration Intake and Output 07/20/23 07/21/23 07/21/23 22:59 06:59 14:59 Intake Total 186.698 0 Balance 186.698 0 Intake: Intake, IV Titration 186.698 0 Amount Heparin Sod,Pork in 0.45% 186.698 0 NaCl 25,000 unit In 0.45 % NaCl 1 250ml.bag @ 18 UNITS/KG/HR 22.861 mls/hr IV .[id number] [facility]OR[facility] Rx#: [id number] Other: Weight 127.006 kg 07/21/23 07:04 07/21/23 07:04
--- NOTE | 2023-07-21 13:06 | P.GSCN ---
History of Present Illness Consult date: 07/21/23 History of present illness: CHIEF COMPLAINT: Syncope HISTORY OF PRESENT ILLNESS: This is a 27-year-old female who presented with weakness and multiple syncopal episodes yesterday. Patient complains of having lower abdominal pain mostly in the right lower quadrant for the last month. She reports having nausea vomiting and decreased appetite. She has been having aly rrhea with dark red blood bright red blood in the stools multiple times throughout the day for the past month. Patient is on Eliquis for her history of PE. Patient has had a 24 pound weight loss. Patient did have the flu she reports a week ago. Otherwise no sick contacts. No history of colitis or Crohn's. Her last colonoscopy was in November 2017 which was normal. She had been recently hospitalized at [facility] for GI bleed. But no colonoscopy completed at that time due to the GI service being away for the holiday. Hemoglobin on admission 14 down to 13. She is tachycardic. Computed tomography scan of the abdomen and pelvis was completed reports appendix not clearly seen but no Sinemet signs of acute appendicitis. There was some bladder wall thickening and left kidney stone noted. CTA of the chest had shown evidence of PE. Overall clot burden has significant diminished compared to 03/07/2023. Patient denies any prior abdominal surgeries. Patient does have history of IBS and polycystic ovarian disease. Patient denies any urinary symptoms. Patient has had no further bloody stools since 3:00 yesterday afternoon. PAST MEDICAL HISTORY: See list. PAST SURGICAL HISTORY: See list. MEDICATIONS: See list. ALLERGIES: See list. SOCIAL HISTORY: No illicit drug use. REVIEW OF SYSTEMS: CONSTITUTIONAL: Denies fever or chills. HEENT: Denies blurred vision, vision changes, or eye pain. Denies hemoptysis ENDOCRINE: Denies heat or cold intolerance. CARDIOVASCULAR: Denies chest pain or pressure. RESPIRATORY: No shortness of breath. GASTROINTESTINAL: Please refer to HPI otherwise unremarkable NEURO: Denies history of seizures. PSYCH: No depression or suicidal ideation HEMATOLOGIC: Denies bleeding disorders. LYMPHATIC: The patient denies any lumps and bumps around the neck. GENITOURINARY: Denies any blood in urine or increased urinary frequency. MUSCULOSKELETAL: Denies myalgias. Denies joint swelling. Denies decreased range of motion beyond patients baseline. SKIN: Denies pruitis. Denies rash. PHYSICAL EXAM: VITAL SIGNS: Reviewed GENERAL: Well-developed in no acute distress. HEENT: No sclera icterus. Extraocular movements grossly intact. Moist buccal mucosa. Head is atraumatic, normocephalic. Hears conversational speech. No nasal d rainage. NECK: Supple without lymphadenopathy. CHEST: Non-labored respirations and equal bilateral excursions. CARDIOVASCULAR: Palpable 2+ radial pulses. ABDOMEN: Soft. Obese. Nondistended. Tenderness with palpation right side of the abdomen but more so on the right lower quadrant and some mild suprapubic tenderness. MUSCULOSKELETAL: No clubbing or cyanosis. NEUROLOGIC: No focal or lateralizing signs. Cranial nerves II through XII grossly intact. PSYCH: Appropriate affect. Alert and oriented to person, place and time. SKIN: Well perfused. Good skin turgor. LABORATORY DATA: WBC 5.7 Hgb 13.3 platelets 347 INR 1.1 Sodium 140 potassium is 4.3 creatinine 0.59 AST 46 ALT 64 IMAGING: Chest CTA exam positive for pulmonary embolus, minimal burn involving the lobar, segmental, subsegmental branch of the right lower lobe. Overall clot burden has significantly diminished compared to 03/07/2023. Computed tomography scan abdomen and pelvis 6 mm nonobstructive left renal calculus. Mild to moderate circumferential bladder wall thickening may be chronic dilation. ASSESSMENT: 1. Right sided abdominal pain with vomiting and diarrhea 2. GI bleed with bloody stools 3. History of PE on Eliquis 4. Syncopal episodes PLAN: -No plans for endoscopy at this time -Downgrade diet to clear liquids -Monitor closely for any signs or symptoms of bleeding -Check stool for occult blood -Continue to monitor hemoglobin -Patient being evaluated by cardiology and neurology in regards to syncopal episodes Physician Sweatband Perforator note has been reviewed by physician. Signing provider agrees with the documented findings, assessment, and plan of care. Past Medical History Past Medical History: Hypertension, Pulmonary Embolus (PE) Additional Past Medical History / Comment(s): back pain, Ovarian cysts, migraines, Covid fall 2021 with PE History of Any Multi-Drug Resistant Organisms: None Reported Past Surgical History: No Surgical Hx Reported Additional Past Surgical History / Comment(s): rhizotomy; [place] teeth, colonoscopy Past Anesthesia/Blood Transfusion Reactions: No Reported Reaction Additional Past Anesthesia/Blood Transfusion Reaction / Comm: NO ANESTHESIA HX. Past Psychological History: Anxiety Smoking Status: Never smoker Past Alcohol Use History: Occasional Past Drug Use History: None Reported - Past Family History Mother Family Medical History: No Reported History Medications and Allergies Home Medications Medication Instructions Recorded Confirmed Type tiZANidine HCL [Zanaflex] 4 mg PO TID PRN 07/30/22 07/20/23 History Albuterol Inhaler [Ventolin Hfa 2 puff INHALATION RT-Q6H PRN 06/20/23 07/20/23 History Inhaler] Apixaban [Eliquis] 5 mg PO BID 06/20/23 07/20/23 History Ondansetron Odt [Zofran Odt] 4 mg PO Q8HR PRN #30 tab 06/20/23 07/20/23 Rx oxyCODONE-APAP 7.5-325MG [Percocet 1 tab PO TID PRN 06/20/23 07/20/23 History 7.5-325 mg] Allergies Allergy/AdvReac Type Severity Reaction Status Date / Time amoxicillin [Amoxicillin] Allergy Rash/Hives Verified 07/20/23 20:21 cefprozil Allergy Rash/Hives Verified 07/20/23 20:21 Influenza Virus Vaccines Allergy Unknown Verified 07/20/23 20:21 Childhood lisinopril Allergy Cough Verified 07/20/23 20:21 Penicillins Allergy Unknown Verified 07/20/23 20:21 Childhood Surgical - Exam Vital Signs Temp Pulse Resp BP Pulse Ox 97.8 F 103 H 20 127/86 97 07/20/23 15:43 07/20/23 15:43 07/20/23 15:43 07/20/23 15:43 07/20/23 15:43 Results - Labs 07/21/23 07:04 07/21/23 07:04 Abnormal Lab Results - Last 24 Hours (Table) 07/20/23 07/20/23 07/20/23 Range/Units 16:11 16:11 22:29 WBC 3.7 L (3.8-10.6) k/uL RBC 5.92 H (3.80-5.40) m/uL MCV 73.7 L (80.0-100.0) fL MCH 24.1 L (25.0-35.0) pg RDW 17.4 H (11.5-15.5) % APTT (22.0-30.0) sec Carbon Dioxide 21 L (22-30) mmol/L Creatinine 0.50 L (0.52-1.04) mg/dL Calcium 11.0 H (8.4-10.2) mg/dL AST 52 H (14-36) U/L ALT 63 H (4-34) U/L Urine Appearance Cloudy H (Clear) Ur Specific [place] >1.050 H (1.001-1.035) Urine Protein 1+ H (Negative) Urine Ketones 3+ H (Negative) Urine Blood Large H (Negative) Urine Bilirubin 1+ H (Negative) Ur Leukocyte Esterase Trace H (Negative) Urine RBC >182 H (0-5) /hpf Urine WBC 121 H (0-5) /hpf Ur Squamous Epith Cells 15 H (0-4) /hpf Urine Bacteria Many H (None) /hpf Hyaline Casts 65 H (0-2) /lpf Urine Mucus Few H (None) /hpf 07/21/23 07/21/23 07/21/23 Range/Units 04:33 07:04 07:04 WBC (3.8-10.6) k/uL RBC 5.52 H (3.80-5.40) m/uL MCV 76.2 L (80.0-100.0) fL MCH 24.1 L (25.0-35.0) pg RDW 17.9 H (11.5-15.5) % APTT >200.0 H* (22.0-30.0) sec Carbon Dioxide (22-30) mmol/L Creatinine (0.52-1.04) mg/dL Calcium 10.3 H (8.4-10.2) mg/dL AST 46 H (14-36) U/L ALT 64 H (4-34) U/L Urine Appearance (Clear) Ur Specific [place] (1.001-1.035) Urine Protein (Negative) Urine Ketones (Negative) Urine Blood (Negative) Urine Bilirubin (Negative) Ur Leukocyte Esterase (Negative) Urine RBC (0-5) /hpf Urine WBC (0-5) /hpf Ur Squamous Epith Cells (0-4) /hpf Urine Bacteria (None) /hpf Hyaline Casts (0-2) /lpf Urine Mucus (None) /hpf Diabetes panel 07/20/23 07/21/23 Range/Units 16:11 07:04 Sodium 138 140 (137-145) mmol/L Potassium 3.9 4.3 (3.5-5.1) mmol/L Chloride 100 100 (98-107) mmol/L Carbon Dioxide 21 L 24 (22-30) mmol/L BUN 7 8 (7-17) mg/dL Creatinine 0.50 L 0.59 (0.52-1.04) mg/dL Glucose 95 99 (74-99) mg/dL Calcium 11.0 H 10.3 H (8.4-10.2) mg/dL AST 52 H 46 H (14-36) U/L ALT 63 H 64 H (4-34) U/L Alkaline Phosphatase 87 85 (38-126) U/L Total Protein 7.9 7.3 (6.3-8.2) g/dL Albumin 4.6 4.3 (3.5-5.0) g/dL Calcium panel 07/20/23 07/21/23 Range/Units 16:11 07:04 Calcium 11.0 H 10.3 H (8.4-10.2) mg/dL Phosphorus 4.5 (2.5-4.5) mg/dL Albumin 4.6 4.3 (3.5-5.0) g/dL Pituitary panel 07/20/23 07/21/23 Range/Units 16:11 07:04 Sodium 138 140 (137-145) mmol/L Potassium 3.9 4.3 (3.5-5.1) mmol/L Chloride 100 100 (98-107) mmol/L Carbon Dioxide 21 L 24 (22-30) mmol/L BUN 7 8 (7-17) mg/dL Creatinine 0.50 L 0.59 (0.52-1.04) mg/dL Glucose 95 99 (74-99) mg/dL Calcium 11.0 H 10.3 H (8.4-10.2) mg/dL Adrenal panel 07/20/23 07/21/23 Range/Units 16:11 07:04 Sodium 138 140 (137-145) mmol/L Potassium 3.9 4.3 (3.5-5.1) mmol/L Chloride 100 100 (98-107) mmol/L Carbon Dioxide 21 L 24 (22-30) mmol/L BUN 7 8 (7-17) mg/dL Creatinine 0.50 L 0.59 (0.52-1.04) mg/dL Glucose 95 99 (74-99) mg/dL Calcium 11.0 H 10.3 H (8.4-10.2) mg/dL Total Bilirubin 0.7 0.6 (0.2-1.3) mg/dL AST 52 H 46 H (14-36) U/L ALT 63 H 64 H (4-34) U/L Alkaline Phosphatase 87 85 (38-126) U/L Total Protein 7.9 7.3 (6.3-8.2) g/dL Albumin 4.6 4.3 (3.5-5.0) g/dL
[2023-07-21] MEDS: HEPARIN SOD,PORK IN 0.45% NACL 25,000 UNIT in 0.45% NACL 1 250ML.BAG IV SCH ×2 (14:00→18:19)
[2023-07-21] MEDS: ONDANSETRON 4 MG/2 ML VIAL IVP PRN (15:27)
--- NOTE | 2023-07-21 16:55 | CA ---
Transthoracic Echo Report Name: Ginny Cage Age: 27 Gender: F : 1995 Exam Date: 07/21/2023 14:30 Exam Location: [place] [facility] Ht (in): 65 Wt (lb): 280 Ordering Physician: Dudley Clarke DO Attending/Referring Phys: [id number], Vince Control Specialist Devan Reardon Procedure CPT: Indications: PE Cardiac Hx: Technical Quality: Technically difficult study Contrast 1: Definity Total Dose (mL): 2 Contrast 2: Total Dose (mL): MEASUREMENTS (Male / Female) Normal Values 2D ECHO LV Diastolic Diameter PLAX 3.9 cm 4.2 - 5.9 / 3.9 - 5.3 cm LV Systolic Diameter PLAX 2.8 cm IVS Diastolic Thickness 1.1 cm 0.6 - 1.0 / 0.6 - 0.9 cm LVPW Diastolic Thickness 0.9 cm 0.6 - 1.0 / 0.6 - 0.9 cm LV Relative Wall Thickness 0.5 RV Internal Dim ED PLAX 2.5 cm LVOT Diameter 1.9 cm Aortic Root Diameter 2.3 cm LA Systolic Diameter LX 2.4 cm 3.0 - 4.0 / 2.7 - 3.8 cm LV Diastolic Volume MOD BP 38.6 cm??? 67 - 155 / 56 - 104 cm??? LV Systolic Volume MOD BP 20.8 cm??? 22 - 58 / 19 - 49 cm??? LV Ejection Fraction MOD BP 46.2 % >= 55 % LV Cardiac Index MOD BP 687.9 cm???/min???m??? LV Diastolic Volume MOD 4C 50.0 cm??? LV Systolic Volume MOD 4C 24.2 cm??? LV Ejection Fraction MOD 4C 51.5 % LV Cardiac Index MOD 4C 995.3 cm???/min???m??? LV Diastolic Length 4C 6.8 cm LV Systolic Length 4C 5.6 cm LV Diastolic Volume MOD 2C 28.9 cm??? LV Systolic Volume MOD 2C 16.6 cm??? LV Ejection Fraction MOD 2C 42.7 % LV Cardiac Index MOD 2C 476.7 cm???/min???m??? LV Diastolic Length 2C 6.4 cm LV Systolic Length 2C 6.2 cm LA Volume 28.3 cm??? 18 - 58 / 22 - 52 cm??? LA Volume Index 11.4 cm???/m??? 16 - 28 cm???/m??? DOPPLER AV Peak Velocity 113.1 cm/s AV Peak Gradient 5.1 mmHg LVOT Peak Velocity 98.0 cm/s LVOT Peak Gradient 3.8 mmHg LVOT Velocity Time Integral 17.3 cm LVOT Stroke Volume 50.9 cm??? LVOT Stroke Volume Index 22.3 ml/m??? LVOT Cardiac Index 1966.1 cm???/min???m??? AV Area Cont Eq pk 2.5 cm??? MV Peak Velocity 75.4 cm/s MV Peak Gradient 2.3 mmHg MV Mean Velocity 43.2 cm/s MV Mean Gradient 0.9 mmHg MV Velocity Time Integral 19.7 cm Mitral E Point Velocity 82.5 cm/s Mitral A Point Velocity 83.8 cm/s Mitral E to A Ratio 1.0 MV Deceleration Time 158.4 ms MV E' Velocity 7.5 cm/s Mitral E to MV E' Ratio 11.0 TR Peak Velocity 121.5 cm/s TR Peak Gradient 5.9 mmHg Right Ventricular Systolic Press 10.9 mmHg PV Peak Velocity 99.9 cm/s PV Peak Gradient 4.0 mmHg FINDINGS Left Ventricle Normal LV size and wall thickness. Hyperdynamic left ventricular systolic function. Left ventricular ejection fraction is estimated at 65-70 %. Right Ventricle Normal right ventricular size and function. Right Atrium Normal right atrial size. Left Atrium Normal left atrial size. Mitral Valve Structurally normal mitral valve. No mitral regurgitation. Aortic Valve AV is not well visualized but arrears unremarkable. No aortic stenosis. No aortic regurgitation. Tricuspid Valve Tricuspid valve not well visualized. Trace TR. Pulmonic Valve Pulmonic valve not well visualized. No pulmonic regurgitation. Pericardium Normal pericardium. Aorta Normal size aortic root. CONCLUSIONS Normal LV function Previewed by: Dr. Mejia Del Valle MD (Electronically Signed) Final Date: 21 July 2023 16:55
--- NOTE | 2023-07-21 17:17 | US ---
EXAMINATION TYPE: US venous doppler duplex LE DATE OF EXAM: 07/21/2023 1:56 PM COMPARISON: NONE CLINICAL INDICATION: Female, 27 years old with history of PE, hx DVT, baseline dopplers; Hx DVT; Curr ent PE; No DVT symptoms per patient SIDE PERFORMED: Bilateral TECHNIQUE: The lower extremity deep venous system is examined utilizing real time linear array sonog [place] with graded compression, doppler sonography and color-flow sonography. VESSELS IMAGED: Common Femoral Vein Deep Femoral Vein Greater Saphenous Vein * Femoral Vein Popliteal Vein Small Saphenous Vein * Proximal Calf Veins (* superficial vessels) Right Leg: Negative for DVT Left Leg: Negative for DVT IMPRESSION: 1. Bilateral lower extremity ultrasound negative for deep venous thrombosis.
--- NOTE | 2023-07-21 17:44 | P.CONS ---
History of Present Illness - Reason for Consult Consult date: 07/21/23 ANEMIA Requesting physician: Dudley Clarke - Chief Complaint syncope - History of Present Illness Patient is a 27-year-old female with a significant history of PCOS, recurrent PEs and DVT. Consult was placed due to pulmonary embolism. Patient was diagnosed with bilateral PE and LLE DVT in May 2022 after having Covid. Patient was treated for 5 months with Eliquis. Patient again was noted to have bilateral PEs of lobar, segmental, subsegmental branch of the right lower lobe, LLL segmental and subsegmental filling defects and subsegmental filling defects noted in [facility], in February 2023. Dopplers of lower extremities were negative at that time. She again was placed on eliquis and has continued on it since. She has denied any missed doses. Pt is non-smoker, denies any recent surgeries, denies use of control or hormonal use. No recent travel. Did have 4 day hospitalization 3 weeks ago. Patient presented to the ER complaining of multiple syncopal episodes. Patient reports she had approx 9 syncopal episodes over 24 hours. Also reports associa radha sternal chest pain. Of note patient was seen in the ER twice last month for GI bleed at [facility] and [facility], however was not evaluated by GI and had no scopes at that time as GI service was not available. Patient reports she is still experiencing melena. She also reports associated abdominal pain and decreased appetite. She has lost approx 30 pounds over the last 1 month. On admission CTA chest revealed pulmonary embolus involving the low lumbar, segmental, subsegmental branch of the right lower lobe. With minimal nonspecific patchy groundglass left hilar region and left base. CT abdomen pelvis revealed a 6 mm nonobstructive left renal calculus. Mild to moderate circumferential bladder wall thickening. patient has been started on heparin drip. CBC revealed WBC 5.7, hemoglobin 13.3, platelets 347,000. Coags within normal limits. General surgery has been consulted due to anemia/GI bleed. Review of Systems 10 point ROS is negative except as stated in the HPI Past Medical History Past Medical History: Hypertension, Pulmonary Embolus (PE) Additional Past Medical History / Comment(s): back pain, Ovarian cysts, migraines, Covid fall 2021 with PE History of Any Multi-Drug Resistant Organisms: None Reported Past Surgical History: No Surgical Hx Reported Additional Past Surgical History / Comment(s): rhizotomy; [place] teeth, colonoscopy Past Anesthesia/Blood Transfusion Reactions: No Reported Reaction Additional Past Anesthesia/Blood Transfusion Reaction / Comm: NO ANESTHESIA HX. Past Psychological History: Anxiety Smoking Status: Never smoker Past Alcohol Use History: Occasional Past Drug Use History: None Reported - Past Family History Mother Family Medical History: No Reported History Medications and Allergies Home Medications Medication Instructions Recorded Confirmed Type tiZANidine HCL [Zanaflex] 4 mg PO TID PRN 07/30/22 07/20/23 History Albuterol Inhaler [Ventolin Hfa 2 puff INHALATION RT-Q6H PRN 06/20/23 07/20/23 History Inhaler] Apixaban [Eliquis] 5 mg PO BID 06/20/23 07/20/23 History Ondansetron Odt [Zofran Odt] 4 mg PO Q8HR PRN #30 tab 06/20/23 07/20/23 Rx oxyCODONE-APAP 7.5-325MG [Percocet 1 tab PO TID PRN 06/20/23 07/20/23 History 7.5-325 mg] Allergies Allergy/AdvReac Type Severity Reaction Status Date / Time amoxicillin [Amoxicillin] Allergy Rash/Hives Verified 07/20/23 20:21 cefprozil Allergy Rash/Hives Verified 07/20/23 20:21 Influenza Virus Vaccines Allergy Unknown Verified 07/20/23 20:21 Childhood lisinopril Allergy Cough Verified 07/20/23 20:21 Penicillins Allergy Unknown Verified 07/20/23 20:21 Childhood Physical Exam Vitals: Vital Signs Temp Pulse Resp BP Pulse Ox 07/21/23 10:18 94 18 114/83 92 L 07/21/23 06:00 96 18 121/84 95 07/21/23 03:00 101 H 18 117/85 97 07/21/23 02:00 107 H 18 133/84 97 07/21/23 01:00 106 H 18 132/73 97 07/21/23 00:00 103 H 18 119/83 97 07/20/23 23:00 105 H 18 120/83 96 07/20/23 20:00 107 H 18 134/68 96 07/20/23 19:50 112 H 20 136/88 97 07/20/23 15:43 97.8 F 103 H 20 127/86 97 Intake and Output 07/20/23 07/21/23 07/21/23 22:59 06:59 14:59 Intake Total 186.698 0 Balance 186.698 0 Intake: Intake, IV Titration 186.698 0 Amount Heparin Sod,Pork in 0.45% 186.698 0 NaCl 25,000 unit In 0.45 % NaCl 1 250ml.bag @ 18 UNITS/KG/HR 22.861 mls/hr IV .[id number] [facility] Rx#: [id number] Other: Weight 127.006 kg - Constitutional General appearance: no acute distress, obese - EENT Eyes: anicteric sclerae, EOMI ENT: hearing grossly normal - Neck Neck: no lymphadenopathy - Respiratory Respiratory: bilateral: CTA - Cardiovascular Rhythm: regular Heart sounds: normal: S1, S2 leg Peripheral Edema: right: 1+ - Gastrointestinal General gastrointestinal: soft, no tenderness - Integumentary Integumentary: no cyanotic - Neurologic Neurologic: CNII-XII intact - Musculoskeletal Musculoskeletal: strength equal bilaterally - Psychiatric Psychiatric: A&O x's 3 Results CBC & Chem 7: 07/21/23 07:04 07/21/23 07:04 Labs: Abnormal Lab Results - Last 24 Hours (Table) 07/20/23 07/20/23 07/20/23 Range/Units 16:11 16:11 22:29 WBC 3.7 L (3.8-10.6) k/uL RBC 5.92 H (3.80-5.40) m/uL MCV 73.7 L (80.0-100.0) fL MCH 24.1 L (25.0-35.0) pg RDW 17.4 H (11.5-15.5) % APTT (22.0-30.0) sec Carbon Dioxide 21 L (22-30) mmol/L Creatinine 0.50 L (0.52-1.04) mg/dL Calcium 11.0 H (8.4-10.2) mg/dL AST 52 H (14-36) U/L ALT 63 H (4-34) U/L Urine Appearance Cloudy H (Clear) Ur Specific [place] >1.050 H (1.001-1.035) Urine Protein 1+ H (Negative) Urine Ketones 3+ H (Negative) Urine Blood Large H (Negative) Urine Bilirubin 1+ H (Negative) Ur Leukocyte Esterase Trace H (Negative) Urine RBC >182 H (0-5) /hpf Urine WBC 121 H (0-5) /hpf Ur Squamous Epith Cells 15 H (0-4) /hpf Urine Bacteria Many H (None) /hpf Hyaline Casts 65 H (0-2) /lpf Urine Mucus Few H (None) /hpf 07/21/23 07/21/23 07/21/23 Range/Units 04:33 07:04 07:04 WBC (3.8-10.6) k/uL RBC 5.52 H (3.80-5.40) m/uL MCV 76.2 L (80.0-100.0) fL MCH 24.1 L (25.0-35.0) pg RDW 17.9 H (11.5-15.5) % APTT >200.0 H* (22.0-30.0) sec Carbon Dioxide (22-30) mmol/L Creatinine (0.52-1.04) mg/dL Calcium 10.3 H (8.4-10.2) mg/dL AST 46 H (14-36) U/L ALT 64 H (4-34) U/L Urine Appearance (Clear) Ur Specific [place] (1.001-1.035) Urine Protein (Negative) Urine Ketones (Negative) Urine Blood (Negative) Urine Bilirubin (Negative) Ur Leukocyte Esterase (Negative) Urine RBC (0-5) /hpf Urine WBC (0-5) /hpf Ur Squamous Epith Cells (0-4) /hpf Urine Bacteria (None) /hpf Hyaline Casts (0-2) /lpf Urine Mucus (None) /hpf CT scan - abdomen: report reviewed CT scan - chest: report reviewed CT scan - pelvis: report reviewed Assessment and Plan (1) Melena Current Visit: Yes Status: Acute Priority: High Code(s): K92.1 - MELENA SNOMED Code(s): 0317591 (2) Pulmonary embolism Current Visit: Yes Status: Acute Priority: High Code(s): I26.99 - OTHER PULMONARY EMBOLISM WITHOUT ACUTE COR PULMONALE SNOMED Code(s): 88674522 (3) Syncope Current Visit: Yes Status: Acute Priority: High Code(s): R55 - SYNCOPE AND COLLAPSE SNOMED Code(s): 249328778 Plan: Pulmonary embolism: -Hx recurrent PEs and DVT. Patient was diagnosed with bilateral PE and LLE DVT in May 2022 after having Covid. Patient was treated for 5 months with Eliquis. Patient again was noted to have bilateral PEs of lobar, segmental, subsegmental branch of the right lower lobe, LLL segmental and subsegmental fi lling defects and subsegmental filling defects noted in [facility], in February 2023. Dopplers of lower extremities were negative at that time. She again was placed on eliquis and has continued on it since. She has denied any missed doses. -Upon admission CTA chest revealed pulmonary embolus involving the low lobar, segmental, subsegmental branch of the right lower lobe. Heparin drip started -Will obtain BLE dopplers -APL workup ordered -Consult placed to pulmonology to review CTA scans to see if this is new PE vs old -Unsure if PE noted on CTA is old PE from February 2023. However patient has been experiencing new symptoms of CP and syncope, unsure if new symptoms r/t to underlying PE vs other etiologies. Neuro and cardiology following. Will await input from pulmonology and APL workup, to determine if this is truly treatment failure. Continue on heparin for now Melena: -Persisting over last 1 month. Has been seen for the same at [facility] 1 [facility], however, was not evaluated by GI and had no scopes at that time as GI service was not available. Patient reports she is still experiencing melena. She also reports associated abdominal pain and decreased appetite. Has been on Eliquis for recurrent PE -CBC revealed WBC 5.7, hemoglobin 13.3, platelets 347,000. Coags within normal limits. -General surgery consulted attests: I have seen and examined pt, performed H&P, developed impression and plan of care. Discussed with dictator. Agree with documentation, dictated as a scribe.
[2023-07-21] MEDS ORDERED: FAMOTIDINE 20 MG TAB PO PRN (18:09)
[2023-07-21] MEDS: LORATADINE 10 MG TAB PO SCH (18:16)
[2023-07-21] MEDS ORDERED: DIPHENOX-ATROP 2.5-0.025 MG 1 EACH TAB PO PRN (20:06)
--- NOTE | 2023-07-21 20:45 | P.CNNES ---
History of Present Illness Consult date: 07/21/23 Requesting physician: Emily Cooney Reason for Consult: recurrent syncope, r/o seizures History of Present Illness: Patient is a 27-year-old female came to the hospital by ambulance yesterday at 3:27 PM for syncopal spells. Patient's was also present, and they provided the history. Patient has severe abdominal pain since early June 2023, pointing to the right abdominal region. She also has not been able to eat, or able to keep anything down. She has not had any solid meals since 06/17/2023. Even she throws up protein shakes. She sometimes gets diarrhea as well. Lately she has developed lots of rectal and GI bleed. Sometimes it is dark, sometimes bright red in color. She has not been able to see a electric arc furnace operator. About 2 days ago she went to the bathroom to take the shower. She was sitting in the shower bench, and within a few minutes, she felt weird, had to call her . She mentioned that she did not feeling right, was panicking and then everything felt distant and muffled and she passed out. Her held her. Shortly after she came to, but he was not able to place her on the floor. She had a second syncopal spell while sitting in the shower bench, in which her eyes rolled back and she had a very brief convulsion. She did not lose control of urine, or had tongue bite. Patient remembers getting tunnel vision, couldn't hear, couldn't see and then had a syncopal spell. Since then, anytime she gets up and takes a couple steps, she feels that she will pass out. She had about 9 near syncopal spells since then. All of them occurred either when she is up on her feet, or sometimes sitting, never occurs when she is laying in the bed. Denies any history of seizures. As per EMS flow sheet, when they arrived, patient was sitting on the couch, alert and oriented 4. Patient complained of rectal bleeding, with syncopal/near syncopal episodes 2. Patient mentioned that she has been having rectal bleeding nearly daily since 06/17/2023. Patient is currently on Eliquis. Patient not able to see electric arc furnace operator until August. Patient spending mo st of her time in bed due to weakness and chronic back pain. When she gets up to walk to the bathroom, she becomes weak, and everything goes dark and she would fall down if it wasn't for her 's help. Patient has not been able to eat or drink well since the GI bleeding started. Patient's blood in the toilet after bowel movement could be bright red, dark or tarry. EMS tried to check blood pressure in the standing position, but the BP had dropped to the point of being inaudible. Patient becomes extremely weak and dizzy while standing. Patient's vitals at the scene was blood pressure 147/83, pulse rate 105, respiration 18, saturation and 7%. Blood sugar 146. Patient's blood test shows WBC 3.7, normal hemoglobin, platelets. PT/PTT normal. Basic metabolic panel normal, AST mildly elevated 52, and ALT 63. Troponin negative. UA shows contamination because of menstrual fluid. CTA of the chest was positive for pulmonary embolism, minimal burden involving the lobar, segmental, subsegmental branch of the right lower lobe. Overall brought burden has significant knee diminished compared to 03/07/2023. Minimal nonspecific patchy groundglass left perihilar region and left base. Correlate to exclude small infectious/inflammatory infiltrate. Patient has history of DIRECTOR OF TECHNOLOGY once. 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), Denies sore throat Cardiovascular: Reports shortness of breath, Denies chest pain (Not felt right, not a pain) Respiratory: Reports cough, Reports excessive sputum Gastrointestinal: Reports abdominal pain, Reports BRBPR, Reports diarrhea, Reports nausea, Reports vomiting Genitourinary: Denies dysuria, Denies hematuria, Denies mixed incontinence, Denies urgency Musculoskeletal: Reports low back pain, Denies neck pain Integumentary: Denies pruritus, Denies rash Neurological: Reports as per HPI Psychiatric: Reports anxiety, Reports depression Endocrine: Reports fatigue, Reports weight change Hematologic/Lymphatic: Reports easy bleeding, Reports easy bruising Past Medical History Past Medical History: Hypertension, Pulmonary Embolus (PE) Additional Past Medical History / Comment(s): back pain, Ovarian cysts, migraines, Covid fall 2021 with PE History of Any Multi-Drug Resistant Organisms: None Reported Past Surgical History: No Surgical Hx Reported Additional Past Surgical History / Comment(s): rhizotomy; [place] teeth, colonoscopy Past Anesthesia/Blood Transfusion Reactions: No Reported Reaction Additional Past Anesthesia/Blood Transfusion Reaction / Comment(s): NO ANESTHESIA HX. Past Psychological History: Anxiety Smoking Status: Never smoker Past Alcohol Use History: Occasional Past Drug Use History: None Reported - Past Family History Mother Family Medical History: No Reported History Medications and Allergies Home Medications Medication Instructions Recorded Confirmed Type tiZANidine HCL [Zanaflex] 4 mg PO TID PRN 07/30/22 07/20/23 History Albuterol Inhaler [Ventolin Hfa 2 puff INHALATION RT-Q6H PRN 06/20/23 07/20/23 History Inhaler] Apixaban [Eliquis] 5 mg PO BID 06/20/23 07/20/23 History Ondansetron Odt [Zofran Odt] 4 mg PO Q8HR PRN #30 tab 06/20/23 07/20/23 Rx oxyCODONE-APAP 7.5-325MG [Percocet 1 tab PO TID PRN 06/20/23 07/20/23 History 7.5-325 mg] Allergies Allergy/AdvReac Type Severity Reaction Status Date / Time amoxicillin [Amoxicillin] Allergy Rash/Hives Verified 07/20/23 20:21 cefprozil Allergy Rash/Hives Verified 07/20/23 20:21 Influenza Virus Vaccines Allergy Unknown Verified 07/20/23 20:21 Childhood lisinopril Allergy Cough Verified 07/20/23 20:21 Penicillins Allergy Unknown Verified 07/20/23 20:21 Childhood Physical Examination - Vital Signs Vital Signs: Vital Signs Temp Pulse Resp BP Pulse Ox 07/21/23 12:09 91 18 112/89 99 07/21/23 10:18 94 18 114/83 92 L 07/21/23 06:00 96 18 121/84 95 07/21/23 03:00 101 H 18 117/85 97 07/21/23 02:00 107 H 18 133/84 97 07/21/23 01:00 106 H 18 132/73 97 07/21/23 00:00 103 H 18 119/83 97 07/20/23 23:00 105 H 18 120/83 96 07/20/23 20:00 107 H 18 134/68 96 07/20/23 19:50 112 H 20 136/88 97 07/20/23 15:43 97.8 F 103 H 20 127/86 97 Intake and Output 07/20/23 07/21/23 07/21/23 22:59 06:59 14:59 Intake Total 186.698 0 Balance 186.698 0 Intake: Intake, IV Titration 186.698 0 Amount Heparin Sod,Pork in 0.45% 186.698 0 NaCl 25,000 unit In 0.45 % NaCl 1 250ml.bag @ 18 UNITS/KG/HR 22.861 mls/hr IV .[id number] [facility] Rx#: [id number] Other: Weight 127.006 kg Patient is a young female, in no acute distress. Patient is alert awake oriented to time place and person. Speech and language functions are normal. Patient can name and repeat very well. No aphasia or dysarthria. Attention, concentration and fund of knowledge is adequate. On cranial nerve examination, pupils are equal, round and reacting to light, visual rodriguez are full on confrontation, although she has some peripheral visual field restriction noted. There is no neglect on double simultaneous stimulation. Extraocular muscles are intact with no nystagmus. Face is symmetric, tongue protrudes to the midline. Palatal elevation and sensation normal, hearing and shoulder shrug normal, facial sensation normal. On muscle strength testing, there is no pronator drift and the strength is normal in arms and legs distally and proximally, except hip flexion which is 4- bilaterally. Ankle dorsiflexion 5 on either side. Deep tendon reflexes are symmetric 2 at the biceps, 2 brachioradialis, 1 at the knees, and ankles and plantars downgoing bilaterally. Sensory to touch is equal with no neglect on double simultaneous stimulation. Cerebellar function showed no ataxia for [id number]-xs-aztr testing. No dysdiadochokinesia. No ataxia for nngl-kn-oyun testing on either side. Tone and bulk of muscles normal. Gait deferred.. On general examination, there is no carotid bruit or murmur, S1-S2 audible. Chest is clear on consultation. Abdomen is soft nontender. No organomegaly, bowel sounds present. Peripheral pulses are present. No peripheral edema. Results - Laboratory Findings CBC and BMP: 07/21/23 07:04 07/21/23 07:04 Abnormal Lab Findings: Abnormal Labs 07/20/23 07/20/23 07/20/23 16:11 16:11 22:29 WBC 3.7 L RBC 5.92 H MCV 73.7 L MCH 24.1 L RDW 17.4 H APTT Carbon Dioxide 21 L Creatinine 0.50 L Calcium 11.0 H AST 52 H ALT 63 H Urine Appearance Cloudy H Ur Specific [place] >1.050 H Urine Protein 1+ H Urine Ketones 3+ H Urine Blood Large H Urine Bilirubin 1+ H Ur Leukocyte Esterase Trace H Urine RBC >182 H Urine WBC 121 H Ur Squamous Epith Cells 15 H Urine Bacteria Many H Hyaline Casts 65 H Urine Mucus Few H 07/21/23 07/21/23 07/21/23 04:33 07:04 07:04 WBC RBC 5.52 H MCV 76.2 L MCH 24.1 L RDW 17.9 H APTT >200.0 H* Carbon Dioxide Creatinine Calcium 10.3 H AST 46 H ALT 64 H Urine Appearance Ur Specific [place] Urine Protein Urine Ketones Urine Blood Urine Bilirubin Ur Leukocyte Esterase Urine RBC Urine WBC Ur Squamous Epith Cells Urine Bacteria Hyaline Casts Urine Mucus Assessment and Plan Assessment: * Syncopal spell, likely due to orthostasis versus vasovagal. Seizures very unlikely, as the events are positional, occurs when trying to stand up, or while sitting, does not occur on laying in bed. Also very brief postictal state is also against possibility of seizure. * GI bleed * History of PE and DVT in the past. Patient now came with another episode of pulmonary embolism, despite being on Eliquis. 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 * Chronic headaches Plan: * Check Orthostatics * EEG was performed, which was borderline abnormal due to mixed fast and slow frequency activity suggestive of mild encephalopathy or medication effect. No epileptiform activity was seen. * CT head * 2-D echo revealed hyperdynamic left ventricular systolic function, with EF 65- 70%. Normal left atrial size. No valvular abnormalities. * Ultrasound of lower extremities negative for DVT. * Neurology will follow. Thank you for the consult. Addendum: Orthostatics revealed supine blood pressure 113/88, pulse rate 101, sitting blood pressure 130/100, pulse rate of 100. On standing up, the blood pressure was 107/93 and pulse of 140. Patient has positive orthostatics. Hydration, may consider midodrine if symptoms persist. Cardiology also on board. Time with Patient: Greater than 30
--- NOTE | 2023-07-21 21:23 | CT ---
EXAMINATION TYPE: CT brain wo con DATE OF EXAM: 07/21/2023 COMPARISON: None INDICATION: syncope, blood clot in lower leg DLP: 1105.4 mGycm, Automated exposure control for dose reduction was used. CONTRAST: None CT of the brain is performed utilizing 3 mm thick sections through the posterior fossa and 3 mm thick sections through the remaining calvarium. Study is performed within 24 hours of arrival to the hosp [facility]. No abnormal hyperdensity is present to suggest an acute intracranial hemorrhage. No mass lesion is evident. No acute infarcts are evident. Ventricles and sulci are appropriate for the patient age. Paranasal sinuses and mastoid air cells within the [id number] are clear. IMPRESSION: 1. No acute intracranial process. Follow-up MRI can be performed as clinically indicated
--- NOTE | 2023-07-21 22:22 | P.HPIM ---
History of Present Illness H&P Date: 07/21/23 Chief Complaint: syncope Ginny Cage is a 27 yo F with PMH of recurrent PE, morbid obesity, lumbar disc disease who presented to the ED after passing out multiple times at home. She complains that over the past few weeks but especially in the last few days she has been having episodes of passing out. She reports 9-10 episodes of passing out with loss of consciousness in the last few days. She denies a previous history of syncope. She continues on the eliquis since her admission in May of 2023. She also complains of right lower quadrant abdominal pain and states she has been experiencing this discomfort since June. On presentation vitals stable, EKG with NSR, Chest CTA: Pulmonary embolism, minimal burden involving the lobar, segmental, subsegmental branches of the right lower lobe. Overall clot burden significantly diminished compared to February 2023 Review of Systems All systems: negative Constitutional: Denies chills, Denies fever Eyes: denies blurred vision, denies pain Ears, nose, mouth and throat: Denies headache, Denies sore throat Cardiovascular: Denies chest pain, Denies shortness of breath Respiratory: Denies cough Gastrointestinal: Denies abdominal pain, Denies diarrhea, Denies nausea, Denies vomiting Genitourinary: Denies dysuria, Denies hematuria Musculoskeletal: Denies myalgias Integumentary: Denies pruritus, Denies rash Neurological: Reports lack of coordination, Reports syncope, Reports weakness, Denies numbness Psychiatric: Denies anxiety, Denies depression Endocrine: Denies fatigue, Denies weight change Past Medical History Past Medical History: Hypertension, Pulmonary Embolus (PE) Additional Past Medical History / Comment(s): back pain, Ovarian cysts, migraines, Covid fall 2021 with PE History of Any Multi-Drug Resistant Organisms: None Reported Past Surgical History: No Surgical Hx Reported Additional Past Surgical History / Comment(s): rhizotomy; [place] teeth, colonoscopy Past Anesthesia/Blood Transfusion Reactions: No Reported Reaction Additional Past Anesthesia/Blood Transfusion Reaction / Comment(s): NO ANESTHESIA HX. Past Psychological History: Anxiety Smoking Status: Never smoker Past Alcohol Use History: Occasional Past Drug Use History: None Reported - Past Family History Mother Family Medical History: No Reported History Medications and Allergies Home Medications Medication Instructions Recorded Confirmed Type tiZANidine HCL [Zanaflex] 4 mg PO TID PRN 07/30/22 07/20/23 History Albuterol Inhaler [Ventolin Hfa 2 puff INHALATION RT-Q6H PRN 06/20/23 07/20/23 History Inhaler] Apixaban [Eliquis] 5 mg PO BID 06/20/23 07/20/23 History Ondansetron Odt [Zofran Odt] 4 mg PO Q8HR PRN #30 tab 06/20/23 07/20/23 Rx oxyCODONE-APAP 7.5-325MG [Percocet 1 tab PO TID PRN 06/20/23 07/20/23 History 7.5-325 mg] Allergies Allergy/AdvReac Type Severity Reaction Status Date / Time amoxicillin [Amoxicillin] Allergy Rash/Hives Verified 07/20/23 20:21 cefprozil Allergy Rash/Hives Verified 07/20/23 20:21 Influenza Virus Vaccines Allergy Unknown Verified 07/20/23 20:21 Childhood lisinopril Allergy Cough Verified 07/20/23 20:21 Penicillins Allergy Unknown Verified 07/20/23 20:21 Childhood Physical Exam Vitals: Vital Signs Temp Pulse Pulse Pulse Pulse Pulse Resp 07/21/23 20:00 96 20 07/21/23 17:37 97.9 F 104 H 20 07/21/23 15:47 95 16 07/21/23 13:09 100 140 H 101 H 07/21/23 12:09 91 18 07/21/23 10:18 94 18 07/21/23 06:00 96 18 07/21/23 03:00 101 H 18 07/21/23 02:00 107 H 18 07/21/23 01:00 106 H 18 07/21/23 00:00 103 H 18 07/20/23 23:00 105 H 18 BP BP BP BP Pulse Ox 07/21/23 20:00 107/71 95 07/21/23 17:37 129/82 96 07/21/23 15:47 78/54 97 07/21/23 13:09 130/100 107/93 113/88 07/21/23 12:09 112/89 99 07/21/23 10:18 114/83 92 L 07/21/23 06:00 121/84 95 07/21/23 03:00 117/85 97 07/21/23 02:00 133/84 97 07/21/23 01:00 132/73 97 07/21/23 00:00 119/83 97 07/20/23 23:00 120/83 96 Intake and Output 07/21/23 07/21/23 07/21/23 06:59 14:59 22:59 Intake Total 186.698 63.302 571.413 Balance 186.698 63.302 571.413 Intake: Intake, IV Titration 186.698 63.302 31.413 Amount Heparin Sod,Pork in 0.45% 186.698 63.302 31.413 NaCl 25,000 unit In 0.45 % NaCl 1 250ml.bag @ 18 UNITS/KG/HR 22.861 mls/hr IV .[id number] [facility] Rx#: [id number] Oral 540 Other: Voiding Method External Catheter # Voids 1 Weight 127.006 kg Vitals reviewed General: morbidly obese well nourished NAD HEENT: Normocephalic, atraumatic, mucus membranes moist Neck: supple, no JVD, no thyromegaly CV: Regular rate and rhythm, pulses 2+ Lungs: Normal effort. No wheezes or rales Abd: soft, TTP RLQ bowel sounds present Neuro: Alert and oriented x3, no focal deficit Skin: warm and dry Results CBC & Chem 7: 07/21/23 07:04 07/21/23 07:04 Labs: Abnormal Lab Results - Last 24 Hours (Table) 07/20/23 07/21/23 07/21/23 Range/Units 22:29 04:33 07:04 RBC 5.52 H (3.80-5.40) m/uL MCV 76.2 L (80.0-100.0) fL MCH 24.1 L (25.0-35.0) pg RDW 17.9 H (11.5-15.5) % APTT >200.0 H* (22.0-30.0) sec Calcium (8.4-10.2) mg/dL AST (14-36) U/L ALT (4-34) U/L Urine Appearance Cloudy H (Clear) Ur Specific [place] >1.050 H (1.001-1.035) Urine Protein 1+ H (Negative) Urine Ketones 3+ H (Negative) Urine Blood Large H (Negative) Urine Bilirubin 1+ H (Negative) Ur Leukocyte Esterase Trace H (Negative) Urine RBC >182 H (0-5) /hpf Urine WBC 121 H (0-5) /hpf Ur Squamous Epith Cells 15 H (0-4) /hpf Urine Bacteria Many H (None) /hpf Hyaline Casts 65 H (0-2) /lpf Urine Mucus Few H (None) /hpf 07/21/23 07/21/23 Range/Units 07:04 13:15 RBC (3.80-5.40) m/uL MCV (80.0-100.0) fL MCH (25.0-35.0) pg RDW (11.5-15.5) % APTT 126.6 H* (22.0-30.0) sec Calcium 10.3 H (8.4-10.2) mg/dL AST 46 H (14-36) U/L ALT 64 H (4-34) U/L Urine Appearance (Clear) Ur Specific [place] (1.001-1.035) Urine Protein (Negative) Urine Ketones (Negative) Urine Blood (Negative) Urine Bilirubin (Negative) Ur Leukocyte Esterase (Negative) Urine RBC (0-5) /hpf Urine WBC (0-5) /hpf Ur Squamous Epith Cells (0-4) /hpf Urine Bacteria (None) /hpf Hyaline Casts (0-2) /lpf Urine Mucus (None) /hpf Assessment and Plan Plan: Pulmonary embolism on eliquis. Admit, start heparin drip. Consult hematology and Cardiology Syncope and collapse. monitor telemetry. Neurology to evaluate Abdominal pain. Concern for GI bleed. IV protonix bid. Surgery consult
--- NOTE | 2023-07-22 01:56 | EEG ---
DATE OF SERVICE: 07/21/2023 ELECTROENCEPHALOGRAM REPORT PREAMBLE: This is a 27-year-old female with recurrent syncope. The patient had recurrent syncopal spells. This study is performed to evaluate for any epileptiform activity. EEG FINDINGS: This is a 21-channel digital EEG recorded with video component, utilizing 10/20 international system with referential and bipolar montages. Background consists of well-developed, moderately well-regulated, predominantly mixed frequencies of some fast frequency beta, with some 6 to 7 hertz theta activity seen in bihemispheric region. Background is posterior dominant, and seems to be slightly reactive to eye opening or closing. Photic driving response was seen with some flash frequencies. Different stages of sleep were not clearly seen. No focal or generalized epileptiform activity was seen. EKG channel showed no obvious arrhythmia. IMPRESSION: This is a borderline abnormal EEG, due to presence of mixed slow and fast frequency activity, suggestive of mild generalized cerebral dysfunction as can be seen with metabolic encephalopathy or medication effect. No focal, lateralized or epileptiform activity was seen. MMODL / IJN: [id number] / STEPHY
[2023-07-22] MEDS: HEPARIN SOD,PORK IN 0.45% NACL 25,000 UNIT in 0.45% NACL 1 250ML.BAG IV SCH ×2 (03:15→15:18)
[2023-07-22] MEDS: HYDROmorphone 1 MG/ML 1 ML SYRINGE IVP PRN ×5 (03:15→21:26)
[2023-07-22 03:57] LABS: Cardiolipin Ab IgG Interp Negative (Negative); Cardiolipin Ab IgM Interp Negative (Negative); Cardiolipin IgA Antibody <2.0 U/mL; Cardiolipin IgM Antibody <1.5 U/mL
[2023-07-22] MEDS ORDERED: LOPERAMIDE 2 MG CAP PO PRN (05:52)
[2023-07-22] MEDS: LORATADINE 10 MG TAB PO SCH (08:16)
[2023-07-22] MEDS: ONDANSETRON 4 MG/2 ML VIAL IVP PRN ×2 (08:17→17:18)
[2023-07-22] MEDS: PANTOPRAZOLE 40 MG/10 ML VIAL IVP SCH ×2 (08:17→19:45)
[2023-07-22] MEDS: LORazepam 2 MG/ML INJ IV PRN (08:32)
[2023-07-22] MEDS: tiZANidine 4 MG TAB PO PRN (09:08)
[2023-07-22 10:04] LABS: Anisocytosis Slight; HCT 36.9 % (34.0-46.0); HGB 11.6 gm/dL (11.4-16.0); Hypochromasia Marked; MCH 24.2 pg (25.0-35.0); MCHC 31.4 g/dL (31.0-37.0); Mean Platelet Volume 8.3; Microcytosis Slight; Platelet Count 296 k/uL (150-450); RDW 17.3 % (11.5-15.5); WBC 4.3 k/uL (3.8-10.6)
[2023-07-22] MEDS: SODIUM CHLORIDE 0.9% 1,000 ML IV SCH (11:25)
--- NOTE | 2023-07-22 11:58 | P.PN ---
Subjective HISTORY OF PRESENT ILLNESS: This is a 27-year-old female with a past medical history significant for pulmonary embolism requiring EKOS in 2022 and morbid obesity. Patient does not follow with a motion picture projectionist. We have been asked to see the patient in consultation for syncope. Patient examined at the bedside in the emergency room. The patient states 2 days ago she woke up and was feeling somewhat lightheaded. She states that she had just gotten into the shower and was only in there for less than a minute when she thought she was going to faint so she screamed for her . Her came to her side and helps her get out of the shower. She states that she fainted into her husbands arms at that time. She does report losing consciousness. She states that her told her it looked like she was convulsing afterwards and her eyes rolled into the back of her head. She denies eating her tongue. She is unsure if she had urinary incontinence. She states she then stood up and soon afterwards thought she was going to pass out again so her sat her on the toilet where she had another episode of syncope with loss of consciousness. She states she did not seek medical attention at that time and thought she would wait until the next day. She reports over the next 24 hours she had 9-10 episodes of passing out with loss of consciousness. She denies a previous history of syncope. She denies a history of coronary artery disease. She is anticoagulated for history of pulmonary embolism. She states that she has been compliant with her Eliquis. She also reports abdominal pain at the time of examination. She states the pain is in the right lower quadrant she has been experiencing this discomfort since June. General surgery has been consulted for evaluation. * EKG reveals sinus mechanism with T-wave inversions and slight depression in inferior leads. New from previous EKG * Chest CTA: Pulmonary embolism, minimal burden involving the lobar, segmental, subsegmental branches of the right lower lobe. Overall clot burden significantly diminished compared to February 2023. * Laboratory data: Troponin negative 2 * Current home cardiac medications include Eliquis 5 mg twice a day * Most recent echocardiogram obtained in February 2023 revealed ejection fraction 65-70%, moderate right ventricular dilatation, severe pulmonary prevention 07/22/2023 Patient examined this morning at the bedside. Patient currently denies any chest pain or pressure. She denies any shortness of breath. No further episodes of syncope since coming to the hospital. Orthostatic blood pressures obtained this morning were negative. Echocardiogram completed revealing ejection fraction exceeding 5-70%. Blood pressure is stable. PHYSICAL EXAM: VITAL SIGNS: Reviewed. GENERAL: Well-developed in no acute distress. HEENT: Head is normocephalic. Pupils are equal, round. Sclerae anicteric. Mucous membranes of the mouth are moist. Neck supple. No JVD or thyromegaly LUNGS: Respirations even and unlabored. Lungs essentially clear to auscultation bilaterally. HEART: Regular rate and rhythm. S1 and S2 heard. ABDOMEN: Soft. Nondistended. Nontender. EXTREMITIES: Normal range of motion. No clubbing or cyanosis. Peripheral pulses intact. No lower extremity edema NEUROLOGIC: Awake and alert. Oriented x 3. ASSESSMENT: Recurrent syncope, rule out cardiac and neurological etiology Right lower quadrant abdominal pain History of pulmonary embolism requiring EKOS, 2022 Morbid obesity Melena, hemoglobin stable, Gen. surgery following PLAN: Orthostatic blood pressures obtained this morning and are negative Continue telemetry monitoring to assess for arrhythmias Patient is currently on IV heparin. If no plans for any invasive procedures from other consulting providers, transition back to Eliquis Gen. surgery following for melena. No plans for endoscopy at this time per their service Neurology following. EEG negative for seizure activity. Further recommendations pending patient's course Nurse practitioner note has been reviewed by physician. Signing provider agrees with the documented findings, assessment, and plan of care. Objective - Vital Signs Vital signs: Vital Signs Temp 98.0 F 07/22/23 08:08 Pulse 84 07/22/23 11:22 Resp 16 07/22/23 11:22 BP 93/62 07/22/23 11:22 Pulse Ox 95 07/22/23 11:22 FiO2 Intake & Output 07/21/23 07/22/23 07/22/23 18:59 06:59 18:59 Intake Total 94.715 1205.972 107.577 Balance 94.715 1205.972 107.577 Intake: Intake, IV Titration 94.715 125.972 107.577 Amount Heparin Sod,Pork in 0.45% 94.715 125.972 107.577 NaCl 25,000 unit In 0.45 % NaCl 1 250ml.bag @ 18 UNITS/KG/HR 22.861 mls/hr IV .[id number] [facility] Rx#: [id number] Oral 1080 Other: Voiding Method External Catheter External Catheter # Voids 1 - Labs CBC & Chem 7: 07/22/23 09:32 07/21/23 07:04 Labs: Abnormal Lab Results - Last 24 Hours (Table) 07/21/23 07/21/23 07/22/23 Range/Units 13:15 21:11 09:32 MCV 77.0 L (80.0-100.0) fL MCH 24.2 L (25.0-35.0) pg RDW 17.3 H (11.5-15.5) % APTT 126.6 H* 52.3 H (22.0-30.0) sec 07/22/23 Range/Units 09:32 MCV (80.0-100.0) fL MCH (25.0-35.0) pg RDW (11.5-15.5) % APTT 85.0 H (22.0-30.0) sec
--- NOTE | 2023-07-22 13:08 | P.PN ---
Subjective Progress Note Date: 07/22/23 The patient denies any chest pain or shortness of breath currently. She'll not had any recurrence of syncopal episodes. She states that she continues to have bleeding per rectum Objective - Vital Signs Vital signs: Vital Signs Temp 98.0 F 07/22/23 08:08 Pulse 84 07/22/23 11:22 Resp 16 07/22/23 11:22 BP 93/62 07/22/23 11:22 Pulse Ox 95 07/22/23 11:22 FiO2 Intake & Output 07/21/23 07/22/23 07/22/23 18:59 06:59 18:59 Intake Total 94.715 1205.972 107.577 Balance 94.715 1205.972 107.577 Intake: Intake, IV Titration 94.715 125.972 107.577 Amount Heparin Sod,Pork in 0.45% 94.715 125.972 107.577 NaCl 25,000 unit In 0.45 % NaCl 1 250ml.bag @ 18 UNITS/KG/HR 22.861 mls/hr IV .[id number] [facility] Rx#: [id number] Oral 1080 Other: Voiding Method External Catheter External Catheter # Voids 1 - Constitutional General appearance: Present: no acute distress - EENT Eyes: Present: EOMI ENT: Present: hearing grossly normal, normal oropharynx - Respiratory Respiratory: bilateral: CTA - Cardiovascular Rhythm: regular Heart sounds: normal: S1, S2 - Gastrointestinal General gastrointestinal: Present: normal bowel sounds, soft - Neurologic Neurologic: Present: CNII-XII intact - Musculoskeletal Musculoskeletal: Present: strength equal bilaterally - Psychiatric Psychiatric: Present: A&O x's 3, appropriate affect - Labs CBC & Chem 7: 07/22/23 09:32 07/21/23 07:04 Labs: Abnormal Lab Results - Last 24 Hours (Table) 07/21/23 07/21/23 07/22/23 Range/Units 13:15 21:11 09:32 MCV 77.0 L (80.0-100.0) fL MCH 24.2 L (25.0-35.0) pg RDW 17.3 H (11.5-15.5) % APTT 126.6 H* 52.3 H (22.0-30.0) sec 07/22/23 Range/Units 09:32 MCV (80.0-100.0) fL MCH (25.0-35.0) pg RDW (11.5-15.5) % APTT 85.0 H (22.0-30.0) sec Assessment and Plan (1) Pulmonary embolism Narrative/Plan: The concern during this admission is for recurrent pulmonary embolism, despite the patient being on Eliquis, representing failure of anticoagulation. However her CT angiogram report compared to the previous one notes significant decrease in clot burden compared to her CT angiogram in 03/01. The report does not indicate any new areas of involvement. Therefore it is very possible that the current findings do not represent a new PE, but residual findings from the previous one. The patient did have an EKOS procedure at her last visit, but this would not necessarily need to dissolution of the entire clot burden and therefore follow- up scans can still show residual thrombosis. The above was discussed with her. She was advised that at this time commitments and has been consulted to evaluate her CT scans and give their opinion guarding the above. For now she will be continued on IV heparin. If there are opinion is that she does not have a new thrombus, and the findings represent residual from the previous, she can be switched back to Eliquis, assuming that ongoing testing does not find her to be antiphospholipid antibody positive - Anti phospholipid antibody testing is in process with cardiolipin Antibody testing negative. - Repeat Dopplers were ordered for new baseline. Report is not yet available. Current Visit: Yes Status: Acute Priority: High Code(s): I26.99 - OTHER PU LMONARY EMBOLISM WITHOUT ACUTE COR PULMONALE SNOMED Code(s): 12905083 (2) Melena Narrative/Plan: The patient reports persistence of the same. Surgeries in consult for GI workup. There has not been a major drop in her hemoglobin. However it would be reasonable to proceed with endoscopic workup to rule out a condition such as inflammatory bowel disease, given the chronicity of the symptoms claimed by the patient. Would also be more convenient to do endoscopic procedures, while the patient is on IV heparin. Current Visit: Yes Status: Acute Priority: High Code(s): K92.1 - MELENA SNOMED Code(s): 1361518
--- NOTE | 2023-07-22 13:18 | P.CNPUL ---
History of Present Illness Consult date: 07/22/23 Requesting physician: Juan Diego Robledo Reason for consult: other Chief complaint: Abdominal pain, fainting, and rectal bleeding. History of present illness: Pulmonary consult dated 07/22/2023. 27-year-old female who was initially seen in the emergency department, on July 20. The patient initially presented with complaints of abdominal pain, recurrent episodes of fainting, and rectal bleeding. More recently, we are consulted, for a diagnosis of pulmonary embolism. The patient did not come into the hospital with shortness of breath. She still doesn't have shortness of breath. She's currently on room air. Saturations are excellent. She is getting IV heparin, and she is getting saline at 75 mL an hour. Dopplers of lower extremities were negative. Going back over her history, it appears that she had her first pulmonary embolism, in May 2022. A follow-up computed tomography scan was done in July 2022, and showed no evidence of PE. Subsequently, the patient had another CTA, done in February 2023, which showed bilateral pulmonary embolism. The computed tomography scan done in July of this year, showed bilateral pulmonary emboli, although, the emboli are diminishe d when compared to the previous CTA. Currently, the patient states that she has been taking her medications as prescribed. She is currently on IV heparin. She's getting saline at 75 mL an hour. Labs include a white count of 4.3, hemoglobin 11.6, hematocrit 36.9, and a platelet count that was normal. PTT is 85. Sodium, potassium, chloride, CO2, are all normal. Anion gap is wide at 16. BUN is 8, and creatinine 0.59. Liver function tests are essentially within normal range. Calcium is a bit high 10.3. Urine is cloudy, with 1+ protein. There is a large amount of blood in the urine. Leukocyte esterase is trace positive. Nitrite is negative. Many bacteria are noted. Anti-cardiolipin antibody testing was negative. Review of Systems REVIEW OF SYSTEMS: CONSTITUTIONAL: [Negative.] NEUROLOGIC: Fainting episodes. HEENT: [ Negative.] CARDIAC: [Negative.] PULMONARY: Recurrent pulmonary embolism. GI: Rectal bleeding and abdominal pain. : [Negative.] RHEUMATOLOGIC: [ Negative.] IMMUNOLOGIC: [ Negative.] ENDOCRINE: [Negative. ] DERMATOLOGIC: [Negative.] Past Medical History Past Medical History: Hypertension, Pulmonary Embolus (PE) Additional Past Medical History / Comment(s): back pain, Ovarian cysts, migraines, Covid fall 2021 with PE History of Any Multi-Drug Resistant Organisms: None Reported Past Surgical History: No Surgical Hx Reported Additional Past Surgical History / Comment(s): rhizotomy; [place] teeth, colonoscopy Past Anesthesia/Blood Transfusion Reactions: No Reported Reaction Additional Past Anesthesia/Blood Transfusion Reaction / Comment(s): NO ANESTHESIA HX. Past Psychological History: Anxiety Smoking Status: Never smoker Past Alcohol Use History: Occasional Past Drug Use History: None Reported - Past Family History Mother Family Medical History: No Reported History Medications and Allergies Home Medications Medication Instructions Recorded Confirmed Type tiZANidine HCL [Zanaflex] 4 mg PO TID PRN 07/30/22 07/20/23 History Albuterol Inhaler [Ventolin Hfa 2 puff INHALATION RT-Q6H PRN 06/20/23 07/20/23 History Inhaler] Apixaban [Eliquis] 5 mg PO BID 06/20/23 07/20/23 History Ondansetron Odt [Zofran Odt] 4 mg PO Q8HR PRN #30 tab 06/20/23 07/20/23 Rx oxyCODONE-APAP 7.5-325MG [Percocet 1 tab PO TID PRN 06/20/23 07/20/23 History 7.5-325 mg] Allergies Allergy/AdvReac Type Severity Reaction Status Date / Time amoxicillin [Amoxicillin] Allergy Rash/Hives Verified 07/20/23 20:21 cefprozil Allergy Rash/Hives Verified 07/20/23 20:21 Influenza Virus Vaccines Allergy Unknown Verified 07/20/23 20:21 Childhood lisinopril Allergy Cough Verified 07/20/23 20:21 Penicillins Allergy Unknown Verified 07/20/23 20:21 Childhood Physical Exam Osteopathic Statement: *. No significant issues noted on an osteopathic structural exam other than those noted in the History and Physical/Consult. Vitals: Vital Signs Temp Pulse Pulse Pulse Pulse Resp BP 07/22/23 11:22 84 16 07/22/23 09:48 105 H 108 H 94 102/70 07/22/23 08:08 98.0 F 86 16 93/52 07/22/23 03:59 87 20 07/21/23 23:53 79 20 07/21/23 20:00 96 20 07/21/23 17:37 97.9 F 104 H 20 129/82 07/21/23 15:47 95 16 07/21/23 13:09 100 140 H 101 H 130/100 BP BP Pulse Ox 07/22/23 11:22 93/62 95 07/22/23 09:48 102/69 101/68 07/22/23 08:08 96 07/22/23 03:59 105/70 91 L 07/21/23 23:53 102/68 97 07/21/23 20:00 107/71 95 07/21/23 17:37 96 07/21/23 15:47 78/54 97 07/21/23 13:09 107/93 113/88 Intake and Output 07/21/23 07/22/23 07/22/23 22:59 06:59 14:59 Intake Total 628.461 608.924 107.577 Balance 628.461 608.924 107.577 Intake: Intake, IV Titration 88.461 68.924 107.577 Amount Heparin Sod,Pork in 0.45% 88.461 68.924 107.577 NaCl 25,000 unit In 0.45 % NaCl 1 250ml.bag @ 18 UNITS/KG/HR 22.861 mls/hr IV .[id number] [facility] Rx#: [id number] Oral 540 540 Other: Voiding Method External Catheter External Catheter External Catheter # Voids 1 No acute distress, oriented 3. Room air saturation is 95%. HEENT examination is grossly unremarkable. Mucous membranes are moist. No oral lesions. Neck supple. Full range of motion. No adenopathy thyromegaly or neck vein distention. Cardiovascular examination reveals regular rhythm rate. S1-S2 normal. No S3 or S4. No discernible murmur noted. Heart rate is 84 bpm. Lungs reveal clear breath sounds. Breath sounds are equal bilaterally. No adventitious lung sounds including wheezes rhonchi or crackles. Abdomen soft bowel sounds are heard. No masses or tenderness. Extremities are intact. No cyanosis clubbing or edema. Skin is without rash or lesion. Neurologic examination is brief but nonfocal. Results - Laboratory Findings CBC and BMP: 07/22/23 09:32 07/21/23 07:04 PT/INR, D-dimer PT 11.5 sec (10.0-12.5) 07/20/23 16:11 INR 1.1 (<1.2) 07/20/23 16:11 Abnormal lab findings: Abnormal Labs 07/20/23 07/20/23 07/20/23 16:11 16:11 22:29 WBC 3.7 L RBC 5.92 H MCV 73.7 L MCH 24.1 L RDW 17.4 H APTT Carbon Dioxide 21 L Creatinine 0.50 L Calcium 11.0 H AST 52 H ALT 63 H Urine Appearance Cloudy H Ur Specific [place] >1.050 H Urine Protein 1+ H Urine Ketones 3+ H Urine Blood Large H Urine Bilirubin 1+ H Ur Leukocyte Esterase Trace H Urine RBC >182 H Urine WBC 121 H Ur Squamous Epith Cells 15 H Urine Bacteria Many H Hyaline Casts 65 H Urine Mucus Few H 07/21/23 07/21/23 07/21/23 04:33 07:04 07:04 WBC RBC 5.52 H MCV 76.2 L MCH 24.1 L RDW 17.9 H APTT >200.0 H* Carbon Dioxide Creatinine Calcium 10.3 H AST 46 H ALT 64 H Urine Appearance Ur Specific [place] Urine Protein Urine Ketones Urine Blood Urine Bilirubin Ur Leukocyte Esterase Urine RBC Urine WBC Ur Squamous Epith Cells Urine Bacteria Hyaline Casts Urine Mucus 07/21/23 07/21/23 07/22/23 13:15 21:11 09:32 WBC RBC MCV 77.0 L MCH 24.2 L RDW 17.3 H APTT 126.6 H* 52.3 H Carbon Dioxide Creatinine Calcium AST ALT Urine Appearance Ur Specific [place] Urine Protein Urine Ketones Urine Blood Urine Bilirubin Ur Leukocyte Esterase Urine RBC Urine WBC Ur Squamous Epith Cells Urine Bacteria Hyaline Casts Urine Mucus 07/22/23 09:32 WBC RBC MCV MCH RDW APTT 85.0 H Carbon Dioxide Creatinine Calcium AST ALT Urine Appearance Ur Specific [place] Urine Protein Urine Ketones Urine Blood Urine Bilirubin Ur Leukocyte Esterase Urine RBC Urine WBC Ur Squamous Epith Cells Urine Bacteria Hyaline Casts Urine Mucus - Diagnostic Findings Chest x-ray: image reviewed CT scan - chest: image reviewed Assessment and Plan Assessment: Recurrent bilateral pulmonary emboli, first diagnosed in May 2022, and again seen in February 2023, and July 2023. Rule out a primary hypercoagulable state. Abdominal pain and rectal bleeding, may relate to anticoagulation. Recurrent episodes of fainting/syncope. No other major medical problems. Plan: Plan dated 07/22/2023. We recommended hematology consultation, to evaluate for a primary hypercoagulable state. The patient's currently on IV heparin. Additional recommendations and suggestions are forthcoming. Her respiratory status is stable. She was admitted for respiratory issues but rather for abdominal pain, rectal bleeding, and recurrent episodes of fainting. We will continue to follow make recommendations along the way. Prognosis is certainly guarded. Time with Patient: Greater than 30
--- NOTE | 2023-07-22 14:05 | P.PN ---
Subjective Progress Note Date: 07/22/23 NAEON. Mild epigastric pain. No N/V. No F/C. No SOB or CP. Admits to flatus, no BM. No further melena or hematochezia. Tolerating CLD without issue. Objective - Vital Signs Vital signs: Vital Signs Temp 98.0 F 07/22/23 08:08 Pulse 84 07/22/23 13:10 Resp 16 07/22/23 11:22 BP 93/62 07/22/23 11:22 Pulse Ox 95 07/22/23 11:22 FiO2 Intake & Output 07/21/23 07/22/23 07/22/23 18:59 06:59 18:59 Intake Total 94.715 1205.972 347.577 Balance 94.715 1205.972 347.577 Intake: Intake, IV Titration 94.715 125.972 107.577 Amount Heparin Sod,Pork in 0.45% 94.715 125.972 107.577 NaCl 25,000 unit In 0.45 % NaCl 1 250ml.bag @ 18 UNITS/KG/HR 22.861 mls/hr IV .[id number] [facility] Rx#: [id number] Oral 1080 240 Other: Voiding Method External Catheter External Catheter # Voids 1 - Exam Gen: AxO, NAD Pulm: non-labored respirations Abd: soft, minimally-tender in epigastrium, non-distended. No guarding/re bound/rigidity Extrem: no edema seen - Labs CBC & Chem 7: 07/22/23 09:32 07/21/23 07:04 Labs: Abnormal Lab Results - Last 24 Hours (Table) 07/21/23 07/21/23 07/22/23 Range/Units 13:15 21:11 09:32 MCV 77.0 L (80.0-100.0) fL MCH 24.2 L (25.0-35.0) pg RDW 17.3 H (11.5-15.5) % APTT 126.6 H* 52.3 H (22.0-30.0) sec 07/22/23 Range/Units 09:32 MCV (80.0-100.0) fL MCH (25.0-35.0) pg RDW (11.5-15.5) % APTT 85.0 H (22.0-30.0) sec Assessment and Plan Assessment: Patient is a 27 year old female who presents with abdominal pain and rectal bleeding. Plan: -CLD as tolerated -Trend Hb; transfuse per primary -Continue IV heparin for PE -GI PPx -No acute surgical intervention; will continue to monitor Mark Mitchell MD General Surgery
--- NOTE | 2023-07-22 14:47 | P.PN ---
Subjective Progress Note Date: 07/22/23 Patient was seen for a follow-up. Patient offers no new complaints. Objective - Vital Signs Vital signs: Vital Signs Temp 98.0 F 07/22/23 08:08 Pulse 94 07/22/23 09:48 Resp 16 07/22/23 08:08 BP 101/68 07/22/23 09:48 Pulse Ox 96 07/22/23 08:08 FiO2 Intake & Output 07/21/23 07/22/23 07/22/23 18:59 06:59 18:59 Intake Total 94.715 1205.972 Balance 94.715 1205.972 Intake: Intake, IV Titration 94.715 125.972 Amount Heparin Sod,Pork in 0.45% 94.715 125.972 NaCl 25,000 unit In 0.45 % NaCl 1 250ml.bag @ 18 UNITS/KG/HR 22.861 mls/hr IV .[id number] [facility] Rx#: [id number] Oral 1080 Other: Voiding Method External Catheter External Catheter # Voids 1 - Exam Examination unchanged. Mentation normal. Strength normal. No ataxia. Sensations equal. - Labs CBC & Chem 7: 07/22/23 09:32 07/21/23 07:04 Labs: Abnormal Lab Results - Last 24 Hours (Table) 07/21/23 07/21/23 07/22/23 Range/Units 13:15 21:11 09:32 MCV 77.0 L (80.0-100.0) fL MCH 24.2 L (25.0-35.0) pg RDW 17.3 H (11.5-15.5) % APTT 126.6 H* 52.3 H (22.0-30.0) sec 07/22/23 Range/Units 09:32 MCV (80.0-100.0) fL MCH (25.0-35.0) pg RDW (11.5-15.5) % APTT 85.0 H (22.0-30.0) sec Assessment and Plan Assessment: * Syncopal spell, likely due to orthostasis versus vasovagal. Seizures ruled out. * GI bleed * Recurrent pulmonary embolism and DVT. Patient now came with another episode of pulmonary embolism, despite being on Eliquis. 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 * Chronic headaches Plan: * Initial orthostatics were positive. However repeat orthostatics today are negative. Supine blood pressure 101/68 and pulse 94, sitting 102/70 pulse 105, and standing 102/69 with pulse 108. As per nursing report, patient's orthostatics were negative, but she would not walk. * We will consult PT and OT. * Continue daily orthostatics checks. * EEG was borderline abnormal due to mixed fast and slow frequency activity suggestive of mild encephalopathy or medication effect. No epileptiform activ ity was seen. * CT head revealed no acute intracranial process. I personally reviewed CT and agree with the findings. No hydrocephalus. * 2-D echo revealed hyperdynamic left ventricular systolic function, with EF 65- 70%. Normal left atrial size. No valvular abnormalities. * Ultrasound of lower extremities negative for DVT. * Other management as per IM, and other multiple specialties on board. * Neurologically clear, if cleared by PT and OT.
--- NOTE | 2023-07-22 17:54 | P.PN ---
Subjective Ginny Cage is a 27 yo F with PMH of recurrent PE, morbid obesity, lumbar disc disease who presented to the ED after passing out multiple times at home. She complains that over the past few weeks but especially in the last few days she has been having episodes of passing out. She reports 9-10 episodes of passing out with loss of consciousness in the last few days. She denies a previous history of syncope. She continues on the [facility] since her admission in May of 2023. She also complains of right lower quadrant abdominal pain and states she has been experiencing this discomfort since June. On presentation vitals stable, EKG with NSR, Chest CTA: Pulmonary embolism, minimal burden involving the lobar, segmental, subsegmental branches of the right lower lobe. Overall clot burden significantly diminished compared to February 2023 07/22/2019 this is a pleasant 27 years old female with past medical history of pulmonary embolism [facility] Was admitted with syncope which is thought secondary to orthostatic hypotension versus vasovagal. CTA was showing positive for pulmonary embolism, with nonspecific patchy ground glass opacity in the left perihilar region and lung bases. No evidence of pneumonia but patient was placed on heparin drip and hematology/oncology team were consulted, anticardiolipin antibodies were neg ative, lupus anticoagulant is still pending Currently kept on heparin drip Hemoglobin normal Vitals stable Neurology evaluated the patient admitted for discharge after PT/OT evaluation which is ordered EEG is negative Ejection fraction 65-70% CT of the abdomen and pelvis showed a left renal calculus 6 mm with bladder circumferentially wall thickness Patient today was fully awake and oriented, not in distress lying in bed comfortable. She still complaining of from blood per rectum but no abdominal pain or tenderness, surgery evaluated the patient and the recommended no surgical intervention Patient also reports currently have menstrual cycle started 3 days ago She remains on heparin drip normal saline 75 mL/h and Protonix and Pepcid Review of systems CONSTITUTIONAL: No fever, no malaise, no fatigue. HEENT: No recent visual problems or hearing problems. Denied any sore throat. CARDIOVASCULAR: No orthopnea, PND, no palpitations, no syncope. PULMONARY: No shortness of breath, no cough, no hemoptysis. GASTROINTESTINAL: No diarrhea, no nausea, no vomiting, no abdominal pain. Normoactive bowel sounds. NEUROLOGICAL: No headaches, no weakness, no numbness. Active Medications Generic Name Dose Route Start Last Admin Trade Name Freq PRN Reason Stop Dose Admin Famotidine 40 mg 07/21/23 18:09 Famotidine 20 Mg Tab PO BID PRN Heartburn Heparin Sodium (Porcine) 0 unit 07/20/23 21:08 Heparin Sodium 1,000 Un/Ml (10ml Vl) IV PER PROTOCOL PRN Low PTT Protocol Hydromorphone HCl 1 mg 07/20/23 19:36 07/22/23 17:18 Hydromorphone 1 Mg/Ml 1 Ml Syringe IVP 1 mg Q4HR PRN Administration Pain Heparin Sodium/Sodium Chloride 250 mls @ 22.861 mls/hr 07/20/23 21:15 07/22/23 15:18 25,000 unit/ Sodium Chloride IV 9 units/kg/hr .[id number] GEORGE 11.431 mls/hr Administration Protocol 18 UNITS/KG/HR Sodium Chloride 1,000 mls @ 75 mls/hr 07/20/23 21:15 07/22/23 11:25 Saline 0.9% IV 75 mls/hr .[id number] GEORGE Administration Loperamide HCl 2 mg 07/22/23 05:52 Loperamide 2 Mg Cap PO BID PRN Diarrhea Loratadine 10 mg 07/21/23 18:09 07/22/23 08:16 Loratadine 10 Mg Tab PO 10 mg DAILY GEORGE Administration Lorazepam 1 mg 07/20/23 19:36 07/22/23 08:32 Lorazepam 2 Mg/Ml Inj IV 1 mg Q6HR PRN Administration Anxiety Naloxone HCl 0.2 mg 07/20/23 21:08 Naloxone 0.4 Mg/Ml 1 Ml Vial IV Q2M PRN Opioid Reversal Ondansetron HCl 4 mg 07/20/23 19:36 07/22/23 17:18 Ondansetron 4 Mg/2 Ml Vial IVP 4 mg Q8HR PRN Administration Nausea And Vomiting Pantoprazole Sodium 40 mg 07/21/23 09:30 07/22/23 08:17 Pantoprazole 40 Mg/10 Ml Vial IVP 40 mg BID GEORGE Administration Tizanidine HCl 4 mg 07/22/23 08:55 07/22/23 09:08 Tizanidine 4 Mg Tab PO 4 mg TID PRN Administration Muscle Pain Objective - Vital Signs Vital signs: Vital Signs Temp 98.0 F 07/22/23 08:08 Pulse 84 07/22/23 13:10 Resp 16 07/22/23 11:22 BP 93/62 07/22/23 11:22 Pulse Ox 95 07/22/23 11:22 FiO2 Intake & Output 07/21/23 07/22/23 07/22/23 18:59 06:59 18:59 Intake Total 94.715 1205.972 347.577 Balance 94.715 1205.972 347.577 Intake: Intake, IV Titration 94.715 125.972 107.577 Amount Heparin Sod,Pork in 0.45% 94.715 125.972 107.577 NaCl 25,000 unit In 0.45 % NaCl 1 250ml.bag @ 18 UNITS/KG/HR 22.861 mls/hr IV .[id number] [facility] Rx#: [id number] Oral 1080 240 Other: Voiding Method External Catheter External Catheter # Voids 1 - Exam -GENERAL: The patient is alert and oriented x3, not in any acute distress. morbidly obese HEENT: Pupils are round and equally reacting to light. EOMI. No scleral icterus. No conjunctival pallor. Normocephalic, atraumatic. No pharyngeal erythema. No thyromegaly. CARDIOVASCULAR: S1 and S2 present. No murmurs, rubs, or gallops. PULMONARY: Chest is clear to auscultation, no wheezing , no crackles. ABDOMEN: Soft, nontender, nondistended, normoactive bowel sounds. No palpable organomegaly. MUSCULOSKELETAL: No joint swelling or deformity. EXTREMITIES: No cyanosis, clubbing, or pedal edema. NEUROLOGICAL: Gross neurological examination did not reveal any focal deficits. SKIN: No rashes. no petechiae. - Labs CBC & Chem 7: 07/22/23 09:32 07/21/23 07:04 Labs: Abnormal Lab Results - Last 24 Hours (Table) 07/21/23 07/22/23 07/22/23 Range/Units 21:11 09:32 09:32 MCV 77.0 L (80.0-100.0) fL MCH 24.2 L (25.0-35.0) pg RDW 17.3 H (11.5-15.5) % APTT 52.3 H 85.0 H (22.0-30.0) sec Assessment and Plan Assessment: Acute pulmonary embolism on history per previous PE versus residual from previous clots and disease Bleeding per rectum, however hemoglobin normal Left kidney stone, 6 mm, asymptomatic The correct syncope is thought secondary to orthostatic hypotension versus vasovagal, improving Plan: continue with heparin drip Monitor hemoglobin Check a: Blood in stool Surgical team recommended no surgery intervention Hospital Pharmacy Director team are on the case, lupus anticoagulant still pending Pulmonary team on the case neurology service cleared the patient already with PT OT recommendation Labs and medication were reviewed.. Continue same treatment. Continue with symptomatic treatment. Resume home medication. Monitor labs and vitals. DVT and GI prophylaxis. Further recommendations as per clinical course of the patient DVT prophylaxis: heparin GI Prophylaxis: Pepcid PT/OT: Pending Prognosis is guarded
[2023-07-23] MEDS: HYDROmorphone 1 MG/ML 1 ML SYRINGE IVP PRN ×6 (01:11→22:04)
[2023-07-23] MEDS: SODIUM CHLORIDE 0.9% 1,000 ML IV SCH ×2 (03:54→11:16)
[2023-07-23] MEDS: HEPARIN SOD,PORK IN 0.45% NACL 25,000 UNIT in 0.45% NACL 1 250ML.BAG IV SCH ×2 (08:16→11:15)
[2023-07-23] MEDS: tiZANidine 4 MG TAB PO PRN (08:25)
[2023-07-23] MEDS: LORATADINE 10 MG TAB PO SCH (08:25)
[2023-07-23] MEDS: ONDANSETRON 4 MG/2 ML VIAL IVP PRN ×2 (08:25→17:08)
[2023-07-23] MEDS: PANTOPRAZOLE 40 MG/10 ML VIAL IVP SCH ×2 (08:25→20:18)
[2023-07-23] MEDS: LORazepam 2 MG/ML INJ IV PRN ×2 (09:44→22:04)
[2023-07-23 09:48] LABS: Anisocytosis Slight; HCT 35.4 % (34.0-46.0); HGB 11.7 gm/dL (11.4-16.0); Hypochromasia Slight; MCV 75.9 fL (80.0-100.0); Microcytosis Slight; Platelet Count 283 k/uL (150-450); RBC 4.66 m/uL (3.80-5.40)
[2023-07-23 10:49] LABS: African American GFR (CKD) >90 (>60 ml/min/1.73 sqM); Anion Gap 13 mmol/L; Blood Urea Nitrogen 2 mg/dL (7-17); Calcium 8.8 mg/dL (8.4-10.2); Carbon Dioxide 23 mmol/L (22-30); Chloride 103 mmol/L (98-107); Glucose 85 mg/dL (74-99); Non-African American GFR(CKD) >90 (>60 ml/min/1.73 sqM); Potassium 3.7 mmol/L (3.5-5.1); Sodium 139 mmol/L (137-145)
[2023-07-23] MEDS ORDERED: METOCLOPRAMIDE 5 MG/ML 2 ML VIAL IVP PRN (11:25)
[2023-07-23 11:52] LABS: HCG,Qualitative Serum Not Detected
[2023-07-23 12:04] LABS: T4, Free (Free Thyroxine) 1.92 ng/dL (0.78-2.19)
--- NOTE | 2023-07-23 12:15 | P.PN ---
Subjective Progress Note Date: 07/23/23 She is on blood thinners. She has vomiting and can't keep anything down. She has syncopal episodes. She had blood thinners. Upper and lower endoscopy. She report Jun 17 over 1 month, at RUQ pain. She reports feeling sick. She has intolerance to greasey foods. Objective - Vital Signs Vital signs: Vital Signs Temp 98.1 F 07/23/23 08:17 Pulse 85 07/23/23 08:17 Resp 16 07/23/23 08:17 BP 116/77 07/23/23 08:17 Pulse Ox 100 07/23/23 08:25 FiO2 Intake & Output 07/22/23 07/23/23 07/23/23 18:59 06:59 18:59 Intake Total 757.302 540 228.048 Output Total 600 Balance 757.302 540 -371.952 Intake: Intake, IV Titration 157.302 228.048 Amount Heparin Sod,Pork in 0.45% 157.302 228.048 NaCl 25,000 unit In 0.45 % NaCl 1 250ml.bag @ 18 UNITS/KG/HR 22.861 mls/hr IV .[id number] [facility] Rx#: [id number] Oral 600 540 Output: Urine 600 Other: Voiding Method External Catheter External Catheter External Catheter # Bowel Movements 1 - Labs CBC & Chem 7: 07/23/23 08:54 07/23/23 09:33 Labs: Abnormal Lab Results - Last 24 Hours (Table) 07/22/23 07/23/23 07/23/23 Range/Units 17:35 08:54 08:54 MCV 75.9 L (80.0-100.0) fL RDW 18.0 H (11.5-15.5) % APTT 66.0 H 52.8 H (22.0-30.0) sec BUN (7-17) mg/dL Creatinine (0.52-1.04) mg/dL 07/23/23 Range/Units 09:33 MCV (80.0-100.0) fL RDW (11.5-15.5) % APTT (22.0-30.0) sec BUN 2 L (7-17) mg/dL Creatinine 0.49 L (0.52-1.04) mg/dL
[2023-07-23 12:20] LABS: Eosinophils # (M) 0.04 k/uL (0-0.7); Lymphocytes # (M) 1.96 k/uL (1.0-4.8); Monocytes # (M) 0.32 k/uL (0-1.0); Neutrophils # (M) 1.68 k/uL (1.3-7.7); Neutrophils % (M) 42 %; Nucleated Red Blood Cells 0 /100 WBC (0-0); Total Cells Counted 100
--- NOTE | 2023-07-23 14:46 | P.PN ---
Subjective Progress Note Date: 07/23/23 Principal diagnosis: Recurrent pulmonary embolism. Pulmonary consult dated 07/22/2023. 27-year-old female who was initially seen in the emergency department, on July 20. The patient initially presented with complaints of abdominal pain, recurrent episodes of fainting, and rectal bleeding. More recently, we are consulted, for a diagnosis of pulmonary embolism. The patient did not come into the hospital with shortness of breath. She still doesn't have shortness of live th. She's currently on room air. Saturations are excellent. She is getting IV heparin, and she is getting saline at 75 mL an hour. Dopplers of lower extremities were negative. Going back over her history, it appears that she had her first pulmonary embolism, in May 2022. A follow-up computed tomography scan was done in July 2022, and showed no evidence of PE. Subsequently, the patient had another CTA, done in February 2023, which showed bilateral pulmonary embolism. The computed tomography scan done in July of this year, showed bilateral pulmonary emboli, although, the emboli are diminished when compared to the previous CTA. Currently, the patient states that she has been taking her medications as prescribed. She is currently on IV heparin. She's getting saline at 75 mL an hour. Labs include a white count of 4.3, hemoglobin 11.6, hematocrit 36.9, and a platelet count that was normal. PTT is 85. Sodium, potassium, chloride, CO2, are all normal. Anion gap is wide at 16. BUN is 8, and creatinine 0.59. Liver function tests are essentially within normal range. Calcium is a bit high 10.3. Urine is cloudy, with 1+ protein. There is a large amount of blood in the urine. Leukocyte esterase is trace positive. Nitrite is negative. Many bacteria are noted. Anti-cardiolipin antibody testing was negative. Progress note dated 07/23/2023. This is a very pleasant 27-year-old female that we saw on consultation yesterday. The patient presented to the emergency department on July 20, complaining of fainting episodes, rectal bleeding, and abdominal pain. She was not having shortness of breath. The patient had a follow-up CT angiogram, which was improved, compared to her last CT angiogram, but did still show clot burden. The patient has been on Eliquis. Hematology did see the patient, and is in the process of evaluating the patient for possible hypercoagulable state. Currently, the patient is on IV heparin, 2 L of oxygen, and saline at 75 mL an hour. Current labs are white count of 4, hemoglobin 11.7, hematocrit 35.4, and a platelet count of 283,000. Sodium 139, potassium 3.7, chlorides 103, CO2 23, BUN 2, creatinine 0.49. Objective - Vital Signs Vital signs: Vital Signs Temp 98.1 F 07/23/23 08:17 Pulse 76 07/23/23 13:25 Resp 16 07/23/23 11:14 BP 94/61 07/23/23 11:14 Pulse Ox 99 07/23/23 11:14 FiO2 Intake & Output 07/22/23 07/23/23 07/23/23 18:59 06:59 18:59 Intake Total 757.302 540 586.048 Output Total 600 Balance 757.302 540 -13.952 Intake: Intake, IV Titration 157.302 228.048 Amount Heparin Sod,Pork in 0.45% 157.302 228.048 NaCl 25,000 unit In 0.45 % NaCl 1 250ml.bag @ 18 UNITS/KG/HR 22.861 mls/hr IV .[id number] [facility] Rx#: [id number] Oral 600 540 358 Output: Urine 600 Other: Voiding Method External Catheter External Catheter Bedside Commode External Catheter # Bowel Movements 1 - Exam No acute distress, oriented 3. 2 L saturation is 100%. HEENT examination is grossly unremarkable. Mucous membranes are moist. No oral lesions. Neck supple. Full range of motion. No adenopathy thyromegaly or neck vein distention. Cardiovascular examination reveals regular rhythm rate. S1-S2 normal. No S3 or S4. No discernible murmur noted. Heart rate is 96 bpm. Lungs reveal clear breath sounds. Breath sounds are equal bilaterally. No adventitious lung sounds including wheezes rhonchi or crackles. Abdomen soft bowel sounds are heard. No masses or tenderness. Extremities are intact. No cyanosis clubbing or edema. Skin is without rash or lesion. Neurologic examination is brief but nonfocal. - Labs CBC & Chem 7: 07/23/23 08:54 07/23/23 09:33 Labs: Abnormal Lab Results - Last 24 Hours (Table) 07/22/23 07/23/23 07/23/23 Range/Units 17:35 08:54 08:54 MCV 75.9 L (80.0-100.0) fL RDW 18.0 H (11.5-15.5) % APTT 66.0 H 52.8 H (22.0-30.0) sec BUN (7-17) mg/dL Creatinine (0.52-1.04) mg/dL 07/23/23 Range/Units 09:33 MCV (80.0-100.0) fL RDW (11.5-15.5) % APTT (22.0-30.0) sec BUN 2 L (7-17) mg/dL Creatinine 0.49 L (0.52-1.04) mg/dL Assessment and Plan Assessment: Recurrent bilateral pulmonary emboli, first diagnosed in May 2022, and again seen in February 2023, and July 2023. Rule out a primary hypercoagulable state. Abdominal pain and rectal bleeding, may relate to anticoagulation. Recurrent episodes of fainting/syncope. No other major medical problems. Plan: Plan dated 07/22/2023. We recommended hematology consultation, to evaluate for a primary hypercoagulable state. The patient's currently on IV heparin. Additional recommendations and suggestions are forthcoming. Her respiratory status is stab le. She was admitted for respiratory issues but rather for abdominal pain, rectal bleeding, and recurrent episodes of fainting. We will continue to follow make recommendations along the way. Prognosis is certainly guarded. Plan dated 07/23/2023. Appreciate input from hematology. Labs, x-rays, medications are reviewed. The patient continues on IV heparin. Her vital signs are stable. She was not admitted with any shortness of breath, or anything related to her pulmonary embolism. Rather, she was admitted with a diagnosis of rectal bleeding, abdominal discomfort, and fainting episodes. We will continue to follow make recommendations along the way. Prognosis is guarded. Time with Patient: Less than 30
--- NOTE | 2023-07-23 15:50 | P.PN ---
Subjective Progress Note Date: 07/23/23 Principal diagnosis: Recurrent syncope This is a 27-year-old female patient with a past medical history significant for history of pulmonary embolism was submassive back in 2022 as well as obesity. We asked to see the patient in consultation for recurrent syncope. The patient underwent further investigation including an EKG which showed sinus mechanism with T-wave inversion and also a chest computed tomography scan which showed pulmonary embolism with minimal burden involving the lobar and segmental branches of the right lower lobe. Troponin was within normal limits. The patient was seen and evaluated today. She has been maintaining normal sinus mechanism. No arrhythmia so far has been detected. Beside that she underwent an orthostatic blood pressure check and that came in to be unremarkable. She also underwent an echocardiogram was Doppler and that revealed normal LV systolic function with no significant valvular abnormalities. She also was seen by the neurology service and currently she is also under the care of the pulmonary service and also she is under the care of the general surgery service for possible gastrointestinal bleeding. So far no explanation for her syncope which continues to be under investigation. Hemodynamically she is a stable with a soft the blood pressure. She is on heparin IV at this point. The examination is remarkable for regular rhythm with clear breathing sounds bilaterally and no edema in the lower extremities but she has mildly tender right upper quadrant. Assessment Recurrent syncope currently under investigation History of pulmonary embolism currently she is on heparin Right upper quadrant discomfort Possible gastrointestinal bleeding Soft blood pressure Plan From the cardiac standpoint of view, we'll continue monitor the patient for any arrhythmia and the patient also might benefit from an event monitor as an outpatient and possibly loop recorder. The general surgery service and pulmonary service and neurology service also on the case. Also I discussed with the patient the possible need for second opinion in tertiary facility to find out the etiology for her symptoms and she stated that she will think about it. Meanwhile the echo showed normal all the systolic function was no significant va lvular abnormalities. We will continue following up with the patient Objective - Vital Signs Vital signs: Vital Signs Temp 98.1 F 07/23/23 08:17 Pulse 76 07/23/23 13:25 Resp 16 07/23/23 11:14 BP 94/61 07/23/23 11:14 Pulse Ox 99 07/23/23 11:14 FiO2 Intake & Output 07/22/23 07/23/23 07/23/23 18:59 06:59 18:59 Intake Total 757.302 540 586.048 Output Total 600 Balance 757.302 540 -13.952 Intake: Intake, IV Titration 157.302 228.048 Amount Heparin Sod,Pork in 0.45% 157.302 228.048 NaCl 25,000 unit In 0.45 % NaCl 1 250ml.bag @ 18 UNITS/KG/HR 22.861 mls/hr IV .[id number] [facility] Rx#: [id number] Oral 600 540 358 Output: Urine 600 Other: Voiding Method External Catheter External Catheter Bedside Commode External Catheter # Bowel Movements 1 - Labs CBC & Chem 7: 07/23/23 08:54 07/23/23 09:33 Labs: Abnormal Lab Results - Last 24 Hours (Table) 07/22/23 07/23/23 07/23/23 Range/Units 17:35 08:54 08:54 MCV 75.9 L (80.0-100.0) fL RDW 18.0 H (11.5-15.5) % APTT 66.0 H 52.8 H (22.0-30.0) sec BUN (7-17) mg/dL Creatinine (0.52-1.04) mg/dL 07/23/23 Range/Units 09:33 MCV (80.0-100.0) fL RDW (11.5-15.5) % APTT (22.0-30.0) sec BUN 2 L (7-17) mg/dL Creatinine 0.49 L (0.52-1.04) mg/dL
--- NOTE | 2023-07-23 21:10 | P.PN ---
Subjective Ginny Cage is a 27 yo F with PMH of recurrent PE, morbid obesity, lumbar disc disease who presented to the ED after passing out multiple times at home. She complains that over the past few weeks but especially in the last few days she has been having episodes of passing out. She reports 9-10 episodes of passing out with loss of consciousness in the last few days. She denies a previous history of syncope. She continues on the eliquis since her admission in May of 2023. She also complains of right lower quadrant abdominal pain and states she has been experiencing this discomfort since June. On presentation vitals stable, EKG with NSR, Chest CTA: Pulmonary embolism, minimal burden involving the lobar, segmental, subsegmental branches of the right lower lobe. Overall clot burden significantly diminished compared to February 2023 07/22/2023 this is a pleasant 27 years old female with past medical history of pulmonary embolism on the Eliquis Was admitted with syncope which is thought secondary to orthostatic hypotension versus vasovagal. CTA was showing positive for pulmonary embolism, with nonspecific patchy ground glass opacity in the left perihilar region and lung bases. No evidence of pneumonia but patient was placed on heparin drip and hematology/oncology team were consulted, anticardiolipin antibodies were neg ative, lupus anticoagulant is still pending Currently kept on heparin drip Hemoglobin normal Vitals stable Neurology evaluated the patient admitted for discharge after PT/OT evaluation which is ordered EEG is negative Ejection fraction 65-70% CT of the abdomen and pelvis showed a left renal calculus 6 mm with bladder circumferentially wall thickness Patient today was fully awake and oriented, not in distress lying in bed comfortable. She still complaining of from blood per rectum but no abdominal pain or tenderness, surgery evaluated the patient and the recommended no surgical intervention Patient also reports currently have menstrual cycle started 3 days ago She remains on heparin drip normal saline 75 mL/h and Protonix and Pepcid 07/23/2023 patient awake alert, sitting in bed comfortable No abdominal pain however patient is not eating much, because of her nausea. She could not tolerate Zofran so it was wished Reglan Patient admitted initially with what is thought another episode of pulmonary embolism while on Eliquis and she is currently placed on heparin drip, ultrasound of the neck was negative Today patient reports black stool, with one large bowel movement, confirmed by keerthi thompson nurse. So we ordered occult blood in stool which came back negative. Hemoglobin stable at 11.7, baseline is 12-13, hemoglobin, close to baseline. Patient also reports she has menstrual cycle currently. Possible patient thought that her menstrual blood is coming from stool, or her initial GI bleed she came in with have stopped. Because of this we ordered another occult blood in stool and anemia workup which again iron level if this is within reference range normal level then other patient had minimal bleeding or her bleeding stopped. General surgery and hematology team on the case. Pediatric Surgeon recommended event monitor Possible positive echo syncope related to her recurrent vomiting Objective - Vital Signs Vital signs: Vital Signs Temp 98.1 F 07/23/23 08:17 Pulse 76 07/23/23 11:14 Resp 16 07/23/23 11:14 BP 94/61 07/23/23 11:14 Pulse Ox 99 07/23/23 11:14 FiO2 Intake & Output 07/22/23 07/23/23 07/23/23 18:59 06:59 18:59 Intake Total 757.302 540 228.048 Output Total 600 Balance 757.302 540 -371.952 Intake: Intake, IV Titration 157.302 228.048 Amount Heparin Sod,Pork in 0.45% 157.302 228.048 NaCl 25,000 unit In 0.45 % NaCl 1 250ml.bag @ 18 UNITS/KG/HR 22.861 mls/hr IV .[id number] [facility] Rx#: [id number] Oral 600 540 Output: Urine 600 Other: Voiding Method External Catheter External Catheter External Catheter # Bowel Movements 1 - Exam -GENERAL: The patient is alert and oriented x3, not in any acute distress. morbidly obese HEENT: Pupils are round and equally reacting to light. EOMI. No scleral icterus. No conjunctival pallor. Normocephalic, atraumatic. No pharyngeal erythema. No thyromegaly. CARDIOVASCULAR: S1 and S2 present. No murmurs, rubs, or gallops. PULMONARY: Chest is clear to auscultation, no wheezing , no crackles. ABDOMEN: Soft, nontender, nondistended, normoactive bowel sounds. No palpable organomegaly. MUSCULOSKELETAL: No joint swelling or deformity. EXTREMITIES: No cyanosis, clubbing, or pedal edema. NEUROLOGICAL: Gross neurological examination did not reveal any focal deficits. SKIN: No rashes. no petechiae. - Labs CBC & Chem 7: 07/23/23 08:54 07/23/23 09:33 Labs: Abnormal Lab Results - Last 24 Hours (Table) 07/22/23 07/23/23 07/23/23 Range/Units 17:35 08:54 08:54 MCV 75.9 L (80.0-100.0) fL RDW 18.0 H (11.5-15.5) % APTT 66.0 H 52.8 H (22.0-30.0) sec BUN (7-17) mg/dL Creatinine (0.52-1.04) mg/dL 07/23/23 Range/Units 09:33 MCV (80.0-100.0) fL RDW (11.5-15.5) % APTT (22.0-30.0) sec BUN 2 L (7-17) mg/dL Creatinine 0.49 L (0.52-1.04) mg/dL Assessment and Plan Assessment: Acute pulmonary embolism on history per previous PE versus residual from previous clots and disease Bleeding per rectum, however hemoglobin normal, however occult blood in the stool is negative. Repeat occult blood in stool. Left kidney stone, 6 mm, asymptomatic Recurrent syncope is thought secondary to orthostatic hypotension versus vasovagal, improving Plan: continue with heparin drip Monitor hemoglobin Repeat occult blood in stool Check iron studies Surgical team recommended no surgery intervention Com[facility] [place] team are on the case, lupus anticoagulant still pending Pulmonary team on the case neurology service cleared the patient already with PT OT recommendation Labs and medication were reviewed.. Continue same treatment. Continue with symptomatic treatment. Resume home medication. Monitor labs and vitals. DVT and GI prophylaxis. Further recommendations as per clinical course of the patient DVT prophylaxis: heparin GI Prophylaxis: Pepcid PT/OT: Pending Prognosis is guarded
[2023-07-24] MEDS: HEPARIN SOD,PORK IN 0.45% NACL 25,000 UNIT in 0.45% NACL 1 250ML.BAG IV SCH ×2 (04:22→13:50)
[2023-07-24] MEDS: HYDROmorphone 1 MG/ML 1 ML SYRINGE IVP PRN ×4 (04:48→21:09)
[2023-07-24 09:27] LABS: Anisocytosis Slight; Basophils % (A) 0 %; Eosinophils # (A) 0.1 k/uL (0-0.7); Eosinophils % (A) 2 %; HCT 36.4 % (34.0-46.0); HGB 11.6 gm/dL (11.4-16.0); Hypochromasia Moderate; Lymphocytes # (A) 1.7 k/uL (1.0-4.8); Lymphocytes % (A) 47 %; MCH 24.6 pg (25.0-35.0); MCHC 31.9 g/dL (31.0-37.0); MCV 77.1 fL (80.0-100.0); Mean Platelet Volume 7.6; Microcytosis Slight; Monocytes # (A) 0.2 k/uL (0-1.0); Monocytes % (A) 7 %; Neutrophils # (A) 1.6 k/uL (1.3-7.7); Neutrophils % (A) 43 %; Platelet Count 313 k/uL (150-450); RBC 4.72 m/uL (3.80-5.40); RDW 18.1 % (11.5-15.5); WBC 3.7 k/uL (3.8-10.6)
[2023-07-24] MEDS: LORATADINE 10 MG TAB PO SCH (09:29)
[2023-07-24] MEDS: PANTOPRAZOLE 40 MG/10 ML VIAL IVP SCH ×2 (09:29→21:08)
[2023-07-24] MEDS: SODIUM CHLORIDE 0.9% 1,000 ML IV SCH ×2 (09:30→17:47)
--- NOTE | 2023-07-24 11:04 | P.PN ---
Subjective Progress Note Date: 07/24/23 07/24/2023, I am seeing the patient for a follow-up. The patient was hospitalized with episodes of fainting and rectal bleeding. We were involved in the case as the patient was also diagnosed having pulmonary embolism. The patient had no significant shortness of breath at time of admission. The patien t was on room air oxygen. Her pulse ox was within normal limits. She was started on IV heparin. Doppler of the lower extremities were negative. She has had previous history of pulmonary embolism back in May 2022. A follow-up CAT scan of the chest was done on July 2022 and showed no evidence of any pulm embolism. Subsequently, the patient was given another CT of the chest in February 2023 and the patient was found to have bilateral pulmonary embolism. The patient had a subsequent CT scan of the chest in July 2023 that showed bilateral pulmonary emboli diminished compared to the previous study. She stated that she was taking her medication. As such, the patient has recurrent bilateral pulm embolism first diagnosed in May 2022 and subsequently clots were visualized in February 2023 in July 2023. For the time being, the patient is on IV heparin. The patient was taken off Eliquis. The hemoglobin has dropped from 14.3 down to 11.7 during this current admission. In terms of those recurrent passing out events, this was thought to be related to orthostatic hypotension versus vasovagal. Neurology has been involved also and EEG was negative. Echocardiogram showed normal LV function and CT scan of the abdomen and pelvis showed a left renal calculus measuring 6 mm in size and bladder wall thickening consistent with underlying urine tract infection. She remains on IV heparin and normal saline. During the current hospitalization, on 07/23/2023, the patient reported black stool with 1 large bowel movement that was confirmed by the nursing staff. Occult stool was negative for blood however. It was thought that could have been menstrual in nature. The patient is being seen by general surgery, hematology oncology for possible hypercoagulability, neurology and cardiology. Event monitor will be also added.Patient is currently on room air oxygen. I noted that hemoglobin has remained stable since yesterday and the hemoglobin this morning is at 11.6. She remains on IV heparin. Awaiting further workup from neurology and cardiology regarding her passing out events. Objective - Vital Signs Vital signs: Vital Signs Temp 98.2 F 07/24/23 09:26 Pulse 85 01/15/24 09:26 Resp 15 07/24/23 09:26 BP 108/69 07/24/23 09:26 Pulse Ox 98 07/24/23 09:26 FiO2 Intake & Output 07/23/23 07/24/23 07/24/23 18:59 06:59 18:59 Intake Total 1206.048 Output Total 600 950 Balance 606.048 -950 Intake: Intake, IV Titration 228.048 Amount Heparin Sod,Pork in 0.45% 228.048 NaCl 25,000 unit In 0.45 % NaCl 1 250ml.bag @ 18 UNITS/KG/HR 22.861 mls/hr IV .[id number] [facility] Rx#: [id number] Oral 978 Output: Urine 600 950 Other: Voiding Method Bedside Commode Bedside Commode Bedside Commode External Catheter External Catheter External Catheter # Voids 1 1 # Bowel Movements 1 - Exam No acute distress, oriented 3. HEENT examination is grossly unremarkable. Mucous membranes are moist. No oral lesions. Neck supple. Full range of motion. No adenopathy thyromegaly or neck vein distention. Cardiovascular examination reveals regular rhythm rate. S1-S2 normal. No S3 or S4. No discernible murmur noted. Lungs reveal clear breath sounds. Breath sounds are equal bilaterally. No adventitious lung sounds including wheezes rhonchi or crackles. Abdomen soft bowel sounds are heard. No masses or tenderness. Extremities are intact. No cyanosis clubbing or edema. Skin is without rash or lesion. Neurologic examination is brief but nonfocal. - Labs CBC & Chem 7: 07/24/23 07:53 07/23/23 09:33 Labs: Abnormal Lab Results - Last 24 Hours (Table) 07/24/23 07/24/23 Range/Units 07:53 07:53 WBC 3.7 L (3.8-10.6) k/uL MCV 77.1 L (80.0-100.0) fL MCH 24.6 L (25.0-35.0) pg RDW 18.1 H (11.5-15.5) % APTT 55.2 H (22.0-30.0) sec Assessment and Plan Plan: Assessment Recurrent pulmonary embolism, maintained on anticoagulation with Eliquis on outpatient basis, currently on IV heparin. Based on the review of the various CAT scans, the last CTA of the chest that was done on 07/20/2023 showed positive pulm embolism with minimal current clot burden in the lobar and the segmental branches in the right lower lobe. The clot burden has diminished. Nonspecific patchy groundglass changes in the left perihilar area in the left base. As such, it is very unlikely that the recurrent passing out events is related to pulmonary embolism as the patient has been adequately treated and clot burden has diminished. Furthermore, no hemodynamic changes in the echocardiogram that was done on 07/21/2023 showed no significant abnormality, no pulmonary hypertension the patient has a preserved LV function. Dopplers are negative for DVT Syncope, recurrent, under investigation Abdominal pain at the time of admission, no significant pathology and the patient was found to have a nonspecific renal stone calculus measuring 6 mm on the left Hypertension Migraines COVID-19 back in 2021 Chronic back pain Plan Continue IV heparin as of this patient with Eliquis at the time of discharge Monitor hemoglobin if there is no evidence of any GI bleed Treatment for pulm embolism has been successful and the patient's clot burden on the CAT scan of the chest is improved and the groundglass changes in the lungs are essentially nonspecific Hypercoagulable workup Neurology workup for syncope cardiology workup for syncope
--- NOTE | 2023-07-24 11:09 | P.PN ---
Subjective Progress Note Date: 07/23/23 Patient was seen for a follow-up. Patient is laying comfortably in the bed. Patient's was also present including other family members. Patient complains of her lower abdomen is hurting. Patient says that she got up to go to the bathroom, got lightheaded and sat down. He has not been able to walk by herself. Patient's was concerned about "pots syndrome". Objective - Vital Signs Vital signs: Vital Signs Temp 98.0 F 07/23/23 15:44 Pulse 83 07/23/23 15:44 Resp 16 07/23/23 15:44 BP 110/77 07/23/23 15:44 Pulse Ox 95 07/23/23 15:44 FiO2 Intake & Output 07/22/23 07/23/23 07/23/23 18:59 06:59 18:59 Intake Total 757.302 540 586.048 Output Total 600 Balance 757.302 540 -13.952 Intake: Intake, IV Titration 157.302 228.048 Amount Heparin Sod,Pork in 0.45% 157.302 228.048 NaCl 25,000 unit In 0.45 % NaCl 1 250ml.bag @ 18 UNITS/KG/HR 22.861 mls/hr IV .[id number] [facility] Rx#: [id number] Oral 600 540 358 Output: Urine 600 Other: Voiding Method External Catheter External Catheter Bedside Commode External Catheter # Bowel Movements 1 - Exam Examination unchanged. Mentation normal. Strength normal. No ataxia. Sensations equal. - Labs CBC & Chem 7: 07/24/23 07:53 07/23/23 09:33 Labs: Abnormal Lab Results - Last 24 Hours (Table) 07/22/23 07/23/23 07/23/23 Range/Units 17:35 08:54 08:54 MCV 75.9 L (80.0-100.0) fL RDW 18.0 H (11.5-15.5) % APTT 66.0 H 52.8 H (22.0-30.0) sec BUN (7-17) mg/dL Creatinine (0.52-1.04) mg/dL 07/23/23 Range/Units 09:33 MCV (80.0-100.0) fL RDW (11.5-15.5) % APTT (22.0-30.0) sec BUN 2 L (7-17) mg/dL Creatinine 0.49 L (0.52-1.04) mg/dL Assessment and Plan Assessment: * Syncopal spell, likely due to orthostasis versus vasovagal. Seizures ruled out. * GI bleed * Recurrent pulmonary embolism and DVT. Patient now came with another episode of pulmonary embolism, despite being on Eliquis. 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 * Chronic headaches Plan: * Initial orthostatics were positive. However repeat orthostatics today are negative. Need to repeat orthostatics daily. * We will consult PT and OT. * Continue daily orthostatics checks. * EEG was borderline abnormal due to mixed fast and slow frequency activity suggestive of mild encephalopathy or medication effect. No epileptiform activity was seen. * CT head revealed no acute intracranial process. I personally reviewed CT and agree with the findings. No hydrocephalus. * 2-D echo revealed hyperdynamic left ventricular systolic function, with EF 65- 70%. Normal left atrial size. No valvular abnormalities. * Ultrasound of lower extremities negative for DVT. * Other management as per IM, and other multiple specialties on board. * If her symptoms persist, may need tilt table test. Cardiology also on the case.
[2023-07-24 11:15] LABS: ALT 108 U/L (4-34); AST 76 U/L (14-36); African American GFR (CKD) >90 (>60 ml/min/1.73 sqM); Albumin 3.1 g/dL (3.5-5.0); Alkaline Phosphatase 70 U/L (38-126); Anion Gap 8 mmol/L; Blood Urea Nitrogen <2 mg/dL (7-17); Calcium 8.4 mg/dL (8.4-10.2); Carbon Dioxide 23 mmol/L (22-30); Chloride 108 mmol/L (98-107); Glucose 81 mg/dL (74-99); Non-African American GFR(CKD) >90 (>60 ml/min/1.73 sqM); Potassium 3.5 mmol/L (3.5-5.1); Sodium 139 mmol/L (137-145); Total Bilirubin 0.6 mg/dL (0.2-1.3); Total Protein 5.5 g/dL (6.3-8.2)
[2023-07-24] MEDS: LORazepam 2 MG/ML INJ IV PRN ×2 (11:27→23:15)
[2023-07-24] MEDS ORDERED: PEG 3350 (236 GM/BTL) + LYTES 4,000 ML BOTTLE PO ONE (11:38)
[2023-07-24] MEDS ORDERED: LACTULOSE 20 GM/30 ML CUP PO ONE (11:38)
[2023-07-24 11:43] LABS: Bilirubin, Delta 0.3 mg/dL (0.0-0.2); Bilirubin,Unconjugated 0.3 mg/dL (0.0-1.1)
[2023-07-24 12:46] LABS: APTT 74 Sec(s) (<43); APTT 1:1 Mix 50 Sec(s) (<43); Dilute Russell Viper Venom 41 Sec(s) (<44); Hexagonal Phase Neutralization Negative (Negative)
--- NOTE | 2023-07-24 14:28 | P.PN ---
Subjective Progress Note Date: 07/24/23 Principal diagnosis: Recurrent syncope This is a 27-year-old female patient with a past medical history significant for history of pulmonary embolism was submassive back in 2022 as well as obesity. We asked to see the patient in consultation for recurrent syncope. The patient underwent further investigation including an EKG which showed sinus mechanism with T-wave inversion and also a chest computed tomography scan which showed pulmonary embolism with minimal burden involving the lobar and segmental branches of the right lower lobe. Troponin was within normal limits. The patient was seen and evaluated today. She has been maintaining normal sinus mechanism. No arrhythmia so far has been detected. Beside that she underwent an orthostatic blood pressure check and that came in to be unremarkable. She also underwent an echocardiogram was Doppler and that revealed normal LV systolic function with no significant valvular abnormalities. She also was seen by the neurology service and currently she is also under the care of the pulmonary service and also she is under the care of the general surgery service for possible gastrointestinal bleeding. So far no explanation for her syncope which continues to be under investigation. Hemodynamically she is a stable with a soft the blood pressure. She is on heparin IV at this point. 07/24 Patient is seen today in follow-up. She complains of feeling dizzy. She is currently on heparin drip and scheduled for endoscopy tomorrow or GI bleed. Heart rate is in the 80s, blood pressure 140/67 pulse ox 99% on room air. Hemoglobin 11.6. Creatinine 0.44. Liver enzymes are elevated. Stool for occult blood was negative. Recommend the patient has event monitor outpatient. The examination is remarkable for regular rhythm with clear breathing sounds bilaterally and no edema in the lower extremities but she has mildly tender right upper quadrant. Assessment Recurrent syncope currently under investigation History of pulmonary embolism currently she is on heparin Possible gastrointestinal bleeding Soft blood pressure Plan Continue patient on heparin drip, resume eliquis once cleared by general surgery and pulmonary medicine Patient may benefit from an event monitor as an outpatient and possibly loop rec order. Cardiology will sign off this case and follow on an as-needed basis. Please reconsult for any new concerns. Patient may follow-up in the office in one to 2 weeks. Nurse practitioner note has been reviewed, I agree with the documented findings and plan of care. Patient was seen and examined. Objective - Vital Signs Vital signs: Vital Signs Temp 98.2 F 07/24/23 09:26 Pulse 88 01/15/24 11:24 Resp 15 07/24/23 11:24 BP 140/67 07/24/23 11:24 Pulse Ox 99 07/24/23 11:24 FiO2 Intake & Output 07/23/23 07/24/23 07/24/23 18:59 06:59 18:59 Intake Total 1206.048 Output Total 600 950 750 Balance 606.048 -950 -750 Intake: Intake, IV Titration 228.048 Amount Heparin Sod,Pork in 0.45% 228.048 NaCl 25,000 unit In 0.45 % NaCl 1 250ml.bag @ 18 UNITS/KG/HR 22.861 mls/hr IV .[id number] [facility] Rx#: [id number] Oral 978 Output: Urine 600 950 750 Other: Voiding Method Bedside Commode Bedside Commode Bedside Commode External Catheter External Catheter External Catheter # Voids 1 1 # Bowel Movements 1 - Labs CBC & Chem 7: 07/24/23 07:53 07/24/23 07:53 Labs: Abnormal Lab Results - Last 24 Hours (Table) 07/24/23 07/24/23 07/24/23 Range/Units 07:53 07:53 07:53 WBC 3.7 L (3.8-10.6) k/uL MCV 77.1 L (80.0-100.0) fL MCH 24.6 L (25.0-35.0) pg RDW 18.1 H (11.5-15.5) % APTT 55.2 H (22.0-30.0) sec Chloride 108 H (98-107) mmol/L BUN <2 L (7-17) mg/dL Creatinine 0.44 L (0.52-1.04) mg/dL Delta Bilirubin 0.3 H (0.0-0.2) mg/dL AST 76 H (14-36) U/L ALT 108 H (4-34) U/L Total Protein 5.5 L (6.3-8.2) g/dL Albumin 3.1 L (3.5-5.0) g/dL
--- NOTE | 2023-07-24 14:38 | P.PN ---
Subjective Progress Note Date: 07/24/23 H&P Date: 07/21/23 Chief Complaint: syncope Ginny Cage is a 27 yo F with PMH of recurrent PE, morbid obesity, lumbar disc disease who presented to the ED after passing out multiple times at home. She complains that over the past few weeks but especially in the last few days she has been having episodes of passing out. She reports 9-10 episodes of pas sing out with loss of consciousness in the last few days. She denies a previous history of syncope. She continues on the eliquis since her admission in May of 2023. She also complains of right lower quadrant abdominal pain and states she has been experiencing this discomfort since June. On presentation vitals stable, EKG with NSR, Chest CTA: Pulmonary embolism, minimal burden involving t he lobar, segmental, subsegmental branches of the right lower lobe. Overall clot burden significantly diminished compared to February 2023 07/24/2023 reports continued rectal bleeding, last bloody bowel movement yesterday-dark and tarry accompanied by unchanged abdominal pain/right lower quadrant. On admission, hemoglobin 14.3 currently down to 11.6. Platelets 313. Delta bilirubin 0.3, AST 76, ALT 108. Evaluated by general surgery and patient is scheduled for EGD and colonoscopy tomorrow. Afebrile, soft blood pressures, maintaining O2 sats of 100% on 2 L nasal cannula. Objective - Vital Signs Vital signs: Vital Signs Temp 98.2 F 07/24/23 09:26 Pulse 85 07/24/23 09:26 Resp 15 07/24/23 09:26 BP 108/69 07/24/23 09:26 Pulse Ox 98 07/24/23 09:26 FiO2 Intake & Output 07/23/23 07/24/23 07/24/23 18:59 06:59 18:59 Intake Total 1206.048 Output Total 600 950 Balance 606.048 -950 Intake: Intake, IV Titration 228.048 Amount Heparin Sod,Pork in 0.45% 228.048 NaCl 25,000 unit In 0.45 % NaCl 1 250ml.bag @ 18 UNITS/KG/HR 22.861 mls/hr IV .[id number] [facility] Rx#: [id number] Oral 978 Output: Urine 600 950 Other: Voiding Method Bedside Commode Bedside Commode Bedside Commode External Catheter External Catheter External Catheter # Voids 1 1 # Bowel Movements 1 - Exam Vitals reviewed General: morbidly obese well nourished NAD HEENT: Normocephalic, atraumatic, mucus membranes moist Neck: supple, no JVD CV: Regular rate and rhythm, pulses 2+ Lungs: Normal effort. No wheezes or rales Abd: soft, TTP RLQ bowel sounds present Neuro: Alert and oriented x3, no focal deficit Skin: warm and dry - Labs CBC & Chem 7: 07/24/23 07:53 07/24/23 07:53 Labs: Abnormal Lab Results - Last 24 Hours (Table) 07/24/23 07/24/23 Range/Units 07:53 07:53 WBC 3.7 L (3.8-10.6) k/uL MCV 77.1 L (80.0-100.0) fL MCH 24.6 L (25.0-35.0) pg RDW 18.1 H (11.5-15.5) % APTT 55.2 H (22.0-30.0) sec Assessment and Plan Assessment: Nausea, vomiting, diarrhea with Right lower quadrant abdominal pain accompanied by rectal bleeding, decreased appetite times one month. Syncope, recurrent, initial orthostatic vital signs positive. Neurology workup in progress.seiures ruled out. History of PE , requiring Ecos 2022 ,on eliquis. Denies missed doses of Eliquis. Evaluated by pulmonary- CTA , showed bilateral pulmonary emboli, although, the emboli are diminished when compared to the previous CTA. Hypercoagulable workup in progress. Morbid obesity, BMI 47, ( BMI 58.8 on 08/01) Chronic back pain Gastroesophageal reflux disease Plan: Continue on current medication regime. Orthostatic vital signs ordered every shift, pending. Patient has been evaluated by gentle surgery, pulmonary, neurology and cardiology services. Cardiology recommended patient follow-up with tertiary care facility for a second opinion.Patient is scheduled for EGD and colonoscopy tomorrow with Dr. Browning. Nothing by mouth at midnight. M aintain PPI, close monitoring of hemoglobin, platelets. The impression and plan of care has been dictated as directed. : I performed a history and examination of this patient, discussed the same with the dictator. I agree with the dictator's note ,documented as a scribe. Any additional findings or plans will be noted.
--- NOTE | 2023-07-24 15:29 | P.PN ---
Subjective Progress Note Date: 07/24/23 Principal diagnosis: Pulmonary embolism In follow-up today patient denies any new bleeding or unusual bruising. She continues to have right red blood per rectum or dark tarry stool-one of the other with every bowel movement. She is pending upper and lower endoscopy tomorrow. She denies any shortness of breath, chest pain, abdominal pain or cramping. Objective - Vital Signs Vital signs: Vital Signs Temp 98.2 F 07/24/23 09:26 Pulse 88 07/24/23 11:24 Resp 15 07/24/23 11:24 BP 139/51 07/24/23 14:36 Pulse Ox 99 07/24/23 11:24 FiO2 Intake & Output 07/23/23 07/24/23 07/24/23 18:59 06:59 18:59 Intake Total 1206.048 250 Output Total 600 950 750 Balance 606.048 -950 -500 Intake: Intake, IV Titration 228.048 250 Amount Heparin Sod,Pork in 0.45% 228.048 250 NaCl 25,000 unit In 0.45 % NaCl 1 250ml.bag @ 18 UNITS/KG/HR 22.861 mls/hr IV .[id number] [facility] Rx#: [id number] Oral 978 Output: Urine 600 950 750 Other: Voiding Method Bedside Commode Bedside Commode Bedside Commode External Catheter External Catheter External Catheter # Voids 1 1 # Bowel Movements 1 - Constitutional General appearance: Present: cooperative, no acute distress, obese - EENT Eyes: Present: anicteric sclerae, EOMI ENT: Present: hearing grossly normal - Respiratory Details: Respirations even and unlabored at rest - Cardiovascular Details: Skin warm and dry to the touch - Peripheral edema foot Peripheral Edema: bilateral: None - Integumentary Integumentary: Present: normal - Neurologic Neurologic: Present: CNII-XII intact (Grossly) - Psychiatric Psychiatric: Present: A&O x's 3, appropriate affect, intact judgment & insight - Labs CBC & Chem 7: 07/24/23 07:53 07/24/23 07:53 Labs: Abnormal Lab Results - Last 24 Hours (Table) 07/21/23 07/24/23 07/24/23 Range/Units 16:27 07:53 07:53 WBC 3.7 L (3.8-10.6) k/uL MCV 77.1 L (80.0-100.0) fL MCH 24.6 L (25.0-35.0) pg RDW 18.1 H (11.5-15.5) % APTT 55.2 H (22.0-30.0) sec Lupus Anticoag aPTT 74 H (<43) Sec(s) Lupus Anticoag PTT Mix 50 H (<43) Sec(s) Chloride (98-107) mmol/L BUN (7-17) mg/dL Creatinine (0.52-1.04) mg/dL Delta Bilirubin (0.0-0.2) mg/dL AST (14-36) U/L ALT (4-34) U/L Total Protein (6.3-8.2) g/dL Albumin (3.5-5.0) g/dL 07/24/23 Range/Units 07:53 WBC (3.8-10.6) k/uL MCV (80.0-100.0) fL MCH (25.0-35.0) pg RDW (11.5-15.5) % APTT (22.0-30.0) sec Lupus Anticoag aPTT (<43) Sec(s) Lupus Anticoag PTT Mix (<43) Sec(s) Chloride 108 H (98-107) mmol/L BUN <2 L (7-17) mg/dL Creatinine 0.44 L (0.52-1.04) mg/dL Delta Bilirubin 0.3 H (0.0-0.2) mg/dL AST 76 H (14-36) U/L ALT 108 H (4-34) U/L Total Protein 5.5 L (6.3-8.2) g/dL Albumin 3.1 L (3.5-5.0) g/dL Assessment and Plan (1) Melena Current Visit: Yes Status: Acute Priority: High Code(s): K92.1 - MELENA SNOMED Code(s): 1138348 (2) Pulmonary embolism Current Visit: Yes Status: Chronic Priority: Medium Code(s): I26.99 - OTHER PULMONARY EMBOLISM WITHOUT ACUTE COR PULMONALE SNOMED Code(s): 22991342 Plan: Melena and bright red blood per rectum -Pt denies having either while on eliquis. No other bleeding to report -Currently on heparin drip, pending endoscopy to assess above -Cont to monitor Hgb-stable today at 11.6 Hx PE -BLE Doppler, neg for DVT -Based on report review, not convincing that this is acute PE -Case discussed with Pulm. Plans to review CTA for acute PE. -Antiphospholipid antibody workup pending. Cardiolipin antibodies have returned negative. Still pending lupus anticoagulant and beta 2 glycoprotein. -If not felt to be acute on chronic PE antiphospholipid antibodies are negative, recommend resuming eliquis as pt has tolerated well.
--- NOTE | 2023-07-24 15:41 | P.PN ---
Subjective Progress Note Date: 07/24/23 CHIEF COMPLAINT: GI bleeding HISTORY OF PRESENT ILLNESS: Patient reports that she continues to have bright red blood per rectum. She had 2 bowel movements yesterday that were bloody. She complains of right-sided abdominal pain. She denies any nausea or vomiting. Hemoglobin has trended down from admission from 14.3-11.6 PHYSICAL EXAM: VITAL SIGNS: Reviewed. GENERAL: Well-developed in no acute distress. ABDOMEN: Soft. Obese. Nondistended. right-sided abdominal pain more so in the lower abdomen with palpation NEUROLOGIC: Alert and oriented. Cranial nerves II through XII grossly intact. ASSESSMENT: 1. Right-sided abdominal pain 2. GI bleed with bloody stools 3. History of PE PLAN: -Patient scheduled for EGD and colonoscopy tomorrow with Dr. Browning -Rafy bowel prep today with lactulose -Clear liquid diet today -Hold IV heparin at 7 AM tomorrow -Nothing by mouth after midnight -Continue to monitor hemoglobin -Continue monitoring for any signs or symptoms of bleeding Physician Inspector Scales note has been reviewed by physician. Signing provider agrees with the documented findings, assessment, and plan of care. Objective - Vital Signs Vital signs: Vital Signs Temp 98.2 F 07/24/23 09:26 Pulse 88 07/24/23 11:24 Resp 15 07/24/23 11:24 BP 140/67 07/24/23 11:24 Pulse Ox 99 07/24/23 11:24 FiO2 Intake & Output 07/23/23 07/24/23 07/24/23 18:59 06:59 18:59 Intake Total 1206.048 Output Total 600 950 Balance 606.048 -950 Intake: Intake, IV Titration 228.048 Amount Heparin Sod,Pork in 0.45% 228.048 NaCl 25,000 unit In 0.45 % NaCl 1 250ml.bag @ 18 UNITS/KG/HR 22.861 mls/hr IV .[id number] [facility] Rx#: [id number] Oral 978 Output: Urine 600 950 Other: Voiding Method Bedside Commode Bedside Commode Bedside Commode External Catheter External Catheter External Catheter # Voids 1 1 # Bowel Movements 1 - Labs CBC & Chem 7: 07/24/23 07:53 07/24/23 07:53 Labs: Abnormal Lab Results - Last 24 Hours (Table) 07/24/23 07/24/23 07/24/23 Range/Units 07:53 07:53 07:53 WBC 3.7 L (3.8-10.6) k/uL MCV 77.1 L (80.0-100.0) fL MCH 24.6 L (25.0-35.0) pg RDW 18.1 H (11.5-15.5) % APTT 55.2 H (22.0-30.0) sec Chloride 108 H (98-107) mmol/L BUN <2 L (7-17) mg/dL Creatinine 0.44 L (0.52-1.04) mg/dL AST 76 H (14-36) U/L ALT 108 H (4-34) U/L Total Protein 5.5 L (6.3-8.2) g/dL Albumin 3.1 L (3.5-5.0) g/dL
--- NOTE | 2023-07-24 19:37 | P.PN ---
Subjective Progress Note Date: 07/24/23 Patient was seen for a follow-up. Patient is sitting in the recliner, appears comfortable. Patient states that she has only been walking from chair to the bedside commode to with help and with a walker. She has not been standing too long. Any prolonged standing produces dizziness, lightheadedness. Still has lower abdominal pain. Patient denies any blurred vision, or diplopia. She does have a lot of headaches. Patient states that she saw an brush machine setter in 2021, but not last year. Objective - Vital Signs Vital signs: Vital Signs Temp 97.4 F L 07/24/23 15:22 Pulse 104 H 07/24/23 15:22 Resp 17 07/24/23 15:22 BP 133/86 07/24/23 15:22 Pulse Ox 96 07/24/23 15:22 FiO2 Intake & Output 07/24/23 07/24/23 07/25/23 06:59 18:59 06:59 Intake Total 250 Output Total 950 750 Balance -950 -500 Intake: Intake, IV Titration 250 Amount Heparin Sod,Pork in 0.45% 250 NaCl 25,000 unit In 0.45 % NaCl 1 250ml.bag @ 18 UNITS/KG/HR 22.861 mls/hr IV .[id number] [facility] Rx#: [id number] Output: Urine 950 750 Other: Voiding Method Bedside Commode Bedside Commode External Catheter External Catheter # Voids 1 # Bowel Movements 1 - Exam Examination unchanged. Mentation normal. Strength normal. No ataxia. Sensations equal. Patient has restriction of peripheral vision all around. - Labs CBC & Chem 7: 07/24/23 07:53 07/24/23 07:53 Labs: Abnormal Lab Results - Last 24 Hours (Table) 07/21/23 07/24/23 07/24/23 Range/Units 16:27 07:53 07:53 WBC 3.7 L (3.8-10.6) k/uL MCV 77.1 L (80.0-100.0) fL MCH 24.6 L (25.0-35.0) pg RDW 18.1 H (11.5-15.5) % APTT 55.2 H (22.0-30.0) sec Lupus Anticoag aPTT 74 H (<43) Sec(s) Lupus Anticoag PTT Mix 50 H (<43) Sec(s) Chloride (98-107) mmol/L BUN (7-17) mg/dL Creatinine (0.52-1.04) mg/dL Delta Bilirubin (0.0-0.2) mg/dL AST (14-36) U/L ALT (4-34) U/L Total Protein (6.3-8.2) g/dL Albumin (3.5-5.0) g/dL 07/24/23 Range/Units 07:53 WBC (3.8-10.6) k/uL MCV (80.0-100.0) fL MCH (25.0-35.0) pg RDW (11.5-15.5) % APTT (22.0-30.0) sec Lupus Anticoag aPTT (<43) Sec(s) Lupus Anticoag PTT Mix (<43) Sec(s) Chloride 108 H (98-107) mmol/L BUN <2 L (7-17) mg/dL Creatinine 0.44 L (0.52-1.04) mg/dL Delta Bilirubin 0.3 H (0.0-0.2) mg/dL AST 76 H (14-36) U/L ALT 108 H (4-34) U/L Total Protein 5.5 L (6.3-8.2) g/dL Albumin 3.1 L (3.5-5.0) g/dL Assessment and Plan Assessment: * Syncopal spell, likely due to orthostasis versus vasovagal. Seizures ruled out. * GI bleed * Recurrent pulmonary embolism and DVT. Patient now came with another episode of pulmonary embolism, despite being on Eliquis. 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 * Chronic headaches Plan: * Initial orthostatics were positive. However repeat orthostatics today are negative. Per nurse report, the orthostatics are negative yesterday and today, although they have not been documenting in the system. * We will consult PT and OT. * Because of persistent symptoms, and negative orthostatics, we will initiate tilt table test. * EEG was borderline abnormal due to mixed fast and slow frequency activity suggestive of mild encephalopathy or medication effect. No epileptiform activity was seen. * CT head revealed no acute intracranial process. I personally reviewed CT and agree with the findings. No hydrocephalus. * 2-D echo revealed hyperdynamic left ventricular systolic function, with EF 65- 70%. Normal left atrial size. No valvular abnormalities. * Ultrasound of lower extremities negative for DVT. * Other management as per IM, and other multiple specialties on board. * Patient has restricted peripheral vision all around. She does have chronic headaches. Patient was recommended to follow up with brush machine setter outpatient to rule out disc edema/pseudotumor cerebri. Cannot perform lumbar puncture because patient is on anticoagulants at this time. * Dr. Chauncey Scruggs Will resume neurology service in the morning.
[2023-07-24] MEDS: ONDANSETRON 4 MG/2 ML VIAL IVP PRN (21:08)
[2023-07-25] MEDS: HYDROmorphone 1 MG/ML 1 ML SYRINGE IVP PRN ×3 (00:27→18:38)
[2023-07-25] MEDS: HEPARIN SOD,PORK IN 0.45% NACL 25,000 UNIT in 0.45% NACL 1 250ML.BAG IV SCH ×2 (05:45→11:48)
[2023-07-25] MEDS: PANTOPRAZOLE 40 MG/10 ML VIAL IVP SCH ×2 (08:02→21:16)
[2023-07-25] MEDS: LORATADINE 10 MG TAB PO SCH (08:02)
[2023-07-25] MEDS: SODIUM CHLORIDE 0.9% 1,000 ML IV SCH ×2 (08:05→11:48)
[2023-07-25 09:33] LABS: Anisocytosis Slight; Basophils % (A) 0 %; Eosinophils # (A) 0.1 k/uL (0-0.7); Eosinophils % (A) 3 %; HGB 11.3 gm/dL (11.4-16.0); Hypochromasia Moderate; Lymphocytes # (A) 1.6 k/uL (1.0-4.8); Lymphocytes % (A) 44 %; MCH 23.5 pg (25.0-35.0); MCHC 30.4 g/dL (31.0-37.0); MCV 77.1 fL (80.0-100.0); Mean Platelet Volume 8.1; Microcytosis Slight; Monocytes # (A) 0.2 k/uL (0-1.0); Monocytes % (A) 7 %; Neutrophils # (A) 1.6 k/uL (1.3-7.7); Neutrophils % (A) 44 %; Platelet Count 296 k/uL (150-450); WBC 3.6 k/uL (3.8-10.6)
[2023-07-25 10:02] LABS: Potassium 3.7 mmol/L (3.5-5.1)
[2023-07-25 10:03] LABS: African American GFR (CKD) >90 (>60 ml/min/1.73 sqM); Anion Gap 8 mmol/L; Blood Urea Nitrogen <2 mg/dL (7-17); Calcium 8.8 mg/dL (8.4-10.2); Carbon Dioxide 29 mmol/L (22-30); Chloride 104 mmol/L (98-107); Glucose 88 mg/dL (74-99); Non-African American GFR(CKD) >90 (>60 ml/min/1.73 sqM); Sodium 141 mmol/L (137-145)
[2023-07-25] MEDS ORDERED: IV FLUID CONTINUATION 1,000 ML IV ONE (11:00)
[2023-07-25] MEDS ORDERED: LIDOCAINE 1% INJ 10MG/ML (20 ML MDV) ONE (11:01)
[2023-07-25] MEDS ORDERED: PROPOFOL 10 MG/ML 20 ML VIAL IV ONE (11:01)
[2023-07-25] MEDS ORDERED: KETAMINE HCL IN 0.9 % NACL 50 MG/5 ML SYRINGE ONE (11:01)
--- NOTE | 2023-07-25 11:24 | P.PCN ---
Date of Procedure: 07/25/23 Procedure(s) Performed: PREOPERATIVE DIAGNOSIS: GI bleed, abdominal pain POSTOPERATIVE DIAGNOSIS: Mild gastritis, normal colon PROCEDURE: 1. EGD with biopsy 2. Colonoscopy ANESTHESIA: MAC SURGEON: Duran Browning M.D. SPECIMENS: Antrum ENDOSCOPIC PROCEDURE: The patient was on the endoscopy table in the left decubitus position. The Olympus gastroscope was inserted into the oropharynx and passed under direct visualization to the region of the third portion of the duodenum. From that point the scope was slowly withdrawn inspecting all surfaces carefully. There were no neoplastic inflammatory or polypoid lesions throughout the duodenum. The pylorus was widely patent. The stomach was carefully inspected. There was mild gastritis present. A biopsy of the antrum took place to rule out H. pylori. Retroflexion revealed a normal hiatus. The esophagus was then carefully examined. There were no neoplastic inflammatory or polypoid lesions throughout the visualized esophagus. The patient was kept on the endoscopy table in the left decubitus position. The Olympus colonoscope was inserted into the anus and passed under direct visualization to the base of the cecum. The appendiceal orifice was visualized. The scopes was advanced into the ileum. The distal 10 cm of ileum appeared nor mal. The valve itself also appeared normal. From that point the scope was slowly withdrawn inspecting all surfaces carefully. There were no neoplastic inflammatory or polypoid lesions throughout the cecum, ascending, transverse, descending, sigmoid and rectum. There was no visible diverticulosis noted. Digital rectal examination was normal. The patient was taken to the recovery room in stable condition per anesthesia guidelines. RECOMMENDATIONS: No obvious pathology seen on upper and lower endoscopy to explain the patient's pain and bleeding. Bleeding may be related to perianal irritation. May resume anticoagulation. If symptoms persist small bowel capsule endoscopy would be an option however diagnostic yield extremely low.
--- NOTE | 2023-07-25 12:27 | P.PN ---
Subjective Progress Note Date: 07/25/23 07/24/2023, I am seeing the patient for a follow-up. The patient was hospitalized with episodes of fainting and rectal bleeding. We were involved in the case as the patient was also diagnosed having pulmonary embolism. The patient had no significant shortness of breath at time of admission. The patien t was on room air oxygen. Her pulse ox was within normal limits. She was started on IV heparin. Doppler of the lower extremities were negative. She has had previous history of pulmonary embolism back in May 2022. A follow-up CAT scan of the chest was done on July 2022 and showed no evidence of any pulm embolism. Subsequently, the patient was given another CT of the chest in February 2023 and the patient was found to have bilateral pulmonary embolism. The patient had a subsequent CT scan of the chest in July 2023 that showed bilateral pulmonary emboli diminished compared to the previous study. She stated that she was taking her medication. As such, the patient has recurrent bilateral pulm embolism first diagnosed in May 2022 and subsequently clots were visualized in February 2023 in July 2023. For the time being, the patient is on IV heparin. The patient was taken off Eliquis. The hemoglobin has dropped from 14.3 down to 11.7 during this current admission. In terms of those recurrent passing out events, this was thought to be related to orthostatic hypotension versus vasovagal. Neurology has been involved also and EEG was negative. Echocardiogram showed normal LV function and CT scan of the abdomen and pelvis showed a left renal calculus measuring 6 mm in size and bladder wall thickening consistent with underlying urine tract infection. She remains on IV heparin and normal saline. During the current hospitalization, on 07/23/2023, the patient reported black stool with 1 large bowel movement that was confirmed by the nursing staff. Occult stool was negative for blood however. It was thought that could have been menstrual in nature. The patient is being seen by general surgery, hematology oncology for possible hypercoagulability, neurology and cardiology. Event monitor will be also added.Patient is currently on room air oxygen. I noted that hemoglobin has remained stable since yesterday and the hemoglobin this morning is at 11.6. She remains on IV heparin. Awaiting further workup from neurology and cardiology regarding her passing out events. On today's evaluation 07/25/2023, the patient remains on IV heparin. No bleeding complications. EGD and colonoscopy was done and the patient was found to have mild antral gastritis. Based on that, I made recommendations to stop the IV heparin and switch this patient back to the coagulation with Eliquis. She is on room air oxygen. WBC because of 3.6. Hemoglobin is 11.[address] atelet count is at 296. The rest of the electrolytes are all stable. BUN is at 2 with a creatinine of 0.5 and a sodium level is at 141. Stool for blood was also negative. The patient will need a tilt table test at the later stage. Orthostatics were negative. Objective - Vital Signs Vital signs: Vital Signs Temp 97.8 F 07/25/23 07:57 Pulse 96 07/25/23 07:57 Resp 17 07/25/23 07:57 BP 105/74 07/25/23 07:57 Pulse Ox 97 07/25/23 07:57 FiO2 Intake & Output 07/24/23 07/25/23 07/25/23 18:59 06:59 18:59 Intake Total 250 195.089 Output Total 750 250 Balance -500 -54.911 Intake: Intake, IV Titration 250 195.089 Amount Heparin Sod,Pork in 0.45% 250 195.089 NaCl 25,000 unit In 0.45 % NaCl 1 250ml.bag @ 18 UNITS/KG/HR 22.861 mls/hr IV .[id number] [facility] Rx#: [id number] Output: Urine 750 250 Other: Voiding Method Bedside Commode Bedside Commode Bedside Commode External Catheter External Catheter External Catheter # Voids 1 1 # Bowel Movements 1 1 - Exam No acute distress, oriented 3. HEENT examination is grossly unremarkable. Mucous membranes are moist. No oral lesions. Neck supple. Full range of motion. No adenopathy thyromegaly or neck vein distention. Cardiovascular examination reveals regular rhythm rate. S1-S2 normal. No S3 or S4. No discernible murmur noted. Lungs reveal clear breath sounds. Breath sounds are equal bilaterally. No adventitious lung sounds including wheezes rhonchi or crackles. Abdomen soft bowel sounds are heard. No masses or tenderness. Extremities are intact. No cyanosis clubbing or edema. Skin is without rash or lesion. Neurologic examination is brief but nonfocal. - Labs CBC & Chem 7: 01/16/24 08:59 07/25/23 08:59 Labs: Abnormal Lab Results - Last 24 Hours (Table) 07/21/23 07/24/23 07/25/23 Range/Units 16:27 07:53 08:59 WBC 3.6 L (3.8-10.6) k/uL Hgb 11.3 L (11.4-16.0) gm/dL MCV 77.1 L (80.0-100.0) fL MCH 23.5 L (25.0-35.0) pg MCHC 30.4 L (31.0-37.0) g/dL RDW 18.0 H (11.5-15.5) % Lupus Anticoag aPTT 74 H (<43) Sec(s) Lupus Anticoag PTT Mix 50 H (<43) Sec(s) Chloride 108 H (98-107) mmol/L BUN <2 L (7-17) mg/dL Creatinine 0.44 L (0.52-1.04) mg/dL Delta Bilirubin 0.3 H (0.0-0.2) mg/dL AST 76 H (14-36) U/L ALT 108 H (4-34) U/L Total Protein 5.5 L (6.3-8.2) g/dL Albumin 3.1 L (3.5-5.0) g/dL 07/25/23 Range/Units 08:59 WBC (3.8-10.6) k/uL Hgb (11.4-16.0) gm/dL MCV (80.0-100.0) fL MCH (25.0-35.0) pg MCHC (31.0-37.0) g/dL RDW (11.5-15.5) % Lupus Anticoag aPTT (<43) Sec(s) Lupus Anticoag PTT Mix (<43) Sec(s) Chloride (98-107) mmol/L BUN <2 L (7-17) mg/dL Creatinine 0.51 L (0.52-1.04) mg/dL Delta Bilirubin (0.0-0.2) mg/dL AST (14-36) U/L ALT (4-34) U/L Total Protein (6.3-8.2) g/dL Albumin (3.5-5.0) g/dL Assessment and Plan Plan: Assessment Recurrent pulmonary embolism, maintained on anticoagulation with Eliquis on outpatient basis, currently on IV heparin. Based on the review of the various CAT scans, the last CTA of the chest that was done on 07/20/2023 showed positive pulm embolism with minimal current clot burden in the lobar and the segmental branches in the right lower lobe. The clot burden has diminished. Nonspecific patchy groundglass changes in the left perihilar area in the left base. As such, it is very unlikely that the recurrent passing out events is related to pulmonary embolism as the patient has been adequately treated and clot burden has diminished. Furthermore, no hemodynamic changes in the echocardiogram that was done on 07/21/2023 showed no significant abnormality, no pulmonary hyperten magnus the patient has a preserved LV function. Dopplers are negative for DVT Syncope, recurrent, under investigation Abdominal pain at the time of admission, no significant pathology and the patient was found to have a nonspecific renal stone calculus measuring 6 mm on the left Hypertension Migraines COVID-19 back in 2021 Chronic back pain Plan No evidence of any GI bleed and EGD and colonoscopy showed no evidence of any acute GI bleeding Hospital is negative for blood May discontinue the IV heparin switch this patient to oral antibiotic initially with Eliquis Monitor hemoglobin if there is no evidence of any GI bleed and hemoglobin is stable Treatment for pulm embolism has been successful and the patient's clot burden on the CAT scan of the chest is improved and the groundglass changes in the lungs are essentially nonspecific Hypercoagulable workup Neurology workup for syncope cardiology workup for syncope Pulmonary status is stable for now.
--- NOTE | 2023-07-25 13:27 | P.PN ---
Subjective Progress Note Date: 07/25/23 Principal diagnosis: Pulmonary embolism In follow-up today patient denies any new bleeding. She is having endoscopy today Objective - Vital Signs Vital signs: Vital Signs Temp 97.8 F 07/25/23 07:57 Pulse 98 07/25/23 11:46 Resp 15 07/25/23 11:46 BP 127/71 07/25/23 11:46 Pulse Ox 95 07/25/23 11:46 FiO2 Intake & Output 07/24/23 07/25/23 07/25/23 18:59 06:59 18:59 Intake Total 250 195.089 200 Output Total 750 250 Balance -500 -54.911 200 Intake: IV 200 Intake, IV Titration 250 195.089 Amount Heparin Sod,Pork in 0.45% 250 195.089 NaCl 25,000 unit In 0.45 % NaCl 1 250ml.bag @ 18 UNITS/KG/HR 22.861 mls/hr IV .[id number] [facility] Rx#: [id number] Output: Urine 750 250 Other: Voiding Method Bedside Commode Bedside Commode Bedside Commode External Catheter External Catheter External Catheter # Voids 1 1 # Bowel Movements 1 1 - Constitutional General appearance: Present: cooperative, no acute distress, obese - Respiratory Details: Respirations even and unlabored - Neurologic Neurologic: Present: CNII-XII intact (Grossly) - Musculoskeletal Musculoskeletal: Present: strength equal bilaterally - Psychiatric Psychiatric: Present: A&O x's 3, appropriate affect, intact judgment & insight - Labs CBC & Chem 7: 07/25/23 08:59 07/25/23 08:59 Labs: Abnormal Lab Results - Last 24 Hours (Table) 07/25/23 07/25/23 Range/Units 08:59 08:59 WBC 3.6 L (3.8-10.6) k/uL Hgb 11.3 L (11.4-16.0) gm/dL MCV 77.1 L (80.0-100.0) fL MCH 23.5 L (25.0-35.0) pg MCHC 30.4 L (31.0-37.0) g/dL RDW 18.0 H (11.5-15.5) % BUN <2 L (7-17) mg/dL Creatinine 0.51 L (0.52-1.04) mg/dL Assessment and Plan (1) Melena Current Visit: Yes Status: Acute Priority: High Code(s): K92.1 - MELENA SNOMED Code(s): 3931394 (2) Pulmonary embolism Current Visit: Yes Status: Chronic Priority: Medium Code(s): I26.99 - OTHER PULMONARY EMBOLISM WITHOUT ACUTE COR PULMONALE SNOMED Code(s): 07418493 Plan: Melena and bright red blood per rectum -Pt denies having either while on eliquis. -Currently on heparin drip, endoscopy today to assess above -Cont to monitor Hgb-11.3 today -IM has ordered iron studies Hx PE -BLE Doppler, neg for DVT -Pulmonary assessment reviewed, not suspected new PE. -Cardiolipin antibodies have returned negative. Lupus anticoagulant neg. Pending beta 2 glycoprotein. -Not felt to be acute on chronic PE. So far, antiphospholipid antibodies are negative. Agree with plan to resume eliquis on DC. Pt has tolerated well previously.
[2023-07-25] MEDS ORDERED: ACETAMINOPHEN IV (For NPO) 1,000 MG in EMPTY BAG 1 BAG IVPB ONE (15:09)
[2023-07-25 16:40] LABS: % Iron Saturation 23.39 (12.00-45.00)
--- NOTE | 2023-07-25 17:35 | P.PN ---
Subjective Progress Note Date: 07/25/23 H&P Date: 07/21/23 Chief Complaint: syncope Ginny Cage is a 27 yo F with PMH of recurrent PE, morbid obesity, lumbar disc disease who presented to the ED after passing out multiple times at home. She complains that over the past few weeks but especially in the last few days she has been having episodes of passing out. She reports 9-10 episodes of pas sing out with loss of consciousness in the last few days. She denies a previous history of syncope. She continues on the eliquis since her admission in May of 2023. She also complains of right lower quadrant abdominal pain and states she has been experiencing this discomfort since June. On presentation vitals stable, EKG with NSR, Chest CTA: Pulmonary embolism, minimal burden involving t he lobar, segmental, subsegmental branches of the right lower lobe. Overall clot burden significantly diminished compared to February 2023 07/24/2023 reports continued rectal bleeding, last bloody bowel movement yesterday-dark and tarry accompanied by unchanged abdominal pain/right lower quadrant. On admission, hemoglobin 14.3 currently down to 11.6. Platelets 313. Delta bilirubin 0.3, AST 76, ALT 108. Evaluated by general surgery and patient is scheduled for EGD and colonoscopy tomorrow. Afebrile, soft blood pressures, maintaining O2 sats of 100% on 2 L nasal cannula. 05/25/2024 NPO, scheduled for both EGD and colonoscopy with general surgery. Maintained on IV fluid hydration and IV heparin. Reports continuous ongoing right lower quadrant abdominal cramping with pain. Maintaining O2 sats in the 90s on room air. Negative orthostatic hypotension. Hemoglobin 11.3, platelets 296, renal function stable. Afebrile, WBC 3.6. Objective - Vital Signs Vital signs: Vital Signs Temp 97.8 F 07/25/23 07:57 Pulse 98 07/25/23 11:46 Resp 15 07/25/23 11:46 BP 127/71 07/25/23 11:46 Pulse Ox 95 07/25/23 11:46 FiO2 Intake & Output 07/24/23 07/25/23 07/25/23 18:59 06:59 18:59 Intake Total 250 195.089 200 Output Total 750 250 Balance -500 -54.911 200 Intake: IV 200 Intake, IV Titration 250 195.089 Amount Heparin Sod,Pork in 0.45% 250 195.089 NaCl 25,000 unit In 0.45 % NaCl 1 250ml.bag @ 18 UNITS/KG/HR 22.861 mls/hr IV .[id number] [facility] Rx#: [id number] Output: Urine 750 250 Other: Voiding Method Bedside Commode Bedside Commode Bedside Commode External Catheter External Catheter External Catheter # Voids 1 1 # Bowel Movements 1 1 - Exam Vitals reviewed General: morbidly obese, sitting up in bed, NAD HEENT: Normocephalic, atraumatic Neck: supple, no JVD CV: Regular rate and rhythm, pulses 2+ Lungs: Normal effort.CTA. Abd: soft, TTP RLQ bowel sounds present Neuro: Alert and oriented x3, no focal deficit Skin: warm and dry - Labs CBC & Chem 7: 07/25/23 08:59 07/25/23 08:59 Labs: Abnormal Lab Results - Last 24 Hours (Table) 07/25/23 07/25/23 Range/Units 08:59 08:59 WBC 3.6 L (3.8-10.6) k/uL Hgb 11.3 L (11.4-16.0) gm/dL MCV 77.1 L (80.0-100.0) fL MCH 23.5 L (25.0-35.0) pg MCHC 30.4 L (31.0-37.0) g/dL RDW 18.0 H (11.5-15.5) % BUN <2 L (7-17) mg/dL Creatinine 0.51 L (0.52-1.04) mg/dL Assessment and Plan Assessment: Nausea, vomiting, diarrhea with Right lower quadrant abdominal pain accompanied by rectal bleeding, decreased appetite times one month. Syncope, recurrent, initial orthostatic vital signs positive. Neurology workup in progress.seiures ruled out. History of PE , requiring Ecos 2022 ,on eliquis. Denies missed doses of Eliquis. Evaluated by pulmonary- CTA , showed bilateral pulmonary emboli, although, the emboli are diminished when compared to the previous CTA. Hypercoagulable workup in progress. Morbid obesity, BMI 47, ( BMI 58.8 on 08/01) Chronic back pain Gastroesophageal reflux disease Plan: Continue on current medication regime. Orthostatic vital signs ordered every shift, pending. NPO,EGD and colonoscopy scheduled today with Dr. Browning. Maintain PPI, close monitoring of hemoglobin, platelets. Discharge planning in progress pending endoscopy results. The impression and plan of care has been dictated as directed. : I performed a history and examination of this patient, discussed the same with the dictator. I agree with the dictator's note ,documented as a scribe. Any additional findings or plans will be noted.
[2023-07-25] MEDS: tiZANidine 4 MG TAB PO PRN (17:42)
[2023-07-25] MEDS: ONDANSETRON 4 MG/2 ML VIAL IVP PRN (17:46)
[2023-07-25] MEDS: APIXABAN 5 MG TAB PO SCH (21:15)
[2023-07-26] MEDS: HYDROmorphone 1 MG/ML 1 ML SYRINGE IVP PRN ×5 (00:21→21:49)
[2023-07-26] MEDS: SODIUM CHLORIDE 0.9% 1,000 ML IV SCH ×4 (00:59→12:37)
[2023-07-26] MEDS ORDERED: MAGNESIUM SULFATE-D5W PMX 1 GM in DEXTROSE/WATER 1 100ML.BAG IVPB ONE (06:03)
[2023-07-26 09:17] LABS: Anisocytosis Slight; HGB 11.7 gm/dL (11.4-16.0); Hypochromasia Moderate; MCH 24.6 pg (25.0-35.0); MCHC 31.7 g/dL (31.0-37.0); MCV 77.5 fL (80.0-100.0); Mean Platelet Volume 8.3; Microcytosis Slight; Platelet Count 263 k/uL (150-450); RBC 4.77 m/uL (3.80-5.40); RDW 18.4 % (11.5-15.5); WBC 4.5 k/uL (3.8-10.6)
[2023-07-26] MEDS: LACTATED RINGERS 1,000 ML IV SCH (09:17)
[2023-07-26] MEDS: LORATADINE 10 MG TAB PO SCH (09:36)
[2023-07-26] MEDS: APIXABAN 5 MG TAB PO SCH ×2 (09:36→20:29)
[2023-07-26] MEDS: PANTOPRAZOLE 40 MG/10 ML VIAL IVP SCH ×2 (09:37→21:52)
--- NOTE | 2023-07-26 11:31 | P.PN ---
Subjective Progress Note Date: 07/26/23 CHIEF COMPLAINT: GI bleeding HISTORY OF PRESENT ILLNESS: Patient denies any further blood in her stools. She denies any abdominal pain. Denies any nausea or vomiting. She scheduled for a tilt table test today cardiology service. Patient is status post EGD and colonoscopy with results showing mild gastritis and normal colonoscopy. No active signs of bleeding. Afebrile. WBC 4.5 hgb 11.7 stable platelets 263. Stool for occult blood negative. PHYSICAL EXAM: VITAL SIGNS: Reviewed. GENERAL: Well-developed in no acute distress. ABDOMEN: Soft. Obese. Nondistended. nontender NEUROLOGIC: Alert and oriented. Cranial nerves II through XII grossly intact. ASSESSMENT: 1. Right-sided abdominal pain and bloody stools resolved. Status post EGD revealing mild gastritis and normal colonoscopy. 2. History of PE PLAN: -Okay to resume anticoagulation -If symptoms persist small bowel capsule endoscopy would be an option. However, diagnostic yield is extremely low. -Okay for regular diet -Continue PPI Physician Farm Specialist note has been reviewed by physician. Signing provider agrees with the documented findings, assessment, and plan of care. I have personally seen and examined the patient, reviewed the BIOLOGICAL SCIENCE TECHNICIAN FISH /PAs history, exam and MDM and agree with the assessment and plan as written. Based on total visit time, I have performed more than 50% of the visit. As above: No further bleeding. Patient still states she is having right lower quadrant pain. Mild tenderness on exam right lower quadrant possibly involving the pannus itself. Etiology unclear. Panniculitis discussed with family as a possibility. They are questioning whether this could be related to right ovarian pathology. Would defer to gynecology on that. No general surgery plans at this time. We'll sign off. Please call if needed. Objective - Vital Signs Vital signs: Vital Signs Temp 98.3 F 07/26/23 04:42 Pulse 91 07/26/23 04:42 Resp 16 07/26/23 04:42 BP 113/66 07/26/23 05:43 Pulse Ox 95 07/26/23 08:50 FiO2 Intake & Output 07/25/23 07/26/23 07/26/23 18:59 06:59 18:59 Intake Total 200 Output Total 2400 250 Balance -2200 -250 Intake: IV 200 Output: Urine 2400 250 Other: Voiding Method Bedside Commode Bedside Commode External Catheter External Catheter # Voids 1 # Bowel Movements 1 - Labs CBC & Chem 7: 07/26/23 08:25 07/25/23 08:59 Labs: Abnormal Lab Results - Last 24 Hours (Table) 07/23/23 07/26/23 Range/Units 09:33 08:25 MCV 77.5 L (80.0-100.0) fL MCH 24.6 L (25.0-35.0) pg RDW 18.4 H (11.5-15.5) % Ferritin 903.0 H (10.0-291.0) ng/mL
--- NOTE | 2023-07-26 12:10 | P.PN ---
Subjective Progress Note Date: 07/26/23 07/24/2023, I am seeing the patient for a follow-up. The patient was hospitalized with episodes of fainting and rectal bleeding. We were involved in the case as the patient was also diagnosed having pulmonary embolism. The patient had no significant shortness of breath at time of admission. The patien t was on room air oxygen. Her pulse ox was within normal limits. She was started on IV heparin. Doppler of the lower extremities were negative. She has had previous history of pulmonary embolism back in May 2022. A follow-up CAT scan of the chest was done on July 2022 and showed no evidence of any pulm embolism. Subsequently, the patient was given another CT of the chest in February 2023 and the patient was found to have bilateral pulmonary embolism. The patient had a subsequent CT scan of the chest in July 2023 that showed bilateral pulmonary emboli diminished compared to the previous study. She stated that she was taking her medication. As such, the patient has recurrent bilateral pulm embolism first diagnosed in May 2022 and subsequently clots were visualized in February 2023 in July 2023. For the time being, the patient is on IV heparin. The patient was taken off Eliquis. The hemoglobin has dropped from 14.3 down to 11.7 during this current admission. In terms of those recurrent passing out events, this was thought to be related to orthostatic hypotension versus vasovagal. Neurology has been involved also and EEG was negative. Echocardiogram showed normal LV function and CT scan of the abdomen and pelvis showed a left renal calculus measuring 6 mm in size and bladder wall thickening consistent with underlying urine tract infection. She remains on IV heparin and normal saline. During the current hospitalization, on 07/23/2023, the patient reported black stool with 1 large bowel movement that was confirmed by the nursing staff. Occult stool was negative for blood however. It was thought that could have been menstrual in nature. The patient is being seen by general surgery, hematology oncology for possible hypercoagulability, neurology and cardiology. Event monitor will be also added.Patient is currently on room air oxygen. I noted that hemoglobin has remained stable since yesterday and the hemoglobin this morning is at 11.6. She remains on IV heparin. Awaiting further workup from neurology and cardiology regarding her passing out events. On today's evaluation 07/25/2023, the patient remains on IV heparin. No bleeding complications. EGD and colonoscopy was done and the patient was found to have mild antral gastritis. Based on that, I made recommendations to stop the IV heparin and switch this patient back to the coagulation with Eliquis. She is on room air oxygen. WBC because of 3.6. Hemoglobin is 11.[address] atelet count is at 296. The rest of the electrolytes are all stable. BUN is at 2 with a creatinine of 0.5 and a sodium level is at 141. Stool for blood was also negative. The patient will need a tilt table test at the later stage. Orthostatics were negative. On 07/26/2023, no new complaints and the patient remains on anticoagulation with Eliquis. IV heparin was discontinued. She remains on normal sensory to 75 mL an hour. A table tilt test will be done today. Meanwhile, the hemoglobin is stable at 11.7, the white suppositive 4.5. No other significant events otherwise over the past 24 hours. Objective - Vital Signs Vital signs: Vital Signs Temp 98.3 F 07/26/23 04:42 Pulse 91 07/26/23 04:42 Resp 16 07/26/23 04:42 BP 113/66 07/26/23 05:43 Pulse Ox 95 07/26/23 08:50 FiO2 Intake & Output 07/25/23 07/26/23 07/26/23 18:59 06:59 18:59 Intake Total 200 Output Total 2400 250 Balance -2200 -250 Intake: IV 200 Output: Urine 2400 250 Other: Voiding Method Bedside Commode Bedside Commode External Catheter External Catheter # Voids 1 # Bowel Movements 1 - Exam No acute distress, oriented 3. HEENT examination is grossly unremarkable. Mucous membranes are moist. No oral lesions. Neck supple. Full range of motion. No adenopathy thyromegaly or neck vein distention. Cardiovascular examination reveals regular rhythm rate. S1-S2 normal. No S3 or S4. No discernible murmur noted. Lungs reveal clear breath sounds. Breath sounds are equal bilaterally. No adventitious lung sounds including wheezes rhonchi or crackles. Abdomen soft bowel sounds are heard. No masses or tenderness. Extremities are intact. No cyanosis clubbing or edema. Skin is without rash or lesion. Neurologic examination is brief but nonfocal. - Labs CBC & Chem 7: 07/26/23 08:25 07/25/23 08:59 Labs: Abnormal Lab Results - Last 24 Hours (Table) 07/23/23 07/26/23 Range/Units 09:33 08:25 MCV 77.5 L (80.0-100.0) fL MCH 24.6 L (25.0-35.0) pg RDW 18.4 H (11.5-15.5) % Ferritin 903.0 H (10.0-291.0) ng/mL Assessment and Plan Plan: Assessment Recurrent pulmonary embolism, maintained on anticoagulation with Eliquis on outpatient basis, currently on IV heparin. Based on the review of the various CAT scans, the last CTA of the chest that was done on 07/20/2023 showed positive pulm embolism with minimal current clot burden in the lobar and the segmental branches in the right lower lobe. The clot burden has diminished. Nonspecific patchy groundglass changes in the left perihilar area in the left base. As such, it is very unlikely that the recurrent passing out events is related to pulmonary embolism as the patient has been adequately treated and clot burden has diminished. Furthermore, no hemodynamic changes in the echocardiogram that was done on 07/21/2023 showed no significant abnormality, no pulmonary h ypertension the patient has a preserved LV function. Dopplers are negative for DVT. The patient is currently back on anticoagulation with Eliquis. No evidence of any GI bleeding. Syncope, recurrent, under investigation Abdominal pain at the time of admission, no significant pathology and the nelida edwards was found to have a nonspecific renal stone calculus measuring 6 mm on the left Hypertension Migraines COVID-19 back in 2021 Chronic back pain Plan No evidence of any GI bleed and EGD and colonoscopy showed no evidence of any acute GI bleeding Hospital is negative for blood Patient is currently on oral anticoagulation with Eliquis Monitor hemoglobin if there is no evidence of any GI bleed and hemoglobin is stable Treatment for pulm embolism has been successful and the patient's clot burden on the CAT scan of the chest is improved and the groundglass changes in the lungs are essentially nonspecific Hypercoagulable workup Neurology workup for syncope cardiology workup for syncope, and the patient is going to have a table tilt test today. Pulmonary status is stable for now.
[2023-07-26] MEDS: tiZANidine 4 MG TAB PO PRN ×3 (12:27→21:49)
[2023-07-26 12:35] VITALS: BMI 46.5
--- NOTE | 2023-07-26 13:44 | P.PN ---
Subjective Progress Note Date: 07/26/23 Principal diagnosis: Pulmonary embolism In follow-up today patient denies any worsening perineal/rectal bleeding post endoscopy. She is back on eliquis. Objective - Vital Signs Vital signs: Vital Signs Temp 98.3 F 07/26/23 04:42 Pulse 91 07/26/23 04:42 Resp 16 07/26/23 04:42 BP 113/66 07/26/23 05:43 Pulse Ox 95 07/26/23 08:50 FiO2 Intake & Output 07/25/23 07/26/23 07/26/23 18:59 06:59 18:59 Intake Total 200 Output Total 2400 250 Balance -2200 -250 Weight 127.006 kg Intake: IV 200 Output: Urine 2400 250 Other: Voiding Method Bedside Commode Bedside Commode External Catheter External Catheter # Voids 1 # Bowel Movements 1 - Constitutional General appearance: Present: cooperative, no acute distress, obese - EENT Eyes: Present: anicteric sclerae, EOMI ENT: Present: hearing grossly normal - Respiratory Details: Respirations even and unlabored at rest - Neurologic Neurologic: Present: CNII-XII intact - Musculoskeletal Musculoskeletal: Present: strength equal bilaterally - Psychiatric Psychiatric: Present: A&O x's 3, appropriate affect, intact judgment & insight - Labs CBC & Chem 7: 07/26/23 08:25 07/25/23 08:59 Labs: Abnormal Lab Results - Last 24 Hours (Table) 07/23/23 07/26/23 Range/Units 09:33 08:25 MCV 77.5 L (80.0-100.0) fL MCH 24.6 L (25.0-35.0) pg RDW 18.4 H (11.5-15.5) % Ferritin 903.0 H (10.0-291.0) ng/mL Assessment and Plan (1) Melena Current Visit: Yes Status: Acute Priority: High Code(s): K92.1 - MELENA SNOMED Code(s): 0343578 (2) Pulmonary embolism Current Visit: Yes Status: Chronic Priority: Medium Code(s): I26.99 - OTHER PULMONARY EMBOLISM WITHOUT ACUTE COR PULMONALE SNOMED Code(s): 58808951 Plan: Melena and bright red blood per rectum -Pt denies having either while on eliquis. -Patient is status post endoscopy with no underlying cause identified. There was reports of excoriation in the perineal area that may be the cause. Patient is not reporting any significant perineal/rectal bleeding today -Hemoglobin has remained stable -IM has ordered iron studies, Review of iron studies most consistent with anemia of inflammation. No need for supplementation. Hx PE -BLE Doppler, neg for DVT -Pulmonary assessment reviewed, not suspected new PE. -Cardiolipin antibodies have returned negative. Lupus anticoagulant neg. Beta 2 glycoprotein neg. -Patient is resumed on eliquis. Agree with the same.
--- NOTE | 2023-07-26 14:18 | P.PN ---
Subjective Progress Note Date: 07/26/22 I am seeing the patient for the first time during this admission. Please refer to Dr. Martinez's notes for further details. Patient is having recurrent syncopal episodes. She has history of PE and is on Eliquis. It seems she has syncopal spell when stand up. She is pending to have tilt table test. Objective - Vital Signs Vital signs: Vital Signs Temp 98.3 F 07/26/23 04:42 Pulse 91 07/26/23 04:42 Resp 16 07/26/23 04:42 BP 113/66 07/26/23 05:43 Pulse Ox 95 07/26/23 08:50 FiO2 Intake & Output 07/25/23 07/26/23 07/26/23 18:59 06:59 18:59 Intake Total 200 Output Total 2400 250 Balance -2200 -250 Weight 127.006 kg Intake: IV 200 Output: Urine 2400 250 Other: Voiding Method Bedside Commode Bedside Commode External Catheter External Catheter # Voids 1 # Bowel Movements 1 - Exam General: Lying in bed and is not in acute distress. Neuo: The patient is awake, alert, oriented to self, place and time. Is following simple commands. No aphasia. Pupils, round, equal and reactive to light. Pupils are 3-4mm bilaterally. Visual disturbance hard to assess since stated has blurry vision throughout. EOM is intact and no nystagmus. Normal facial sensation. No facial weakness. No dysarthria. Motor: Strength is lifting all extremities above gravity equally. - Labs CBC & Chem 7: 07/26/23 08:25 07/25/23 08:59 Labs: Abnormal Lab Results - Last 24 Hours (Table) 07/23/23 07/26/23 Range/Units 09:33 08:25 MCV 77.5 L (80.0-100.0) fL MCH 24.6 L (25.0-35.0) pg RDW 18.4 H (11.5-15.5) % Ferritin 903.0 H (10.0-291.0) ng/mL Assessment and Plan Assessment: * Syncopal spell, likely due to orthostasis versus vasovagal. Seizures ruled out. * GI bleed * Recurrent pulmonary embolism and DVT. Patient now came with another episode of pulmonary embolism, despite being on Eliquis. 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 * Chronic headaches Plan: * Initial orthostatics were positive. However repeat orthostatics are negative. According to Dr. Martinez, per nurse report, the orthostatics are negative yesterday and today, although they have not been documenting in the system. * Consult PT and OT. * Because of persistent symptoms, and negative orthostatics, we will initiate tilt table test and to be completed today. * EEG was borderline abnormal due to mixed fast and slow frequency activity suggestive of mild encephalopathy or medication effect. No epileptiform activity was seen. * CT head revealed no acute intracranial process. * Patient has restricted peripheral vision all around. She does have chronic headaches. Patient was recommended to follow up with biological inspector outpatient to rule out disc edema/pseudotumor cerebri. Cannot perform lumbar puncture because patient is on anticoagulants at this time per Dr. Martinez. * Per patient has worsening of visual disturbance and unsure when onset. She has pineal cysts and her and boyfriend wanting repeat MRI to assess if worsening of pineal cysts. * 2-D echo revealed hyperdynamic left ventricular systolic function, with EF 65- 70%. Normal left atrial size. No valvular abnormalities. * Ultrasound of lower extremities negative for DVT. * Other management as per IM, and other multiple specialties on board. * Patient was notified she needs to follow-up with neurologist as outpatient for surviellance of pineal cyst and other neurological issues. Follow-up within 2-3 weeks Plan is discussed with patient, her boyfriend who is at bedside and cardiology team. Time with Patient: Less than 30
[2023-07-26] MEDS ORDERED: IV FLUID CONTINUATION 650 ML IV ONE (14:29)
[2023-07-26] MEDS: ONDANSETRON 4 MG/2 ML VIAL IVP PRN (15:35)
--- NOTE | 2023-07-26 16:27 | P.PN ---
Subjective Progress Note Date: 07/26/23 H&P Date: 07/21/23 Chief Complaint: syncope Ginny Cage is a 27 yo F with PMH of recurrent PE, morbid obesity, lumbar disc disease who presented to the ED after passing out multiple times at home. She complains that over the past few weeks but especially in the last few days she has been having episodes of passing out. She reports 9-10 episodes of pas sing out with loss of consciousness in the last few days. She denies a previous history of syncope. She continues on the eliquis since her admission in May of 2023. She also complains of right lower quadrant abdominal pain and states she has been experiencing this discomfort since June. On presentation vitals stable, EKG with NSR, Chest CTA: Pulmonary embolism, minimal burden involving t he lobar, segmental, subsegmental branches of the right lower lobe. Overall clot burden significantly diminished compared to February 2023 07/24/2023 reports continued rectal bleeding, last bloody bowel movement yesterday-dark and tarry accompanied by unchanged abdominal pain/right lower quadrant. On admission, hemoglobin 14.3 currently down to 11.6. Platelets 313. Delta bilirubin 0.3, AST 76, ALT 108. Evaluated by general surgery and patient is scheduled for EGD and colonoscopy tomorrow. Afebrile, soft blood pressures, maintaining O2 sats of 100% on 2 L nasal cannula. 07/25/2023 NPO, scheduled for both EGD and colonoscopy with general surgery. Maintained on IV fluid hydration and IV heparin. Reports continuous ongoing right lower quadrant abdominal cramping with pain. Maintaining O2 sats in the 90s on room air. Negative orthostatic hypotension. Hemoglobin 11.3, platelets 296, renal function stable. Afebrile, WBC 3.6. 07/26/2023 completed EGD and colonoscopy yesterday and reportedly mild gastritis and normal colonoscopy. No active signs of bleeding. Hemoglobin 11.7, platelets 263. Anticoagulation with Eliquis resumed. Reports ongoing persistent right lower quadrant abdominal pain. Patient reports she is currently on her menstrual cycle. Scheduled for tilt table test today. Objective - Vital Signs Vital signs: Vital Signs Temp 97.1 F L 07/26/23 09:10 Pulse 92 07/26/23 12:30 Resp 18 07/26/23 12:30 BP 132/78 07/26/23 12:30 Pulse Ox 96 07/26/23 12:30 FiO2 Intake & Output 07/25/23 07/26/23 07/26/23 18:59 06:59 18:59 Intake Total 200 Output Total 2400 250 Balance -2200 -250 Weight 127.006 kg Intake: IV 200 Output: Urine 2400 250 Other: Voiding Method Bedside Commode Bedside Commode Bedside Commode External Catheter External Catheter External Catheter # Voids 1 # Bowel Movements 1 - Exam Vitals reviewed General: Alert and oriented 3 ,sitting up in bed, NAD HEENT: Normocephalic, atraumatic Neck: supple, no JVD CV: Regular rate and rhythm, pulses 2+ Lungs: Normal effort.CTA. Abd: soft, TTP RLQ bowel sounds present Neuro: no focal deficit Skin: warm and dry - Labs CBC & Chem 7: 07/26/23 08:25 07/25/23 08:59 Labs: Abnormal Lab Results - Last 24 Hours (Table) 07/23/23 07/26/23 Range/Units 09:33 08:25 MCV 77.5 L (80.0-100.0) fL MCH 24.6 L (25.0-35.0) pg RDW 18.4 H (11.5-15.5) % Ferritin 903.0 H (10.0-291.0) ng/mL Assessment and Plan Assessment: Nausea, vomiting, diarrhea with Right lower quadrant abdominal pain accompanied by rectal bleeding, decreased appetite times one month. Status post EGD reve aling mild gastritis and normal colonoscopy Syncope, recurrent, initial orthostatic vital signs positive. Neurology workup in progress.seiures ruled out. History of PE , requiring Ecos 2022 ,on eliquis. Denies missed doses of Eliquis. Evaluated by pulmonary- CTA 08/02, showed bilateral pulmonary emboli, although, the emboli are diminished when compared to the previous CTA. Hypercoagulable workup reported negative as per hematology Morbid obesity, BMI 47, ( BMI 58.8 on 08/01) Chronic back pain Gastroesophageal reflux disease Plan: Continue on current medication regime. Neurology workup in progress.Scheduled for tilt table today. Discharge planning in progress. The impression and plan of care has been dictated as directed. : I performed a history and examination of this patient, discussed the same with the dictator. I agree with the dictator's note ,documented as a scribe. Any additional findings or plans will be noted.
[2023-07-26] MEDS: LORazepam 2 MG/ML INJ IV PRN (21:55)
[2023-07-27] MEDS: SODIUM CHLORIDE 0.9% 1,000 ML IV SCH ×4 (01:36→18:43)
[2023-07-27] MEDS: HYDROmorphone 1 MG/ML 1 ML SYRINGE IVP PRN ×3 (03:26→13:36)
[2023-07-27] MEDS: LACTATED RINGERS 1,000 ML IV SCH (06:56)
[2023-07-27] MEDS: LORATADINE 10 MG TAB PO SCH (08:21)
[2023-07-27] MEDS: PANTOPRAZOLE 40 MG/10 ML VIAL IVP SCH ×2 (08:21→21:02)
[2023-07-27] MEDS: APIXABAN 5 MG TAB PO SCH ×2 (08:21→21:01)
[2023-07-27] MEDS: LORazepam 2 MG/ML INJ IV PRN (08:39)
--- NOTE | 2023-07-27 10:10 | MR ---
EXAMINATION TYPE: MR brain wo/w con DATE OF EXAM: 07/27/2023 COMPARISON: CT brain July 21, 2013 HISTORY: Worsening Visual disturbance, dizziness, weakness. Hx of Pineal cyst TECHNIQUE: Multiplanar, multisequence images of the brain and brainstem is performed without and with IV contras t, utilizing 12 mL intravenous Gadavist . FINDINGS: Diffusion weighted images demonstrate no evidence of a recent infarct or other diffusion ab normality. There is no extra-axial fluid collection or significant white matter signal abnormality. The ventricular system and cisternal spaces are normal in size and appearance. The brain volume is age appropriate. Midline structures demonstrate normal morphology. Approximately 10 mm pineal gland cyst axial image 1 6 is incidentally noted. The craniocervical junction appears within normal limits. Post contrast virgilio ges demonstrate no abnormal enhancement. The dural venous sinuses appear patent. The visualized sinus es are clear and the globes are intact. IMPRESSION: No MRI evidence for recent infarct. No suspicious enhancing masses. Fairly unremarkable s tudy.
--- NOTE | 2023-07-27 14:43 | P.PN ---
Subjective Progress Note Date: 07/27/23 07/24/2023, I am seeing the patient for a follow-up. The patient was hospitalized with episodes of fainting and rectal bleeding. We were involved in the case as the patient was also diagnosed having pulmonary embolism. The patient had no significant shortness of breath at time of admission. The patien t was on room air oxygen. Her pulse ox was within normal limits. She was started on IV heparin. Doppler of the lower extremities were negative. She has had previous history of pulmonary embolism back in May 2022. A follow-up CAT scan of the chest was done on July 2022 and showed no evidence of any pulm embolism. Subsequently, the patient was given another CT of the chest in February 2023 and the patient was found to have bilateral pulmonary embolism. The patient had a subsequent CT scan of the chest in July 2023 that showed bilateral pulmonary emboli diminished compared to the previous study. She stated that she was taking her medication. As such, the patient has recurrent bilateral pulm embolism first diagnosed in May 2022 and subsequently clots were visualized in February 2023 in July 2023. For the time being, the patient is on IV heparin. The patient was taken off Eliquis. The hemoglobin has dropped from 14.3 down to 11.7 during this current admission. In terms of those recurrent passing out events, this was thought to be related to orthostatic hypotension versus vasovagal. Neurology has been involved also and EEG was negative. Echocardiogram showed normal LV function and CT scan of the abdomen and pelvis showed a left renal calculus measuring 6 mm in size and bladder wall thickening consistent with underlying urine tract infection. She remains on IV heparin and normal saline. During the current hospitalization, on 07/23/2023, the patient reported black stool with 1 large bowel movement that was confirmed by the nursing staff. Occult stool was negative for blood however. It was thought that could have been menstrual in nature. The patient is being seen by general surgery, hematology oncology for possible hypercoagulability, neurology and cardiology. Event monitor will be also added.Patient is currently on room air oxygen. I noted that hemoglobin has remained stable since yesterday and the hemoglobin this morning is at 11.6. She remains on IV heparin. Awaiting further workup from neurology and cardiology regarding her passing out events. On today's evaluation 07/25/2023, the patient remains on IV heparin. No bleeding complications. EGD and colonoscopy was done and the patient was found to have mild antral gastritis. Based on that, I made recommendations to stop the IV heparin and switch this patient back to the coagulation with Eliquis. She is on room air oxygen. WBC because of 3.6. Hemoglobin is 11.[address] atelet count is at 296. The rest of the electrolytes are all stable. BUN is at 2 with a creatinine of 0.5 and a sodium level is at 141. Stool for blood was also negative. The patient will need a tilt table test at the later stage. Orthostatics were negative. On 07/26/2023, no new complaints and the patient remains on anticoagulation with Eliquis. IV heparin was discontinued. She remains on normal sensory to 75 mL an hour. A table tilt test will be done today. Meanwhile, the hemoglobin is stable at 11.7, the white suppositive 4.5. No other significant events otherwise over the past 24 hours. On 07/27/2023, the patient remains on Eliquis. No respiratory difficulties at all. No hemoptysis. No pleurisy. No GI bleeding and hemoglobin remained stable at 11.7. MRI of the brain was done. MR of the brain was unremarkable. Objective - Vital Signs Vital signs: Vital Signs Temp 98.3 F 07/27/23 08:20 Pulse 72 07/27/23 08:20 Resp 18 07/27/23 08:20 BP 102/66 07/27/23 08:20 Pulse Ox 94 L 07/27/23 08:20 FiO2 Intake & Output 07/26/23 07/27/23 07/27/23 18:59 06:59 18:59 Intake Total 0 250 Output Total 300 Balance -300 250 Weight 127.006 kg 127.006 kg Intake: Oral 0 250 Output: Urine 300 Other: Voiding Method Bedside Commode Bedside Commode External Catheter External Catheter # Voids 1 1 # Bowel Movements 1 - Exam No acute distress, oriented 3. HEENT examination is grossly unremarkable. Mucous membranes are moist. No oral lesions. Neck supple. Full range of motion. No adenopathy thyromegaly or neck vein distention. Cardiovascular examination reveals regular rhythm rate. S1-S2 normal. No S3 or S4. No discernible murmur noted. Lungs reveal clear breath sounds. Breath sounds are equal bilaterally. No adventitious lung sounds including wheezes rhonchi or crackles. Abdomen soft bowel sounds are heard. No masses or tenderness. Extremities are intact. No cyanosis clubbing or edema. Skin is without rash or lesion. Neurologic examination is brief but nonfocal. - Labs CBC & Chem 7: 07/26/23 08:25 07/25/23 08:59 Assessment and Plan Plan: Assessment Recurrent pulmonary embolism, maintained on anticoagulation with Eliquis on outpatient basis, currently on IV heparin. Based on the review of the various CAT scans, the last CTA of the chest that was done on 07/20/2023 showed positive pulm embolism with minimal current clot burden in the lobar and the segmental branches in the right lower lobe. The clot burden has diminished. Nonspecific patchy groundglass changes in the left perihilar area in the left base. As such, it is very unlikely that the recurrent passing out events is related to pulmonary embolism as the patient has been adequately treated and clot burden has diminished. Furthermore, no hemodynamic changes in the echocardiogram that was done on 07/21/2023 showed no significant abnormality, no pulmonary hypertens ion the patient has a preserved LV function. Dopplers are negative for DVT. The patient is currently back on anticoagulation with Eliquis. No evidence of any GI bleeding. Syncope, recurrent, under investigation Abdominal pain at the time of admission, no significant pathology and the patient was found to have a nonspecific renal stone calculus measuring 6 mm on the left Hypertension Migraines COVID-19 back in 2021 Chronic back pain Plan Continue anticoagulation with Eliquis No evidence of any GI bleed and EGD and colonoscopy showed no evidence of any acute GI bleeding Treatment for pulm embolism has been successful and the patient's clot burden on the CAT scan of the chest is improved and the groundglass changes in the lungs are essentially nonspecific Hypercoagulable workup Neurology workup for syncope, and MRI of the brain was completed and the results were unremarkable cardiology workup for syncope, and the patient is going to have a table tilt test Pulmonary status is stable for now. We'll see on an as-needed basis
--- NOTE | 2023-07-27 15:02 | P.PN ---
Subjective Progress Note Date: 07/27/23 Principal diagnosis: Pulmonary embolism In follow-up today patient denies any bleeding post endoscopy, no abd pain, N,V. She is back on eliquis. Objective - Vital Signs Vital signs: Vital Signs Temp 98.3 F 07/27/23 08:20 Pulse 72 07/27/23 08:20 Resp 18 07/27/23 08:20 BP 102/66 07/27/23 08:20 Pulse Ox 94 L 07/27/23 08:20 FiO2 Intake & Output 07/26/23 07/27/23 07/27/23 18:59 06:59 18:59 Intake Total 0 250 Output Total 300 Balance -300 250 Weight 127.006 kg 127.006 kg Intake: Oral 0 250 Output: Urine 300 Other: Voiding Method Bedside Commode Bedside Commode External Catheter External Catheter # Voids 1 1 # Bowel Movements 1 - Constitutional General appearance: Present: cooperative, no acute distress, obese - EENT Eyes: Present: anicteric sclerae, EOMI ENT: Present: hearing grossly normal - Respiratory Details: resp even and unlabored at rest - Integumentary Integumentary: Present: normal - Neurologic Neurologic: Present: CNII-XII intact - Musculoskeletal Musculoskeletal: Present: strength equal bilaterally - Psychiatric Psychiatric: Present: A&O x's 3, appropriate affect, intact judgment & insight - Labs CBC & Chem 7: 07/26/23 08:25 07/25/23 08:59 - Imaging and Cardiology MRI - head: report reviewed Assessment and Plan (1) Melena Current Visit: Yes Status: Acute Priority: High Code(s): K92.1 - MELENA SNOMED Code(s): 7957649 (2) Pulmonary embolism Current Visit: Yes Status: Chronic Priority: Medium Code(s): I26.99 - O THER PULMONARY EMBOLISM WITHOUT ACUTE COR PULMONALE SNOMED Code(s): 71567127 Plan: Melena and bright red blood per rectum -This has stopped -S/P endoscopy, no underlying cause identified. There was reports of excoriation in the perineal area that may be the cause. -Hemoglobin has remained stable -IM has ordered iron studies, Review of iron studies most consistent with anemia of inflammation. No need for supplementation. Hx PE -BLE Doppler, neg for DVT -Pulmonary assessment reviewed, not suspected new PE. -Cardiolipin antibodies have returned negative. Lupus anticoagulant neg. Beta 2 glycoprotein neg. -Patient is resumed on eliquis. Agree with the same. -F/U outpt to complete hypercoaguable work up
--- NOTE | 2023-07-27 15:03 | P.PN ---
Subjective Progress Note Date: 07/27/23 H&P Date: 07/21/23 Chief Complaint: syncope Ginny Cage is a 27 yo F with PMH of recurrent PE, morbid obesity, lumbar disc disease who presented to the ED after passing out multiple times at home. She complains that over the past few weeks but especially in the last few days she has been having episodes of passing out. She reports 9-10 episodes of pas sing out with loss of consciousness in the last few days. She denies a previous history of syncope. She continues on the eliquis since her admission in May of 2023. She also complains of right lower quadrant abdominal pain and states she has been experiencing this discomfort since June. On presentation vitals stable, EKG with NSR, Chest CTA: Pulmonary embolism, minimal burden involving t he lobar, segmental, subsegmental branches of the right lower lobe. Overall clot burden significantly diminished compared to February 2023 07/24/2023 reports continued rectal bleeding, last bloody bowel movement yesterday-dark and tarry accompanied by unchanged abdominal pain/right lower quadrant. On admission, hemoglobin 14.3 currently down to 11.6. Platelets 313. Delta bilirubin 0.3, AST 76, ALT 108. Evaluated by general surgery and patient is scheduled for EGD and colonoscopy tomorrow. Afebrile, soft blood pressures, maintaining O2 sats of 100% on 2 L nasal cannula. 07/25/2023 NPO, scheduled for both EGD and colonoscopy with general surgery. Maintained on IV fluid hydration and IV heparin. Reports continuous ongoing right lower quadrant abdominal cramping with pain. Maintaining O2 sats in the 90s on room air. Negative orthostatic hypotension. Hemoglobin 11.3, platelets 296, renal function stable. Afebrile, WBC 3.6. 07/26/2023 completed EGD and colonoscopy yesterday and reportedly mild gastritis and normal colonoscopy. No active signs of bleeding. Hemoglobin 11.7, platelets 263. Anticoagulation with Eliquis resumed. Reports ongoing persistent right lower quadrant abdominal pain. Patient reports she is currently on her menstrual cycle. Scheduled for tilt table test today. 07/27/2023 tilt table completed yesterday, report pending. Returning from brain MRI, ordered by neurology, this morning. Transferred from chair to the bed. Orthostatic vitals pending. PT pending. Currently denies abdominal pain. Denies chest pain, palpitations or shortness of breath. Maintaining O2 sats in the high 90s on RA. Objective - Vital Signs Vital signs: Vital Signs Temp 98.3 F 07/27/23 08:20 Pulse 72 07/27/23 08:20 Resp 18 07/27/23 08:20 BP 102/66 07/27/23 08:20 Pulse Ox 94 L 07/27/23 08:20 FiO2 Intake & Output 07/26/23 07/27/23 07/27/23 18:59 06:59 18:59 Intake Total 0 250 Output Total 300 Balance -300 250 Weight 127.006 kg 127.006 kg Intake: Oral 0 250 Output: Urine 300 Other: Voiding Method Bedside Commode Bedside Commode External Catheter External Catheter # Voids 1 1 # Bowel Movements 1 - Exam Vitals reviewed General: Alert and oriented 3 ,sitting up at side of bed, NAD HEENT: Normocephalic, atraumatic Neck: supple, no JVD CV: Regular rate and rhythm, pulses 2+ Lungs: Normal effort.CTA. Abd: soft, nontender, positive bowel sounds Neuro: no focal deficit Skin: warm and dry - Labs CBC & Chem 7: 07/26/23 08:25 07/25/23 08:59 Assessment and Plan Assessment: Nausea, vomiting, diarrhea with Right lower quadrant abdominal pain accompanied by rectal bleeding, decreased appetite times one month. Status post EGD revealing mild gastritis and normal colonoscopy Syncope, recurrent, initial orthostatic vital signs positive. Neurology workup in progress.seiures ruled out. Possible deconditioning secondary to pain with subsequent decreased ambulation/activity over the last couple years. History of PE , requiring Ecos 2022 ,on eliquis. Denies missed doses of Deepthi rufus. Evaluated by pulmonary- CTA 08/02, showed bilateral pulmonary emboli, although, the emboli are diminished when compared to the previous CTA. Hypercoagulable workup reported negative as per hematology Morbid obesity, BMI 47, ( BMI 58.8 on 08/01) Chronic back pain Gastroesophageal reflux disease Plan: Continue on current medication regime. Neurology workup in progress.Tilt table report pending. Pathology reported minimal chronic gastritis, negative for H. pylori. Discharge planning in progress pending PT results of tilt table, brain MRI, final DC recommendations and clearance per neurology. Possible subacute rehab. pending PT evaluation today. Event monitor at [place]. The impression and plan of care has been dictated as directed. : I performed a history and examination of this patient, discussed the same with the dictator. I agree with the dictator's note ,documented as a scribe. Any additional findings or plans will be noted.
--- NOTE | 2023-07-27 17:28 | P.PN ---
Subjective Progress Note Date: 07/27/23 I am following-up with patient and she feels about the same. No further syncopal episodes. She had MRI Brain which showed pineal cyst and is about the same since last MRI. Patient does not recall when her prior imaging were and stated had last MRI about 3 years ago but upon reviewing records it was on 0 10/2022. She followed-up with Dr. Gonzalez for neurology in past but states having difficulty scheduling appointment. For her visual disturbance she is following-up with computer network specialist as outpatient. Objective - Vital Signs Vital signs: Vital Signs Temp 98.3 F 07/27/23 08:20 Pulse 72 07/27/23 08:20 Resp 18 07/27/23 08:20 BP 102/66 07/27/23 08:20 Pulse Ox 94 L 07/27/23 08:20 FiO2 Intake & Output 07/26/23 07/27/23 07/27/23 18:59 06:59 18:59 Intake Total 0 250 Output Total 300 Balance -300 250 Weight 127.006 kg 127.006 kg Intake: Oral 0 250 Output: Urine 300 Other: Voiding Method Bedside Commode Bedside Commode External Catheter External Catheter # Voids 1 1 # Bowel Movements 1 - Exam General: Lying in bed and is not in acute distress. Neuo: The patient is awake, alert, oriented to self, place and time. Is following simple commands. No aphasia. Pupils, round, equal and reactive to light. Pupils are 3-4mm bilaterally. Visual rodriguez initially whenever I showed her any finger she would follow my finger quickly and would state the correct amount of finger throughout but then the significant other stated she is following the finger and then it was repeated and when ever I showed any finger she would stated an additional finger (example 1 would be 2, 3 would be 4). EOM is intact and no nystagmus. Normal facial sensation. No facial weakness. No dysarthria. Motor: Strength is lifting all extremities above gravity equally. - Labs CBC & Chem 7: 07/26/23 08:25 07/25/23 08:59 Assessment and Plan Assessment: * Syncopal spell, likely due to orthostasis versus vasovagal. Seizures ruled out. Most recent MRI was negative other than known pineal cyst. * GI bleed * Recurrent pulmonary embolism and DVT. Patient now came with another episode of pulmonary embolism, despite being on Eliquis. * Obesity * History of pineal gland cyst and most recent is about the same size of pineal cyst (this time is about 10mm and last time is about 11mm) * Chronic headaches Plan: * Initial orthostatics were positive. However repeat orthostatics are negative. According to Dr. Martinez, per nurse report, the orthostatics are negative yesterday and today, although they have not been documenting in the system. * Consult PT and OT. * Because of persistent symptoms, and negative orthostatics. Tilt table was negative according to nurse. * EEG was borderline abnormal due to mixed fast and slow frequency activity suggestive of mild encephalopathy or medication effect. No epileptiform activ ity was seen. * CT head revealed no acute intracranial process. * MRI Brain:No MRI evidence for recent infarct. No suspicious enhancing masses. Fairly unremarkable. Has 10mm pineal cyst incidentally noted. * Patient has restricted peripheral vision all around. She does have chronic headaches. Patient was recommended to follow up with waiter/waitress buffet outpatient to rule out disc edema/pseudotumor cerebri. Cannot perform lumbar puncture because patient is on anticoagulants at this time per Dr. Martinez. * 2-D echo revealed hyperdynamic left ventricular systolic function, with EF 65- 70%. Normal left atrial size. No valvular abnormalities. * Ultrasound of lower extremities negative for DVT. * Other management as per IM, and other multiple specialties on board. * Patient was notified she needs to follow-up with neurologist as outpatient for surveillance of pineal cyst and other neurological issues. Follow-up within 2-3 weeks. Also recommend following-up with neurosurgeon as outpatient for the pineal cyst. Plan is discussed with patient, her significant other and her nurse. There is no further neurological work-up. Will sign off. Please notify neurology team if any further concerns. Time with Patient: Less than 30
[2023-07-27] MEDS: MECLIZINE 12.5 MG TAB PO PRN (19:08)
[2023-07-27] MEDS: oxyCODONE-APAP 7.5-325MG 1 EACH TAB PO PRN (19:08)
[2023-07-27] MEDS: tiZANidine 4 MG TAB PO PRN (21:49)
[2023-07-27] MEDS: ALPRAZolam 0.25 MG TAB PO PRN (21:49)
[2023-07-28] MEDS: oxyCODONE-APAP 7.5-325MG 1 EACH TAB PO PRN ×3 (00:14→20:36)
[2023-07-28] MEDS: SODIUM CHLORIDE 0.9% 1,000 ML IV SCH ×4 (06:50→15:59)
[2023-07-28] MEDS: APIXABAN 5 MG TAB PO SCH ×2 (09:38→20:36)
[2023-07-28] MEDS: LORATADINE 10 MG TAB PO SCH (09:38)
[2023-07-28] MEDS: PANTOPRAZOLE 40 MG/10 ML VIAL IVP SCH ×2 (09:39→20:36)
[2023-07-28] MEDS: LACTOBACILLUS ACIDOPHILUS/PECT 1 EACH CAPSULE PO SCH ×2 (11:06→20:36)
--- NOTE | 2023-07-28 11:27 | P.DS ---
Providers Date of admission: 07/20/23 21:08 Expected date of discharge: 07/28/23 Attending physician: Juan Diego Robledo MD Consults: 07/20/23 21:08 Consult Physician Routine Consulting Provider: Rory Nelson Consult Reason/Comments: syncope,PE Do you want consulting provider notified?: Yes Consult Physician Routine Consulting Provider: Grzegorz Junior Consult Reason/Comments: PE, rectal bleeding on ELiquis Do you want consulting provider notified?: Yes 07/21/23 10:58 Consult Physician Routine Consulting Provider: Bradley Martinez Consult Reason/Comments: recurrent syncope, r/o seizures Do you want consulting provider notified?: Yes 07/21/23 17:24 Consult Physician Routine Consulting Provider: Nathanael rTiana Consult Reason/Comments: recurrent PEs, eval to see if this is new PE vs old, treatment failure? Do you want consulting provider notified?: Yes 07/26/23 09:15 Consult Physician Routine Consulting Provider: Eleuterio Cervantes Consult Reason/Comments: reconsult for dizziness Do you want consulting provider notified?: Yes Primary care physician: Juan Diego Robledo MD Hospital Course: Nausea, vomiting, diarrhea with Right lower quadrant abdominal pain accompanied by rectal bleeding, decreased appetite times one month. Status post EGD revealing mild gastritis and normal colonoscopy Syncope, recurrent, initial orthostatic vital signs positive. Neurology workup in progress.seiures ruled out. Possible deconditioning secondary to pain with subsequent decreased ambulation/activity over the last couple years. Possible related to inner ear, BPPV-Antivert initiated. History of PE , requiring Ecos 2022 ,on eliquis. Denies missed doses of Eliquis. Evaluated by pulmonary- CTA 08/02, showed bilateral pulmonary emboli, although, the emboli are diminished when compared to the previous CTA. Hypercoagulable workup reported negative per hematology Morbid obesity, BMI 47, ( BMI 58.8 on 08/01) Chronic back pain Gastroesophageal reflux disease History of pineal gland cyst Chronic headaches Hospital course:Ginny Cage is a 27 yo F with PMH of recurrent PE, morbid obesity, lumbar disc disease who presented to the ED after passing out multiple times at home. She complains that over the past few weeks but especially in the last few days she has been having episodes of passing out. She reports 9-10 episodes of passing out with loss of consciousness in the last few days. She denies a previous history of syncope. She continues on the eliquis since her admission in May of 2023. She also complains of right lower quadrant abdominal pain and states she has been experiencing this discomfort since June. On presentation vitals stable, EKG with NSR, Chest CTA: Pulmonary embolism, minimal burden involving the lobar, segmental, subsegmental branches of the right lower lobe. Overall clot burden significantly diminished compared to February 2023 07/24/2023 reports continued rectal bleeding, last bloody bowel movement yesterday-dark and tarry accompanied by unchanged abdominal pain/right lower quadrant. On admission, hemoglobin 14.3 currently down to 11.6. Platelets 313. Delta bilirubin 0.3, AST 76, ALT 108. Evaluated by general surgery and patient is scheduled for EGD and colonoscopy tomorrow. Afebrile, soft blood pressures, maintaining O2 sats of 100% on 2 L nasal cannula. 07/25/2023 NPO, scheduled for both EGD and colonoscopy with general surgery. Maintained on IV fluid hydration and IV heparin. Reports continuous ongoing right lower quadrant abdominal cramping with pain. Maintaining O2 sats in the 90s on room air. Negative orthostatic hypotension. Hemoglobin 11.3, platelets 296, renal function stable. Afebrile, WBC 3.6. 07/26/2023 completed EGD and colonoscopy yesterday and reportedly mild gastritis and normal colonoscopy. No active signs of bleeding. Hemoglobin 11.7, platelets 263. Anticoagulation with Eliquis resumed. Reports ongoing persistent right lower quadrant abdominal pain. Patient reports she is currently on her menstrual cycle. Scheduled for tilt table test today. 07/27/2023 tilt table completed yesterday, report pending. Returning from brain MRI, ordered by neurology, this morning. Transferred from chair to the bed. Orthostatic vitals pending. PT pending. Currently denies abdominal pain. Denies chest pain, palpitations or shortness of breath. Maintaining O2 sats in the high 90s on RA. Tilt table test reported as negative-symptomatic throughout the test but no substantial diagnoses as per cardiology. Patient reports she felt dizzy throughout the test, Antivert initiated. Cleared by all consults for discharge. Per neurology :"Patient was notified she needs to follow-up with neurologist as outpatient for surveillance of pineal cyst and other neurological issues. Follow-up within 2-3 weeks. Also recommend following-up with neurosurgeon as outpatient for the pineal cyst. " Please refer to neurology's consult for specific details. Recommending patient follow-up up at a tertiary care center , [facility] or [facility] discussed, including for her neurology follow-up.She reports difficulty scheduling appointments with her neurologist , Dr. Gonzalez. Also discussed follow-up with her pain specialist in 1 week, regarding pain management. Evaluated by PT and subacute rehab recommended at discharge. Patient will be discharged to subacute rehab today in a stable condition with guarded prognosis. The impression and plan of care has been dictated as directed. : I performed a history and examination of this patient, discussed the same with the dictator. I agree with the dictator's note ,documented as a scribe. Any additional findings or plans will be noted. Patient Condition at Discharge: Stable Plan - Discharge Summary New Discharge Prescriptions: New Loratadine [Claritin] 10 mg PO DAILY tab Pantoprazole [Protonix] 40 mg PO DAILY #30 tab Meclizine [Antivert] 12.5 mg PO TID PRN tab PRN Reason: Vertigo Famotidine [Pepcid] 40 mg PO BID PRN tab PRN Reason: Heartburn Lactobacillus Acidoph & Bulgar [Lactinex] 1 packet PO BID #60 packet Continue Ondansetron Odt [Zofran ODT] 4 mg PO Q8HR PRN #30 tab PRN Reason: Nausea oxyCODONE-APAP 7.5-325MG [Percocet 7.5-325 mg] 1 tab PO TID PRN #9 tab PRN Reason: Pain tiZANidine HCL [Zanaflex] 4 mg PO TID PRN PRN Reason: Muscle Pain Apixaban [Eliquis] 5 mg PO BID Albuterol Inhaler [Ventolin Hfa Inhaler] 2 puff INHALATION RT-Q6H PRN PRN Reason: Wheezing Discharge Medication List tiZANidine HCL [Zanaflex] 4 mg PO TID PRN 07/30/22 [History] Albuterol Inhaler [Ventolin Hfa Inhaler] 2 puff INHALATION RT-Q6H PRN 06/20/23 [History] Apixaban [Eliquis] 5 mg PO BID 06/20/23 [History] Ondansetron Odt [Zofran ODT] 4 mg PO Q8HR PRN #30 tab 06/20/23 [Rx] Loratadine [Claritin] 10 mg PO DAILY tab 07/27/23 [Rx] Pantoprazole [Protonix] 40 mg PO DAILY #30 tab 07/27/23 [Rx] Famotidine [Pepcid] 40 mg PO BID PRN tab 07/28/23 [Rx] Lactobacillus Acidoph & Bulgar [Lactinex] 1 packet PO BID #60 packet 07/28/23 [Rx] Meclizine [Antivert] 12.5 mg PO TID PRN tab 07/28/23 [Rx] oxyCODONE-APAP 7.5-325MG [Percocet 7.5-325 mg] 1 tab PO TID PRN #9 tab 07/28/23 [Rx] Follow up Appointment(s)/Referral(s): Eleuterio Cervantes MD [Medical Doctor] - 1 Week Grzegorz Junior [STAFF PHYSICIAN] - 6 Weeks (Have hypercoaguable lab draw 3-4 weeks prior to being seen by ) Juan Diego Robledo MD [Primary Care Provider] - 3 Days Activity/Diet/Wound Care/Special Instructions: Recommending patient follow-up with a neurologist at a tertiary care center , [facility] or [facility] discussed. Also discussed follow-up with her pain specialist in 1 week, regarding pain management. Event monitor at [facility]:
--- NOTE | 2023-07-28 11:45 | P.EPPROC ---
- EP Procedure Note Electrophysiology Procedure Note: Diagnosis Recurrent syncope Twelve-lead EKG shows sinus mechanism with nonspecific ST segment abnormality in the inferior leads Normal QT interval Normal NJ interval Narrow QRS without fractionation Tilt table test per protocol Baseline heart rate 95 beats a minute, Baseline blood pressure 129/77 mmHg Patient was tilted upright at an angle of 70 per protocol heart rates remained between 9510 beats a minute Blood pressure remained stable The patient had a variety of symptoms including feeling dizzy, very dizzy, feeling like everything is getting further weight However throughout all the symptoms her blood pressure remained stable and her heart rate remained between 95-110 beats a minute She had similar symptoms when her heart rate is 96 and she had similar symptoms when she had a heart rate of 110 beats a minute Impression Nonspecific ST segment abnormality in the inferior leads on twelve-lead EKG Absence of any QT abnormality. No delta waves no epsilon waves normal QRS normal NJ interval No evidence for neurocardiogenic syncope No evidence for dysautonomia or POTS Tilt table testing is preferably avoided in the setting of pulmonary embolism, Including non-massive pulmonary embolism
[2023-07-28] MEDS: ALPRAZolam 0.25 MG TAB PO PRN ×2 (13:04→20:43)
[2023-07-28] MEDS: MECLIZINE 12.5 MG TAB PO PRN (13:05)
[2023-07-28] MEDS: ONDANSETRON 4 MG/2 ML VIAL IVP PRN (13:05)
[2023-07-28] MEDS: LACTATED RINGERS 1,000 ML IV SCH (15:58)
[2023-07-28] MEDS: tiZANidine 4 MG TAB PO PRN (20:36)
[2023-07-29] MEDS: oxyCODONE-APAP 7.5-325MG 1 EACH TAB PO PRN ×2 (04:47→12:47)
[2023-07-29] MEDS: SODIUM CHLORIDE 0.9% 1,000 ML IV SCH (05:06)
[2023-07-29] MEDS: MECLIZINE 12.5 MG TAB PO PRN (05:07)
[2023-07-29 05:10] VITALS: RESP 18; TEMP 97.9
[2023-07-29] MEDS: LACTATED RINGERS 1,000 ML IV SCH (05:39)
[2023-07-29] MEDS: LACTOBACILLUS ACIDOPHILUS/PECT 1 EACH CAPSULE PO SCH (08:49)
[2023-07-29] MEDS: APIXABAN 5 MG TAB PO SCH (08:49)
[2023-07-29] MEDS: PANTOPRAZOLE 40 MG/10 ML VIAL IVP SCH (08:49)
[2023-07-29] MEDS: LORATADINE 10 MG TAB PO SCH (08:49)
[2023-07-29 09:10] LABS: Anisocytosis Slight; Basophils % (A) 0 %; Eosinophils # (A) 0.1 k/uL (0-0.7); Eosinophils % (A) 2 %; HCT 38.5 % (34.0-46.0); HGB 11.6 gm/dL (11.4-16.0); Hypochromasia Marked; Lymphocytes # (A) 1.9 k/uL (1.0-4.8); Lymphocytes % (A) 41 %; MCH 24.7 pg (25.0-35.0); MCV 82.2 fL (80.0-100.0); Mean Platelet Volume 8.2; Monocytes # (A) 0.3 k/uL (0-1.0); Monocytes % (A) 7 %; Neutrophils # (A) 2.3 k/uL (1.3-7.7); Neutrophils % (A) 48 %; Platelet Count 231 k/uL (150-450); RBC 4.69 m/uL (3.80-5.40); RDW 19.2 % (11.5-15.5); WBC 4.7 k/uL (3.8-10.6)
[2023-07-29 09:44] LABS: ALT 65 U/L (4-34); AST 44 U/L (14-36); African American GFR (CKD) >90 (>60 ml/min/1.73 sqM); Alkaline Phosphatase 56 U/L (38-126); Anion Gap 9 mmol/L; Blood Urea Nitrogen 7 mg/dL (7-17); Calcium 8.8 mg/dL (8.4-10.2); Carbon Dioxide 27 mmol/L (22-30); Chloride 105 mmol/L (98-107); Glucose 120 mg/dL (74-99); Non-African American GFR(CKD) >90 (>60 ml/min/1.73 sqM); Potassium 3.4 mmol/L (3.5-5.1); Sodium 141 mmol/L (137-145); Total Bilirubin 0.4 mg/dL (0.2-1.3); Total Protein 5.3 g/dL (6.3-8.2)
[2023-07-29] MEDS ORDERED: POTASSIUM CHLORIDE ER 20 MEQ TAB.ER PO STA (09:56)
--- NOTE | 2023-07-29 12:58 | P.DS ---
Providers Date of admission: 07/20/23 21:08 Expected date of discharge: 07/29/23 Attending physician: Juan Diego Robledo MD Consults: 07/20/23 21:08 Consult Physician Routine Consulting Provider: Rory Nelson Consult Reason/Comments: syncope,PE Do you want consulting provider notified?: Yes Consult Physician Routine Consulting Provider: Grzegorz Junior Consult Reason/Comments: PE, rectal bleeding on ELiquis Do you want consulting provider notified?: Yes 07/21/23 10:58 Consult Physician Routine Consulting Provider: Bradley Martinez Consult Reason/Comments: recurrent syncope, r/o seizures Do you want consulting provider notified?: Yes 07/21/23 17:24 Consult Physician Routine Consulting Provider: Nathanael Triana Consult Reason/Comments: recurrent PEs, eval to see if this is new PE vs old, treatment failure? Do you want consulting provider notified?: Yes 07/26/23 09:15 Consult Physician Routine Consulting Provider: Eleuterio Cervantes Consult Reason/Comments: reconsult for dizziness Do you want consulting provider notified?: Yes Primary care physician: Juan Diego Robledo MD Hospital Course: Discharge diagnoses; Nausea, vomiting, diarrhea with Right lower quadrant abdominal pain accompanied by rectal bleeding, decreased appetite times one month. Status post EGD revealing mild gastritis and normal colonoscopy Syncope, recurrent, initial orthostatic vital signs positive. History of PE , requiring Ecos 2022 ,on eliquis. Denies missed doses of Eliquis. Evaluated by pulmonary- CTA 08/02, showed bilateral pulmonary emboli, although, the emboli are diminished when compared to the previous CTA. Hypercoagulable workup reported negative as per hematology Morbid obesity, BMI 47, ( BMI 58.8 on 08/01) Chronic back pain Gastroesophageal reflux disease Hospital course; Ginny Cage is a 27 yo F with PMH of recurrent PE, morbid obesity, lumbar disc disease who presented to the ED after passing out multiple times at home. She complains that over the past few weeks but especially in the last few days she has been having episodes of passing out. She reports 9-10 episodes of passing out with loss of consciousness in the last few days. She denies a previous history of syncope. She continues on the eliquis since her admission in May of 2023. She also complains of right lower quadrant abdominal pain and states she has been experiencing this discomfort since June. On presentation vitals stable, EKG with NSR, Chest CTA: Pulmonary embolism, minimal burden involving the lobar, segmental, subsegmental branches of the right lower lobe. Overall clot burden significantly diminished compared to February 2023 07/24/2023 reports continued rectal bleeding, last bloody bowel movement yesterday-dark and tarry accompanied by unchanged abdominal pain/right lower quadrant. On admission, hemoglobin 14.3 currently down to 11.6. Platelets 313. Delta bilirubin 0.3, AST 76, ALT 108. Evaluated by general surgery and patient is scheduled for EGD and colonoscopy tomorrow. Afebrile, soft blood pressures, maintaining O2 sats of 100% on 2 L nasal cannula. 07/25/2023 NPO, scheduled for both EGD and colonoscopy with general surgery. Maintained on IV fluid hydration and IV heparin. Reports continuous ongoing right lower quadrant abdominal cramping with pain. Maintaining O2 sats in the 90s on room air. Negative orthostatic hypotension. Hemoglobin 11.3, platelets 296, renal function stable. Afebrile, WBC 3.6. 07/26/2023 completed EGD and colonoscopy yesterday and reportedly mild gastritis and normal colonoscopy. No active signs of bleeding. Hemoglobin 11.7, platelets 263. Anticoagulation with Eliquis resumed. Reports ongoing persistent right lower quadrant abdominal pain. Patient reports she is currently on her menstrual cycle. Scheduled for tilt table test today. 07/27/2023 tilt table completed yesterday, report pending. Returning from brain MRI, ordered by neurology, this morning. Transferred from chair to the bed. Orthostatic vitals pending. PT pending. Currently denies abdominal pain. Denies chest pain, palpitations or shortness of breath. Maintaining O2 sats in the high 90s on RA. 07/29. Dr. posadas took over care from Dr. Robledo. She was initially waiting on rehab placement but changed her mind, she wants to be discharged home with homecare. Discussed with her detail regarding the discharge needs but patient at this time is insistent on going home today. PHYSICAL EXAMINATION: GENERAL: The patient is alert and oriented x3, not in any acute distress. Well developed, well nourished. HEENT: Pupils are round and equally reacting to light. EOMI. No scleral icterus. No conjunctival pallor. Normocephalic, atraumatic. No pharyngeal erythema. No thyromegaly. CARDIOVASCULAR: S1 and S2 present. No murmurs, rubs, or gallops. PULMONARY: Chest is clear to auscultation, no wheezing or crackles. ABDOMEN: Soft, nontender, nondistended, normoactive bowel sounds. No palpable organomegaly. MUSCULOSKELETAL: No joint swelling or deformity. EXTREMITIES: No cyanosis, clubbing, or pedal edema. NEUROLOGICAL: Gross neurological examination did not reveal any focal deficits. SKIN: No rashes. Dictation was produced using [employer] dictation software. please excuse any grammatical, word or spelling errors. Patient Condition at Discharge: Stable Plan - Discharge Summary New Discharge Prescriptions: New Loratadine [Claritin] 10 mg PO DAILY tab Pantoprazole [Protonix] 40 mg PO DAILY #30 tab Meclizine [Antivert] 12.5 mg PO TID PRN tab PRN Reason: Vertigo Famotidine [Pepcid] 40 mg PO BID PRN tab PRN Reason: Heartburn Lactobacillus Acidoph & Bulgar [Lactinex] 1 packet PO BID #60 packet Continue Ondansetron Odt [Zofran ODT] 4 mg PO Q8HR PRN #30 tab PRN Reason: Nausea oxyCODONE-APAP 7.5-325MG [Percocet 7.5-325 mg] 1 tab PO TID PRN #9 tab PRN Reason: Pain tiZANidine HCL [Zanaflex] 4 mg PO TID PRN PRN Reason: Muscle Pain Apixaban [Eliquis] 5 mg PO BID Albuterol Inhaler [Ventolin Hfa Inhaler] 2 puff INHALATION RT-Q6H PRN PRN Reason: Wheezing Discharge Medication List tiZANidine HCL [Zanaflex] 4 mg PO TID PRN 07/30/22 [History] Albuterol Inhaler [Ventolin Hfa Inhaler] 2 puff INHALATION RT-Q6H PRN 06/20/23 [History] Apixaban [Eliquis] 5 mg PO BID 06/20/23 [History] Ondansetron Odt [Zofran ODT] 4 mg PO Q8HR PRN #30 tab 06/20/23 [Rx] Loratadine [Claritin] 10 mg PO DAILY tab 07/27/23 [Rx] Pantoprazole [Protonix] 40 mg PO DAILY #30 tab 07/27/23 [Rx] Famotidine [Pepcid] 40 mg PO BID PRN tab 07/28/23 [Rx] Lactobacillus Acidoph & Bulgar [Lactinex] 1 packet PO BID #60 packet 07/28/23 [Rx] Meclizine [Antivert] 12.5 mg PO TID PRN tab 07/28/23 [Rx] oxyCODONE-APAP 7.5-325MG [Percocet 7.5-325 mg] 1 tab PO TID PRN #9 tab 07/28/23 [Rx] Follow up Appointment(s)/Referral(s): Eleuterio Cervantes MD [Medical Doctor] - 1 Week Grzegorz Junior [STAFF PHYSICIAN] - 6 Weeks (Have hypercoaguable lab draw 3-4 weeks prior to being seen by ) Juan Diego Robledo MD [Primary Care Provider] - 3 Days Activity/Diet/Wound Care/Special Instructions: Recommending patient follow-up with a neurologist at a tertiary care center , [facility] or [facility]. Also discussed follow-up with her pain specialist in 1 week, regarding pain management. Event monitor at [facility]: Discharge Disposition: HOME SELF-CARE
[2023-07-29 13:11] VITALS: BP 130/85; PULSE 88
[2023-07-29] MEDS ORDERED: PANTOPRAZOLE 40 MG TABLET PO SCH (17:30)
== END 2023-07-29 16:33 | disposition home or self-care (01) | DRG 312 ==
LOC: EC 15:27 → 3SCARD 21:08
PROVIDERS: ADMIT Family Medicine; ATTEND Family Medicine
PROC: 0DJD8ZZ Inspection of Lower Intestinal Tract, Via Natural or Artificial Opening Endoscopic (ICD-10-PCS; principal; 2023-07-25 11:35)
PROC: 0DB78ZX Excision of Stomach, Pylorus, Via Natural or Artificial Opening Endoscopic, Diagnostic (ICD-10-PCS; principal; 2023-07-25 11:35)
PROC: 4A02XFZ Measurement of Cardiac Rhythm, External Approach (ICD-10-PCS; 2023-07-26)
PROC: 4A03XB1 Measurement of Arterial Pressure, Peripheral, External Approach (ICD-10-PCS; 2023-07-26)
DX: I95.1 Orthostatic hypotension (principal); I26.99 Other pulmonary embolism without acute cor pulmonale; K62.5 Hemorrhage of anus and rectum; N39.0 Urinary tract infection, site not specified; Z68.42 Body mass index [BMI] 45.0-49.9, adult; E66.01 Morbid (severe) obesity due to excess calories; F41.9 Anxiety disorder, unspecified; D64.9 Anemia, unspecified; G43.909 Migraine, unspecified, not intractable, without status migrainosus; Z86.16 Personal history of COVID-19; K21.9 Gastro-esophageal reflux disease without esophagitis; I10 Essential (primary) hypertension; R56.9 Unspecified convulsions; M54.9 Dorsalgia, unspecified; E34.8 Other specified endocrine disorders; M51.36 Other intervertebral disc degeneration, lumbar region; G89.29 Other chronic pain; K29.70 Gastritis, unspecified, without bleeding; N20.0 Calculus of kidney; Z79.01 Long term (current) use of anticoagulants; Z86.711 Personal history of pulmonary embolism; Z86.718 Personal history of other venous thrombosis and embolism; Z71.3 Dietary counseling and surveillance; Z28.310 Unvaccinated for COVID-19; Z28.21 Immunization not carried out because of patient refusal; Z88.0 Allergy status to penicillin; Z88.7 Allergy status to serum and vaccine; Z88.8 Allergy status to other drugs, medicaments and biological substances
CPT/HCPCS: 36415; 43239; 45378; 70450; 70553; 71275; 74177; 80048; 80053; 80076; 81001; 82272; 82533; 82728; 83540; 83550; 83690; 83735; 84100; 84439; 84443; 84484; 84703; 85025; 85027; 85598; 85610; 85613; 85730; 85732; 86146; 86147; 86850; 86900; 86901; 88305; 93005; 93306; 93660; 93970; 94760; 95816; 96374; 96375; 96376; 99291

== ENCOUNTER 2024-05-28 15:05 | Emergency (ER) | payer BC ==
[2024-05-28 15:16] VITALS: RESP 18
--- NOTE | 2024-05-28 15:50 | CT ---
EXAMINATION TYPE: CT brain cspine wo con DATE OF EXAM: 05/28/2024 3:42 PM COMPARISON: None. CLINICAL INDICATION: Female, 28 years old with history of trauma; fell hit head/ on blood thinners TECHNIQUE: Brain: Multiple axial CT images of the brain were obtained without IV contrast. Cspine: Axial CT images from the skull base to the inferior aspect of T2 we obtained without intraven ous contrast. Coronal and sagittal reformatted images were also reviewed. . CT DLP: 1856.7 mGycm, Automated exposure control for dose reduction was used. FINDINGS: Brain: Extra-axial spaces: No abnormal extra-axial fluid collections. Ventricular system: Within normal limits Cerebral parenchyma: No acute intraparenchymal hemorrhage or mass effect. The brothers-white junction is well differentiated. Cerebellum: Unremarkable. Mass effect: No evidence of midline shift. Intracranial vasculature: unremarkable Soft tissues: Normal. Calvarium/osseous structures: No depressed skull fracture. Paranasal sinuses and mastoid air cells: Clear. Visualized orbits: Orbital contents are intact. Cervical spine: Fracture: None. Osseous structures: Unremarkable Vertebral alignment: Within normal limits. Spinal canal/Neural Foramina: No evidence of significant spinal canal narrowing. No evidence for sign ificant neural foraminal stenosis. Neck soft tissues: Prevertebral soft tissues are within normal limits. Other: The airway is patent. The lung apices are clear. IMPRESSION: 1. No acute intracranial process. 2. No evidence of cervical spine fracture. [facility], , 05/28/2024 3:48 PM
[2024-05-28] MEDS: SODIUM CHLORIDE 0.9% 1,000 ML IV STA (16:21)
--- NOTE | 2024-05-28 16:21 | CT ---
EXAMINATION TYPE: CT thor lumbar spine wo con DATE OF EXAM: 05/28/2024 3:54 PM COMPARISON: None CLINICAL INDICATION: Female, 28 years old with history of fall; fell hit head on counter/ on thiners /back pain TECHNIQUE: Axial images of the thoracic and lumbar spine were obtained without contrast. Coronal and sagittal reformats were performed. 3-D reformats of the bones were created on a separate workstation and submitted for review. CT Contrast: Contrast used: mL of , none. Oral contrast used: none. CT DLP: 5315 mGycm, Automated exposure control for dose reduction was used. FINDINGS: Mild multilevel degeneration changes throughout the spine with osteophyte formation and facet joint a rthropathy. No evidence of significant spinal canal neural foraminal stenosis. No evidence for fractu re. IMPRESSION: 1. No evidence of fracture of the lumbar spine. 2. No significant spinal canal or neural foraminal stenosis is identified. 3. Mild degeneration changes of the thoracic and lumbar spine.[id number] [facility], , 05/28/2024 4:18 PM
[2024-05-28 16:26] LABS: Basophils % (A) 0 %; Eosinophils # (A) 0.1 k/uL (0-0.7); Eosinophils % (A) 2 %; HCT 39.5 % (34.0-46.0); Hypochromasia Slight; Lymphocytes # (A) 2.2 k/uL (1.0-4.8); Lymphocytes % (A) 30 %; MCH 27.3 pg (25.0-35.0); MCHC 32.8 g/dL (31.0-37.0); MCV 83.4 fL (80.0-100.0); Mean Platelet Volume 6.9; Monocytes # (A) 0.2 k/uL (0-1.0); Monocytes % (A) 3 %; Neutrophils # (A) 4.6 k/uL (1.3-7.7); Neutrophils % (A) 64 %; Platelet Count 330 k/uL (150-450); RBC 4.74 m/uL (3.80-5.40); RDW 13.9 % (11.5-15.5); WBC 7.2 k/uL (3.8-10.6)
[2024-05-28] MEDS: ONDANSETRON 4 MG/2 ML VIAL IVP STA (16:28)
[2024-05-28] MEDS: HYDROmorphone 1 MG/ML 1 ML SYRINGE IVP STA (16:28)
[2024-05-28 16:34] LABS: ALT 26 U/L (4-34); AST 25 U/L (14-36); African American GFR (CKD) >90 (>60 ml/min/1.73 sqM); Albumin 3.8 g/dL (3.5-5.0); Alcohol <10 mg/dL; Alkaline Phosphatase 95 U/L (38-126); Anion Gap 4 mmol/L; Blood Urea Nitrogen 9 mg/dL (7-17); Calcium 8.8 mg/dL (8.4-10.2); Carbon Dioxide 26 mmol/L (22-30); Chloride 107 mmol/L (98-107); Glucose 103 mg/dL (74-99); Non-African American GFR(CKD) >90 (>60 ml/min/1.73 sqM); Sodium 137 mmol/L (137-145); Total Bilirubin 0.6 mg/dL (0.2-1.3); Total Protein 6.6 g/dL (6.3-8.2)
[2024-05-28 16:36] LABS: Partial Thromboplastin Time 26.3 sec (22.0-30.0); Prothrombin Time 10.7 sec (10.0-12.5)
--- NOTE | 2024-05-28 17:33 | ED ---
General Adult HPI - General Chief complaint: Fall Stated complaint: FALL-HEAD INJURY-ON THINNERS Time Seen by Provider: 05/28/24 15:15 Source: patient, family, RN notes reviewed, old records reviewed Mode of arrival: wheelchair Limitations: no limitations - History of Present Illness Initial comments: 28-year-old with past medical history remarkable for hypertension, PE on Eliquis who presents emergency department after a fall on blood thinners. Patient was knocked over by her dogs and her head on the counter and then the floor. She thinks she may have had loss of consciousness with some syncopal episodes which she does have a history of. She is currently receiving outpatient workup for it. Had nausea with that as well took Zofran at home. Presents for further evaluation. Endorses a mild headache as well as spinal pain. Fall occurred approximately 2 to 3 hours prior to arrival. Patient has a history of chronic pain and is on oxycodone at home. Presents for further evaluation at this time. I was notified in the waiting room that patient does meet criteria for code coag. This was activated overhead and patient was placed in room 14 where I evaluated her. - Related Data Home Medications Medication Instructions Recorded Confirmed tiZANidine HCL [Zanaflex] 4 mg PO TID 07/30/22 05/28/24 Apixaban [Eliquis] 5 mg PO BID 06/20/23 05/28/24 busPIRone HCL 10 mg PO BID 05/28/24 05/28/24 oxyCODONE-APAP 7.5-325MG [Percocet 1 tab PO TID 05/28/24 05/28/24 7.5-325 mg] Previous Rx's Medication Instructions Recorded Lidocaine 5% Patch [Lidoderm 5% 1 patch TOPICAL DAILY PRN 14 Days 05/28/24 Patch] #14 patch Allergies Allergy/AdvReac Type Severity Reaction Status Date / Time amoxicillin [Amoxicillin] Allergy Rash/Hives Verified 05/28/24 17:52 cefprozil Allergy Rash/Hives Verified 05/28/24 17:52 Influenza Virus Vaccines Allergy Unknown Verified 05/28/24 17:52 Childhood lisinopril Allergy Cough Verified 05/28/24 17:52 Penicillins Allergy Rash/Hives Verified 05/28/24 17:52 Review of Systems ROS Statement: Those systems with pertinent positive or pertinent negative responses have been documented in the HPI. Review of Systems: CONST: Denies fever EYES: Denies blurry vision ENT: Denies nasal congestion C/V: Denies Chest pain RESP: Denies shortness of breath GI: Denies abdominal pain : Denies dysuria SKIN: Denies rash. MSK: Endorses spine. NEURO: Endorses mild headache ROS Other: All systems not noted in ROS Statement are negative. Past Medical History Past Medical History: Hypertension, Pulmonary Embolus (PE) Additional Past Medical History / Comment(s): back pain, Ovarian cysts, migraines, Covid fall 2021 with PE History of Any Multi-Drug Resistant Organisms: None Reported Past Surgical History: No Surgical Hx Reported Additional Past Surgical History / Comment(s): rhizotomy; Garden teeth, colonoscopy Past Anesthesia/Blood Transfusion Reactions: No Reported Reaction Additional Past Anesthesia/Blood Transfusion Reaction / Comment(s): NO ANESTHESIA HX. Past Psychological History: Anxiety Smoking Status: Never smoker Past Alcohol Use History: Occasional Past Drug Use History: None Reported - Past Family History Mother Family Medical History: No Reported History General Exam - General Exam Comments Initial Comments: General: Mild distress secondary to back pain. HEAD: Normal with no signs of head trauma. Negative Kirkpatrick sign. Negative raccoon eyes. EYES: PERRLA, EOMI, conjunctiva normal, no discharge. Pupils are 3 mm and equal bilaterally. ENT: Hearing grossly intact, normal oropharynx. RESPIRATORY: Clear breath sounds bilaterally. No wheezes, rales, or rhonchi. C/V: Regular rate and rhythm. S1 and S2 auscultated, no edema, peripheral pulses 2+ and intact throughout ABD: Abd is soft, nontender, nondistended EXT: Stable. No obvious deformities. No extremity tenderness to palpation. Patient does have some paraspinal muscle tenderness to palpation through her lumbar, thoracic, cervical spines. No obvious deformities or step-offs palpated. SKIN: No rashes or lesions observed on exposed skin. NEURO: Alert and oriented x 4. GCS of 15. No obvious focal deficits. Limitations: no limitations Course Vital Signs 05/28/24 05/28/24 15:10 17:12 Temperature 97.5 F L Pulse Rate 89 79 Respiratory 18 18 Rate Blood Pressure 115/75 112/75 O2 Sat by Pulse 97 98 Oximetry Medical Decision Making - Medical Decision Making Was pt. sent in by a medical professional or institution ([facility] Kathleen, [employer], urgent care, hospital, or alf...) When possible be specific @ -No Did you speak to anyone other than the patient for history (EMS, parent, family, police, friend...)? What history was obtained from this source @ -No Did you review nursing and triage notes (agree or disagree)? Why? @ -I reviewed and agree with nursing and triage notes Were old charts reviewed (outside hosp., previous admission, EMS record, old EKG, old radiological studies, urgent care reports/EKG's, alf records)? Report findings @ -No old charts were reviewed Differential Diagnosis (chest pain, altered mental status, abdominal pain women, abdominal pain men, vaginal bleeding, weakness, fever, dyspnea, syncope, headache, dizziness, GI bleed, back pain, seizure, CVA, palpatations, mental health, musculoskeletal)? @ -Intracranial injury, spinal injury, syncope, fall, sprain. This list is not all inclusive. EKG interpreted by me (3pts min.)., @ -As above X-rays interpreted by me (1pt min.). @ -Chest and pelvis x-rays negative for any obvious traumatic injury. CT interpreted by me (1pt min.). @ -CT brain, C-spine reveals no obvious acute intracranial process or injury. CT C-spine negative for any obvious fracture. CT lumbar spine and thoracic spine negative for any obvious acute fracture or injury. Changes are present. U/S interpreted by me (1pt. min.). @ -None done What testing was considered but not performed or refused? (CT, X-rays, U/S, labs)? Why? @ -None What meds were considered but not given or refused? Why? @ -None Did you discuss the management of the patient with other professionals (professionals i.e. JEANNETTE Kathleen, [employer], lab, RT, psych nurse, social services director, cheese wrapper, teacher, life science technical officer, therapeutic case manager)? Give summary @ -No Was smoking cessation discussed for >3mins.? @ -No Was critical care preformed (if so, how long)? @ -Yes, 22 minutes Were there social determinants of health that impacted care today? How? (Homelessness, low income, unemployed, alcoholism, drug addiction, transportation, low edu. Level, literacy, decrease access to med. care, group home, rehab)? @ -No Was there de-escalation of care discussed even if they declined (Discuss DNR or withdrawal of care, Hospice)? DNR status @ -No What co-morbidities impacted this encounter? (DM, HTN, Smoking, COPD, CAD, Cancer, CVA, ARF, Chemo, Hep., AIDS, mental health diagnosis, sleep apnea, morbid obesity)? @ -Patient on blood thinners and suffered a fall Was patient admitted / discharged? Hospital course, mention meds given and route, prescriptions, significant lab abnormalities, going to OR and other pertinent info. @ -Patient presents with a fall, on blood thinners, with loss of consciousness but is currently acting normally with no obvious acute trauma and no altered mentation. Patient meets criteria for code coag. This was done and patient was placed in a room. She is also complaining of spinal pain and we will obtain CT imaging of the thoracic and lumbar spines in addition to C-spine and brain. Other trauma labs will be obtained including screening EKG. Patient will be administered IV fluids, Dilaudid, Zofran. Patient was in agreement this plan. Patient does have a history of recurrent syncopal episodes and is being worked up for them and this is a chronic issue. Patient also has a history of chronic pain and takes oxycodone at home. EKG showed no signs of acute ischemia. CT imaging negative for any obvious acute traumatic injury or process. Laboratory studies are unremarkable.X-ray is unremarkable. On reevaluation, patient is feeling improved. We did discuss her workup. We discussed her multiple syncopal episodes and she is currently in the workup for POTS. Patient is in agreement with plan for discharge and follow-up with her PCP. She will be given a prescription for lidocaine patches. I instructed the patient to follow up with their PCP in the next 1-3 days. I explained that the patient should return to the emergency department if they experience any worsening symptoms. Strict return precautions were discussed with the patient. The patient expressed understanding of these instructions. I answered all questions that the patient had. The patient was discharged home in good condition with their prescriptions and follow up information. Undiagnosed new problem with uncertain prognosis? @ -No Drug Therapy requiring intensive monitoring for toxicity (Heparin, Nitro, Insulin, Cardizem)? @ -No Were any procedures done? @ -No Diagnosis/symptom? @ -Fall, muscle strains Acute, or Chronic, or Acute on Chronic? @ -Acute Uncomplicated (without systemic symptoms) or Complicated (systemic symptoms)? @ -Complicated Side effects of treatment? @ -None Exacerbation, Progression, or Severe Exacerbation] @ -No Poses a threat to life or bodily function? @ -Unlikely Diagnosis/symptom? @ -Syncope Acute, or Chronic, or Acute on Chronic? @ -Acute on chronic Uncomplicated (without systemic symptoms) or Complicated (systemic symptoms)? @ -Complicated Side effects of treatment? @ -None Exacerbation, Progression, or Severe Exacerbation] @ -No Poses a threat to life or bodily function? @ -Unlikely - Lab Data Result diagrams: 05/28/24 16:10 05/28/24 16:10 Lab Results 05/28/24 05/28/24 05/28/24 Range/Units 16:10 16:10 16:10 WBC 7.2 (3.8-10.6) k/uL RBC 4.74 (3.80-5.40) m/uL Hgb 13.0 (11.4-16.0) gm/dL Hct 39.5 (34.0-46.0) % MCV 83.4 (80.0-100.0) fL MCH 27.3 (25.0-35.0) pg MCHC 32.8 (31.0-37.0) g/dL RDW 13.9 (11.5-15.5) % Plt Count 330 (150-450) k/uL MPV 6.9 Neutrophils % 64 % Lymphocytes % 30 % Monocytes % 3 % Eosinophils % 2 % Basophils % 0 % Neutrophils # 4.6 (1.3-7.7) k/uL Lymphocytes # 2.2 (1.0-4.8) k/uL Monocytes # 0.2 (0-1.0) k/uL Eosinophils # 0.1 (0-0.7) k/uL Basophils # 0.0 (0-0.2) k/uL Hypochromasia Slight PT 10.7 (10.0-12.5) sec INR 1.0 (<1.2) APTT 26.3 (22.0-30.0) sec Sodium 137 (137-145) mmol/L Potassium 4.0 (3.5-5.1) mmol/L Chloride 107 (98-107) mmol/L Carbon Dioxide 26 (22-30) mmol/L Anion Gap 4 mmol/L BUN 9 (7-17) mg/dL Creatinine 0.54 (0.52-1.04) mg/dL Est GFR (CKD-EPI)AfAm >90 (>60 ml/min/1.73 sqM) Est GFR (CKD-EPI)NonAf >90 (>60 ml/min/1.73 sqM) Glucose 103 H (74-99) mg/dL Calcium 8.8 (8.4-10.2) mg/dL Total Bilirubin 0.6 (0.2-1.3) mg/dL AST 25 (14-36) U/L ALT 26 (4-34) U/L Alkaline Phosphatase 95 (38-126) U/L Total Protein 6.6 (6.3-8.2) g/dL Albumin 3.8 (3.5-5.0) g/dL TSH 1.420 (0.465-4.680) mIU/L Serum Alcohol <10 mg/dL Blood Type Blood Type Recheck Bld Type Recheck Status Antibody Screen Spec Expiration Date 05/28/24 Range/Units 16:10 WBC (3.8-10.6) k/uL RBC (3.80-5.40) m/uL Hgb (11.4-16.0) gm/dL Hct (34.0-46.0) % MCV (80.0-100.0) fL MCH (25.0-35.0) pg MCHC (31.0-37.0) g/dL RDW (11.5-15.5) % Plt Count (150-450) k/uL MPV Neutrophils % % Lymphocytes % % Monocytes % % Eosinophils % % Basophils % % Neutrophils # (1.3-7.7) k/uL Lymphocytes # (1.0-4.8) k/uL Monocytes # (0-1.0) k/uL Eosinophils # (0-0.7) k/uL Basophils # (0-0.2) k/uL Hypochromasia PT (10.0-12.5) sec INR (<1.2) APTT (22.0-30.0) sec Sodium (137-145) mmol/L Potassium (3.5-5.1) mmol/L Chloride (98-107) mmol/L Carbon Dioxide (22-30) mmol/L Anion Gap mmol/L BUN (7-17) mg/dL Creatinine (0.52-1.04) mg/dL Est GFR (CKD-EPI)AfAm (>60 ml/min/1.73 sqM) Est GFR (CKD-EPI)NonAf (>60 ml/min/1.73 sqM) Glucose (74-99) mg/dL Calcium (8.4-10.2) mg/dL Total Bilirubin (0.2-1.3) mg/dL AST (14-36) U/L ALT (4-34) U/L Alkaline Phosphatase (38-126) U/L Total Protein (6.3-8.2) g/dL Albumin (3.5-5.0) g/dL TSH (0.465-4.680) mIU/L Serum Alcohol mg/dL Blood Type B Positive Blood Type Recheck B Pos Bld Type Recheck Status No Antibody Screen NEGATIVE Spec Expiration Date 05/31/20242309 - EKG Data -: EKG Interpreted by Me EKG Comments: 12-lead Electrocardiogram Interpretation Note EKG was reviewed and interpreted by myself. 12-lead ECG performed at 1558 is interpreted by me as revealing normal sinus rhythm at a rate of 84 beats per minute. Colbert is normal. DC interval is 112 ms, QRS durations 106 ms, QTc is 424 ms. There were no ST or T wave abnormalities to suggest myocardial ischemia or injury. R wave progression across the precordium was satisfactory. By my interpretation this EKG is non-diagnostic for acute ischemia. Isolated T wave inversion lead III. Seen on prior EKGs from July 2023 Critical Care Time Critical Care Time: Yes Total Critical Care Time: 22 Disposition Clinical Impression: Fall, Muscle strain, Syncope Disposition: HOME SELF-CARE Condition: Good Instructions (If sedation given, give patient instructions): Muscle Strain (ED), Fall Prevention (ED) Additional Instructions: Workup today after your fall shows no obvious traumatic injury or intracranial bleeding or injury. Follow-up with your PCP and pain management for further pain control and continued workup for your recurrent syncopal episodes. Prescriptions: Lidocaine 5% Patch [Lidoderm 5% Patch] 1 patch TOPICAL DAILY PRN 14 Days #14 patch PRN Reason: Pain Is patient prescribed a controlled substance at d/c from ED?: No Referrals: Juan Diego Robleod MD [Primary Care Provider] - 1-2 days Time of Disposition: 18:13
--- NOTE | 2024-05-28 17:45 | XR ---
EXAMINATION TYPE: XR chest 1V portable DATE OF EXAM: 05/28/2024 5:31 PM COMPARISON: Chest radiographs from 8 08/18/2022 CLINICAL INDICATION: Female, 28 years old with history of trauma; pain syncope TECHNIQUE: XR chest 1V portable Frontal view of the chest. FINDINGS: Lungs/Pleura: There is no evidence of pleural effusion, focal consolidation, or pneumothorax. Pulmonary vascularity: Unremarkable. Heart/mediastinum: Cardiomediastinal silhouette is unremarkable. Musculoskeletal: No acute osseous pathology. Other findings: None IMPRESSION: No acute cardiopulmonary disease/process. [facility], , 05/28/2024 5:42 PM
--- NOTE | 2024-05-28 17:46 | XR ---
EXAMINATION TYPE: XR pelvis AP view DATE OF EXAM: 05/28/2024 5:31 PM COMPARISON: None CLINICAL INDICATION: Female, 28 years old with history of Trauma; pain TECHNIQUE: XR pelvis AP view, examined in a single projection. FINDINGS: There is no evidence of fracture or dislocation. There is no soft tissue abnormality. No a bnormal calcifications are present. The spine appears intact. The hips appear intact. Osteophyte form ation of the superior acetabulum bilaterally with mild joint space narrowing. IMPRESSION: No acute osseous pathology. Mild degeneration changes of the hip. [facility], , 05/28/2024 5:44 PM
[2024-05-28] MEDS: HYDROmorphone 0.5 MG/0.5 ML SYRINGE IVP STA (18:24)
[2024-05-28 18:33] VITALS: BP 133/88; PULSE 50; TEMP 98.2
== END 2024-05-28 18:33 | disposition home or self-care (01) ==
LOC: EC 15:05
DX: S09.11XA Strain of muscle and tendon of head, initial encounter (principal); R55 Syncope and collapse; Z79.01 Long term (current) use of anticoagulants; Z88.8 Allergy status to other drugs, medicaments and biological substances; Z88.7 Allergy status to serum and vaccine; Z88.0 Allergy status to penicillin; W18.39XA Other fall on same level, initial encounter; Y93.K9 Activity, other involving animal care
CPT/HCPCS: 99284; 96374; 96375; 96376; 96361 ×2; 93005; 86900; 86901; 80053; 84443; 85025; 85610; 85730; 86850; 80320; 72170; 71045; 72128; 72125; 72131; 70450; J2405; J1171 ×2; 36415

== ENCOUNTER 2024-06-09 15:21 | Emergency (ER) | payer BC ==
[2024-06-09 15:36] VITALS: PULSE 96; RESP 18; TEMP 97.8
--- NOTE | 2024-06-09 16:05 | CT ---
EXAMINATION TYPE: CT brain cspine wo con DATE OF EXAM: 06/09/2024 3:58 PM COMPARISON: None. CLINICAL INDICATION: Female, 28 years old with history of pain; Pt to ED for syncopal episode with fa ll to ceramic tile bathroom floor. Pt reports hitting back of head. Severe headache since. Also re ports neck pain. TECHNIQUE: Brain: Multiple axial CT images of the brain were obtained without IV contrast. Cspine: Axial CT images from the skull base to the inferior aspect of T2 we obtained without intraven ous contrast. Coronal and sagittal reformatted images were also reviewed. . CT DLP: 1702.1 mGycm, Automated exposure control for dose reduction was used. FINDINGS: Brain: Extra-axial spaces: No abnormal extra-axial fluid collections. Ventricular system: Within normal limits Cerebral parenchyma: No acute intraparenchymal hemorrhage or mass effect. The brothers-white junction is well differentiated. Cerebellum: Unremarkable. Mass effect: No evidence of midline shift. Intracranial vasculature: unremarkable Soft tissues: Normal. Calvarium/osseous structures: No depressed skull fracture. Paranasal sinuses and mastoid air cells: Clear. Visualized orbits: Orbital contents are intact. Cervical spine: Fracture: None. Osseous structures: Unremarkable Vertebral alignment: Within normal limits. Spinal canal/Neural Foramina: No evidence of high-grade spinal canal stenosis. Neck soft tissues: Prevertebral soft tissues are within normal limits. Other: The airway is patent. The lung apices are clear. IMPRESSION: 1. No acute intracranial process. 2. No evidence of cervical spine fracture. [facility], , 06/09/2024 4:02 PM
--- NOTE | 2024-06-09 16:09 | ED ---
General Adult HPI - General Chief complaint: Syncope Stated complaint: Fall/hit head/on thinners Time Seen by Provider: 06/09/24 15:40 Source: patient, family, RN notes reviewed Mode of arrival: wheelchair Limitations: no limitations - History of Present Illness Initial comments: 28-year-old female presents emergency department chief complaint of a syncopal episode. Patient has recurrent syncopal episode she states she was getting out of a hot long shower states that she felt very hot flushed feeling but she did not think much of passed out at that time. Patient did strike her head. Patient is currently on Eliquis for prior PE. Patient states she has minimal neck discomfort no extremity injuries no back pain patient states she is not concerned about her passing episodes this been recurrent. - Related Data Home Medications Medication Instructions Recorded Confirmed tiZANidine HCL [Zanaflex] 4 mg PO TID 07/30/22 05/28/24 Apixaban [Eliquis] 5 mg PO BID 06/20/23 05/28/24 busPIRone HCL 10 mg PO BID 05/28/24 05/28/24 oxyCODONE-APAP 7.5-325MG [Percocet 1 tab PO TID 05/28/24 05/28/24 7.5-325 mg] Previous Rx's Medication Instructions Recorded Lidocaine 5% Patch [Lidoderm 5% 1 patch TOPICAL DAILY PRN 14 Days 05/28/24 Patch] #14 patch Allergies Allergy/AdvReac Type Severity Reaction Status Date / Time amoxicillin [Amoxicillin] Allergy Rash/Hives Verified 06/09/24 15:32 cefprozil Allergy Rash/Hives Verified 06/09/24 15:32 Influenza Virus Vaccines Allergy Unknown Verified 06/09/24 15:32 Childhood lisinopril Allergy Cough Verified 06/09/24 15:32 Penicillins Allergy Rash/Hives Verified 06/09/24 15:32 Review of Systems ROS Statement: Those systems with pertinent positive or pertinent negative responses have been documented in the HPI. ROS Other: All systems not noted in ROS Statement are negative. Past Medical History Past Medical History: Hypertension, Pulmonary Embolus (PE) Additional Past Medical History / Comment(s): back pain, Ovarian cysts, migraines, Covid fall 2021 with PE History of Any Multi-Drug Resistant Organisms: None Reported Past Surgical History: No Surgical Hx Reported Additional Past Surgical History / Comment(s): rhizotomy; [place] teeth, colonoscopy Past Anesthesia/Blood Transfusion Reactions: No Reported Reaction Additional Past Anesthesia/Blood Transfusion Reaction / Comment(s): NO ANESTHESIA HX. Past Psychological History: Anxiety Smoking Status: Never smoker Past Alcohol Use History: Occasional Past Drug Use History: None Reported - Past Family History Mother Family Medical History: No Reported History General Exam Limitations: no limitations General appearance: alert, in no apparent distress Head exam: Present: atraumatic, normocephalic, normal inspection Eye exam: Present: normal appearance, PERRL, EOMI. Absent: scleral icterus, conjunctival injection, periorbital swelling ENT exam: Present: normal exam, normal oropharynx, mucous membranes moist Neck exam: Present: normal inspection, full ROM. Absent: tenderness, meningismus, lymphadenopathy Respiratory exam: Present: normal lung sounds bilaterally. Absent: respiratory distress, wheezes, rales, rhonchi, stridor Cardiovascular Exam: Present: regular rate, normal rhythm, normal heart sounds. Absent: systolic murmur, diastolic murmur, rubs, gallop, clicks Back exam: Present: full ROM, paraspinal tenderness. Absent: tenderness, muscle spasm Neurological exam: Present: alert, oriented X3, CN II-XII intact, reflexes normal. Absent: motor sensory deficit Course Vital Signs 06/09/24 15:32 Temperature 97.8 F Pulse Rate 96 Respiratory 18 Rate Blood Pressure 160/106 O2 Sat by Pulse 99 Oximetry Medical Decision Making - Medical Decision Making Was pt. sent in by a medical professional or institution (, PA, PATTERN REPAIR PERSON, urgent care, hospital, or half-way...) When possible be specific @ -No Did you speak to anyone other than the patient for history (EMS, parent, family, police, friend...)? What history was obtained from this source @ -No Did you review nursing and triage notes (agree or disagree)? Why? @ -I reviewed and agree with nursing and triage notes Were old charts reviewed (outside hosp., previous admission, EMS record, old EKG, old radiological studies, urgent care reports/EKG's, half-way records)? Report findings @ -No old charts were reviewed Differential Diagnosis (chest pain, altered mental status, abdominal pain women, abdominal pain men, vaginal bleeding, weakness, fever, dyspnea, syncope, headache, dizziness, GI bleed, back pain, seizure, CVA, palpatations, mental health, musculoskeletal)? @ -Differential Syncope: Valvular disease, hypertrophic cardiomyopathy, pulmonary embolism, tamponade, tachycardia, bradycardia, [place], hypovolemia, hemorrhage, dissection, anemia, intracranial hemorrhage, seizure, hypoglycemia, carbon monoxide poisoning, this is not meant to be an all-inclusive list. EKG interpreted by me (3pts min.). @ -None X-rays interpreted by me (1pt min.). @ -None done CT interpreted by me (1pt min.). @ -CT brain, C-spine showing no acute intracranial, hemorrhage or mass effect. No cervical fracture U/S interpreted by me (1pt. min.). @ -None done What testing was considered but not performed or refused? (CT, X-rays, U/S, labs)? Why? @ -None What meds were considered but not given or refused? Why? @ -None Did you discuss the management of the patient with other professionals (professionals i.e. , PA, PATTERN REPAIR PERSON, lab, RT, psych nurse, long term care social worker, online merchandiser, teacher, trust officer, case repairer)? Give summary @ -No Was smoking cessation discussed for >3mins.? @ -No Was critical care preformed (if so, how long)? @ -No Were there social determinants of health that impacted care today? How? (Homelessness, low income, unemployed, alcoholism, drug addiction, transportation, low edu. Level, literacy, decrease access to med. care, senior living, r ehab)? @ -No Was there de-escalation of care discussed even if they declined (Discuss DNR or withdrawal of care, Hospice)? DNR status @ -No What co-morbidities impacted this encounter? (DM, HTN, Smoking, COPD, CAD, Cancer, CVA, ARF, Chemo, Hep., AIDS, mental health diagnosis, sleep apnea, morbid obesity)? @ -None Was patient admitted / discharged? Hospital course, mention meds given and route, prescriptions, significant lab abnormalities, going to OR and other pertinent info. @ -Discharge patient presented for head injury. Patient has recurrent syncopal episode she had a physical syncopal episode today she is asymptomatic she was a code coags given that she is on Eliquis. Patient did have CT brain and C-spine ordered immediately secondary to mechanism and blood thinners. Patient dischar ged in stable condition. Undiagnosed new problem with uncertain prognosis? @ -No Drug Therapy requiring intensive monitoring for toxicity (Heparin, Nitro, Insulin, Cardizem)? @ -No Were any procedures done? @ -No Diagnosis/symptom? @ -Head injury Acute, or Chronic, or Acute on Chronic? @ -Acute Uncomplicated (without systemic symptoms) or Complicated (systemic symptoms)? @ -Complicated Side effects of treatment? @ -No Exacerbation, Progression, or Severe Exacerbation? @ -No Poses a threat to life or bodily function? How? (Chest pain, [place], [place], pneumonia, PE, COPD, DKA, ARF, appy, cholecystitis, CVA, Diverticulitis, Homicidal, Suicidal, threat to staff... and all critical care pts) @ -No Disposition Clinical Impression: Syncope, Head injury Disposition: HOME SELF-CARE Condition: Stable Additional Instructions: Please return to the Emergency Department if symptoms worsen or any other concerns. Is patient prescribed a controlled substance at d/c from ED?: No Referrals: Juan Diego Robledo MD [Primary Care Provider] - 1-2 days Time of Disposition: 16:21
[2024-06-09] MEDS: diphenhydrAMINE 50 MG/ML 1 ML VIAL IM STA (16:47)
[2024-06-09] MEDS: HYDROmorphone 1 MG/ML 1 ML SYRINGE IM STA (16:48)
[2024-06-09] MEDS: METOCLOPRAMIDE 5 MG/ML 2 ML VIAL IM STA (16:53)
[2024-06-09 17:09] VITALS: BP 125/90
== END 2024-06-09 17:09 | disposition home or self-care (01) ==
LOC: EC 15:21
DX: S09.90XA Unspecified injury of head, initial encounter (principal); Z88.0 Allergy status to penicillin; Z88.7 Allergy status to serum and vaccine; Z88.8 Allergy status to other drugs, medicaments and biological substances; Z86.16 Personal history of COVID-19; X58.XXXA Exposure to other specified factors, initial encounter
CPT/HCPCS: 72125; 70450; 99284; 96372 ×3; J1200; J2765; J1171

== ENCOUNTER 2024-07-10 01:39 | Emergency (ER) | payer BC ==
[2024-07-10 01:44] VITALS: TEMP 98.2
--- NOTE | 2024-07-10 02:09 | ED ---
General Adult HPI - General Chief complaint: Shortness of Breath Stated complaint: SOB Time Seen by Provider: 07/10/24 01:45 Source: patient, RN notes reviewed Mode of arrival: wheelchair Limitations: no limitations - History of Present Illness Initial comments: 28-year-old female with history of PE presents to the emergency department for evaluation of cough and shortness of breath. Patient reports that the symptoms have been going on for around 3 days. She reports that has been still a productive cough. She denies any recent fever, chills. Denies known sick contacts. - Related Data Home Medications Medication Instructions Recorded Confirmed tiZANidine HCL [Zanaflex] 4 mg PO TID 07/30/22 05/28/24 Apixaban [Eliquis] 5 mg PO BID 06/20/23 05/28/24 busPIRone HCL 10 mg PO BID 05/28/24 05/28/24 oxyCODONE-APAP 7.5-325MG [Percocet 1 tab PO TID 05/28/24 05/28/24 7.5-325 mg] Previous Rx's Medication Instructions Recorded Lidocaine 5% Patch [Lidoderm 5% 1 patch TOPICAL DAILY PRN 14 Days 05/28/24 Patch] #14 patch Nirmatrelvir/Ritonavir [Paxlovid 1 each PO BID #10 tab 07/10/24 300-100 mg Dose Pack] Allergies Allergy/AdvReac Type Severity Reaction Status Date / Time amoxicillin [Amoxicillin] Allergy Rash/Hives Verified 07/10/24 01:44 cefprozil Allergy Rash/Hives Verified 07/10/24 01:44 Influenza Virus Vaccines Allergy Unknown Verified 07/10/24 01:44 Childhood lisinopril Allergy Cough Verified 07/10/24 01:44 Penicillins Allergy Rash/Hives Verified 07/10/24 01:44 Review of Systems ROS Statement: Those systems with pertinent positive or pertinent negative responses have been documented in the HPI. ROS Other: All systems not noted in ROS Statement are negative. Past Medical History Past Medical History: Hypertension, Pulmonary Embolus (PE) Additional Past Medical History / Comment(s): back pain, Ovarian cysts, migraines, Covid fall 2021 with PE History of Any Multi-Drug Resistant Organisms: None Reported Past Surgical History: No Surgical Hx Reported Additional Past Surgical History / Comment(s): rhizotomy; [place] teeth, colonoscopy Past Anesthesia/Blood Transfusion Reactions: No Reported Reaction Additional Past Anesthesia/Blood Transfusion Reaction / Comment(s): NO ANESTHESIA HX. Past Psychological History: Anxiety, Depression Smoking Status: Never smoker Past Alcohol Use History: Occasional Past Drug Use History: None Reported - Past Family History Mother Family Medical History: No Reported History General Exam Limitations: no limitations General appearance: alert, in no apparent distress Head exam: Present: atraumatic, normocephalic, normal inspection Eye exam: Present: normal appearance, PERRL, EOMI. Absent: scleral icterus, conjunctival injection, periorbital swelling ENT exam: Present: normal exam, mucous membranes moist Neck exam: Present: normal inspection. Absent: tenderness, meningismus, lymphadenopathy Respiratory exam: Present: normal lung sounds bilaterally. Absent: respiratory distress, wheezes, rales, rhonchi, stridor Cardiovascular Exam: Present: regular rate, normal rhythm, normal heart sounds. Absent: systolic murmur, diastolic murmur, rubs, gallop, clicks Extremities exam: Present: normal inspection, full ROM, normal capillary refill. Absent: tenderness, pedal edema, joint swelling, calf tenderness Back exam: Present: normal inspection Neurological exam: Present: alert, oriented X3 Psychiatric exam: Present: normal affect, normal mood Skin exam: Present: warm, dry, intact, normal color. Absent: rash Course Vital Signs 07/10/24 07/10/24 07/10/24 01:40 02:29 04:37 Temperature 98.2 F Pulse Rate 113 H 100 Respiratory 20 18 18 Rate Blood Pressure 188/88 136/92 O2 Sat by Pulse 96 98 Oximetry Medical Decision Making - Medical Decision Making Was pt. sent in by a medical professional or institution (, PA, TAVERN CAR ATTENDANT, urgent care, hospital, or [place] [facility] facility...) When possible be specific @ -No Did you speak to anyone other than the patient for history (EMS, parent, family, police, friend...)? What history was obtained from this source @ -No Did you review nursing and triage notes (agree or disagree)? Why? @ -I reviewed and agree with nursing and triage notes Were old charts reviewed (outside hosp., previous admission, EMS record, old EKG, old radiological studies, urgent care reports/EKG's, [place] health [facility] facility records)? Report findings @ -No old charts were reviewed Differential Diagnosis (chest pain, altered mental status, abdominal pain women, abdominal pain men, vaginal bleeding, weakness, fever, dyspnea, syncope, headache, dizziness, GI bleed, back pain, seizure, CVA, palpatations, mental health, musculoskeletal)? @ -Differential Dyspnea: Coronary syndrome, arrhythmia, tamponade, asthma, COPD, pulmonary embolism, pneumonia, pneumothorax, pulmonary effusion, anaphylaxis, diabetic ketoacidosis, flailed chest, pulmonary contusion, diaphragmatic rupture, anemia, neuromuscular, this is not meant to be an all-inclusive list. EKG interpreted by me (3pts min.). @ -EKG at 153 shows sinus tachycardia rate 111, ND 120, QRS 90, QTQTc 210316 X-rays interpreted by me (1pt min.). @ -Chest x-ray shows no acute process CT interpreted by me (1pt min.). @ -None done U/S interpreted by me (1pt. min.). @ -None done What testing was considered but not performed or refused? (CT, X-rays, U/S, labs)? Why? @ -None What meds were considered but not given or refused? Why? @ -None Did you discuss the management of the patient with other professionals (professionals i.e. , PA, TAVERN CAR ATTENDANT, lab, RT, psych nurse, social service agency director, retail support associate, teacher, state wildlife officer, case manager specialist)? Give summary @ -No Was smoking cessation discussed for >3mins.? @ -No Was critical care preformed (if so, how long)? @ -No Were there social determinants of health that impacted care today? How? (Homelessness, low income, unemployed, alcoholism, drug addiction, transportation, low edu. Level, literacy, decrease access to med. care, alf, rehab)? @ -No Was there de-escalation of care discussed even if they declined (Discuss DNR or withdrawal of care, Hospice)? DNR status @ -No What co-morbidities impacted this encounter? (DM, HTN, Smoking, COPD, CAD, Cancer, CVA, ARF, Chemo, Hep., AIDS, mental health diagnosis, sleep apnea, morbid obesity)? @ -None Was patient admitted / discharged? Hospital course, mention meds given and route, prescriptions, significant lab abnormalities, going to OR and other pertinent info. @ -Discharge. Patient presented the emergency department for evaluation of cough, dyspnea.Oxygen 98% on room air. Chest x-ray was performed revealing no evidence of acute process. Laboratory studies obtained shows no significant leukocytosis, normal coagulation studies, negative D-dimer at 0.39; CMP nonactionable at this time. Patient was tested for COVID, influenza, RSV and did test positive for COVID. She was advised of this finding and will be started on Paxlovid. She is understanding agreeable with plan. Patient stable for discharge. Case discussed with Dr. Vela Undiagnosed new problem with uncertain prognosis? @ -No Drug Therapy requiring intensive monitoring for toxicity (Heparin, Nitro, Insulin, Cardizem)? @ -No Were any procedures done? @ -No Diagnosis/symptom? @ -COVID Acute, or Chronic, or Acute on Chronic? @ -Acute Uncomplicated (without systemic symptoms) or Complicated (systemic symptoms)? @ -Uncomplicated Side effects of treatment? @ -No Exacerbation, Progression, or Severe Exacerbation? @ -No Poses a threat to life or bodily function? How? (Chest pain, [place], [place], pneumonia, PE, COPD, DKA, ARF, appy, cholecystitis, CVA, Diverticulitis, Homicidal, Suicidal, threat to staff... and all critical care pts) @ -No - Lab Data Result diagrams: 07/10/24 02:24 07/10/24 02:24 Lab Results 07/10/24 07/10/24 07/10/24 Range/Units 02:20 02:24 02:24 WBC 4.4 (3.8-10.6) k/uL RBC 4.80 (3.80-5.40) m/uL Hgb 12.6 (11.4-16.0) gm/dL Hct 39.0 (34.0-46.0) % MCV 81.2 (80.0-100.0) fL MCH 26.3 (25.0-35.0) pg MCHC 32.4 (31.0-37.0) g/dL RDW 13.4 (11.5-15.5) % Plt Count 294 (150-450) k/uL MPV 7.2 Neutrophils % 62 % Lymphocytes % 27 % Monocytes % 7 % Eosinophils % 2 % Basophils % 1 % Neutrophils # 2.7 (1.3-7.7) k/uL Lymphocytes # 1.2 (1.0-4.8) k/uL Monocytes # 0.3 (0-1.0) k/uL Eosinophils # 0.1 (0-0.7) k/uL Basophils # 0.0 (0-0.2) k/uL PT 10.7 (10.0-12.5) sec INR 1.0 (<1.2) APTT 24.9 (22.0-30.0) sec D-Dimer 0.39 (<0.60) mg/L FEU Sodium (137-145) mmol/L Potassium (3.5-5.1) mmol/L Chloride (98-107) mmol/L Carbon Dioxide (22-30) mmol/L Anion Gap mmol/L BUN (7-17) mg/dL Creatinine (0.52-1.04) mg/dL Est GFR (CKD-EPI)AfAm (>60 ml/min/1.73 sqM) Est GFR (CKD-EPI)NonAf (>60 ml/min/1.73 sqM) Glucose (74-99) mg/dL Plasma Lactic Acid Damien (0.7-2.0) mmol/L Calcium (8.4-10.2) mg/dL Magnesium (1.6-2.3) mg/dL Total Bilirubin (0.2-1.3) mg/dL AST (14-36) U/L ALT (4-34) U/L Alkaline Phosphatase (38-126) U/L Total Protein (6.3-8.2) g/dL Albumin (3.5-5.0) g/dL Influenza Type A (PCR) Not Detected (Not Detectd) Influenza Type B (PCR) Not Detected (Not Detectd) RSV (PCR) Not Detected (Not Detectd) SARS-CoV-2 (PCR) Detected A (Not Detectd) 07/10/24 07/10/24 Range/Units 02:24 02:24 WBC (3.8-10.6) k/uL RBC (3.80-5.40) m/uL Hgb (11.4-16.0) gm/dL Hct (34.0-46.0) % MCV (80.0-100.0) fL MCH (25.0-35.0) pg MCHC (31.0-37.0) g/dL RDW (11.5-15.5) % Plt Count (150-450) k/uL MPV Neutrophils % % Lymphocytes % % Monocytes % % Eosinophils % % Basophils % % Neutrophils # (1.3-7.7) k/uL Lymphocytes # (1.0-4.8) k/uL Monocytes # (0-1.0) k/uL Eosinophils # (0-0.7) k/uL Basophils # (0-0.2) k/uL PT (10.0-12.5) sec INR (<1.2) APTT (22.0-30.0) sec D-Dimer (<0.60) mg/L FEU Sodium 137 (137-145) mmol/L Potassium 3.9 (3.5-5.1) mmol/L Chloride 99 (98-107) mmol/L Carbon Dioxide 27 (22-30) mmol/L Anion Gap 11 mmol/L BUN 11 (7-17) mg/dL Creatinine 0.69 (0.52-1.04) mg/dL Est GFR (CKD-EPI)AfAm >90 (>60 ml/min/1.73 sqM) Est GFR (CKD-EPI)NonAf >90 (>60 ml/min/1.73 sqM) Glucose 94 (74-99) mg/dL Plasma Lactic Acid Damien 1.5 (0.7-2.0) mmol/L Calcium 9.4 (8.4-10.2) mg/dL Magnesium 1.8 (1.6-2.3) mg/dL Total Bilirubin 0.3 (0.2-1.3) mg/dL AST 25 (14-36) U/L ALT 22 (4-34) U/L Alkaline Phosphatase 109 (38-126) U/L Total Protein 6.7 (6.3-8.2) g/dL Albumin 4.1 (3.5-5.0) g/dL Influenza Type A (PCR) (Not Detectd) Influenza Type B (PCR) (Not Detectd) RSV (PCR) (Not Detectd) SARS-CoV-2 (PCR) (Not Detectd) Disposition Clinical Impression: COVID Disposition: HOME SELF-CARE Condition: Stable Instructions (If sedation given, give patient instructions): COVID-19 (Coronavirus Disease 2019) (ED) Additional Instructions: Please follow up with your primary care provider. Return to the emergency department for new or worsening symptoms. Prescriptions: Nirmatrelvir/Ritonavir [Paxlovid 300-100 mg Dose Pack] 1 each PO BID #10 tab Is patient prescribed a controlled substance at d/c from ED?: No Referrals: Juan Diego Robledo MD [Primary Care Provider] - 1-2 days
[2024-07-10 02:31] VITALS: RESP 18
[2024-07-10 02:57] LABS: Basophils % (A) 1 %; Eosinophils # (A) 0.1 k/uL (0-0.7); Eosinophils % (A) 2 %; HGB 12.6 gm/dL (11.4-16.0); Lymphocytes # (A) 1.2 k/uL (1.0-4.8); Lymphocytes % (A) 27 %; MCH 26.3 pg (25.0-35.0); MCHC 32.4 g/dL (31.0-37.0); MCV 81.2 fL (80.0-100.0); Mean Platelet Volume 7.2; Monocytes # (A) 0.3 k/uL (0-1.0); Monocytes % (A) 7 %; Neutrophils # (A) 2.7 k/uL (1.3-7.7); Neutrophils % (A) 62 %; Platelet Count 294 k/uL (150-450); RDW 13.4 % (11.5-15.5); WBC 4.4 k/uL (3.8-10.6)
[2024-07-10 03:36] LABS: ALT 22 U/L (4-34); AST 25 U/L (14-36); African American GFR (CKD) >90 (>60 ml/min/1.73 sqM); Albumin 4.1 g/dL (3.5-5.0); Alkaline Phosphatase 109 U/L (38-126); Anion Gap 11 mmol/L; Blood Urea Nitrogen 11 mg/dL (7-17); Calcium 9.4 mg/dL (8.4-10.2); Carbon Dioxide 27 mmol/L (22-30); Chloride 99 mmol/L (98-107); Glucose 94 mg/dL (74-99); Magnesium 1.8 mg/dL (1.6-2.3); Non-African American GFR(CKD) >90 (>60 ml/min/1.73 sqM); Potassium 3.9 mmol/L (3.5-5.1); Sodium 137 mmol/L (137-145); Total Bilirubin 0.3 mg/dL (0.2-1.3); Total Protein 6.7 g/dL (6.3-8.2)
[2024-07-10 03:38] LABS: Partial Thromboplastin Time 24.9 sec (22.0-30.0); Prothrombin Time 10.7 sec (10.0-12.5)
[2024-07-10 04:42] VITALS: BP 136/92; PULSE 100
[2024-07-10] MEDS: HYDROmorphone 1 MG/ML 1 ML SYRINGE IVP STA (04:43)
--- NOTE | 2024-07-10 05:59 | XR ---
EXAM: XR Chest, 2 Views CLINICAL HISTORY: difficulty breathing TECHNIQUE: Frontal and lateral views of the chest. COMPARISON: 05/28/2024. FINDINGS: Lungs: No consolidation. No atelectasis. No CHF. Pleural space: No pleural effusion. No pneumothorax. Heart: No cardiomegaly. Mediastinum: Unremarkable. Normal mediastinal contour. Bones/joints: Unremarkable. No acute fracture. IMPRESSION: No acute abnormality.
== END 2024-07-10 04:53 | disposition home or self-care (01) ==
LOC: EC 01:39
DX: U07.1 COVID-19 (principal); Z88.0 Allergy status to penicillin; Z88.7 Allergy status to serum and vaccine; Z88.8 Allergy status to other drugs, medicaments and biological substances
CPT/HCPCS: 36415; 85379; 80053; 83605; 83735; 85025; 85610; 85730; 87636; 71046; 99285; 96374; J1171

== ENCOUNTER 2024-09-30 15:38 | Emergency (ER) | payer BC ==
--- NOTE | 2024-09-30 16:19 | ED ---
General Adult HPI - General Stated complaint: Breast Discharge Time Seen by Provider: 09/30/24 15:50 Source: patient, RN notes reviewed - History of Present Illness Initial comments: This is a 28-year-old female with history of benign pituitary tumor and PE, on Eliquis, presents emergency department for complaint of right nipple discharge over the past approximately week and a half. Denies previous similar symptoms. Denies denies nausea, vomiting, fevers, chills. Denies overt pain however states that the area is generally sensitive. States that today the area has not been draining. Pituitary tumor was incidentally found on MRI imaging as patient has a history of chronic migraines. no other acute complaints at this time. - Related Data Home Medications Medication Instructions Recorded Confirmed tiZANidine HCL [Zanaflex] 4 mg PO TID PRN 07/30/22 08/18/24 Apixaban [Eliquis] 5 mg PO BID 06/20/23 08/18/24 oxyCODONE-APAP 7.5-325MG [Percocet 1 tab PO TID PRN 05/28/24 08/18/24 7.5-325 mg] Cetirizine HCl/Pseudoephedrine 1 tab PO DAILY 08/18/24 08/18/24 [Zyrtec-D ER 5 mg-120 mg Tablet] Ondansetron [Zofran] 4 mg PO DAILY PRN 08/18/24 08/18/24 Previous Rx's Medication Instructions Recorded Acetaminophen Tab [Tylenol] 650 mg PO Q6HR PRN tab 08/20/24 Escitalopram [Lexapro] 20 mg PO DAILY #30 tab 08/20/24 busPIRone HCl [Buspar] 20 mg PO BID 30 Days #120 tab 08/20/24 methylPREDNISolone Dose Pack 4 mg PO DIRECTED #21 tab 08/20/24 [Medrol Dose Pack] traZODone HCL [Desyrel] 50 mg PO HS PRN #30 tab 08/20/24 Allergies Allergy/AdvReac Type Severity Reaction Status Date / Time amoxicillin [Amoxicillin] Allergy Rash/Hives Verified 08/18/24 11:20 cefprozil Allergy Rash/Hives Verified 08/18/24 11:20 Influenza Virus Vaccines Allergy Unknown Verified 08/18/24 11:20 Childhood lisinopril Allergy Cough Verified 08/18/24 11:20 Penicillins Allergy Rash/Hives Verified 08/18/24 11:20 Review of Systems ROS Statement: Those systems with pertinent positive or pertinent negative responses have been documented in the HPI. ROS Other: All systems not noted in ROS Statement are negative. Past Medical History Past Medical History: Hypertension, Pulmonary Embolus (PE) Additional Past Medical History / Comment(s): back pain, Ovarian cysts, migraines, Covid fall 2021 with PE, benign tumor puituitary, degenerative disc disease, multiple syncopal episodes History of Any Multi-Drug Resistant Organisms: None Reported Past Surgical History: No Surgical Hx Reported Additional Past Surgical History / Comment(s): multiple rhizotomy; [place] teeth, colonoscopy, hymenectomy Past Anesthesia/Blood Transfusion Reactions: No Reported Reaction Additional Past Anesthesia/Blood Transfusion Reaction / Comment(s): NO ANESTHESIA HX. Past Psychological History: Anxiety, Depression Smoking Status: Never smoker Past Alcohol Use History: Occasional Past Drug Use History: None Reported - Past Family History Mother Family Medical History: No Reported History General Exam - General Exam Comments Initial Comments: Visual Physical Exam Vital signs reviewed General: Well-appearing, nontoxic, no acute distress. Head: Normocephalic, atraumatic Eyes: PERRLA, EOMI ENT: Airway patent Chest: Nonlabored breathing Skin: No visual rash, normal skin tone Neuro: Alert and oriented 3 Musculoskeletal: No gross abnormalities General appearance: alert, in no apparent distress ENT exam: Present: normal exam, mucous membranes moist Neck exam: Present: normal inspection. Absent: tenderness, meningismus, lymphadenopathy Respiratory exam: Present: normal lung sounds bilaterally. Absent: respiratory distress, wheezes, rales, rhonchi, stridor Cardiovascular Exam: Present: regular rate, normal rhythm, normal heart sounds. Absent: systolic murmur, diastolic murmur, rubs, gallop, clicks GI/Abdominal exam: Present: soft, normal bowel sounds. Absent: distended, tenderness, guarding, rebound, rigid Extremities exam: Present: normal inspection, full ROM, normal capillary refill. Absent: tenderness, pedal edema, joint swelling, calf tenderness Skin exam: Present: other (right breast examination completed with no evidence of erythema, nipple discharge/induration/erythema or scaling, no masses palpated) Course Vital Signs 09/30/24 16:15 Temperature 97.3 F L Pulse Rate 102 H Respiratory 20 Rate Blood Pressure 166/105 O2 Sat by Pulse 99 Oximetry Medical Decision Making - Medical Decision Making I completed the quick note portion of this chart signed Laurie Avendano PA-C Was pt. sent in by a medical professional or institution (JEANNETTE Kathleen, [employer]AL[employer] CONSULTANT, urgent care, hospital, or group home...) When possible be specific @ -No Did you speak to anyone other than the patient for history (EMS, parent, family, police, friend...)? What history was obtained from this source @ -No Did you review nursing and triage notes (agree or disagree)? Why? @ -I reviewed and agree with nursing and triage notes Were old charts reviewed (outside hosp., previous admission, EMS record, old EKG, old radiological studies, urgent care reports/EKG's, group home records)? Report findings @ -No old charts were reviewed Differential Diagnosis (chest pain, altered mental status, abdominal pain women, abdominal pain men, vaginal bleeding, weakness, fever, dyspnea, syncope, headache, dizziness, GI bleed, back pain, seizure, CVA, palpatations, mental health, musculoskeletal)? @ -mastitis, breast mass, prolcatinoma, , this list is not all inclusive EKG interpreted by me (3pts min.). @ none X-rays interpreted by me (1pt min.). @ -None done CT interpreted by me (1pt min.). @ -None done U/S interpreted by me (1pt. min.). @ -I was informed by the lead injection mold technician ultrasound revealed no evidence of abscess or fluid collection under the skin. There is 1 noted dilated duct. Recommend follow-up in 6 months. What testing was considered but not performed or refused? (CT, X-rays, U/S, labs)? Why? @ -None What meds were considered but not given or refused? Why? @ -None Did you discuss the management of the patient with other professionals (professionals i.e. JEANNETTE Kathleen, PRESALES CONSULTANT, lab, RT, psych nurse, social science research assistant, environmental compliance officer, teacher, code enforcement officer, piano case and bench assembler)? Give summary @ -No Was smoking cessation discussed for >3mins.? @ -No Was critical care preformed (if so, how long)? @ -No Were there social determinants of health that impacted care today? How? (Homelessness, low income, unemployed, alcoholism, drug addiction, transportation, low edu. Level, literacy, decrease access to med. care, [place] [facility], rehab)? @ -No Was there de-escalation of care discussed even if they declined (Discuss DNR or withdrawal of care, Hospice)? DNR status @ -No What co-morbidities impacted this encounter? (DM, HTN, Smoking, COPD, CAD, Cancer, CVA, ARF, Chemo, Hep., AIDS, mental health diagnosis, sleep apnea, morbid obesity)? @ -None Was patient admitted / discharged? Hospital course, mention meds given and route, prescriptions, significant lab abnormalities, going to OR and other pertinent info. @ -Discharge. 28-year-old female presenting to Emergency Department with complaint of right nipple discharge and pain. Ultrasound no evidence of abscess or fluid collection. On my evaluation there is no evidence of breast erythema, tenderness, nipple discharge, nipple scaling or induration. Vitals are stable. Urinalysis no signs infection, hCG negative. At this time recommend patient follow-up with primary care provider and provided by specialist for further evaluation. Case discussed with Dr. Yuan Undiagnosed new problem with uncertain prognosis? @ -No Drug Therapy requiring intensive monitoring for toxicity (Heparin, Nitro, Insulin, Cardizem)? @ -No Were any procedures done? @ -No Diagnosis/symptom? @ -nipple discharge Acute, or Chronic, or Acute on Chronic? @ -acute Uncomplicated (without systemic symptoms) or Complicated (systemic symptoms)? @ -uncomplicated Side effects of treatment? @ -No Exacerbation, Progression, or Severe Exacerbation? @ -No Poses a threat to life or bodily function? How? (Chest pain, [place], [place], pneumonia, PE, COPD, DKA, ARF, appy, cholecystitis, CVA, Diverticulitis, Homicidal, Suicidal, threat to staff... and all critical care pts) @ -No - Lab Data Lab Results 09/30/24 09/30/24 Range/Units 16:20 16:20 Urine Color Light Yellow Urine Appearance Cloudy H (Clear) Urine pH 5.5 (5.0-8.0) Ur Specific [place] 1.017 (1.001-1.035) Urine Protein Negative (Negative) Urine Glucose (UA) Negative (Negative) Urine Ketones Negative (Negative) Urine Blood Small H (Negative) Urine Nitrite Negative (Negative) Urine Bilirubin Negative (Negative) Urine Urobilinogen <2.0 (<2.0) mg/dL Ur Leukocyte Esterase Moderate H (Negative) Urine RBC 17 H (0-5) /hpf Urine WBC 27 H (0-5) /hpf Ur Squamous Epith Cells 11 H (0-4) /hpf Urine Mucus Rare H (None) /hpf Urine HCG, Qual Not Detected (Not Detectd) Disposition Clinical Impression: Nipple discharge Disposition: HOME SELF-CARE Condition: Good Instructions (If sedation given, give patient instructions): Nipple Discharge (ED) Additional Instructions: Please return to the Emergency Department if symptoms worsen or any other concerns. Is patient prescribed a controlled substance at d/c from ED?: No Referrals: Juan Diego Robledo MD [Primary Care Provider] - 1-2 days Glendy Mckenzie MD [STAFF PHYSICIAN] - 1-2 days Time of Disposition: 17:31
[2024-09-30 16:20] VITALS: RESP 20
[2024-09-30 16:56] LABS: Appearance,Urine Cloudy (Clear); Bilirubin,Urine Negative (Negative); Blood,Urine Small (Negative); Color,Urine Light Yellow; Glucose,Urine (UA) Negative (Negative); Ketones,Urine Negative (Negative); Leukocyte Esterase,Urine Moderate (Negative); Mucus,Urine Rare /hpf; Nitrite,Urine Negative (Negative); PH, Urine 5.5 (5.0-8.0); Protein,Urine Negative (Negative); RBC,Urine 17 /hpf (0-5); Specific Gravity,Urine 1.017 (1.001-1.035); Squamous Epithelial Cell,Urine 11 /hpf (0-4); Urobilinogen,Urine <2.0 mg/dL (<2.0); WBC,Urine 27 /hpf (0-5)
[2024-09-30 17:44] VITALS: BP 168/90; PULSE 96; TEMP 98.1
== END 2024-09-30 17:50 | disposition home or self-care (01) ==
LOC: EC 15:38
DX: N64.52 Nipple discharge (principal); Z88.0 Allergy status to penicillin; Z88.7 Allergy status to serum and vaccine; Z88.8 Allergy status to other drugs, medicaments and biological substances
CPT/HCPCS: 81001; 81025; 99284

== ENCOUNTER 2024-10-09 22:06 | Emergency (ER) | payer BC ==
[2024-10-09 22:10] VITALS: RESP 20
--- NOTE | 2024-10-09 22:23 | ED ---
Back Pain HPI - General Source: patient, RN notes reviewed Limitations: no limitations <Laurie Avendano - Last Filed: 10/10/24 02:09> <Yoanna Rodríguez - Last Filed: 10/10/24 03:11> - General Chief Complaint: Back Pain/Injury Stated Complaint: Fall-back pain/left leg pain Time Seen by Provider: 10/09/24 22:13 - History of Present Illness Initial Comments: 28-year-old female presents emergency department for complaint of injury after a fall. Patient reports that on Monday she was walking on the stairs when she missed the last few steps causing her to fall down. Her at bedside states that he helped catch her however patient mildly fell on her buttock. Patient has been experiencing pain of the left side of her hip addition to her left foot since the injury. States she is attempted to make an appoint with her primary care provider however appointment is in 10 days. She denies radiation of pain and has been able to ambulate. She denies loss of bladder bowel continence with anesthesias. Patient states that she has been having difficult time to get to the bathroom to urinate because of pain. Patient is prescribed multiple pain medications at home that she has been taking with no relief in symptoms. (Laurie Avendano) - Related Data Home Medications Medication Instructions Recorded Confirmed tiZANidine HCL [Zanaflex] 4 mg PO TID PRN 07/30/22 08/18/24 Apixaban [Eliquis] 5 mg PO BID 06/20/23 08/18/24 oxyCODONE-APAP 7.5-325MG [Percocet 1 tab PO TID PRN 05/28/24 08/18/24 7.5-325 mg] Cetirizine HCl/Pseudoephedrine 1 tab PO DAILY 08/18/24 08/18/24 [Zyrtec-D ER 5 mg-120 mg Tablet] Ondansetron [Zofran] 4 mg PO DAILY PRN 08/18/24 08/18/24 Previous Rx's Medication Instructions Recorded Acetaminophen Tab [Tylenol] 650 mg PO Q6HR PRN tab 08/20/24 Escitalopram [Lexapro] 20 mg PO DAILY #30 tab 08/20/24 busPIRone HCl [Buspar] 20 mg PO BID 30 Days #120 tab 08/20/24 methylPREDNISolone Dose Pack 4 mg PO DIRECTED #21 tab 08/20/24 [Medrol Dose Pack] traZODone HCL [Desyrel] 50 mg PO HS PRN #30 tab 08/20/24 Allergies Allergy/AdvReac Type Severity Reaction Status Date / Time amoxicillin [Amoxicillin] Allergy Rash/Hives Verified 10/09/24 22:11 cefprozil Allergy Rash/Hives Verified 10/09/24 22:11 Influenza Virus Vaccines Allergy Unknown Verified 10/09/24 22:11 Childhood lisinopril Allergy Cough Verified 10/09/24 22:11 Penicillins Allergy Rash/Hives Verified 10/09/24 22:11 Review of Systems ROS Other: All systems not noted in ROS Statement are negative. <Laurie Avendano - Last Filed: 10/10/24 02:09> ROS Other: All systems not noted in ROS Statement are negative. <Yoanna Rodríguez - Last Filed: 10/10/24 03:11> ROS Statement: Those systems with pertinent positive or pertinent negative responses have been documented in the HPI. Past Medical History Past Medical History: Hypertension, Pulmonary Embolus (PE) Additional Past Medical History / Comment(s): back pain, Ovarian cysts, migraines, Covid fall 2021 with PE, benign tumor puituitary, degenerative disc disease, multiple syncopal episodes History of Any Multi-Drug Resistant Organisms: None Reported Past Surgical History: No Surgical Hx Reported Additional Past Surgical History / Comment(s): multiple rhizotomy; [place] teeth, colonoscopy, hymenectomy Past Anesthesia/Blood Transfusion Reactions: No Reported Reaction Additional Past Anesthesia/Blood Transfusion Reaction / Comment(s): NO ANESTHESIA HX. Past Psychological History: Anxiety, Depression Smoking Status: Never smoker Past Alcohol Use History: Occasional Past Drug Use History: None Reported - Past Family History Mother Family Medical History: No Reported History <Laurie Avendano - Last Filed: 10/10/24 02:09> General Exam Limitations: no limitations General appearance: alert, in no apparent distress Neck exam: Present: normal inspection. Absent: tenderness, meningismus, lymphadenopathy Respiratory exam: Present: normal lung sounds bilaterally. Absent: respiratory distress, wheezes, rales, rhonchi, stridor Cardiovascular Exam: Present: regular rate, normal rhythm, normal heart sounds. Absent: systolic murmur, diastolic murmur, rubs, gallop, clicks GI/Abdominal exam: Present: soft, normal bowel sounds. Absent: distended, tenderness, guarding, rebound, rigid Extremities exam: Present: normal inspection, full ROM, normal capillary refill. Absent: tenderness, pedal edema, joint swelling, calf tenderness Back exam: Present: normal inspection Neurological exam: Present: alert, oriented X3, CN II-XII intact <Laurie Avendano - Last Filed: 10/10/24 02:09> Course Vital Signs 10/09/24 10/09/24 10/10/24 22:08 23:10 00:20 Temperature 97.9 F 98.0 F 97.9 F Pulse Rate 101 H 95 98 Respiratory 20 20 20 Rate Blood Pressure 139/86 138/83 133/76 O2 Sat by Pulse 96 97 96 Oximetry Medical Decision Making <Laurie Avendano - Last Filed: 10/10/24 02:09> <Yoanna Rodríguez - Last Filed: 10/10/24 03:11> - Medical Decision Making Was pt. sent in by a medical professional or institution (, PA, DIV[employer] FARMWORKER, urgent care, hospital, or penitentiary...) When possible be specific @ -No Did you speak to anyone other than the patient for history (EMS, parent, family, police, friend...)? What history was obtained from this source @ -No Did you review nursing and triage notes (agree or disagree)? Why? @ -I reviewed and agree with nursing and triage notes Were old charts reviewed (outside hosp., previous admission, EMS record, old EKG, old radiological studies, urgent care reports/EKG's, penitentiary records)? Report findings @ -No old charts were reviewed Differential Diagnosis (chest pain, altered mental status, abdominal pain women, abdominal pain men, vaginal bleeding, weakness, fever, dyspnea, syncope, headac he, dizziness, GI bleed, back pain, seizure, CVA, palpatations, mental health, musculoskeletal)? @ -Differential Back Pain: Strain, zoster, cauda equina syndrome, epidural abscess, vertebral osteomye litis, discitis, fracture, subluxation, disc herniation, DJD, spinal stenosis, dissection, AAA, pancreatitis, peptic ulcer disease, pyelonephritis, kidney stone, this is not meant to be an all-inclusive list. EKG interpreted by me (3pts min.). @ -None X-rays interpreted by me (1pt min.). @ -X-ray of the left foot and left hip with AP pelvis no acute osseous normality. CT interpreted by me (1pt min.). @ -None done U/S interpreted by me (1pt. min.). @ -None done What testing was considered but not performed or refused? (CT, X-rays, U/S, labs)? Why? @ -None What meds were considered but not given or refused? Why? @ -None Did you discuss the management of the patient with other professionals (professionals i.e. DrBarbie, PA, DIV[employer] FARMWORKER, lab, RT, psych nurse, clinical social work therapist, vice president residential solar sales, te acher, loan officer assistant, insurance case manager)? Give summary @ -No Was smoking cessation discussed for >3mins.? @ -No Was critical care preformed (if so, how long)? @ -No Were there social determinants of health that impacted care today? How? (Homelessness, low income, unemployed, alcoholism, drug addiction, transportation, low edu. Level, literacy, decrease access to med. care, penitentiary, rehab)? @ -No Was there de-escalation of care discussed even if they declined (Discuss DNR or withdrawal of care, Hospice)? DNR status @ -No What co-morbidities impacted this encounter? (DM, HTN, Smoking, COPD, CAD, Cancer, CVA, ARF, Chemo, Hep., AIDS, mental health diagnosis, sleep apnea, morbid obesity)? @ -None Was patient admitted / discharged? Hospital course, mention meds given and route, prescriptions, significant lab abnormalities, going to OR and other pertinent info. @ -Discharge. 28-year-old female presenting with pain after fall. There are no abnormalities on physical exam with no noted ecchymosis, edema or deformities. Neurovascular intact of the left lower extremity. She is vital does not have improved pain relief. X-ray is unremarkable. Recommend supportive treatment at bedside. Case discussed with Dr. Rodríguez Undiagnosed new problem with uncertain prognosis? @ -No Drug Therapy requiring intensive monitoring for toxicity (Heparin, Nitro, Insulin, Cardizem)? @ -No Were any procedures done? @ -No Diagnosis/symptom? @ -Fall, foot sprain Acute, or Chronic, or Acute on Chronic? @ -Acute Uncomplicated (without systemic symptoms) or Complicated (systemic symptoms)? @ -Uncomplicated Side effects of treatment? @ -No Exacerbation, Progression, or Severe Exacerbation? @ -No Poses a threat to life or bodily function? How? (Chest pain, [place], [place], pneumonia, PE, COPD, DKA, ARF, appy, cholecystitis, CVA, Diverticulitis, Homicidal, Suicidal, threat to staff... and all critical care pts) @ -No (Laurie Avendano) Patient was presented to myself by ISAIAH, pt and requesting to see physician. Patient provided similar history to myself as above, concerned that proper attention wasn't given to patient's back pain. Patient states has chronic back pain, takes oxycodone at home, not improving pain, also takes flexeril. Patient states pain is worse in the left than on the right. She does see a neuro spine doctor in [place]. States she had a few episodes of urinary incontinence, though stated to Laurie, it was secondary to pain, states to me she is unsure if it is because she cannot get to the bathroom fast enough. Denies saddle anesthesia. No history IV drug use, no history of cancer, no recent spinal injections or procedures. States pain radiates down her left leg. On my assessment there is no midline spinal palpation, tenderness palpation over the left left paraspinal muscles. She has normal patellar, achilles reflexes, downgoing babinski. Rectal exam was performed with CARLOS Alan, at bedside. Showed excellent rectal tone and no perianal anesthesia. Post void residual bladder scan did not show urinary retention. Discussed with patient and plan for norflex administration and discharge with close follow up with pt's doctors. They are agreeable with POC. (Yoanna Rodríguez) Disposition Is patient prescribed a controlled substance at d/c from ED?: No Time of Disposition: 23:12 <Laurie Avendano - Last Filed: 10/10/24 02:09> <Yoanna Rodríguez - Last Filed: 10/10/24 03:11> Clinical Impression: Foot sprain Disposition: HOME SELF-CARE Condition: Good Instructions (If sedation given, give patient instructions): Acute Low Back Pain (ED) Additional Instructions: Please return to the Emergency Department if symptoms worsen or any other concerns. Referrals: Juan Diego Robledo MD [Primary Care Provider] - 1-2 days
[2024-10-09] MEDS: Acetaminophen-Codeine 300-30mg TAB PO STA (22:33)
--- NOTE | 2024-10-09 23:04 | XR ---
EXAMINATION TYPE: XR Hip LT and AP Pelvis DATE OF EXAM: 10/09/2024 10:59 PM COMPARISON: None CLINICAL INDICATION: Female, 28 years old with history of fall, pain; PHH, pain TECHNIQUE: XR Hip LT and AP Pelvis; hip was examined in the frontal and lateral projections and a AP pelvis. FINDINGS: No evidence for acute process, joint dislocation or significant soft tissue swelling. IMPRESSION: No acute process. [facility], , 10/09/2024 11:01 PM
--- NOTE | 2024-10-09 23:06 | XR ---
EXAMINATION TYPE: XR foot complete LT DATE OF EXAM: 10/09/2024 10:59 PM COMPARISON: none CLINICAL INDICATION: Female, 28 years old with history of fall, pain; PHH, pain TECHNIQUE: XR foot complete LT examined in the AP, oblique, and lateral projections. FINDINGS: No evidence of any acute osseous pathology. IMPRESSION: No evidence of acute fracture. [facility], , 10/09/2024 11:03 PM
[2024-10-09] MEDS: ORPHENADRINE 30 MG/ML 2 ML VIAL IM STA (23:57)
[2024-10-10 00:22] VITALS: BP 133/76; PULSE 98; TEMP 97.9
== END 2024-10-10 00:22 | disposition home or self-care (01) ==
LOC: EC 22:06
DX: S93.602A Unspecified sprain of left foot, initial encounter (principal); Z88.0 Allergy status to penicillin; Z88.7 Allergy status to serum and vaccine; Z88.8 Allergy status to other drugs, medicaments and biological substances; W10.9XXA Fall (on) (from) unspecified stairs and steps, initial encounter
CPT/HCPCS: 73502; 73630; 99283; 96372; J2360; 51798

== ENCOUNTER 2025-01-04 20:54 | Emergency (ER) | payer BC ==
[2025-01-04 21:08] VITALS: TEMP 98
[2025-01-04] MEDS: HYDROmorphone 1 MG/ML 1 ML SYRINGE IVP STA ×2 (22:37→23:56)
[2025-01-04] MEDS: ONDANSETRON 4 MG/2 ML VIAL IVP STA (22:37)
[2025-01-04] MEDS: diphenhydrAMINE 50 MG/ML 1 ML VIAL IVP STA (22:37)
[2025-01-04] MEDS: KETOROLAC 15 MG/ML 1 ML VIAL IVP STA (22:37)
[2025-01-04] MEDS: SODIUM CHLORIDE 0.9% 1,000 ML IV ONE (22:38)
[2025-01-04 23:36] VITALS: BP 167/113; PULSE 81; RESP 16
--- NOTE | 2025-01-04 23:46 | ED ---
General Adult HPI - General Chief complaint: Recheck/Abnormal Lab/Rx Stated complaint: post op pain Time Seen by Provider: 01/04/25 22:00 Source: patient, RN notes reviewed, old records reviewed Mode of arrival: ambulatory Limitations: no limitations - History of Present Illness Initial comments: Patient is a 29-year-old female presents emergency department complaining of postop pain. Was just discharged last night from [facility]. Attempted to fill her prescription for oral Dilaudid but insurance would not cover it. Went all day without evidence now having worsening pain. Presents asking for doses of pain medications. Patient recently had a cerebral shunt placed. She has a history of hypertension PE and is on blood thinners. She states this pain is very typical and she had received numerous CTs of her head and reevaluations of her abdomen prior to being discharged yesterday. She is scheduled for an outpatient MRI for fall or other evaluation. She is not concerned for any acute process ongoing other than her postoperative pain due to not being on her normal pain medications. Presents for further evaluation at this time.Patient states the pain is primarily located in the back of the head where it has been this entire time throughout her stay at the other hospital before surgery and after surgery. Patient also states that she is having some abdominal wall pain at the site of the surgical incisions with no obvious change in the surgical incisions. - Related Data Home Medications Medication Instructions Recorded Confirmed tiZANidine HCL [Zanaflex] 4 mg PO TID PRN 07/30/22 08/18/24 Apixaban [Eliquis] 5 mg PO BID 06/20/23 08/18/24 oxyCODONE-APAP 7.5-325MG [Percocet 1 tab PO TID PRN 05/28/24 08/18/24 7.5-325 mg] Cetirizine HCl/Pseudoephedrine 1 tab PO DAILY 08/18/24 08/18/24 [Zyrtec-D ER 5 mg-120 mg Tablet] Ondansetron [Zofran] 4 mg PO DAILY PRN 08/18/24 08/18/24 Previous Rx's Medication Instructions Recorded Acetaminophen Tab [Tylenol] 650 mg PO Q6HR PRN tab 08/20/24 Escitalopram [Lexapro] 20 mg PO DAILY #30 tab 08/20/24 busPIRone HCl [Buspar] 20 mg PO BID 30 Days #120 tab 08/20/24 methylPREDNISolone Dose Pack 4 mg PO DIRECTED #21 tab 08/20/24 [Medrol Dose Pack] traZODone HCL [Desyrel] 50 mg PO HS PRN #30 tab 08/20/24 Allergies Allergy/AdvReac Type Severity Reaction Status Date / Time amoxicillin [Amoxicillin] Allergy Rash/Hives Verified 01/04/25 21:08 cefprozil Allergy Rash/Hives Verified 01/04/25 21:08 Influenza Virus Vaccines Allergy Unknown Verified 01/04/25 21:08 Childhood lisinopril Allergy Cough Verified 01/04/25 21:08 Penicillins Allergy Rash/Hives Verified 01/04/25 21:08 Review of Systems ROS Statement: Those systems with pertinent positive or pertinent negative responses have been documented in the HPI. Review of Systems: CONST: Denies fever EYES: Denies blurry vision ENT: Denies nasal congestion C/V: Denies Chest pain RESP: Denies shortness of breath GI: endorses surgical site abdominal pain : Denies dysuria SKIN: Denies rash. MSK: Denies joint pain. NEURO: Endorses headache ROS Other: All systems not noted in ROS Statement are negative. Past Medical History Past Medical History: Hypertension, Pulmonary Embolus (PE) Additional Past Medical History / Comment(s): back pain, Ovarian cysts, migraines, Covid fall 2021 with PE, benign tumor puituitary, degenerative disc disease, multiple syncopal episodes History of Any Multi-Drug Resistant Organisms: None Reported Past Surgical History: No Surgical Hx Reported Additional Past Surgical History / Comment(s): multiple rhizotomy; [place] teeth, colonoscopy, hymenectomy, shunt Past Anesthesia/Blood Transfusion Reactions: No Reported Reaction Additional Past Anesthesia/Blood Transfusion Reaction / Comment(s): NO ANESTHESIA HX. Past Psychological History: Anxiety, Depression Smoking Status: Never smoker Past Alcohol Use History: Occasional Past Drug Use History: None Reported - Past Family History Mother Family Medical History: No Reported History General Exam - General Exam Comments Initial Comments: General: He is in mild distress secondary to pain. HEAD: Normal with no signs of head trauma. EYES: PERRLA, EOMI, conjunctiva normal, no discharge. ENT: Hearing grossly intact, normal oropharynx. RESPIRATORY: Clear breath sounds bilaterally. No wheezes, rales, or rhonchi. C/V: Regular rate and rhythm. S1 and S2 auscultated, no edema, peripheral pulses 2+ and intact throughout ABD: Abd is soft, nontender, nondistended EXT: Normal range of motion, no obvious deformity SKIN: No rashes or lesions observed on exposed skin. NEURO: Alert and oriented x 4. Limitations: no limitations Course Vital Signs 01/04/25 01/04/25 21:06 23:35 Temperature 98 F Pulse Rate 71 81 Respiratory 18 16 Rate Blood Pressure 179/104 167/113 O2 Sat by Pulse 96 99 Oximetry Medical Decision Making - Medical Decision Making Was pt. sent in by a medical professional or institution (, PA, ASSEMBLER PING PONG TABLE, urgent care, hospital, or skilled nursing...) When possible be specific @ -No Did you speak to anyone other than the patient for history (EMS, parent, family, police, friend...)? What history was obtained from this source @ -No Did you review nursing and triage notes (agree or disagree)? Why? @ -I reviewed and agree with nursing and triage notes Were old charts reviewed (outside hosp., previous admission, EMS record, old EKG, old radiological studies, urgent care reports/EKG's, skilled nursing records)? Report findings @ -No old charts were reviewed Differential Diagnosis (chest pain, altered mental status, abdominal pain women, abdominal pain men, vaginal bleeding, weakness, fever, dyspnea, syncope, headache, dizziness, GI bleed, back pain, seizure, CVA, palpatations, mental health, musculoskeletal)? @ -Postop pain, chronic pain, migraine, this list is not all inclusive. EKG interpreted by me (3pts min.). @ -None done X-rays interpreted by me (1pt min.). @ -None done CT interpreted by me (1pt min.). @ -None done U/S interpreted by me (1pt. min.). @ -None done What testing was considered but not performed or refused? (CT, X-rays, U/S, labs)? Why? @ -Considered laboratory studies as well as CT imaging of the brain and abdomen considering recent surgery however patient states she just had these done yesterday at outside facility and they were normal. She has no concern for any acute process at this time and does not believe these are required at this time. Patient's corroborates his story. We all agreed together on the joint decision not to obtain imaging or labs. Patient be treated for pain and discharge. What meds were considered but not given or refused? Why? @ -None Did you discuss the management of the patient with other professionals (professionals i.e. , PA, ASSEMBLER PING [employer]ONG [employer], lab, RT, psych nurse, social science professor, senior radiation therapist, teacher, fire information officer, child welfare caseworker)? Give summary @ -No Was smoking cessation discussed for >3mins.? @ -No Was critical care preformed (if so, how long)? @ -No Were there social determinants of health that impacted care today? How? (Homelessness, low income, unemployed, alcoholism, drug addiction, trans portation, low edu. Level, literacy, decrease access to med. care, [facility], rehab)? @ -No Was there de-escalation of care discussed even if they declined (Discuss DNR or withdrawal of care, Hospice)? DNR status @ -No What co-morbidities impacted this encounter? (DM, HTN, Smoking, COPD, CAD, Cancer, CVA, ARF, Chemo, Hep., AIDS, mental health diagnosis, sleep apnea, morbid obesity)? @ -None Was patient admitted / discharged? Hospital course, mention meds given and route, prescriptions, significant lab abnormalities, going to OR and other pertinent info. @ -Presents with postoperative pain. Unable to fill home prescription for oral Dilaudid. Recently had what sounds like a cerebral shunt with drainage into the abdomen placed. Was just discharged last night from the hospital. Unable to fill the Dilaudid prescription due to insurance issues. I did discuss obtaining labs as well as imaging concerning recent surgery however patient and patient's both believe this is not required at this time as she had recent CT imaging done at the other hospital, [facility] which was all normal. They do not want any labs or imaging completed. It was a joint decision between us 3 and we will not obtain labs or imaging. Patient be symptomatically treated for the pain and discharge. She was in agreement this plan. She was given a migraine cocktail as well as IV Dilaudid. Vitals are within acceptable limits. On reevaluation, patient is feeling improved. She would like to go home. I believe this is reasonable. I will give her a starter pack of Tylenol 3. Recommend follow-up with her surgeon and PCP to ironed out her pain med issue. She was in agreement this plan. I instructed the patient to follow up with their PCP in the next 1-3 days. I explained that the patient should return to the emergency department if they experience any worsening symptoms. Strict return precautions were discussed with the patient. The patient expressed understanding of these instructions. I answered all questions that the patient had. The patient was discharged home in good condition with their prescriptions and follow up information. Undiagnosed new problem with uncertain prognosis? @ -No Drug Therapy requiring intensive monitoring for toxicity (Heparin, Nitro, Insulin, Cardizem)? @ -No Were any procedures done? @ -No Diagnosis/symptom? @ -Postop pain Acute, or Chronic, or Acute on Chronic? @ -Acute Uncomplicated (without systemic symptoms) or Complicated (systemic symptoms)? @ -Uncomplicated Side effects of treatment? @ -No Exacerbation, Progression, or Severe Exacerbation? @ -No Poses a threat to life or bodily function? How? (Chest pain, [place], ID, pneumonia, PE, COPD, DKA, ARF, appy, cholecystitis, CVA, Diverticulitis, Homicidal, Suicidal, threat to staff... and all critical care pts) @ -Unlikely at this time Disposition Clinical Impression: Post-op pain Disposition: HOME SELF-CARE Condition: Good Additional Instructions: Follow-up with PCP as well surgeon to INR your pain meds for home. Return to the ER for any worsening symptoms. Is patient prescribed a controlled substance at d/c from ED?: No Referrals: Adam Robledo MD [Primary Care Provider] - 1-2 days Time of Disposition: 23:45
[2025-01-04] MEDS: ACET/COD 300 MG/30 MG STARTER PACK 6 TAB BTL PO STA (23:51)
== END 2025-01-05 00:06 | disposition home or self-care (01) ==
LOC: EC 20:54
DX: G89.18 Other acute postprocedural pain (principal); I10 Essential (primary) hypertension; Z59.71 Insufficient health insurance coverage; Z79.01 Long term (current) use of anticoagulants; Z88.0 Allergy status to penicillin; Z88.7 Allergy status to serum and vaccine; Z88.8 Allergy status to other drugs, medicaments and biological substances
CPT/HCPCS: 99283; 96374; 96375; 96376; 96361; J1200; J2405; J1171; J1885

== ENCOUNTER 2025-01-21 15:57 | Emergency (ER) | payer BC ==
[2025-01-21 16:02] VITALS: RESP 18
[2025-01-21] MEDS: SODIUM CHLORIDE 0.9% 1,000 ML IV ONE (18:01)
[2025-01-21 18:04] LABS: Basophils # (A) 0.02 10*3/uL (0.00-0.10); Basophils % (A) 0.4 %; Eosinophils # (A) 0.08 10*3/uL (0.04-0.35); Eosinophils % (A) 1.4 %; HCT 44.1 % (37.2-46.3); HGB 13.9 g/dL (12.0-15.0); Lymphocytes # (A) 1.74 10*3/uL (0.90-5.00); Lymphocytes % (A) 31.4 %; MCH 25.6 pg (27.0-32.0); MCHC 31.5 g/dL (32.0-37.0); MCV 81.2 fL (80.0-97.0); Monocytes # (A) 0.33 10*3/uL (0.20-1.00); Monocytes % (A) 6.0 %; Neutrophils # (A) 3.35 10*3/uL (1.80-7.70); Neutrophils % (A) 60.4 %; Platelet Count 306 10*3/uL (140-440); RBC 5.43 10*6/uL (4.10-5.20); RDW 15.5 % (11.5-14.5); WBC 5.54 10*3/uL (4.50-10.00)
[2025-01-21 18:24] LABS: ALT 38 U/L (4-34); AST 36 U/L (14-36); African American GFR (CKD) >90 (>60 ml/min/1.73 sqM); Albumin 4.4 g/dL (3.5-5.0); Alkaline Phosphatase 95 U/L (38-126); Anion Gap 10 mmol/L; Blood Urea Nitrogen 11 mg/dL (7-17); Calcium 9.5 mg/dL (8.4-10.2); Carbon Dioxide 27 mmol/L (22-30); Chloride 102 mmol/L (98-107); Glucose 96 mg/dL (74-99); Lipase 149 U/L (23-300); Non-African American GFR(CKD) >90 (>60 ml/min/1.73 sqM); Potassium 4.1 mmol/L (3.5-5.1); Sodium 139 mmol/L (137-145); Total Protein 7.3 g/dL (6.3-8.2)
[2025-01-21 19:15] LABS: Bacteria,Urine Occasional /hpf; Bilirubin,Urine Negative (Negative); Blood,Urine Negative (Negative); Calcium Oxalate Crystals,Urine Rare /hpf; Color,Urine Yellow; Glucose,Urine (UA) Negative (Negative); Ketones,Urine Negative (Negative); Leukocyte Esterase,Urine Negative (Negative); Mucus,Urine Rare /hpf; Nitrite,Urine Negative (Negative); PH, Urine 6.0 (5.0-8.0); Protein,Urine Negative (Negative); RBC,Urine 6 /hpf (0-5); Specific Gravity,Urine 1.027 (1.001-1.035); Squamous Epithelial Cell,Urine 8 /hpf (0-4); Urobilinogen,Urine <2.0 mg/dL (<2.0); WBC,Urine 2 /hpf (0-5)
--- NOTE | 2025-01-21 19:35 | CT ---
EXAMINATION TYPE: CT brain wo con CT DLP: 1156.4 mGycm, Automated exposure control for dose reduction was used. DATE OF EXAM: 01/21/2025 7:29 PM COMPARISON: CT brain C-spine 08/18/2024 CLINICAL INDICATION:Female, 29 years old with history of pain, recent vp compliance shunt placement, pain, recen t vp compliance shunt placement TECHNIQUE: Brain: Multiple axial CT images of the brain were obtained without IV contrast. . Coronal and sagitta l reformats reviewed. FINDINGS: Brain: Extra-axial spaces: No abnormal extra-axial fluid collections. Ventricular system: No hydrocephalus. Right posterior parieto-occipital approach BRIAR WOOD SORTER shunt catheter wi th distal tip within the right lateral ventricle body abutting the septum pellucidum. The visualized portions of the shunt appear intact. No surrounding fluid collections or fat stranding. Cerebral parenchyma: No acute intraparenchymal hemorrhage or mass effect. The brothers-white junction is well differentiated. Cerebellum: Unremarkable. Mass effect: No evidence of midline shift. Intracranial vasculature: unremarkable Soft tissues: Normal. Calvarium/osseous structures: No depressed skull fracture. Paranasal sinuses and mastoid air cells: Clear Visualized orbits: Orbital contents are intact. IMPRESSION: 1. No acute intracranial process. 2. Right-sided BRIAR WOOD SORTER shunt catheter in appropriate position. No hydrocephalus. [facility], , 01/21/2025 7:33 PM
[2025-01-21] MEDS: HYDROmorphone 1 MG/ML 1 ML SYRINGE IVP STA (19:42)
--- NOTE | 2025-01-21 19:46 | XR ---
EXAMINATION TYPE: XR chest 1V DATE OF EXAM: 01/21/2025 7:33 PM COMPARISON: Chest radiographs from 08/18/2024. TECHNIQUE: XR chest 1V Frontal view of the chest. CLINICAL INDICATION:Female, 29 years old with history of pain, svp operations shunt; FINDINGS: Lungs/Pleura: There is no evidence of pleural effusion, focal consolidation, or pneumothorax. Pulmonary vascularity: Unremarkable. Heart/mediastinum: Cardiomediastinal silhouette is unremarkable. Musculoskeletal: No acute osseous pathology. Other findings: Right chest RF TECHNICIAN shunt catheter identified. The visualized portion appears intact. IMPRESSION: No acute cardiopulmonary disease/process. [facility], , 01/21/2025 7:44 PM
--- NOTE | 2025-01-21 19:47 | XR ---
EXAMINATION TYPE: XR KUB DATE OF EXAM: 01/21/2025 COMPARISON: KUB radiograph 08/24/2022 HISTORY: Pain, HVAC INSTRUCTOR shunt TECHNIQUE: Single supine KUB image of the abdomen is obtained FINDINGS: Small bowel demonstrates no evidence for dilatation or air fluid levels. Gas and fecal material is seen in non-distended colon. No convincing evidence for pneumoperitoneum. No unusual calcifications. HVAC INSTRUCTOR shunt catheter identified within the right abdomen coursing into the l eft pelvis and distal tip within the right pelvis. The visualized portion of the catheter appears int act. The lung bases are clear. The osseous structures are intact. IMPRESSION: Overall nonobstructive bowel gas pattern. [facility], , 01/21/2025 7:45 PM
--- NOTE | 2025-01-21 20:18 | ED ---
General Adult HPI - General Chief complaint: Abdominal Pain Stated complaint: abdominal surgical site not healing Time Seen by Provider: 01/21/25 16:25 Source: patient, RN notes reviewed Mode of arrival: ambulatory Limitations: no limitations - History of Present Illness Initial comments: 29-year-old female presents to the emergency department for evaluation of abdominal pain. Patient states that she had a APPLICATION DEVELOPMENT DIRECTOR shunt placed 6 weeks ago. She states that the pain started immediately after the procedure. She denies any change in the pain but notes that it has been constant. She has been taking her oral Dilaudid at home which provides her with some relief. She denies any nausea, vomiting, diarrhea or constipation, denies any urinary symptoms. Denies fever or chills. - Related Data Home Medications Medication Instructions Recorded Confirmed tiZANidine HCL [Zanaflex] 4 mg PO Q4H PRN 07/30/22 01/21/25 Apixaban [Eliquis] 5 mg PO BID 06/20/23 01/21/25 Ondansetron [Zofran] 4 mg PO TID PRN 08/18/24 01/21/25 Atogepant [Qulipta] 30 mg PO DAILY 01/21/25 01/21/25 Ferrous Sulfate [Feosol] 325 mg PO DAILY 01/21/25 01/21/25 Gabapentin [Neurontin] 300 mg PO TID 01/21/25 01/21/25 HYDROmorphone [Dilaudid] 4 mg PO QID 01/21/25 01/21/25 Loperamide [Imodium] 2 mg PO QID PRN 01/21/25 01/21/25 Metoclopramide [Reglan] 5 mg PO BID PRN 01/21/25 01/21/25 Metoprolol Tartrate [Lopressor] 25 mg PO BID 01/21/25 01/21/25 Pregabalin [Lyrica] 75 mg PO TID 01/21/25 01/21/25 buPROPion XL [Wellbutrin XL] 150 mg PO DAILY 01/21/25 01/21/25 traZODone HCL [Desyrel] 100 mg PO HS 01/21/25 01/21/25 Previous Rx's Medication Instructions Recorded Escitalopram [Lexapro] 20 mg PO DAILY #30 tab 08/20/24 busPIRone HCl [Buspar] 20 mg PO BID 30 Days #120 tab 08/20/24 Allergies Allergy/AdvReac Type Severity Reaction Status Date / Time amoxicillin [Amoxicillin] Allergy Rash/Hives Verified 01/21/25 18:47 cefprozil Allergy Rash/Hives Verified 01/21/25 18:47 Influenza Virus Vaccines Allergy Unknown Verified 01/21/25 18:47 Childhood lisinopril Allergy Cough Verified 01/21/25 18:47 Penicillins Allergy Rash/Hives Verified 01/21/25 18:47 Review of Systems ROS Statement: Those systems with pertinent positive or pertinent negative responses have been documented in the HPI. ROS Other: All systems not noted in ROS Statement are negative. Past Medical History Past Medical History: Hypertension, Pulmonary Embolus (PE) Additional Past Medical History / Comment(s): back pain, Ovarian cysts, mi graines, Covid fall 2021 with PE, benign tumor puituitary, degenerative disc disease, multiple syncopal episodes History of Any Multi-Drug Resistant Organisms: None Reported Past Surgical History: No Surgical Hx Reported Additional Past Surgical History / Comment(s): multiple rhizotomy; Closplint teeth, colonoscopy, hymenectomy, shunt Past Anesthesia/Blood Transfusion Reactions: No Reported Reaction Additional Past Anesthesia/Blood Transfusion Reaction / Comment(s): NO ANES THESIA HX. Past Psychological History: Anxiety, Depression Smoking Status: Never smoker Past Alcohol Use History: Occasional Past Drug Use History: None Reported - Past Family History Mother Family Medical History: No Reported History General Exam Limitations: no limitations General appearance: alert, in no apparent distress Head exam: Present: atraumatic, normocephalic, normal inspection Eye exam: Present: normal appearance, PERRL, EOMI. Absent: scleral icterus, conjunctival injection, periorbital swelling ENT exam: Present: normal exam, mucous membranes moist Respiratory exam: Present: normal lung sounds bilaterally. Absent: respiratory distress, wheezes, rales, rhonchi, stridor Cardiovascular Exam: Present: regular rate, normal rhythm, normal heart sounds. Absent: systolic murmur, diastolic murmur, rubs, gallop, clicks GI/Abdominal exam: Present: soft, normal bowel sounds. Absent: distended, tenderness, guarding, rebound, rigid Extremities exam: Present: normal inspection, full ROM, normal capillary refill. Absent: tenderness, pedal edema, joint swelling, calf tenderness Back exam: Present: normal inspection Neurological exam: Present: alert, oriented X3 Psychiatric exam: Present: normal affect, normal mood Skin exam: Present: warm, dry, intact, normal color. Absent: rash Course Vital Signs 01/21/25 01/21/25 01/21/25 15:59 18:03 21:04 Temperature 98.5 F 98.2 F Pulse Rate 105 H 89 98 Respiratory 18 18 18 Rate Blood Pressure 120/85 141/89 141/80 O2 Sat by Pulse 96 99 97 Oximetry Medical Decision Making - Medical Decision Making Was pt. sent in by a medical professional or institution (, PA, CLAY HOUSE WORKER, urgent care, hospital, or correction...) When possible be specific @ -No Did you speak to anyone other than the patient for history (EMS, parent, family, police, friend...)? What history was obtained from this source @ -Patient's provides with history for Did you review nursing and triage notes (agree or disagree)? Why? @ -I reviewed and agree with nursing and triage notes Were old charts reviewed (outside hosp., previous admission, EMS record, old EKG, old radiological studies, urgent care reports/EKG's, correction records)? Report findings @ -No old charts were reviewed Differential Diagnosis (chest pain, altered mental status, abdominal pain women, abdominal pain men, vaginal bleeding, weakness, fever, dyspnea, syncope, headache, dizziness, GI bleed, back pain, seizure, CVA, palpatations, mental health, musculoskeletal)? @ -Differential Abdominal Pain Women: Appendicitis, Cholecystitis, diverticulosis, ischemic bowel, pancreatitis, hepatitis, UTI, gastroenteritis, AAA, incarcerated hernia, bowel obstruction, constipation, inflammatory bowel, hepatitis, peptic ulcer disease, splenic infarction, perforated viscus, vulvitis, ovarian torsion, PID, kidney stone, placenta abruption, this is not meant to be an all-inclusive list EKG interpreted by me (3pts min.). @ -None X-rays interpreted by me (1pt min.). @ -Chest x-ray reveals no acute cardiopulmonary process KUB x-rayVP shunt catheter within the right abdomen coursing to the left pelvis and distal tip in the right pelvis appears intact CT interpreted by me (1pt min.). @ -CT of the brain reveals APPLICATION DEVELOPMENT DIRECTOR shunt in appropriate position U/S interpreted by me (1pt. min.). @ -None done What testing was considered but not performed or refused? (CT, X-rays, U/S, labs)? Why? @ -None What meds were considered but not given or refused? Why? @ -None Did you discuss the management of the patient with other professionals (professionals i.e. Dr., PA, CLAY HOUSE WORKER, lab, RT, psych nurse, social service coordinator, special education inclusion teacher, teacher, chief financial officer, casework specialist)? Give summary @ -No Was smoking cessation discussed for >3mins.? @ -No Was critical care preformed (if so, how long)? @ -No Were there social determinants of health that impacted care today? How? (Homelessness, low income, unemployed, alcoholism, drug addiction, transportation, low edu. Level, literacy, decrease access to med. care, retirement, rehab)? @ -No Was there de-escalation of care discussed even if they declined (Discuss DNR or withdrawal of care, Hospice)? DNR status @ -No What co-morbidities impacted this encounter? (DM, HTN, Smoking, COPD, CAD, Cancer, CVA, ARF, Chemo, Hep., AIDS, mental health diagnosis, sleep apnea, morbid obesity)? @ -None Was patient admitted / discharged? Hospital course, mention meds given and route, prescriptions, significant lab abnormalities, going to OR and other pertinent info. @ -Discharge. Patient presented the emergency department for evaluation of postop abdominal pain. Patient notes that this pain has been consistent for the past 6 weeks. X-ray of the chest and a KUB was performed and the APPLICATION DEVELOPMENT DIRECTOR shunt catheter appears intact. CT of the brain reveals APPLICATION DEVELOPMENT DIRECTOR shunt within appropriate position. Patient was provided medication for pain control in the emergency department. She will be discharged home advised follow-up to her surgeon. She is understanding agreeable discharge plan. Patient stable at time of discharge. Case discussed with Dr. Sparks. Undiagnosed new problem with uncertain prognosis? @ -No Drug Therapy requiring intensive monitoring for toxicity (Heparin, Nitro, Insulin, Cardizem)? @ -No Were any procedures done? @ -No Diagnosis/symptom? @ -Postop pain Acute, or Chronic, or Acute on Chronic? @ -Acute Uncomplicated (without systemic symptoms) or Complicated (systemic symptoms)? @ -Uncomplicated Side effects of treatment? @ -No Exacerbation, Progression, or Severe Exacerbation? @ -No Poses a threat to life or bodily function? How? (Chest pain, [place], [place], pneumonia, PE, COPD, DKA, ARF, appy, cholecystitis, CVA, Diverticulitis, Homicidal, Suicidal, threat to staff... and all critical care pts) @ -No - Lab Data Result diagrams: 01/21/25 17:55 01/21/25 17:55 Lab Results 01/21/25 01/21/25 01/21/25 Range/Units 16:47 16:47 17:55 WBC 5.54 (4.50-10.00) 10*3/uL RBC 5.43 H (4.10-5.20) 10*6/uL Hgb 13.9 (12.0-15.0) g/dL Hct 44.1 (37.2-46.3) % MCV 81.2 (80.0-97.0) fL MCH 25.6 L (27.0-32.0) pg MCHC 31.5 L (32.0-37.0) g/dL Plt Count 306 (140-440) 10*3/uL MPV 9.2 L (9.5-12.2) fL Immature Gran % (Auto) 0.4 % Neutrophils % 60.4 % Lymphocytes % 31.4 % Monocytes % 6.0 % Eosinophils % 1.4 % Basophils % 0.4 % Immature Gran # 0.02 (0.00-0.04) 10*3/uL Neutrophils # 3.35 (1.80-7.70) 10*3/uL Lymphocytes # 1.74 (0.90-5.00) 10*3/uL Monocytes # 0.33 (0.20-1.00) 10*3/uL Eosinophils # 0.08 (0.04-0.35) 10*3/uL Basophils # 0.02 (0.00-0.10) 10*3/uL Sodium (137-145) mmol/L Potassium (3.5-5.1) mmol/L Chloride (98-107) mmol/L Carbon Dioxide (22-30) mmol/L Anion Gap mmol/L BUN (7-17) mg/dL Creatinine (0.52-1.04) mg/dL Est GFR (CKD-EPI)AfAm (>60 ml/min/1.73 sqM) Est GFR (CKD-EPI)NonAf (>60 ml/min/1.73 sqM) Glucose (74-99) mg/dL Calcium (8.4-10.2) mg/dL Total Bilirubin (0.2-1.3) mg/dL AST (14-36) U/L ALT (4-34) U/L Alkaline Phosphatase (38-126) U/L Total Protein (6.3-8.2) g/dL Albumin (3.5-5.0) g/dL Lipase (23-300) U/L Urine Color Yellow Urine Appearance Cloudy H (Clear) Urine pH 6.0 (5.0-8.0) Ur Specific [place] 1.027 (1.001-1.035) Urine Protein Negative (Negative) Urine Glucose (UA) Negative (Negative) Urine Ketones Negative (Negative) Urine Blood Negative (Negative) Urine Nitrite Negative (Negative) Urine Bilirubin Negative (Negative) Urine Urobilinogen <2.0 (<2.0) mg/dL Ur Leukocyte Esterase Negative (Negative) Urine RBC 6 H (0-5) /hpf Urine WBC 2 (0-5) /hpf Ur Squamous Epith Cells 8 H (0-4) /hpf Calcium Oxalate Crystal Rare H (None) /hpf Urine Bacteria Occasional H (None) /hpf Urine Mucus Rare H (None) /hpf Urine HCG, Qual Not Detected (Not Detectd) 01/21/25 Range/Units 17:55 WBC (4.50-10.00) 10*3/uL RBC (4.10-5.20) 10*6/uL Hgb (12.0-15.0) g/dL Hct (37.2-46.3) % MCV (80.0-97.0) fL MCH (27.0-32.0) pg MCHC (32.0-37.0) g/dL Plt Count (140-440) 10*3/uL MPV (9.5-12.2) fL Immature Gran % (Auto) % Neutrophils % % Lymphocytes % % Monocytes % % Eosinophils % % Basophils % % Immature Gran # (0.00-0.04) 10*3/uL Neutrophils # (1.80-7.70) 10*3/uL Lymphocytes # (0.90-5.00) 10*3/uL Monocytes # (0.20-1.00) 10*3/uL Eosinophils # (0.04-0.35) 10*3/uL Basophils # (0.00-0.10) 10*3/uL Sodium 139 (137-145) mmol/L Potassium 4.1 (3.5-5.1) mmol/L Chloride 102 (98-107) mmol/L Carbon Dioxide 27 (22-30) mmol/L Anion Gap 10 mmol/L BUN 11 (7-17) mg/dL Creatinine 0.63 (0.52-1.04) mg/dL Est GFR (CKD-EPI)AfAm >90 (>60 ml/min/1.73 sqM) Est GFR (CKD-EPI)NonAf >90 (>60 ml/min/1.73 sqM) Glucose 96 (74-99) mg/dL Calcium 9.5 (8.4-10.2) mg/dL Total Bilirubin 0.6 (0.2-1.3) mg/dL AST 36 (14-36) U/L ALT 38 H (4-34) U/L Alkaline Phosphatase 95 (38-126) U/L Total Protein 7.3 (6.3-8.2) g/dL Albumin 4.4 (3.5-5.0) g/dL Lipase 149 (23-300) U/L Urine Color Urine Appearance (Clear) Urine pH (5.0-8.0) Ur Specific [place] (1.001-1.035) Urine Protein (Negative) Urine Glucose (UA) (Negative) Urine Ketones (Negative) Urine Blood (Negative) Urine Nitrite (Negative) Urine Bilirubin (Negative) Urine Urobilinogen (<2.0) mg/dL Ur Leukocyte Esterase (Negative) Urine RBC (0-5) /hpf Urine WBC (0-5) /hpf Ur Squamous Epith Cells (0-4) /hpf Calcium Oxalate Crystal (None) /hpf Urine Bacteria (None) /hpf Urine Mucus (None) /hpf Urine HCG, Qual (Not Detectd) Disposition Clinical Impression: Postoperative abdominal pain Disposition: HOME SELF-CARE Condition: Stable Instructions (If sedation given, give patient instructions): Abdominal Pain (ED) Additional Instructions: Please follow up with your doctor. Return to the emergency department for new or worsening symptoms. Is patient prescribed a controlled substance at d/c from ED?: No Referrals: Juan Diego Robledo MD [Primary Care Provider] - 1-2 days
[2025-01-21] MEDS: diphenhydrAMINE 50 MG/ML 1 ML VIAL IVP STA (20:24)
[2025-01-21] MEDS: METOCLOPRAMIDE 5 MG/ML 2 ML VIAL IVP STA (20:24)
[2025-01-21] MEDS: SODIUM CHLORIDE 0.9% 500 ML 500 ML IV ONE (20:25)
[2025-01-21] MEDS: KETOROLAC 15 MG/ML 1 ML VIAL IVP STA (20:25)
[2025-01-21] MEDS: HYDROmorphone 0.5 MG/0.5 ML SYRINGE IVP STA (21:01)
[2025-01-21 21:06] VITALS: BP 141/80; PULSE 98; TEMP 98.2
== END 2025-01-21 21:06 | disposition home or self-care (01) ==
LOC: EC 15:57
DX: G89.18 Other acute postprocedural pain (principal); R10.9 Unspecified abdominal pain; Z88.0 Allergy status to penicillin; Z88.7 Allergy status to serum and vaccine; Z88.8 Allergy status to other drugs, medicaments and biological substances
CPT/HCPCS: 36415; 80053; 83690; 85025; 81001; 81025; 71045; 74018; 70450; 99284; 96374; 96375; 96376; 96361 ×2; J1200; J2765; J1171 ×2; J1885

== ENCOUNTER → 2025-02-03 | Outpatient (CLI) | payer BC ==
[2025-02-03 11:05] VITALS: BP 127/83; PULSE 85; RESP 17
--- NOTE | 2025-02-03 13:16 | P.PAINPG ---
Objective - Vital Signs Vital signs: Intake & Output 02/02/25 02/03/25 02/03/25 18:59 06:59 18:59 Weight 141.067 kg PQRS Measure Charge Sheet Comment: HISTORY OF PRESENT ILLNESS: A 29 yr old female w boyfriend at side as a referral from Dr Kory Robledo presents today w severe and chronic LBP > 3 mo secondary to radiculopathy, spondylosis and facet arthropathy without myelopathy for evaluation. Pt underwent a BL RFA L4-L5, L5-S1 at [facility] in [facility] in Apr 2023 where she experienced 60% pain relief x 6-8 mo s/p procedure. Pt states pain level is provoked at 8 /10 in intensity, intermittent, localized in the thoracolumbar spine, predominantly axial, achy in character w occasional shooting pain towards the LEs. Pain is provoked by lifting. Pain is alleviated by visiting home PT x 4 wks she is currently in, medications, repositioning and rest. Pt is not and states due to multiple medical conditions, is unable to conceive. Discussed use of contraception w pt and boyfriend at side while on narcotic medications. Pt and boyfriend at side acknowledged understanding. Oswestry axial pain score at 21. PMH: OA, HTN, PE, Ovarian Cysts, Benign Pituitary Tumor, MDD/ Anxiety PSH: [place] Teeth Extraction, Colonoscopy, Hymenectomy, Shunt Placement SH: Never smoker, Occ ETOH use, No illicit drug use FH: Mo- No Reported History All: See list Medications include Toradol, Excedrin, Zanaflex, Eliquis REVIEW OF ORGAN SYSTEMS: CONSTITUTIONAL: No fevers or chills. No recent weight loss. NEUROLOGICAL: + numbness and tingling along the distal extremities. No seizure disorders or headaches. MUSCULOSKELETAL: + pain PSYCHIATRIC: Denies current depression or suicidal thoughts. Physical Examinations : Constitutional : Cooperative , not in acute distress . Neurologic : Cranial nerve II to XII intact. No focal neurological deficits. Psychiatric : alert & oriented x 3. Matching mood & appropriate affect. Judgment & insight intact. Musculoskeletal : Cervical Spine Motor strength in the deltoid and biceps: Normal right side. Normal Left side Motor strength biceps and the wrist extensors: Normal right side . Normal left side Motor strength in the triceps muscle: Normal right side. Normal left side Deep tendon reflexes: Normal at the biceps. Normal at Brachioradialis. Normal at triceps Lhermitte Sign (cervical flexion) positive Vertebral body tenderness to deep palpation over Cervical facet loading test: positive bilaterally Spurling test: positive bilaterally Neck distraction test: positive bilate rally Dalton sign: positive bilaterally Shoulders Muscle bulk/ tone/ strength BL Resisted Internal Rotation positive R / positive L Resisted External Rotation positive R / positive L Empty Can Test positive R / positive L Drop Arm Test positive R / positive L Lumbar spine Motor strength lower extremities ,thigh and legs 5/5 Right side , 5/5 Left side Deep tendon reflexes : Normal Knee Jerk. Normal Ankle Jerk Vertebral body tenderness over Jones Test positive Lumbar facet Loading Test: positive Right / positive Left L4-L5, L5-S1 Range of motion of the lumbar spine Flexion 30 degrees, extension 10 degrees Straight Leg Raise test: Left/ Right positive at degrees Drop foot reflex: positive R / positive L Rancho test: positive right / positive left. Severe tenderness over the Sacroiliac joint on the Right / Left sides Gaenslen test: positive bilaterally Sacral spine : Severe tenderness over the Sacroiliac joint: right side / left side Range of motion: Flexion of the lumbar spine <60 degrees Range of motion: Extension of the lumbar spine <20 degrees Gaenslen's Test positive Rancho test: positive right side / left side Thigh Thrust Test Sacral Thrust Test Hip Joint Antalgic walking gait positive Trendelenburg positive R / positive L Imaging: CT non contrast thoracolumbar spine from 05/28/24 reviewed Assessment/ Plan : Lumbar facet arthropathy Recommendation of BL RFA L4-L5, L5-S1 and medication management. Risks, benefits of procedure discussed and patient verbalized understanding. Admits to anti- coagulant use or medical history of diabetes. Protocol for discontinuation/ continuation of medications carlos procedure discussed. Minimal anesthesia provided, if clinically indicated, consisting of Versed and Fentanyl. [place] 7.5/325mg #90 w RF. Opiate/ narcotic agreement 02/03/25. Use, side effects, adverse reactions, safe storage discussed. All questions answered. I have spent greater than 30 minutes on patient care today. Dr Sexton was available by phone for the evaluation of this patient. The time was used to review the medical records including relevant urine studies and Prescription history (MAPs), review of the available imaging, evaluation and examination of the patient, coordination of care with the medical staff and if applicable referring physicians, as well as creation of the medical record - Pain Location Lower Back Pharmacological Interventions: Medication PQRS Narrative: Smoking Status Never smoker Home Medications: Ambulatory Orders tiZANidine HCL [Zanaflex] 4 mg PO Q4H PRN 07/30/22 Apixaban [Eliquis] 5 mg PO BID 06/20/23 Ondansetron [Zofran] 4 mg PO TID PRN 08/18/24 Escitalopram [Lexapro] 20 mg PO DAILY #30 tab 08/20/24 busPIRone HCl [Buspar] 20 mg PO BID 30 Days #120 tab 08/20/24 Atogepant [Qulipta] 30 mg PO DAILY 01/21/25 Ferrous Sulfate [Feosol] 325 mg PO DAILY 01/21/25 Gabapentin [Neurontin] 300 mg PO TID 01/21/25 HYDROmorphone [Dilaudid] 4 mg PO QID 01/21/25 Loperamide [Imodium] 2 mg PO QID PRN 01/21/25 Metoclopramide [Reglan] 5 mg PO BID PRN 01/21/25 Metoprolol Tartrate [Lopressor] 25 mg PO BID 01/21/25 Pregabalin [Lyrica] 75 mg PO TID 01/21/25 buPROPion XL [Wellbutrin XL] 150 mg PO DAILY 01/21/25 traZODone HCL [Desyrel] 100 mg PO HS 01/21/25 Controlled Substance Measures - Controlled Substance Measures Is patient prescribed a controlled substance at discharge?: Yes When asked, does pt state using other controlled substances?: Yes If prescribed controlled substance>3 days was MAPS reviewed?: Yes If Rx opioid, was Start Talking consent form obtained?: Yes Was information provided regarding opioid addiction?: Yes
== END ==
LOC: PNWHC3 10:44
PROVIDERS: ATTEND Specialist
DX: M47.26 Other spondylosis with radiculopathy, lumbar region (principal); Z88.0 Allergy status to penicillin; Z88.1 Allergy status to other antibiotic agents; Z88.7 Allergy status to serum and vaccine; Z88.8 Allergy status to other drugs, medicaments and biological substances
CPT/HCPCS: 99212